=== PATIENT | female | born 1945 | race Hispanic/Latino ===

== ENCOUNTER 2017-02-23 17:37 | Inpatient (IN) | payer MEDICARE ==
[2017-02-23] MEDS ORDERED: Azithromycin 500 MG VIAL ONE (18:22)
[2017-02-23 18:28] LABS: #Eosinphils 0.5 thou/uL (0.0-0.7); #Lymphocytes 1.6 thou/uL (1.20-3.40); #Monocytes 0.6 thou/uL (0.11-0.59); %Basophils 0.3 % (0.0-1.0); %Lymphocytes 12.8 % (21.0-51.0); %Monocytes 4.4 % (0.0-10.0); Hematocrit 44.7 % (36.0-47.0); Mean Platelet Volume 6.4 fL (7.4-10.4); Red Blood Cell (RBC) Count 4.66 mill/uL (4.20-5.40); White Blood Cell (WBC) Count 12.7 thou/uL (4.8-10.8)
[2017-02-23] MEDS ORDERED: cefTRIAXone\\ROCEPHIN 2 GM in Sodium Chloride 0.9% 100 ML IVPB SCH (18:30)
[2017-02-23 18:46] LABS: Lactic Acid - Sepsis 2.9 mmol/L (0.5-2.2)
[2017-02-23 18:50] LABS: ALT (SGPT) 15 U/L (8-55); AST (SGOT) 39 U/L (5-34); Alkaline Phosphatase 79 U/L (40-150); Anion Gap 17 mmol/L (10-20); BUN (Urea Nitrogen) 33 mg/dL (9.8-20.1); Calc. Creatinine Clearance 0 mL/min (70-130); Calcium 9.8 mg/dL (7.8-10.44); Carbon Dioxide 23 mmol/L (23-31); Chloride 95 mmol/L (98-107); Estimated GFR-MDRD 44; Globulin 6.9 g/dL (2.4-3.5)
[2017-02-23 19:03] LABS: Troponin I 0.028 ng/mL (< 0.028)
[2017-02-23 20:26] LABS: Bilirubin Negative (Negative); Blood, Urine Trace (Negative); Glucose, Urine (Dipstick) Negative (Negative); Ketone, Urine 15 mg/dL (Negative); Nitrite Negative (Negative); Protein, Urine (Dipstick) 30 mg/dL (Neg-Trace)
[2017-02-23 20:35] LABS: Bacteria/HPF None Seen HPF (None Seen); Hyaline Casts/LPF 0-3 HYALINE CAST LPF (0-3 Hyaline); RBC/HPF 0-3 HPF (0-3); Squamous Epithelial 0-3 HPF (0-3); WBC/HPF 0-3 HPF (0-3)
--- NOTE | 2017-02-23 21:05 | RAD ---
CHEST ONE VIEW 02/23/17 HISTORY: Sepsis. COMPARISON: CT from 2009. FINDINGS: There are extensive interstitial opacities throughout the lungs with the basilar predominance. There is also left lower lobe air space consolidation. No pneumothorax. The cardiac silhouette is obscured. IMPRESSION: 1. Diffuse abnormal interstitial opacities throughout the lungs can be seen with pulmonary fibro sis, atypical infection or edema. Followup recommended. 2. Cardiomegaly. 3. Left lower lobe air space consolidation. POS: [facility]
[2017-02-23] MEDS ORDERED: Sodium Chloride 0.9% 1,000 ML IV SCH (21:21)
[2017-02-23] MEDS ORDERED: Acetaminophen 325 MG TAB PO PRN (21:21)
--- NOTE | 2017-02-23 21:39 | PDOC.EVN ---
Event Note - Event Note Event Note: [id number] 1. Pneumonia 2. HTN 3. IDDM type 2 plan: see orders
[2017-02-23] MEDS ORDERED: Dextrose 5% in Water 1,000 ML IV PRN (21:57)
[2017-02-23] MEDS ORDERED: Dextrose 50% Abboject 50 ML SYRINGE SLOW IVP PRN (21:57)
[2017-02-23] MEDS ORDERED: cefTRIAXone\\ROCEPHIN 1 GM in Sodium Chloride 0.9% 100 ML IVPB SCH (22:00)
[2017-02-23] MEDS: Azithromycin 500 MG in Sodium Chloride 0.9% 250 ML 250 ML IVPB SCH (22:25)
[2017-02-23] MEDS: Ondansetron HCl/PF 4 MG/2 ML Vial IVP PRN (22:59)
[2017-02-23] MEDS: traMADol HCl 50 MG TAB PO PRN (23:00)
[2017-02-23] MEDS: Sodium Chloride 0.9% 1,000 ML IV SCH (23:01)
--- NOTE | 2017-02-23 23:35 | CT ---
CT CHEST WITHOUT CONTRAST 02/23/17 HISTORY: Pneumonia. COMPARISON: Chest radiograph same day. CT chest 2009. FINDINGS: There is abnormal opacification of both lower lobes. This is superimposed upon interstitial fibrosis. There is some nodularity in the right middle lobe peripherally as well as in the left upper lobe. Li cayla reactive pretracheal and AP window lymph nodes. No pericardial effusion. There are extensive merlin cifications of the superior mesenteric artery. Hyperdensity is present at the posterior cortex left k idney measuring fluid attenuation. There is a calculus in the left renal pelvis. No displaced rib fracture. Moderate to severe degenerative changes of the right shoulder. IMPRESSION: 1. Multifocal bibasilar pneumonia superimposed on fibrotic changes. Followup recommended. 2. Nodularity of the right lower lobe peripherally, series 9, image 34 measuring up to 9 mm and within the left upper lobe series 9, image 16 measuring also 9 mm. Close attention on followup imagin g is recommended. It is unsure if this is a pulmonary nodule or other confluence of infection. POS: SOHAN
[2017-02-24] MEDS ORDERED: Metoprolol Tartrate 25 MG TAB PO SCH (03:00)
[2017-02-24] MEDS: Acetaminophen 325 MG TAB PO PRN ×3 (03:43→22:07)
[2017-02-24] MEDS: Benzonatate 100 MG CAP PO PRN ×2 (03:43→12:17)
[2017-02-24 05:24] LABS: #Basophils 0.1 thou/uL (0.0-0.2); #Eosinphils 0.4 thou/uL (0.0-0.7); #Lymphocytes 1.2 thou/uL (1.20-3.40); #Monocytes 0.5 thou/uL (0.11-0.59); #Neutrophils 7.3 thou/uL (1.40-6.50); %Basophils 0.6 % (0.0-1.0); %Eosinophils 4.5 % (0.0-10.0); %Lymphocytes 12.3 % (21.0-51.0); %Monocytes 4.9 % (0.0-10.0); Hematocrit 34.3 % (36.0-47.0); Mean Platelet Volume 6.3 fL (7.4-10.4); Red Blood Cell (RBC) Count 3.62 mill/uL (4.20-5.40); White Blood Cell (WBC) Count 9.4 thou/uL (4.8-10.8)
[2017-02-24 05:30] LABS: Anion Gap 10 mmol/L (10-20); BUN (Urea Nitrogen) 20 mg/dL (9.8-20.1); Calc. Creatinine Clearance 2 mL/min (70-130); Calcium 8.2 mg/dL (7.8-10.44); Carbon Dioxide 24 mmol/L (23-31); Chloride 102 mmol/L (98-107); Estimated GFR-MDRD 72
--- NOTE | 2017-02-24 06:20 | HP ---
DATE OF ADMISSION: 02/23/2017 CHIEF COMPLAINT: Cough and sputum production. HISTORY OF PRESENT ILLNESS: The patient is 71 years old female with past medical history of hypertension, insulin-dependent diabetes type 2, rheumatoid arthritis, now came to the ER complaining of cough and sputum production and chest congestion. The patient's symptoms started approximately 1 week back, cough with sputum production, sputum was green in color, complaints of some chills, complaints of low grade fever also. The patient's dyspnea persisted, so she came to the ER. The patient was started on Z-CHAYO as an outpatient, but did not take it until yesterday, but symptoms got worse today. Denies any chest pain. Denies any palpations. Denies any nausea and vomiting. Three episodes of coughing. Denies any other complaints at this time. Denies sick contacts. PAST MEDICAL HISTORY: Hypertension, insulin dependent diabetes mellitus type, rheumatoid arthritis. PAST SURGICAL HISTORY: Cholecystectomy, partial hysterectomy, tubal ligation. SOCIAL HISTORY: Denies smoking, denies alcohol, and denies any drugs. FAMILY HISTORY: Mother has colon cancer. ALLERGIES: No known drug allergies. REVIEW OF SYSTEMS: Constitutional: Positive for fever and chills. Eyes: Denies any vision problems. Ears: Denies any hearing loss. Neck: Denies any neck pain. Cardiovascular System: Denies any chest pain. Denies any palpitations. Respiratory system: Denies dyspnea, positive cough, positive sputum production. GI: Denies nausea or vomiting, denies abdominal pain. 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 Psych: Denies depression, denies anxiety. All other review of systems are reviewed and are negative. Physical examination: VS: Reviewed and stable General: Awake, alert and oriented Heent: Anterior nares patent, nose normal Oral cavity: Teeth intact CVS: S1 s2 present, rrr, no murmur, no rubs, no gallop RS: No accessory muscle usage seen, Positive for crackles. Diminished at the bases, no rhonchi, breath sounds present bilaterally. Gastrointestinal: Abdomen is soft, nontender, no guarding, no organomegaly, no masses felt. Musculoskeletal: No edema. Moves all joints Cranial nervous system: Awake, follows commands. Strength intact, sensory intact. Psychiatric: Mood is appropriate at this time. Integumentary: No rashes seen. : No suprapubic or inguinal tenderness LABORATORY DATA: At the time of H and P performed, white count 12.7, hemoglobin 15.1, platelet count is 283. BMP showed sodium 130, potassium 4.2, chloride 95, CO2 of 23, BUN of 33, creatinine 1.19, glucose 222. Lactic acid 2.9, troponin 0.028. Serum total protein 10, albumin 3.1. Urinalysis specific gravity 1.017, protein 30, ketones 15. ASSESSMENT AND PLAN: The patient is 71 years old female. 1. Pneumonia. Plan to start the patient on broad spectrum antibiotics. Plan to monitor the patient closely. Plan to consult Pulmonary and ID to evaluate the patient. We will follow the patient. 2. History of hypertension. Monitor blood pressure. Continue home blood pressure medications. 3. History of insulin independent diabetes mellitus type 2. Monitor blood sugars. We will do insulin sliding scale. 4. Hyponatremia. Mild. Plant to start IV fluids, repeat BMP in a.m. The case was discussed in detail with the patient. The patient is FULL CODE. MTDD
[2017-02-24] MEDS ORDERED: Aspirin 81 mg Enteric Coated Tablet PO SCH ×2 (09:20→10:15)
[2017-02-24] MEDS ORDERED: guaiFENesin/Dextromethorphan 10 ML UDCUP PO PRN (10:32)
[2017-02-24] MEDS ORDERED: guaiFENesin ER 600 MG TAB PO SCH ×2 (10:34→11:00)
[2017-02-24] MEDS: Enoxaparin Sodium 40 MG/0.4 ML SYRINGE SC SCH (10:50)
[2017-02-24] MEDS: Metoprolol Tartrate 25 MG TAB PO SCH ×2 (10:50→22:09)
--- NOTE | 2017-02-24 10:50 | CON ---
DATE OF CONSULTATION: 02/24/2017 CONSULTING PHYSICIAN: Dr. Mcelroy. REASON FOR CONSULTATION: Pneumonia. HISTORY OF PRESENT ILLNESS: Ms. Lopez is a 71-year-old female, who was hospitalized last night with a 3-week history of cough and sputum production. She has bilateral basilar pneumonia. Peter martínez says she has no history of lung conditions in the past. She has had some subjective fever and chil ls. She has not coughed up any blood. PAST MEDICAL HISTORY: 1. Hypertension. 2. Diabetes mellitus, type 2. PAST SURGICAL HISTORY: 1. Cholecystectomy. 2. Hysterectomy. 3. Tubal ligation. SOCIAL HISTORY: Lifetime nonsmoker, does not consume alcohol, does not use illicit drugs. FAMILY MEDICAL HISTORY: Remarkable for colon cancer. ALLERGIES: None. MEDICATIONS: Prior to admission, omeprazole 10 mg daily, Zithromax 250 mg daily, aspirin 81 mg daily , tramadol 50 mg every 6 hours as needed, NPH insulin 20 units in the morning and 15 units in the carmina janie, Mobic 15 mg daily, hydrochlorothiazide 25 mg daily. REVIEW OF SYSTEMS: Constitutional: She has had some subjective fever. Gastrointestinal: No nausea or vomiting. No hematemesis, melena, hematochezia. Genitourinary: No hematuria or dysuria. PHYSICAL EXAMINATION: VITAL SIGNS: Temperature 98.4, pulse 107, respirations 20, O2 sat 96% on 2 liters, blood pressure 14 3/64. GENERAL: Most notable physical finding is persistent coughing. HEENT EXAM: Unremarkable. NECK: No JVD. CHEST: Inspiratory crackles at both bases. CARDIOVASCULAR: S1, S2, slightly tachycardic. No murmur. ABDOMEN: Soft and nontender. EXTREMITIES: Without clubbing, cyanosis, or edema. NEUROLOGIC EXAM: Nonfocal. SKIN: Demonstrates no lesions. LABORATORY DATA: White blood cell count 9.4, hematocrit 34.3, platelet count 220, sodium 132, potass ium 3.7, chloride 102, CO2 of 24, BUN 20, creatinine 0.7, glucose 216. ASSESSMENT: 1. Community-acquired pneumonia. Chest x-ray shows bilateral basilar infiltrates. 2. Underlying diabetes mellitus. 3. Underlying hypertension. PLAN: 1. Agree with current antibiotics including the ceftriaxone and Zithromax. 2. IV fluids. 3. Antitussive medication as needed. Thank you for the referral. I will be happy to follow with you.
[2017-02-24] MEDS: cloNIDine 0.1 MG TAB PO PRN (12:17)
[2017-02-24] MEDS: traMADol HCl 50 MG TAB PO PRN ×2 (12:18→22:07)
[2017-02-24] MEDS: HumaLOG 300 UNITS/3 ML VIAL SC PRN ×2 (12:47→18:08)
--- NOTE | 2017-02-24 15:04 | PDOC.PN ---
- Subjective Encounter Start Date: 02/24/17 Encounter Start Time: 15:03 Subjective: feels bad.cough,malaise.no chest pain/sob - Objective MAR Reviewed: Yes Vital Signs & Weight: Vital Signs (12 hours) Temp Pulse Resp BP BP BP Pulse Ox 02/24/17 14:35 82 16 92 L 02/24/17 13:44 105 H 112/55 L 02/24/17 12:17 203/84 H 02/24/17 11:52 101.5 F H 115 H 20 203/82 H 91 L 02/24/17 10:38 83 16 94 L 02/24/17 08:00 98.4 F 107 H 20 143/64 H 92 L 02/24/17 07:03 94 L 02/24/17 07:01 88 16 94 L 02/24/17 06:14 79 20 157/70 H Weight Admit Weight 142 lb 8 oz Weight 142 lb 8 oz I&O: 02/23/17 02/24/17 02/25/17 06:59 06:59 06:59 Intake Total 732 Output Total 750 Balance -18 Result Diagrams: 02/24/17 04:50 02/24/17 04:50 Additional Labs: Accuchecks 02/24/17 02/24/17 11:29 06:18 POC Glucose 231 H 190 H Microbiology 02/23/17 19:50 Nasopharyngeal swab Influenza Types A,B Direct EIA - Final 02/23/17 19:48 Urine voided Urine Culture - Preliminary NO GROWTH AT 24 HOURS 02/23/17 18:05 Venous blood - Right Arm Blood Culture - Preliminary Specimen has been received and culture in progress. No Growth to date. 02/23/17 18:05 Venous blood - Left Arm Blood Culture - Preliminary Specimen has been received and culture in progress. No Growth to date. Laboratory Tests 02/23/17 02/23/17 02/23/17 18:05 18:05 18:05 WBC 12.7 H Creatinine 1.19 H Lactic Acid 2.9 H Troponin I B-Natriuretic Peptide 02/23/17 02/23/17 02/23/17 18:05 18:05 21:53 WBC Creatinine Lactic Acid 1.3 Troponin I 0.028 B-Natriuretic Peptide 42.3 02/24/17 02/24/17 04:50 04:50 WBC 9.4 Creatinine 0.78 Lactic Acid Troponin I B-Natriuretic Peptide Phys Exam - Physical Examination Constitutional: NAD ill looking HEENT: PERRLA, moist MMs, sclera anicteric, oral pharynx no lesions Neck: no nodes, no JVD, supple, full ROM Respiratory: no wheezing, no rhonchi, clear to auscultation bilateral decreased at bases Cardiovascular: RRR, no significant murmur, no rub, gallop Gastrointestinal: soft, non-tender, no distention, positive bowel sounds Musculoskeletal: no edema, pulses present Neurological: non-focal, normal sensation, moves all 4 limbs Psychiatric: normal affect, A&O x 3 Skin: no rash Dx/Plan (1) PNA (pneumonia) Code(s): J18.9 - PNEUMONIA, UNSPECIFIED ORGANISM Status: Acute (2) Sepsis Code(s): A41.9 - SEPSIS, UNSPECIFIED ORGANISM Status: Acute (3) HTN (hypertension) Code(s): I10 - ESSENTIAL (PRIMARY) HYPERTENSION Status: Acute (4) DM2 (diabetes mellitus, type 2) Status: Acute (5) Non compliance w medication regimen Code(s): Z91.14 - PATIENT'S OTHER NONCOMPLIANCE WITH MEDICATION REGIMEN Status : Acute (6) Rheumatoid arthritis Code(s): M06.9 - RHEUMATOID ARTHRITIS, UNSPECIFIED Status: Acute - Plan DVT proph w/SCDs cont supportive care. IV ABx,IVF.follow Cx results. -: appreciate PCCM input. -: cont demetrice emeds. -: BP uncontrolled w tachycardia.started on BB.continue. -: counselled about compliance w meds. * .am labs. Review of Systems - Review of Systems Constitutional: Weakness, Malaise. negative: Fever, Chills, Sweats, Other Respiratory: Cough, SOB with Excertion. negative: Dry, Shortness of Breath, Hemoptysis, Pleuritic Pain, Sputum, Wheezing Cardiovascular: negative: Chest Pain, Palpitations, Orthopnea, Paroxysmal Noc. Dyspnea, Edema, Light Headedness, Other Gastrointestinal: negative: Nausea, Vomiting, Abdominal Pain, Diarrhea, Constipation, Melena, Hematochezia, Other Genitourinary: negative: Dysuria, Frequency, Incontinence, Hematuria, Retention , Other Musculoskeletal: negative: Neck Pain, Shoulder Pain, Arm Pain, Back Pain, Hand Pain, Leg Pain, Foot Pain, Other Neurological: negative: Weakness, Numbness, Incoordination, Change in Speech, Confusion, Seizures, Other - Medications/Allergies Allergies/Adverse Reactions: Allergies Allergy/AdvReac Type Severity Reaction Status Date / Time No Known Drug Allergies Allergy Verified 02/23/17 21:57 Medications: Current Medications Acetaminophen (Tylenol) 650 mg PO Q4H PRN PRN Reason: Headache/Fever or Pain Last Admin: 02/24/17 12:21 Dose: 650 mg Albuterol/Ipratropium (Duoneb) 3 ml IPPB [id number] [facility] Last Admin: 02/24/17 14:35 Dose: 3 ml Aspirin (Ecotrin) 81 mg PO DAILY [facility] Benzonatate (Tessalon) 100 mg PO Q8H PRN PRN Reason: Cough Last Admin: 02/24/17 12:17 Dose: 100 mg Clonidine (Catapres) 0.1 mg PO Q6H PRN PRN Reason: SBP GREATER THAN 160 Last Admin: 02/24/17 12:17 Dose: 0.1 mg Dextrose/Water (Dextrose 50%) 25 gm SLOW IVP PRN PRN PRN Reason: Hypoglycemia Enoxaparin Sodium (Lovenox) 40 mg SC 0900 [facility] Last Admin: 02/24/17 10:50 Dose: 40 mg Glucagon (Glucagon) 1 mg IM PRN PRN PRN Reason: Hypoglycemia Guaifenesin (Mucinex) 1,200 mg PO Q12HR [facility] Guaifenesin/Codeine Phosphate (Robitussin Ac) 10 ml PO Q6H PRN PRN Reason: Cough Guaifenesin/Dextromethorphan (Robitussin Dm) 10 ml PO Q6H PRN PRN Reason: Cough Hydralazine HCl (Apresoline) 10 mg SLOW IVP Q4H PRN PRN Reason: FOR SBP>180 Azithromycin 500 mg/ Sodium (Chloride) 250 mls @ 250 mls/hr IVPB Q24HR [facility] Last Admin: 02/23/17 22:25 Dose: Not Given Dextrose/Water (D5w) 1,000 mls @ 0 mls/hr IV .Q0M PRN; As Directed PRN Reason: Hypoglycemia Ceftriaxone Sodium 1 gm/ (Syringe 0.4 ml/ Sterile Water) 10 mls @ 120 mls/hr SLOW IVP 1830 CORRY Sodium Chloride (Normal Saline 0.9%) 1,000 mls @ 0 mls/hr IV .Q0M CORRY PRN Reason: KVO Last Admin: 02/23/17 23:01 Dose: 1,000 mls Insulin Human Lispro (Humalog) 0 units SC .MODERATE SLIDING SC PRN PRN Reason: Moderate Correctional Scale Last Admin: 02/24/17 12:47 Dose: 4 unit Insulin Human Lispro (Humalog) 0 units SC .BEDTIME SLIDING SC PRN PRN Reason: Bedtime Correctional Scale Metoprolol Tartrate (Lopressor) 25 mg PO BID [facility] Last Admin: 02/24/17 10:50 Dose: 25 mg Ondansetron HCl (Zofran) 4 mg IVP Q6H PRN PRN Reason: Nausea/Vomiting Last Admin: 02/23/17 22:59 Dose: 4 mg Pantoprazole Sodium (Protonix) 40 mg PO DAILY [facility] Tramadol HCl (Ultram) 50 mg PO Q6H PRN PRN Reason: Pain 4-6 Last Admin: 02/24/17 12:18 Dose: 50 mg
[2017-02-24] MEDS: Ondansetron HCl/PF 4 MG/2 ML Vial IVP PRN (18:23)
[2017-02-24] MEDS ORDERED: CEFAZOLIN 1 GM, Syringe 2.5 ML in Sterile Water 7.5 ML SLOW IVP SCH (18:30)
[2017-02-24] MEDS ORDERED: cefTRIAXone\\ROCEPHIN 1 GM, Syringe 0.4 ML in Sterile Water 9.6 ML SLOW IVP SCH (18:30)
[2017-02-24] MEDS: Azithromycin 500 MG in Sodium Chloride 0.9% 250 ML 250 ML IVPB SCH (22:05)
[2017-02-24] MEDS: guaiFENesin ER 600 MG TAB PO SCH (22:06)
[2017-02-24] MEDS: guaiFENesin/Codeine Phosphate 200 mg/20 mg 10 ml UD Cup PO PRN (22:11)
[2017-02-24] MEDS: Sodium Chloride 0.9% 1,000 ML IV SCH (22:14)
[2017-02-25 04:47] LABS: #Eosinphils 0.1 thou/uL (0.0-0.7); #Lymphocytes 1.4 thou/uL (1.20-3.40); #Monocytes 0.3 thou/uL (0.11-0.59); #Neutrophils 9.7 thou/uL (1.40-6.50); %Basophils 0.3 % (0.0-1.0); %Eosinophils 0.9 % (0.0-10.0); %Lymphocytes 12.5 % (21.0-51.0); %Monocytes 2.5 % (0.0-10.0); Hematocrit 34.9 % (36.0-47.0); Mean Platelet Volume 6.5 fL (7.4-10.4); Red Blood Cell (RBC) Count 3.59 mill/uL (4.20-5.40); White Blood Cell (WBC) Count 11.5 thou/uL (4.8-10.8)
[2017-02-25 05:06] LABS: Anion Gap 10 mmol/L (10-20); BUN (Urea Nitrogen) 18 mg/dL (9.8-20.1); Calc. Creatinine Clearance 65 mL/min (70-130); Calcium 8.4 mg/dL (7.8-10.44); Carbon Dioxide 25 mmol/L (23-31); Chloride 103 mmol/L (98-107); Estimated GFR-MDRD 71
[2017-02-25] MEDS ORDERED: traMADol HCl 50 MG TAB PO PRN (07:07)
[2017-02-25] MEDS: guaiFENesin/Codeine Phosphate 200 mg/20 mg 10 ml UD Cup PO PRN (07:08)
--- NOTE | 2017-02-25 07:53 | PQF ---
CLINICAL DOCUMENTATION IMPROVEMENT CLARIFICATION FORM: ICD-10 Updated PLEASE DO AN ADDENDUM TO THE PROGRESS NOTE WITH ANY DOCUMENTATION UPDATES OR ADDITIONS AND CARRY THROUGH TO DC SUMMARY. THANK YOU. DATE: 02/25 ATTN: DR. ROBERT SKY Please exercise your independent, professional judgment in responding to the clarification form. Clinical indicators are provided on the bottom of this form for your review Please check appropriate box(s): [ x ] Acute Renal Failure (ARF) / Acute Kidney Injury (REINALDO) (Please specify associated condition, if applicable) [ ] Other Etiology or underlying conditions related to the diagnosis of ARF/ REINALDO: [ ] Acute on Chronic Renal Failure please specify Stage of CKD [ ] CKD without ARF/REINALDO please specify Stage of CKD [ ] Other diagnosis [ ] Unable to determine For continuity of documentation, please document condition throughout progress notes and discharge summary. Thank You. CLINICAL INDICATORS - SIGNS / SYMPTOMS / LABS BUN: 33 CR: 1.19 GFR: 44 (ON ADMIT, 02/23) 20 0.78 72 (02/24) 18 0.79 71 (02/25) RISK FACTORS: SEPSIS PNEUMONIA HTN DM II TREATMENTS: IVF (NS 02/23 - PRESENT) IV ANTIBIOTICS (ROCEPHIN & AZITHROMYCIN 02/23 - PRESENT) THANK YOU! Adrianne (This form is maintained as a part of the permanent medical record) 2014 [employer]. All Rights Reserved Adrianne Fischer RN, BSN [email or web address] Office: [phone] [facility]
[2017-02-25 07:55] LABS: Oxyhemoglobin 89.1 % (94.0-97.0); Sodium 137 mmol/L (135-148)
[2017-02-25 08:00] LABS: Modified Allen's Test POSITIVE; Vent NO
--- NOTE | 2017-02-25 08:48 | RAD ---
CHEST 1 VIEW: Date: 02/25/17 HISTORY: Sepsis. Respiratory distress. COMPARISON: 02/23/17. FINDINGS: Essentially stable interstitial and alveolar opacities. Stable configuration of the cardiac silhouett e. No pneumothorax or pleural effusion. IMPRESSION: No significant change. POS: [facility]
[2017-02-25] MEDS ORDERED: Non-Formulary Item 1 EACH (Omeprazole Magnesium [Prilosec] 10 MG) PO SCH (09:00)
[2017-02-25] MEDS ORDERED: Metoprolol Tartrate 25 MG TAB PO SCH (09:00)
[2017-02-25] MEDS ORDERED: Insulin NPH/Reg Insulin Hm 300 UNITS/3 ML VIAL SC SCH ×2 (09:00→21:00)
[2017-02-25] MEDS ORDERED: Acetaminophen 650 MG in Premix Bag 1 BAG IVPB PRN (09:08)
[2017-02-25] MEDS: Enoxaparin Sodium 40 MG/0.4 ML SYRINGE SC SCH (09:36)
[2017-02-25] MEDS: Aspirin 81 mg Enteric Coated Tablet PO SCH (09:38)
[2017-02-25] MEDS: cloNIDine 0.1 MG TAB PO PRN (09:38)
[2017-02-25] MEDS: guaiFENesin ER 600 MG TAB PO SCH ×2 (09:38→20:30)
[2017-02-25] MEDS: Metoprolol Tartrate 25 MG TAB PO SCH ×2 (09:39→20:30)
[2017-02-25] MEDS: Sodium Chloride 0.9% 1,000 ML IV SCH (09:40)
--- NOTE | 2017-02-25 09:53 | PDOC.PN ---
- Subjective Encounter Start Date: 02/25/17 Encounter Start Time: 08:45 -: old records requested/rev this morning pt is hypoxic, she is in respiratory distress, last night had SVT, family present bedside - Objective Resuscitation Status: Resuscitation Status FULL:Full Resuscitation MAR Reviewed: Yes Vital Signs & Weight: Vital Signs (12 hours) Temp Pulse Resp BP BP Pulse Ox 02/25/17 09:38 203/84 H 02/25/17 07:35 99.4 F 115 H 30 H 171/74 H 98 02/25/17 07:07 76 L 02/25/17 06:59 82 36 H 02/25/17 04:00 98.0 F 79 20 131/62 97 02/25/17 01:06 96 02/24/17 23:08 88 18 90 L Weight Admit Weight 142 lb 8 oz Weight 142 lb 8 oz I&O: 02/24/17 02/25/17 02/26/17 06:59 06:59 06:59 Intake Total 732 742 Output Total 750 1000 Balance -18 -258 Result Diagrams: 02/25/17 04:17 02/25/17 04:17 Additional Labs: Accuchecks 02/25/17 02/24/17 02/24/17 06:33 20:28 17:02 POC Glucose 171 H 159 H 173 H 02/24/17 11:29 POC Glucose 231 H Radiology Reviewed by me: Yes (chest xray) EKG Reviewed by me: Yes (SVT) Phys Exam - Physical Examination respi distress HEENT: PERRLA, moist MMs, sclera anicteric Neck: no JVD, supple Respiratory: wheezing present basilar rales Cardiovascular: RRR, no significant murmur, no rub tachycardia Gastrointestinal: soft, non-tender, no distention, positive bowel sounds Musculoskeletal: no edema, pulses present Neurological: non-focal, normal sensation Psychiatric: normal affect Skin: no rash, normal turgor Dx/Plan (1) Acute respiratory failure with hypoxia Code(s): J96.01 - ACUTE RESPIRATORY FAILURE WITH HYPOXIA Status: Acute (2) Community acquired bacterial pneumonia Code(s): J15.9 - UNSPECIFIED BACTERIAL PNEUMONIA Status: Acute (3) SVT (supraventricular tachycardia) Code(s): I47.1 - SUPRAVENTRICULAR TACHYCARDIA Status: Acute (4) Sepsis with acute organ dysfunction Code(s): A41.9 - SEPSIS, UNSPECIFIED ORGANISM; R65.20 - SEVERE SEPSIS WITHOUT SEPTIC SHOCK Status: Acute (5) DM2 (diabetes mellitus, type 2) Status: Chronic (6) HTN (hypertension) Code(s): I10 - ESSENTIAL (PRIMARY) HYPERTENSION Status: Chronic (7) Non compliance w medication regimen Code(s): Z91.14 - PATIENT'S OTHER NONCOMPLIANCE WITH MEDICATION REGIMEN Status : Chronic (8) Rheumatoid arthritis Code(s): M06.9 - RHEUMATOID ARTHRITIS, UNSPECIFIED Status: Chronic (9) Acute kidney injury Code(s): N17.9 - ACUTE KIDNEY FAILURE, UNSPECIFIED Status: Resolved (10) Hyponatremia Code(s): E87.1 - HYPO-OSMOLALITY AND HYPONATREMIA Status: Resolved (11) Lactic acidosis Code(s): E87.2 - ACIDOSIS Status: Resolved - Plan cont current plan of care, plan discussed w/ family, continue antibiotics, respiratory therapy * transfer to CCU * ABG and chest xray reviewed * will need bipap * change IV antibiotics to levaquin and Zosyn * add solumderol * continue selected home medication. * medication reviewed as below * symptomatic treatment * discussed with family bedside * will closely monitor in CCU. * get echo and consult cardiology for SVT * continue meroprolol * add florastor Review of Systems - Review of Systems Constitutional: Weakness. negative: Fever, Chills, Sweats, Malaise, Other ENT: negative: Ear Pain, Ear Discharge, Nose Pain, Nose Discharge, Nose Congestion, Mouth Pain, Mouth Swelling, Throat Pain, Throat Swelling, Other Respiratory: Cough, Shortness of Breath, SOB with Excertion. negative: Dry, Hemoptysis, Pleuritic Pain, Sputum, Wheezing Cardiovascular: Palpitations. negative: Chest Pain, Orthopnea, Paroxysmal Noc. Dyspnea, Edema, Light Headedness, Other Gastrointestinal: negative: Nausea, Vomiting, Abdominal Pain, Diarrhea, Constipation, Melena, Hematochezia, Other Genitourinary: negative: Dysuria, Frequency, Incontinence, Hematuria, Retention , Other Musculoskeletal: negative: Neck Pain, Shoulder Pain, Arm Pain, Back Pain, Hand Pain, Leg Pain, Foot Pain, Other - Medications/Allergies Allergies/Adverse Reactions: Allergies Allergy/AdvReac Type Severity Reaction Status Date / Time No Known Drug Allergies Allergy Verified 02/23/17 21:57 Medications: Current Medications Acetaminophen (Tylenol) 650 mg PO Q4H PRN PRN Reason: Headache/Fever or Pain Albuterol/Ipratropium (Duoneb) 3 ml IPPB [id number] [facility] Last Admin: 02/25/17 06:59 Dose: 3 ml Aspirin (Ecotrin) 81 mg PO DAILY [facility] Last Admin: 02/25/17 09:38 Dose: 81 mg Benzonatate (Tessalon) 100 mg PO Q8H PRN PRN Reason: Cough Last Admin: 02/24/17 12:17 Dose: 100 mg Clonidine (Catapres) 0.1 mg PO Q6H PRN PRN Reason: SBP GREATER THAN 160 Last Admin: 02/25/17 09:38 Dose: 0.1 mg Dextrose/Water (Dextrose 50%) 25 gm SLOW IVP PRN PRN PRN Reason: Hypoglycemia Enoxaparin Sodium (Lovenox) 40 mg SC 0900 [facility] Last Admin: 02/25/17 09:36 Dose: 40 mg Glucagon (Glucagon) 1 mg IM PRN PRN PRN Reason: Hypoglycemia Guaifenesin (Mucinex) 1,200 mg PO Q12HR [facility] Last Admin: 02/25/17 09:38 Dose: 1,200 mg Guaifenesin/Codeine Phosphate (Robitussin Ac) 10 ml PO Q6H PRN PRN Reason: Cough Last Admin: 02/25/17 07:08 Dose: 10 ml Guaifenesin/Dextromethorphan (Robitussin Dm) 10 ml PO Q6H PRN PRN Reason: Cough Hydralazine HCl (Apresoline) 10 mg SLOW IVP Q4H PRN PRN Reason: FOR SBP>180 Dextrose/Water (D5w) 1,000 mls @ 0 mls/hr IV .Q0M PRN; As Directed PRN Reason: Hypoglycemia Sodium Chloride (Normal Saline 0.9%) 1,000 mls @ 0 mls/hr IV .Q0M CORRY PRN Reason: KVO Last Admin: 02/25/17 09:40 Dose: 1,000 mls Levofloxacin 750 mg/ Device 150 mls @ 100 mls/hr IVPB 1000 CORRY Last Admin: 02/25/17 09:37 Dose: 150 mls Piperacillin Sod/Tazobactam (Sod 3.375 gm/ Sodium Chloride) 100 mls @ 200 mls/ hr IVPB Q6HR [facility] Acetaminophen 650 mg/ Device 65 mls @ 400 mls/hr IVPB Q6H PRN PRN Reason: Fever > 101 Stop: 02/26/17 09:09 Last Admin: 02/25/17 09:35 Dose: 65 mls Insulin Human Isoph/Insulin Regular (Humulin 70/30) 15 units SC HS CORRY Insulin Human Isoph/Insulin Regular (Humulin 70/30) 20 units SC QAM CORRY Insulin Human Lispro (Humalog) 0 units SC .MODERATE SLIDING SC PRN PRN Reason: Moderate Correctional Scale Last Admin: 02/24/17 18:08 Dose: 2 unit Insulin Human Lispro (Humalog) 0 units SC .BEDTIME SLIDING SC PRN PRN Reason: Bedtime Correctional Scale Methylprednisolone Sodium Succinate (Solu-Medrol) 40 mg IVP Q6HR [facility] Metoprolol Tartrate (Lopressor) 25 mg PO BID [facility] Last Admin: 02/25/17 09:39 Dose: 25 mg Ondansetron HCl (Zofran) 4 mg IVP Q6H PRN PRN Reason: Nausea/Vomiting Last Admin: 02/24/17 18:23 Dose: 4 mg Pantoprazole Sodium (Protonix) 40 mg PO DAILY [facility] Last Admin: 02/25/17 09:38 Dose: 40 mg Sodium Chloride (Flush - Normal Saline) 10 ml IVF Q12HR [facility] Sodium Chloride (Flush - Normal Saline) 10 ml IVF PRN PRN PRN Reason: Saline Flush Tramadol HCl (Ultram) 50 mg PO Q6H PRN PRN Reason: Pain 4-6 Last Admin: 02/24/17 22:07 Dose: 50 mg Tramadol HCl (Ultram) 50 mg PO Q6H PRN PRN Reason: Pain
[2017-02-25] MEDS: Ondansetron HCl/PF 4 MG/2 ML Vial IVP PRN (09:55)
[2017-02-25] MEDS: Insulin NPH/Reg Insulin Hm 300 UNITS/3 ML VIAL SC SCH ×2 (10:52→20:31)
[2017-02-25] MEDS: HumaLOG 300 UNITS/3 ML VIAL SC PRN ×3 (11:06→21:46)
[2017-02-25] MEDS: Piperacillin/Tazobactam 3.375 GM in Sodium Chloride 0.9% 100 ML IVPB SCH ×2 (11:07→17:29)
--- NOTE | 2017-02-25 11:16 | PRG ---
DATE OF SERVICE: 02/25/2017 Thirty-five minutes critical care time. SUBJECTIVE: The patient was transferred to the CCU, because of progressive hypoxemia. She has been placed on BiPAP. PHYSICAL EXAMINATION: VITAL SIGNS: On exam, her temperature is 99.4, pulse 115, respirations 30, O2 sat 98% on 10 liters w ith 76% on 4 liters, blood pressure currently 204/72. HEENT: Unremarkable. NECK: No JVD. LUNGS: Inspiratory crackles bilaterally. CARDIOVASCULAR: S1 and S2, tachycardic. ABDOMEN: Soft. EXTREMITIES: No edema. LABORATORY DATA: White blood cell count 11.5, hematocrit 34.9, platelet count 217. PH 7.42, pCO2 of 37, pO2 of 57 on 50% Ventimask. Sodium 134, potassium 3.9, chloride 103, CO2 of 25, BUN 18, creatin ine 0.7, glucose 182. ASSESSMENT: 1. Community-acquired pneumonia, bilateral. It has become apparent that the patient did not take an tibiotics that were prescribed last week for this condition. 2. Acute hypoxic respiratory failure. PLAN: 1. BiPAP therapy. 2. Extend antibiotic coverage. 3. Add IV steroids. 4. Her antihypertensives for blood pressure. 5. Insulin for diabetes control. 6. Enoxaparin for DVT prophylaxis. 7. Protonix for GI prophylaxis.
[2017-02-25] MEDS ORDERED: Saccharomyces boulardii 250 MG CAP PO SCH (11:30)
[2017-02-25] MEDS: Nystatin 500,000 UNITS/5 ML UDCUP SSW SCH (20:30)
--- NOTE | 2017-02-25 21:40 | CON ---
DATE OF CONSULTATION: 02/25/2017 REASON FOR CONSULTATION: Supraventricular tachycardia in the setting of respiratory failure. HISTORY OF PRESENT ILLNESS: Ms. Lopez is a pleasant 71-year-old woman. She was admitted to the [facility] on 02/23/2017 with cough, sputum production, and low grade fever. She had worsening of her br eathing trouble last night and was brought to the intensive care unit. She was briefly on CPAP. She also had some supraventricular tachycardia, which was successfully treated. She is feeling better n ow. No previous cardiac history per the patient. PAST MEDICAL HISTORY: Hypertension, apparently not taking any medications and diabetes. PAST SURGICAL HISTORY: Cholecystectomy, hysterectomy and tubal ligation. SOCIAL HISTORY: Lifetime nonsmoker. FAMILY HISTORY: Colon cancer. ALLERGIES: None known. MEDICATIONS: Listed prior to admission, azithromycin, aspirin, tramadol, insulin, Mobic and hydrochl orothiazide. REVIEW OF SYSTEMS: Per the chart the following positive for subjective fever. Gastrointestinal: No nausea, vomiting. Cardiac: No chest pain or pressure now. Pulmonary: Positive for cough. Genito urinary: No hematuria, dysuria. Skin: No rashes. Neurologic: No unilateral weakness or numbness. Psychiatric: No unusual depression or anxiety. PHYSICAL EXAMINATION: GENERAL: This is a pleasant elderly woman, in no distress. VITAL SIGNS: Blood pressure now is 110/47, pulse 90, but earlier her blood pressure was 200 systolic . HEENT: Eyes: Sclerae nonicteric. Mouth mucous membranes are moist. NECK: Supple, no lymphadenopathy. LUNGS: Clear. No wheezing, rales or rhonchi. CARDIOVASCULAR: Normal S1, normal S2. There is no murmur, rub or gallop. ABDOMEN: Soft, nontender, no hepatosplenomegaly. EXTREMITIES: Warm and dry. No clubbing, no cyanosis. There is no edema. LABORATORY AND X-RAY FINDINGS: EKG during the tachycardia, she had a narrow complex tachycardia, rat e of 170, looks like AV kelley reentry SVT, now she is sinus rhythm. EKG on 02/23/2017 showed left ve ntricular hypertrophy and sinus tachycardia. ASSESSMENT: 1. Supraventricular tachycardia. 2. Respiratory failure, currently improved. 3. Hypertension. 4. Acidosis. PLAN: 1. Echocardiogram. 2. Beta blockers. 3. P.r.n. Cardizem. I will be glad to follow with you. Ultimately, if she has recurrent SVT, ablation could be considere d, but for now would treat medically.
[2017-02-26] MEDS: Piperacillin/Tazobactam 3.375 GM in Sodium Chloride 0.9% 100 ML IVPB SCH ×5 (00:24→23:23)
[2017-02-26 04:51] LABS: #Lymphocytes 0.8 thou/uL (1.20-3.40); #Monocytes 0.2 thou/uL (0.11-0.59); %Eosinophils 0.1 % (0.0-10.0); %Lymphocytes 6.1 % (21.0-51.0); %Monocytes 1.1 % (0.0-10.0); Mean Platelet Volume 6.6 fL (7.4-10.4); Red Blood Cell (RBC) Count 3.53 mill/uL (4.20-5.40); White Blood Cell (WBC) Count 12.9 thou/uL (4.8-10.8)
[2017-02-26 05:02] LABS: Anion Gap 8 mmol/L (10-20); BUN (Urea Nitrogen) 23 mg/dL (9.8-20.1); Calc. Creatinine Clearance 64 mL/min (70-130); Calcium 8.7 mg/dL (7.8-10.44); Carbon Dioxide 29 mmol/L (23-31); Chloride 101 mmol/L (98-107); Estimated GFR-MDRD 70
[2017-02-26 05:09] LABS: Troponin I 0.021 ng/mL (< 0.028)
[2017-02-26] MEDS: HumaLOG 300 UNITS/3 ML VIAL SC PRN ×4 (05:25→20:31)
[2017-02-26] MEDS: guaiFENesin/Codeine Phosphate 200 mg/20 mg 10 ml UD Cup PO PRN (06:49)
--- NOTE | 2017-02-26 08:24 | PRG ---
DATE OF SERVICE: 02/26/2017 Thirty-five minutes critical care time. The patient remains on BiPAP. She was able to come off intermittently yesterday, but had to sleep wi th it all night last night. She is complaining of some mild lower abdominal pain. She is coughing i ntermittently. PHYSICAL EXAMINATION: VITAL SIGNS: On exam her temperature is 98.2 with a T-max of 101.0, pulse 96, blood pressure 129/62, 24-hour intake 1732, output 1230. HEENT: Unremarkable. NECK: Without adenopathy or JVD. LUNGS: She has a few scattered crackles bilaterally. CARDIOVASCULAR: S1, S2, regular. ABDOMEN: Soft. Very mild tenderness to palpation in the left lower quadrant, but no rebound. EXTREMITIES: No clubbing, cyanosis, or edema. LABORATORY DATA: White blood cell count 12.9, hematocrit 34.0, platelet count 249. Sodium 134, pota ssium 3.6, chloride 101, CO2 29, BUN 23, creatinine 0.8, glucose 226. Chest x-ray continues to show bilateral infiltrates. ASSESSMENT: 1. Community-acquired pneumonia with outpatient treatment failure. 2. Acute hypoxic respiratory failure requiring mechanical ventilation. 3. Supraventricular tachycardia. 4. Hyperglycemia, likely secondary to the steroids. PLAN: 1. Continue BiPAP intermittently. 2. Add insulin for glucose coverage. 3. Continue the IV antibiotics. 4. Leave in ICU.
--- NOTE | 2017-02-26 08:41 | RAD ---
SEMIUPRIGHT FRONTAL CHEST RADIOGRAPH: Date: 02/26/17 COMPARISON: 02/25/17. HISTORY: Respiratory distress. FINDINGS: There is extensive interstitial opacity throughout both lungs with a perihilar and bibasilar predomin ance. There is perihilar and bibasilar alveolar opacity as well, left greater than right. Interstitia l and alveolar opacities are nonspecific and unchanged when compared to the prior exam. IMPRESSION: Stable appearance of the chest as detailed above. POS: OFF
[2017-02-26] MEDS: Enoxaparin Sodium 40 MG/0.4 ML SYRINGE SC SCH (08:50)
[2017-02-26] MEDS: guaiFENesin ER 600 MG TAB PO SCH ×2 (08:51→20:29)
[2017-02-26] MEDS: Metoprolol Tartrate 25 MG TAB PO SCH ×2 (08:51→20:29)
[2017-02-26] MEDS: Aspirin 81 mg Enteric Coated Tablet PO SCH (08:51)
[2017-02-26] MEDS: Saccharomyces boulardii 250 MG CAP PO SCH (08:51)
[2017-02-26] MEDS: Nystatin 500,000 UNITS/5 ML UDCUP SSW SCH ×4 (08:52→20:30)
[2017-02-26] MEDS: Insulin NPH/Reg Insulin Hm 300 UNITS/3 ML VIAL SC SCH ×2 (08:52→20:29)
--- NOTE | 2017-02-26 09:31 | PDOC.PN ---
- Subjective Encounter Start Date: 02/26/17 Encounter Start Time: 08:30 -: old records requested/rev pt is still requiring bipap, last night she was desaturating, has cough, she is weak, no fever - Objective Resuscitation Status: Resuscitation Status FULL:Full Resuscitation MAR Reviewed: Yes Vital Signs & Weight: Vital Signs (12 hours) Temp Pulse Resp Pulse Ox 02/26/17 07:37 98.7 F 103 H 34 H 100 02/26/17 06:49 103 H 34 H 94 L 02/26/17 06:47 103 H 34 H 94 L 02/26/17 04:00 98.2 F 02/26/17 02:29 93 20 98 02/26/17 02:28 92 19 98 02/25/17 23:00 98.0 F 02/25/17 22:19 90 24 H 92 L 02/25/17 22:18 93 24 H 92 L Weight Admit Weight 142 lb 8 oz Weight 142 lb 8 oz Most Recent Monitor Data Heart Rate from ECG 96 NIBP 129/62 NIBP BP-Mean 83 Respiration from ECG 22 SpO2 99 I&O: 02/25/17 02/26/17 02/27/17 06:59 06:59 06:59 Intake Total 742 1732 Output Total 1000 1230 Balance -258 502 Result Diagrams: 02/26/17 03:52 02/26/17 03:52 Additional Labs: Accuchecks 02/25/17 02/25/17 02/25/17 21:43 16:00 11:02 POC Glucose 337 H 236 H 247 H Radiology Reviewed by me: Yes (chest xray) EKG Reviewed by me: Yes (nsr) Phys Exam - Physical Examination Constitutional: NAD HEENT: PERRLA, moist MMs, sclera anicteric Neck: no JVD, supple Respiratory: no wheezing, no rales, no rhonchi reduced air entry at base Cardiovascular: RRR, no significant murmur, no rub Gastrointestinal: soft, non-tender, no distention, positive bowel sounds Musculoskeletal: no edema, pulses present Neurological: non-focal, normal sensation Lymphatic: no nodes Psychiatric: normal affect, A&O x 3 Skin: no rash, normal turgor Dx/Plan (1) Acute respiratory failure with hypoxia Code(s): J96.01 - ACUTE RESPIRATORY FAILURE WITH HYPOXIA Status: Acute (2) Community acquired bacterial pneumonia Code(s): J15.9 - UNSPECIFIED BACTERIAL PNEUMONIA Status: Acute (3) SVT (supraventricular tachycardia) Code(s): I47.1 - SUPRAVENTRICULAR TACHYCARDIA Status: Acute (4) Sepsis with acute organ dysfunction Code(s): A41.9 - SEPSIS, UNSPECIFIED ORGANISM; R65.20 - SEVERE SEPSIS WITHOUT SEPTIC SHOCK Status: Acute (5) DM2 (diabetes mellitus, type 2) Status: Chronic (6) HTN (hypertension) Code(s): I10 - ESSENTIAL (PRIMARY) HYPERTENSION Status: Chronic (7) Non compliance w medication regimen Code(s): Z91.14 - PATIENT'S OTHER NONCOMPLIANCE WITH MEDICATION REGIMEN Status : Chronic (8) Rheumatoid arthritis Code(s): M06.9 - RHEUMATOID ARTHRITIS, UNSPECIFIED Status: Chronic (9) Acute kidney injury Code(s): N17.9 - ACUTE KIDNEY FAILURE, UNSPECIFIED Status: Resolved (10) Hyponatremia Code(s): E87.1 - HYPO-OSMOLALITY AND HYPONATREMIA Status: Resolved (11) Lactic acidosis Code(s): E87.2 - ACIDOSIS Status: Resolved - Plan cont current plan of care, continue antibiotics, respiratory therapy * continue bipap and wean off as tolerated * continue IV antibiotics * medication reviewed as below * symptomatic treatment * will monitor * no more SVT * cardiology and pulmonary following * echo pending. Review of Systems - Review of Systems Constitutional: Weakness. negative: Fever, Chills, Sweats, Malaise, Other Respiratory: Cough, Shortness of Breath, SOB with Excertion. negative: Dry, Hemoptysis, Pleuritic Pain, Sputum, Wheezing Cardiovascular: negative: Chest Pain, Palpitations, Orthopnea, Paroxysmal Noc. Dyspnea, Edema, Light Headedness, Other Gastrointestinal: negative: Nausea, Vomiting, Abdominal Pain, Diarrhea, Constipation, Melena, Hematochezia, Other Genitourinary: negative: Dysuria, Frequency, Incontinence, Hematuria, Retention , Other Musculoskeletal: negative: Neck Pain, Shoulder Pain, Arm Pain, Back Pain, Hand Pain, Leg Pain, Foot Pain, Other Skin: negative: Rash, Lesions, Jose, Bruising, Other - Medications/Allergies Allergies/Adverse Reactions: Allergies Allergy/AdvReac Type Severity Reaction Status Date / Time No Known Drug Allergies Allergy Verified 02/23/17 21:57 Medications: Current Medications Acetaminophen (Tylenol) 650 mg PO Q4H PRN PRN Reason: Headache/Fever or Pain Albuterol/Ipratropium (Duoneb) 3 ml IPPB [id number] [facility] Last Admin: 02/26/17 06:47 Dose: 3 ml Aspirin (Ecotrin) 81 mg PO DAILY [facility] Last Admin: 02/26/17 08:51 Dose: 81 mg Benzonatate (Tessalon) 100 mg PO Q8H PRN PRN Reason: Cough Last Admin: 02/24/17 12:17 Dose: 100 mg Clonidine (Catapres) 0.1 mg PO Q6H PRN PRN Reason: SBP GREATER THAN 160 Last Admin: 02/25/17 09:38 Dose: 0.1 mg Dextrose/Water (Dextrose 50%) 25 gm SLOW IVP PRN PRN PRN Reason: Hypoglycemia Enoxaparin Sodium (Lovenox) 40 mg SC 0900 [facility] Last Admin: 02/26/17 08:50 Dose: 40 mg Glucagon (Glucagon) 1 mg IM PRN PRN PRN Reason: Hypoglycemia Guaifenesin (Mucinex) 1,200 mg PO Q12HR [facility] Last Admin: 02/26/17 08:51 Dose: 1,200 mg Guaifenesin/Codeine Phosphate (Robitussin Ac) 10 ml PO Q6H PRN PRN Reason: Cough Last Admin: 02/26/17 06:49 Dose: 10 ml Guaifenesin/Dextromethorphan (Robitussin Dm) 10 ml PO Q6H PRN PRN Reason: Cough Hydralazine HCl (Apresoline) 10 mg SLOW IVP Q4H PRN PRN Reason: FOR SBP>180 Dextrose/Water (D5w) 1,000 mls @ 0 mls/hr IV .Q0M PRN; As Directed PRN Reason: Hypoglycemia Sodium Chloride (Normal Saline 0.9%) 1,000 mls @ 0 mls/hr IV .Q0M [facility] PRN Reason: KVO Last Admin: 02/25/17 09:40 Dose: 1,000 mls Levofloxacin 750 mg/ Device 150 mls @ 100 mls/hr IVPB 1000 CORRY Last Admin: 02/25/17 09:37 Dose: 150 mls Piperacillin Sod/Tazobactam (Sod 3.375 gm/ Sodium Chloride) 100 mls @ 200 mls/ hr IVPB Q6HR [facility] Last Admin: 02/26/17 05:12 Dose: 100 mls Diltiazem HCl 125 mg/Miscellaneous Medication 1 each/ Sodium Chloride 125 mls @ 10 mls/hr IVPB INF PRN; Protocol PRN Reason: HR >150 X 3 MINUTES Insulin Human Isoph/Insulin Regular (Humulin 70/30) 15 units SC HS [facility] Last Admin: 02/25/17 20:31 Dose: 15 unit Insulin Human Isoph/Insulin Regular (Humulin 70/30) 20 units SC QAM [facility] Last Admin: 02/26/17 08:52 Dose: 20 unit Insulin Human Lispro (Humalog) 0 units SC .MODERATE SLIDING SC PRN PRN Reason: Moderate Correctional Scale Last Admin: 02/26/17 05:25 Dose: 4 unit Insulin Human Lispro (Humalog) 0 units SC .BEDTIME SLIDING SC PRN PRN Reason: Bedtime Correctional Scale Last Admin: 02/25/17 21:46 Dose: 4 unit Methylprednisolone Sodium Succinate (Solu-Medrol) 40 mg IVP Q6HR [facility] Last Admin: 02/26/17 05:12 Dose: 40 mg Metoprolol Tartrate (Lopressor) 25 mg PO BID [facility] Last Admin: 02/26/17 08:51 Dose: 25 mg Nystatin (Mycostatin) 500,000 units SSW QID [facility] Last Admin: 02/26/17 08:52 Dose: 500,000 units Ondansetron HCl (Zofran) 4 mg IVP Q6H PRN PRN Reason: Nausea/Vomiting Last Admin: 02/25/17 09:55 Dose: 4 mg Pantoprazole Sodium (Protonix) 40 mg PO DAILY [facility] Last Admin: 02/26/17 08:51 Dose: 40 mg Saccharomyces Boulardii (Florastor) 250 mg PO DAILY [facility] Last Admin: 02/26/17 08:51 Dose: 250 mg Sodium Chloride (Flush - Normal Saline) 10 ml IVF Q12HR [facility] Last Admin: 02/26/17 08:53 Dose: 10 ml Sodium Chloride (Flush - Normal Saline) 10 ml IVF PRN PRN PRN Reason: Saline Flush Tramadol HCl (Ultram) 50 mg PO Q6H PRN PRN Reason: Pain 4-6 Last Admin: 02/24/17 22:07 Dose: 50 mg Tramadol HCl (Ultram) 50 mg PO Q6H PRN PRN Reason: Pain
[2017-02-26] MEDS: cloNIDine 0.1 MG TAB PO PRN (17:08)
[2017-02-27] MEDS: cloNIDine 0.1 MG TAB PO PRN (01:54)
[2017-02-27] MEDS: Benzonatate 100 MG CAP PO PRN (01:58)
[2017-02-27] MEDS: hydrALAZINE 20 MG/ML VIAL SLOW IVP PRN (04:04)
[2017-02-27 05:32] LABS: #Monocytes 0.3 thou/uL (0.11-0.59); #Neutrophils 12.2 thou/uL (1.40-6.50); %Eosinophils 0.2 % (0.0-10.0); %Lymphocytes 7.5 % (21.0-51.0); %Monocytes 2.1 % (0.0-10.0); Hematocrit 35.5 % (36.0-47.0); Mean Platelet Volume 6.5 fL (7.4-10.4); White Blood Cell (WBC) Count 13.5 thou/uL (4.8-10.8)
[2017-02-27 05:39] LABS: Anion Gap 11 mmol/L (10-20); BUN (Urea Nitrogen) 22 mg/dL (9.8-20.1); Calc. Creatinine Clearance 62 mL/min (70-130); Calcium 8.9 mg/dL (7.8-10.44); Carbon Dioxide 26 mmol/L (23-31); Chloride 102 mmol/L (98-107); Estimated GFR-MDRD 68
[2017-02-27] MEDS: Piperacillin/Tazobactam 3.375 GM in Sodium Chloride 0.9% 100 ML IVPB SCH ×3 (05:56→18:08)
[2017-02-27] MEDS: HumaLOG 300 UNITS/3 ML VIAL SC PRN ×4 (05:56→20:29)
[2017-02-27] MEDS: Enoxaparin Sodium 40 MG/0.4 ML SYRINGE SC SCH (08:23)
[2017-02-27] MEDS: Metoprolol Tartrate 25 MG TAB PO SCH ×2 (08:24→20:28)
[2017-02-27] MEDS: Aspirin 81 mg Enteric Coated Tablet PO SCH (08:24)
[2017-02-27] MEDS: Saccharomyces boulardii 250 MG CAP PO SCH (08:24)
[2017-02-27] MEDS: guaiFENesin ER 600 MG TAB PO SCH ×2 (08:24→20:28)
[2017-02-27] MEDS: Nystatin 500,000 UNITS/5 ML UDCUP SSW SCH ×4 (08:26→20:28)
[2017-02-27] MEDS: Insulin NPH/Reg Insulin Hm 300 UNITS/3 ML VIAL SC SCH ×2 (08:30→20:28)
--- NOTE | 2017-02-27 09:00 | RAD ---
PORTABLE CHEST: COMPARISON: Prior day's study. HISTORY: Respiratory distress. FINDINGS: Heart size is enlarged. The interstitial alveolar lung changes are stable. There is no new process. IMPRESSION: Stable exam. POS: SOHAN
--- NOTE | 2017-02-27 10:11 | PDOC.PN ---
- Subjective Encounter Start Date: 02/27/17 Encounter Start Time: 09:30 pt is doing well, off bipap, has weakness, no fever, has cough, no chest pain Patient seen and examined. No new complaints. No overnight events - Objective Resuscitation Status: Resuscitation Status FULL:Full Resuscitation MAR Reviewed: Yes Vital Signs & Weight: Vital Signs (12 hours) Temp Pulse Resp BP Pulse Ox 02/27/17 08:00 98.9 F 102 H 22 H 88 L 02/27/17 07:27 100 02/27/17 07:25 102 H 22 H 100 02/27/17 04:04 103 H 02/27/17 04:00 98.4 F 02/27/17 02:14 103 H 23 H 95 02/27/17 01:54 176/78 H 02/27/17 00:00 98.0 F 02/26/17 22:21 101 H 26 H 100 Weight Admit Weight 142 lb 8 oz Weight 142 lb 8 oz Most Recent Monitor Data Heart Rate from ECG 100 NIBP 156/60 NIBP BP-Mean 83 Respiration from ECG 32 SpO2 99 I&O: 02/26/17 02/27/17 02/28/17 06:59 06:59 06:59 Intake Total 1732 2118 Output Total 1230 1690 Balance 502 428 Result Diagrams: 02/27/17 04:48 02/27/17 04:48 Additional Labs: Accuchecks 02/26/17 02/26/17 02/26/17 17:06 11:47 05:24 POC Glucose 331 H 201 H 242 H Radiology Reviewed by me: Yes (chest xray) EKG Reviewed by me: Yes (nsr) Phys Exam - Physical Examination Constitutional: NAD HEENT: PERRLA, moist MMs, sclera anicteric Neck: no JVD, supple Respiratory: no wheezing, no rhonchi few basilar rales, redcued air entry Cardiovascular: RRR, no significant murmur, no rub Gastrointestinal: soft, non-tender, no distention, positive bowel sounds Musculoskeletal: no edema, pulses present Neurological: non-focal, normal sensation Lymphatic: no nodes Psychiatric: normal affect, A&O x 3 Skin: no rash, normal turgor Dx/Plan (1) Acute respiratory failure with hypoxia Code(s): J96.01 - ACUTE RESPIRATORY FAILURE WITH HYPOXIA Status: Acute (2) Community acquired bacterial pneumonia Code(s): J15.9 - UNSPECIFIED BACTERIAL PNEUMONIA Status: Acute (3) SVT (supraventricular tachycardia) Code(s): I47.1 - SUPRAVENTRICULAR TACHYCARDIA Status: Acute (4) Sepsis with acute organ dysfunction Code(s): A41.9 - SEPSIS, UNSPECIFIED ORGANISM; R65.20 - SEVERE SEPSIS WITHOUT SEPTIC SHOCK Status: Acute (5) DM2 (diabetes mellitus, type 2) Status: Chronic (6) HTN (hypertension) Code(s): I10 - ESSENTIAL (PRIMARY) HYPERTENSION Status: Chronic (7) Non compliance w medication regimen Code(s): Z91.14 - PATIENT'S OTHER NONCOMPLIANCE WITH MEDICATION REGIMEN Status : Chronic (8) Rheumatoid arthritis Code(s): M06.9 - RHEUMATOID ARTHRITIS, UNSPECIFIED Status: Chronic (9) Acute kidney injury Code(s): N17.9 - ACUTE KIDNEY FAILURE, UNSPECIFIED Status: Resolved (10) Hyponatremia Code(s): E87.1 - HYPO-OSMOLALITY AND HYPONATREMIA Status: Resolved (11) Lactic acidosis Code(s): E87.2 - ACIDOSIS Status: Resolved - Plan cont current plan of care, plan discussed w/ family, continue antibiotics, PT/OT , respiratory therapy * now off bipap. * overall doing well * ok to transfer to [facility] if pulmonary ok * will increase insulin for blood sugar control, currently high due to steroid * continue zosyn and levaquin * medication reviewed as below * symptomatic treatment * updated plan with daughter on phone * will start PT Review of Systems - Review of Systems Constitutional: Weakness. negative: Fever, Chills, Sweats, Malaise, Other Respiratory: Cough. negative: Dry, Shortness of Breath, Hemoptysis, SOB with Excertion, Pleuritic Pain, Sputum, Wheezing Cardiovascular: negative: Chest Pain, Palpitations, Orthopnea, Paroxysmal Noc. Dyspnea, Edema, Light Headedness, Other Gastrointestinal: negative: Nausea, Vomiting, Abdominal Pain, Diarrhea, Constipation, Melena, Hematochezia, Other Genitourinary: negative: Dysuria, Frequency, Incontinence, Hematuria, Retention , Other Musculoskeletal: negative: Neck Pain, Shoulder Pain, Arm Pain, Back Pain, Hand Pain, Leg Pain, Foot Pain, Other Skin: negative: Rash, Lesions, Jose, Bruising, Other - Medications/Allergies Allergies/Adverse Reactions: Allergies Allergy/AdvReac Type Severity Reaction Status Date / Time No Known Drug Allergies Allergy Verified 02/23/17 21:57 Medications: Current Medications Acetaminophen (Tylenol) 650 mg PO Q4H PRN PRN Reason: Headache/Fever or Pain Albuterol/Ipratropium (Duoneb) 3 ml IPPB [id number] Last Admin: 02/27/17 07:25 Dose: 3 ml Aspirin (Ecotrin) 81 mg PO DAILY [facility] Last Admin: 02/27/17 08:24 Dose: 81 mg Benzonatate (Tessalon) 100 mg PO Q8H PRN PRN Reason: Cough Last Admin: 02/27/17 01:58 Dose: 100 mg Clonidine (Catapres) 0.1 mg PO Q6H PRN PRN Reason: SBP GREATER THAN 160 Last Admin: 02/27/17 01:54 Dose: 0.1 mg Dextrose/Water (Dextrose 50%) 25 gm SLOW IVP PRN PRN PRN Reason: Hypoglycemia Enoxaparin Sodium (Lovenox) 40 mg SC 0900 [facility] Last Admin: 02/27/17 08:23 Dose: 40 mg Glucagon (Glucagon) 1 mg IM PRN PRN PRN Reason: Hypoglycemia Guaifenesin (Mucinex) 1,200 mg PO Q12HR [facility] Last Admin: 02/27/17 08:24 Dose: 1,200 mg Guaifenesin/Codeine Phosphate (Robitussin Ac) 10 ml PO Q6H PRN PRN Reason: Cough Last Admin: 02/26/17 06:49 Dose: 10 ml Guaifenesin/Dextromethorphan (Robitussin Dm) 10 ml PO Q6H PRN PRN Reason: Cough Hydralazine HCl (Apresoline) 10 mg SLOW IVP Q4H PRN PRN Reason: FOR SBP>180 Last Admin: 02/27/17 04:04 Dose: 10 mg Dextrose/Water (D5w) 1,000 mls @ 0 mls/hr IV .Q0M PRN; As Directed PRN Reason: Hypoglycemia Sodium Chloride (Normal Saline 0.9%) 1,000 mls @ 0 mls/hr IV .Q0M CORRY PRN Reason: KVO Last Admin: 02/25/17 09:40 Dose: 1,000 mls Levofloxacin 750 mg/ Device 150 mls @ 100 mls/hr IVPB 1000 [facility] Last Admin: 02/27/17 09:54 Dose: 150 mls Piperacillin Sod/Tazobactam (Sod 3.375 gm/ Sodium Chloride) 100 mls @ 200 mls/ hr IVPB Q6HR [facility] Last Admin: 02/27/17 05:56 Dose: 100 mls Diltiazem HCl 125 mg/Miscellaneous Medication 1 each/ Sodium Chloride 125 mls @ 10 mls/hr IVPB INF PRN; Protocol PRN Reason: HR >150 X 3 MINUTES Insulin Human Isoph/Insulin Regular (Humulin 70/30) 25 units SC QAM [facility] Last Admin: 02/27/17 08:30 Dose: 25 unit Insulin Human Isoph/Insulin Regular (Humulin 70/30) 20 units SC HS [facility] Insulin Human Lispro (Humalog) 0 units SC .MODERATE SLIDING SC PRN PRN Reason: Moderate Correctional Scale Last Admin: 02/27/17 05:56 Dose: 6 unit Insulin Human Lispro (Humalog) 0 units SC .BEDTIME SLIDING SC PRN PRN Reason: Bedtime Correctional Scale Last Admin: 02/26/17 20:31 Dose: 3 unit Methylprednisolone Sodium Succinate (Solu-Medrol) 40 mg IVP Q6HR [facility] Last Admin: 02/27/17 05:56 Dose: 40 mg Metoprolol Tartrate (Lopressor) 25 mg PO BID [facility] Last Admin: 02/27/17 08:24 Dose: 25 mg Nystatin (Mycostatin) 500,000 units SSW QID [facility] Last Admin: 02/27/17 08:26 Dose: 500,000 units Ondansetron HCl (Zofran) 4 mg IVP Q6H PRN PRN Reason: Nausea/Vomiting Last Admin: 02/25/17 09:55 Dose: 4 mg Pantoprazole Sodium (Protonix) 40 mg PO DAILY [facility] Last Admin: 02/27/17 08:24 Dose: 40 mg Saccharomyces Boulardii (Florastor) 250 mg PO DAILY [facility] Last Admin: 02/27/17 08:24 Dose: 250 mg Sodium Chloride (Flush - Normal Saline) 10 ml IVF Q12HR [facility] Last Admin: 02/27/17 08:27 Dose: 10 ml Sodium Chloride (Flush - Normal Saline) 10 ml IVF PRN PRN PRN Reason: Saline Flush Tramadol HCl (Ultram) 50 mg PO Q6H PRN PRN Reason: Pain 4-6 Last Admin: 02/24/17 22:07 Dose: 50 mg Tramadol HCl (Ultram) 50 mg PO Q6H PRN PRN Reason: Pain
--- NOTE | 2017-02-27 11:56 | PRG ---
DATE OF SERVICE: 02/27/2017 SUBJECTIVE: Ms. Lopez says she is feeling better than she felt yesterday. She still desaturates w ith minimal activity. PHYSICAL EXAMINATION: VITAL SIGNS: She is afebrile, heart rate 102, respiratory rate 22, oximetry is currently 96% on her nasal cannula at 3 liters. LUNGS: Remarkable for diffuse crackles posteriorly. HEART: Regular rhythm. S1 and S2 are normal. ABDOMEN: Soft. EXTREMITIES: Without asymmetry. LABORATORY DATA: White count is 13.5, hemoglobin 11.5, and platelets 282,000. Sodium 136, potassium 3.4, chloride 102, bicarbonate 26, BUN 22, creatinine 0.8, glucose 285. Blood cultures are negative at 48 hours. IMPRESSION AND PLAN: Pneumonia, bilateral perhaps a component of noncardiogenic edema. She is clini radha stable at this point in time, I do not feel comfortable moving her out to the critical care uni t yet. She will continue with broad antimicrobial coverage as well as steroids.
[2017-02-28] MEDS: cloNIDine 0.1 MG TAB PO PRN ×2 (00:59→06:25)
[2017-02-28] MEDS: Piperacillin/Tazobactam 3.375 GM in Sodium Chloride 0.9% 100 ML IVPB SCH ×5 (01:00→23:36)
[2017-02-28] MEDS: hydrALAZINE 20 MG/ML VIAL SLOW IVP PRN (03:33)
[2017-02-28] MEDS: HumaLOG 300 UNITS/3 ML VIAL SC PRN ×2 (05:11→12:12)
[2017-02-28 05:31] LABS: Oxyhemoglobin 95.3 % (94.0-97.0); Sodium 139 mmol/L (135-148)
[2017-02-28 05:35] LABS: Mode NIV; Pressure Support 12 cmH2O; Vent NO
[2017-02-28 05:37] LABS: #Lymphocytes 0.9 thou/uL (1.20-3.40); #Monocytes 0.5 thou/uL (0.11-0.59); #Neutrophils 11.3 thou/uL (1.40-6.50); %Basophils 0.1 % (0.0-1.0); %Eosinophils 0.3 % (0.0-10.0); %Lymphocytes 7.2 % (21.0-51.0); %Monocytes 3.7 % (0.0-10.0); Hematocrit 34.9 % (36.0-47.0); Mean Platelet Volume 6.3 fL (7.4-10.4); Red Blood Cell (RBC) Count 3.65 mill/uL (4.20-5.40); White Blood Cell (WBC) Count 12.7 thou/uL (4.8-10.8)
[2017-02-28 05:45] LABS: Anion Gap 8 mmol/L (10-20); BUN (Urea Nitrogen) 19 mg/dL (9.8-20.1); Calc. Creatinine Clearance 66 mL/min (70-130); Calcium 8.6 mg/dL (7.8-10.44); Carbon Dioxide 28 mmol/L (23-31); Chloride 102 mmol/L (98-107); Estimated GFR-MDRD 73
[2017-02-28] MEDS: Benzonatate 100 MG CAP PO PRN (06:25)
[2017-02-28] MEDS: Aspirin 81 mg Enteric Coated Tablet PO SCH (09:27)
[2017-02-28] MEDS: guaiFENesin ER 600 MG TAB PO SCH ×2 (09:27→20:18)
[2017-02-28] MEDS: Saccharomyces boulardii 250 MG CAP PO SCH (09:27)
[2017-02-28] MEDS: Enoxaparin Sodium 40 MG/0.4 ML SYRINGE SC SCH (09:27)
[2017-02-28] MEDS: Insulin NPH/Reg Insulin Hm 300 UNITS/3 ML VIAL SC SCH ×2 (09:28→20:21)
[2017-02-28] MEDS: Metoprolol Tartrate 25 MG TAB PO SCH ×2 (09:28→20:18)
--- NOTE | 2017-02-28 09:40 | PDOC.PN ---
- Subjective Encounter Start Date: 02/28/17 Encounter Start Time: 09:00 Subjective: slight improvement since yesterday - Objective Resuscitation Status: Resuscitation Status FULL:Full Resuscitation MAR Reviewed: Yes Vital Signs & Weight: Vital Signs (12 hours) Temp Pulse Resp BP Pulse Ox 02/28/17 06:44 106 H 39 H 96 02/28/17 06:42 105 H 33 H 97 02/28/17 06:25 175/73 H 02/28/17 05:36 108 H 45 H 99 02/28/17 04:30 90 L 02/28/17 04:00 98.5 F 02/28/17 03:33 97 189/88 H 02/28/17 02:52 97 30 H 100 02/28/17 00:59 186/82 H 02/27/17 22:40 98 23 H 98 Weight Admit Weight 142 lb 8 oz Weight 142 lb 8 oz Most Recent Monitor Data Heart Rate from ECG 108 NIBP 163/60 NIBP BP-Mean 89 Respiration from ECG 24 SpO2 98 I&O: 02/27/17 02/28/17 03/01/17 06:59 06:59 06:59 Intake Total 2118 2433 Output Total 1690 2035 Balance 428 398 Result Diagrams: 02/28/17 05:10 02/28/17 05:10 Additional Labs: Accuchecks 02/28/17 02/27/17 02/27/17 05:11 20:27 16:05 POC Glucose 256 H 341 H 233 H 02/27/17 02/27/17 02/26/17 10:09 05:55 20:29 POC Glucose 283 H 282 H 300 H Radiology Reviewed by me: Yes Phys Exam - Physical Examination Constitutional: NAD HEENT: PERRLA, moist MMs, sclera anicteric nasal canula in place Neck: supple, full ROM Respiratory: no wheezing sinus tachy Gastrointestinal: soft, non-tender, positive bowel sounds Musculoskeletal: no edema, pulses present Neurological: non-focal, moves all 4 limbs Psychiatric: normal affect, A&O x 3 Skin: no rash Dx/Plan (1) Acute respiratory failure with hypoxia Code(s): J96.01 - ACUTE RESPIRATORY FAILURE WITH HYPOXIA Status: Acute (2) Community acquired bacterial pneumonia Code(s): J15.9 - UNSPECIFIED BACTERIAL PNEUMONIA Status: Acute (3) SVT (supraventricular tachycardia) Code(s): I47.1 - SUPRAVENTRICULAR TACHYCARDIA Status: Acute (4) Sepsis with acute organ dysfunction Code(s): A41.9 - SEPSIS, UNSPECIFIED ORGANISM; R65.20 - SEVERE SEPSIS WITHOUT SEPTIC SHOCK Status: Acute (5) HTN (hypertension) Code(s): I10 - ESSENTIAL (PRIMARY) HYPERTENSION Status: Chronic (6) Acute kidney injury Code(s): N17.9 - ACUTE KIDNEY FAILURE, UNSPECIFIED Status: Resolved (7) Hyponatremia Code(s): E87.1 - HYPO-OSMOLALITY AND HYPONATREMIA Status: Resolved (8) Lactic acidosis Code(s): E87.2 - ACIDOSIS Status: Resolved - Plan cont current plan of care, continue antibiotics, respiratory therapy * .
[2017-02-28] MEDS: Nystatin 500,000 UNITS/5 ML UDCUP SSW SCH ×4 (09:57→20:18)
--- NOTE | 2017-02-28 10:28 | RAD ---
PORTABLE CHEST: History Respiratory distress. COMPARISON: Prior day's exam. FINDINGS: Heart size is borderline. Parenchymal lung changes are stable as compared to the prior exam. No new process. IMPRESSION: Stable exam. POS: SOHAN
--- NOTE | 2017-02-28 20:00 | PRG ---
DATE OF SERVICE: 02/28/2017 SUBJECTIVE: Ms. Lopez has no new complaints. Chest radiograph still shows diffuse infiltrates. 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 VITAL SIGNS: Heart rate is 93, respiratory rate is 27, oximetry is 95% on 3 liters, blood pressure 1 74/76. LUNGS: Clear anteriorly. HEART: Regular rhythm. ABDOMEN: Soft and nontender. EXTREMITIES: Without asymmetry. LABORATORY DATA: White count is 12.7, hemoglobin 11.7, platelets 254. Sodium 135, potassium 3.3, chloride 102, bicarbonate 28, BUN 19, creatinine 0.7. IMPRESSION: 1. Pneumonia, bilateral. 2. Coexisting noncardiogenic pulmonary edema. 3. Obesity with weakness and deconditioning, requiring noninvasive ventilatory support with her decr eased lung compliance. PLAN: Continue support in the ICU with p.r.n. BiPAP.
[2017-03-01] MEDS: hydrALAZINE 20 MG/ML VIAL SLOW IVP PRN (00:52)
[2017-03-01] MEDS: cloNIDine 0.1 MG TAB PO PRN (03:23)
[2017-03-01] MEDS: Piperacillin/Tazobactam 3.375 GM in Sodium Chloride 0.9% 100 ML IVPB SCH ×4 (04:59→23:33)
[2017-03-01 05:29] LABS: #Eosinphils 0.1 thou/uL (0.0-0.7); #Lymphocytes 1.1 thou/uL (1.20-3.40); #Monocytes 0.5 thou/uL (0.11-0.59); #Neutrophils 11.2 thou/uL (1.40-6.50); %Basophils 0.1 % (0.0-1.0); %Eosinophils 0.4 % (0.0-10.0); %Lymphocytes 8.7 % (21.0-51.0); %Monocytes 3.6 % (0.0-10.0); Hematocrit 38.5 % (36.0-47.0); Mean Platelet Volume 6.4 fL (7.4-10.4); Red Blood Cell (RBC) Count 4.05 mill/uL (4.20-5.40); White Blood Cell (WBC) Count 12.8 thou/uL (4.8-10.8)
[2017-03-01 05:46] LABS: Anion Gap 11 mmol/L (10-20); BUN (Urea Nitrogen) 17 mg/dL (9.8-20.1); Calc. Creatinine Clearance 68 mL/min (70-130); Calcium 8.6 mg/dL (7.8-10.44); Carbon Dioxide 25 mmol/L (23-31); Chloride 104 mmol/L (98-107); Estimated GFR-MDRD 76
[2017-03-01] MEDS: HumaLOG 300 UNITS/3 ML VIAL SC PRN ×2 (05:55→11:23)
--- NOTE | 2017-03-01 08:04 | PRG ---
DATE OF SERVICE: 03/01/2017 SUBJECTIVE: She feels somewhat better. Did find out she used BiPAP last night. PHYSICAL EXAMINATION: VITAL SIGNS: On exam, temperature 97.6, pulse 107, blood pressure 123/72. A 24-hour intake 1601, ou tput 1875, weight 142 pounds. HEENT: Unremarkable. NECK: No JVD. LUNGS: She has scattered inspiratory crackles bilaterally. CARDIOVASCULAR: S1, S2 regular. ABDOMEN: Soft. EXTREMITIES: No edema. LABORATORY DATA: Sodium 136, potassium 3.5, BUN 17, creatinine 0.7, glucose 196. White blood cell c ount 12.8, hematocrit 38.5, platelet count 229. ASSESSMENT: 1. Bilateral pneumonia. 2. Acute respiratory failure requiring mechanical ventilation. PLAN: The patient will continue BiPAP as needed. I think she can be transferred to the Intermediate Care Unit for this.
--- NOTE | 2017-03-01 08:48 | RAD ---
PORTABLE CHEST: COMPARISON: 02/28/17 exam. HISTORY: Respiratory distress. FINDINGS: Heart size is borderline. Parenchymal lung changes are stable. No new process. IMPRESSION: Stable chest. POS: [facility]
[2017-03-01] MEDS: Insulin NPH/Reg Insulin Hm 300 UNITS/3 ML VIAL SC SCH ×2 (09:16→20:59)
[2017-03-01] MEDS: guaiFENesin ER 600 MG TAB PO SCH ×2 (09:17→20:55)
[2017-03-01] MEDS: Aspirin 81 mg Enteric Coated Tablet PO SCH (09:17)
[2017-03-01] MEDS: Saccharomyces boulardii 250 MG CAP PO SCH (09:17)
[2017-03-01] MEDS: Nystatin 500,000 UNITS/5 ML UDCUP SSW SCH ×4 (09:18→21:07)
[2017-03-01] MEDS: Metoprolol Tartrate 25 MG TAB PO SCH ×2 (09:18→20:55)
[2017-03-01] MEDS: Enoxaparin Sodium 40 MG/0.4 ML SYRINGE SC SCH (09:18)
--- NOTE | 2017-03-01 10:24 | PDOC.PN ---
- Subjective Encounter Start Date: 03/01/17 Encounter Start Time: 09:30 -: old records requested/rev pt is still has dyspnea, no fever, she gets hypoxic during night and requires bipap during night - Objective Resuscitation Status: Resuscitation Status FULL:Full Resuscitation MAR Reviewed: Yes Vital Signs & Weight: Vital Signs (12 hours) Temp Pulse Resp BP Pulse Ox 03/01/17 08:19 99 03/01/17 08:17 109 H 34 H 97 03/01/17 08:00 97.8 F 03/01/17 07:45 97.8 F 108 H 26 H 94 L 03/01/17 04:00 97.6 F 03/01/17 03:30 112 H 32 H 96 03/01/17 03:23 168/59 H 03/01/17 00:52 96 177/79 H 03/01/17 00:00 98.1 F 02/28/17 23:16 87 23 H 98 Weight Admit Weight 142 lb 8 oz Weight 142 lb 8 oz Most Recent Monitor Data Heart Rate from ECG 108 NIBP 134/55 NIBP BP-Mean 73 Respiration from ECG 26 SpO2 95 I&O: 02/28/17 03/01/17 03/02/17 06:59 06:59 06:59 Intake Total 2433 1601 200 Output Total 2035 1875 257 Balance 398 -274 -57 Result Diagrams: 03/01/17 05:04 03/01/17 05:04 Additional Labs: Accuchecks 02/28/17 02/28/17 02/28/17 20:20 17:58 11:59 POC Glucose 127 H 121 H 276 H 02/28/17 09:46 POC Glucose 314 H Radiology Reviewed by me: Yes (chest xray) EKG Reviewed by me: Yes (tachycardia) Phys Exam - Physical Examination Constitutional: NAD HEENT: moist MMs, sclera anicteric Neck: no JVD, supple Respiratory: no wheezing, no rhonchi reduced air entry at base Cardiovascular: RRR, no significant murmur, no rub Gastrointestinal: soft, non-tender, no distention, positive bowel sounds Musculoskeletal: no edema, pulses present Neurological: non-focal, normal sensation Lymphatic: no nodes Psychiatric: normal affect, A&O x 3 Skin: no rash, normal turgor Dx/Plan (1) Acute respiratory failure with hypoxia Code(s): J96.01 - ACUTE RESPIRATORY FAILURE WITH HYPOXIA Status: Acute (2) Community acquired bacterial pneumonia Code(s): J15.9 - UNSPECIFIED BACTERIAL PNEUMONIA Status: Acute (3) SVT (supraventricular tachycardia) Code(s): I47.1 - SUPRAVENTRICULAR TACHYCARDIA Status: Acute (4) Sepsis with acute organ dysfunction Code(s): A41.9 - SEPSIS, UNSPECIFIED ORGANISM; R65.20 - SEVERE SEPSIS WITHOUT SEPTIC SHOCK Status: Acute (5) DM2 (diabetes mellitus, type 2) Status: Chronic (6) HTN (hypertension) Code(s): I10 - ESSENTIAL (PRIMARY) HYPERTENSION Status: Chronic (7) Non compliance w medication regimen Code(s): Z91.14 - PATIENT'S OTHER NONCOMPLIANCE WITH MEDICATION REGIMEN Status : Chronic (8) Rheumatoid arthritis Code(s): M06.9 - RHEUMATOID ARTHRITIS, UNSPECIFIED Status: Chronic (9) Acute kidney injury Code(s): N17.9 - ACUTE KIDNEY FAILURE, UNSPECIFIED Status: Resolved (10) Hyponatremia Code(s): E87.1 - HYPO-OSMOLALITY AND HYPONATREMIA Status: Resolved (11) Lactic acidosis Code(s): E87.2 - ACIDOSIS Status: Resolved - Plan cont current plan of care, mccarthy catheter, continue antibiotics, PT/OT * medication reviewed as below * symptomatic treatment * today will transfer to IMCU * will monitor overnight today * if stable and does not need bipap, then will transfer to medical * continue empiric antibiotics * continue zosyn and levaquin * blood sugar now well controlled * reduce iv solumedrol Review of Systems - Review of Systems Constitutional: negative: Fever, Chills, Sweats, Weakness, Malaise, Other ENT: negative: Ear Pain, Ear Discharge, Nose Pain, Nose Discharge, Nose Congestion, Mouth Pain, Mouth Swelling, Throat Pain, Throat Swelling, Other Respiratory: Cough, Shortness of Breath, SOB with Excertion. negative: Dry, Hemoptysis, Pleuritic Pain, Sputum, Wheezing Cardiovascular: negative: Chest Pain, Palpitations, Orthopnea, Paroxysmal Noc. Dyspnea, Edema, Light Headedness, Other Gastrointestinal: negative: Nausea, Vomiting, Abdominal Pain, Diarrhea, Constipation, Melena, Hematochezia, Other Genitourinary: negative: Dysuria, Frequency, Incontinence, Hematuria, Retention , Other Musculoskeletal: negative: Neck Pain, Shoulder Pain, Arm Pain, Back Pain, Hand Pain, Leg Pain, Foot Pain, Other Skin: negative: Rash, Lesions, Jose, Bruising, Other - Medications/Allergies Allergies/Adverse Reactions: Allergies Allergy/AdvReac Type Severity Reaction Status Date / Time No Known Drug Allergies Allergy Verified 02/23/17 21:57 Medications: Current Medications Acetaminophen (Tylenol) 650 mg PO Q4H PRN PRN Reason: Headache/Fever or Pain Albuterol/Ipratropium (Duoneb) 3 ml IPPB [id number] [facility] Last Admin: 03/01/17 08:17 Dose: 3 ml Aspirin (Ecotrin) 81 mg PO DAILY [facility] Last Admin: 03/01/17 09:17 Dose: 81 mg Benzonatate (Tessalon) 100 mg PO Q8H PRN PRN Reason: Cough Last Admin: 02/28/17 06:25 Dose: 100 mg Clonidine (Catapres) 0.1 mg PO Q6H PRN PRN Reason: SBP GREATER THAN 160 Last Admin: 03/01/17 03:23 Dose: 0.1 mg Dextrose/Water (Dextrose 50%) 25 gm SLOW IVP PRN PRN PRN Reason: Hypoglycemia Enoxaparin Sodium (Lovenox) 40 mg SC 0900 [facility] Last Admin: 03/01/17 09:18 Dose: 40 mg Glucagon (Glucagon) 1 mg IM PRN PRN PRN Reason: Hypoglycemia Guaifenesin (Mucinex) 1,200 mg PO Q12HR [facility] Last Admin: 03/01/17 09:17 Dose: 1,200 mg Guaifenesin/Codeine Phosphate (Robitussin Ac) 10 ml PO Q6H PRN PRN Reason: Cough Last Admin: 02/26/17 06:49 Dose: 10 ml Guaifenesin/Dextromethorphan (Robitussin Dm) 10 ml PO Q6H PRN PRN Reason: Cough Hydralazine HCl (Apresoline) 10 mg SLOW IVP Q4H PRN PRN Reason: FOR SBP>180 Last Admin: 03/01/17 00:52 Dose: 10 mg Dextrose/Water (D5w) 1,000 mls @ 0 mls/hr IV .Q0M PRN; As Directed PRN Reason: Hypoglycemia Sodium Chloride (Normal Saline 0.9%) 1,000 mls @ 0 mls/hr IV .Q0M [facility] PRN Reason: KVO Last Admin: 02/25/17 09:40 Dose: 1,000 mls Levofloxacin 750 mg/ Device 150 mls @ 100 mls/hr IVPB 1000 [facility] Last Admin: 03/01/17 09:17 Dose: 150 mls Piperacillin Sod/Tazobactam (Sod 3.375 gm/ Sodium Chloride) 100 mls @ 200 mls/ hr IVPB Q6HR [facility] Last Admin: 03/01/17 04:59 Dose: 100 mls Diltiazem HCl 125 mg/Miscellaneous Medication 1 each/ Sodium Chloride 125 mls @ 10 mls/hr IVPB INF PRN; Protocol PRN Reason: HR >150 X 3 MINUTES Insulin Human Isoph/Insulin Regular (Humulin 70/30) 25 units SC QAM [facility] Last Admin: 03/01/17 09:16 Dose: 25 unit Insulin Human Isoph/Insulin Regular (Humulin 70/30) 20 units SC HS [facility] Last Admin: 02/28/17 20:21 Dose: 20 unit Insulin Human Lispro (Humalog) 0 units SC .MODERATE SLIDING SC PRN PRN Reason: Moderate Correctional Scale Last Admin: 03/01/17 05:55 Dose: 2 unit Insulin Human Lispro (Humalog) 0 units SC .BEDTIME SLIDING SC PRN PRN Reason: Bedtime Correctional Scale Last Admin: 02/27/17 20:29 Dose: 4 unit Methylprednisolone Sodium Succinate (Solu-Medrol) 20 mg IVP Q6HR [facility] Metoprolol Tartrate (Lopressor) 25 mg PO BID [facility] Last Admin: 03/01/17 09:18 Dose: 25 mg Nystatin (Mycostatin) 500,000 units SSW QID [facility] Last Admin: 03/01/17 09:18 Dose: 500,000 units Ondansetron HCl (Zofran) 4 mg IVP Q6H PRN PRN Reason: Nausea/Vomiting Last Admin: 02/25/17 09:55 Dose: 4 mg Pantoprazole Sodium (Protonix) 40 mg PO DAILY [facility] Last Admin: 03/01/17 09:17 Dose: 40 mg Saccharomyces Boulardii (Florastor) 250 mg PO DAILY [facility] Last Admin: 03/01/17 09:17 Dose: 250 mg Sodium Chloride (Flush - Normal Saline) 10 ml IVF Q12HR [facility] Last Admin: 03/01/17 09:18 Dose: 10 ml Sodium Chloride (Flush - Normal Saline) 10 ml IVF PRN PRN PRN Reason: Saline Flush Tramadol HCl (Ultram) 50 mg PO Q6H PRN PRN Reason: Pain 4-6 Last Admin: 02/24/17 22:07 Dose: 50 mg Tramadol HCl (Ultram) 50 mg PO Q6H PRN PRN Reason: Pain
[2017-03-02] MEDS: traMADol HCl 50 MG TAB PO PRN (03:36)
[2017-03-02] MEDS: cloNIDine 0.1 MG TAB PO PRN (04:30)
[2017-03-02] MEDS: guaiFENesin/Codeine Phosphate 200 mg/20 mg 10 ml UD Cup PO PRN (04:31)
[2017-03-02 05:28] LABS: #Lymphocytes 1.5 thou/uL (1.20-3.40); #Monocytes 0.4 thou/uL (0.11-0.59); %Basophils 0.1 % (0.0-1.0); %Eosinophils 0.3 % (0.0-10.0); %Lymphocytes 11.2 % (21.0-51.0); %Monocytes 2.9 % (0.0-10.0); Hematocrit 38.9 % (36.0-47.0); Mean Platelet Volume 6.4 fL (7.4-10.4); Red Blood Cell (RBC) Count 4.08 mill/uL (4.20-5.40); White Blood Cell (WBC) Count 12.9 thou/uL (4.8-10.8)
[2017-03-02] MEDS: Piperacillin/Tazobactam 3.375 GM in Sodium Chloride 0.9% 100 ML IVPB SCH ×3 (05:46→17:59)
[2017-03-02 05:51] LABS: Anion Gap 11 mmol/L (10-20); BUN (Urea Nitrogen) 18 mg/dL (9.8-20.1); Calc. Creatinine Clearance 73 mL/min (70-130); Calcium 8.7 mg/dL (7.8-10.44); Carbon Dioxide 25 mmol/L (23-31); Chloride 103 mmol/L (98-107); Estimated GFR-MDRD 82
--- NOTE | 2017-03-02 08:24 | PRG ---
DATE OF SERVICE: 03/02/2017 SUBJECTIVE: The patient is off the BiPAP, she is supported in the [facility]. PHYSICAL EXAMINATION: VITAL SIGNS: Temperature 97.9, pulse 99, respirations 24, O2 sat 94% on 40% oxygen, blood pressure 1 00/85. HEENT: Unremarkable. NECK: No JVD. LUNGS: She has inspiratory crackles bilaterally. CARDIAC: S1 and S2 regular. ABDOMEN: Soft. EXTREMITIES: No edema. LABORATORY DATA: White blood cell count 12.9, hematocrit 38.9, platelet count 241. Sodium 135, pota ssium 3.6, BUN 18, creatinine 0.7, glucose 126. ASSESSMENT: 1. Bilateral pneumonia, which appears to be slowly improving. 2. Significant hypoxemia, which is not corrected yet. PLAN: 1. Keep in intermediate care until her oxygen needs decrease. She is having some difficulty keeping her oxygen on. 2. Continue the current IV antibiotics.
[2017-03-02] MEDS: Metoprolol Tartrate 25 MG TAB PO SCH ×2 (08:59→21:42)
[2017-03-02] MEDS: Aspirin 81 mg Enteric Coated Tablet PO SCH ×2 (08:59→09:26)
[2017-03-02] MEDS: Nystatin 500,000 UNITS/5 ML UDCUP SSW SCH ×5 (08:59→21:42)
[2017-03-02] MEDS: Saccharomyces boulardii 250 MG CAP PO SCH ×2 (08:59→09:26)
[2017-03-02] MEDS: guaiFENesin ER 600 MG TAB PO SCH ×2 (08:59→21:42)
[2017-03-02] MEDS: Enoxaparin Sodium 40 MG/0.4 ML SYRINGE SC SCH (09:00)
[2017-03-02] MEDS: Ondansetron HCl/PF 4 MG/2 ML Vial IVP PRN ×2 (09:09→15:30)
[2017-03-02] MEDS: Insulin NPH/Reg Insulin Hm 300 UNITS/3 ML VIAL SC SCH ×2 (09:28→21:43)
[2017-03-02] MEDS: HumaLOG 300 UNITS/3 ML VIAL SC PRN (12:15)
--- NOTE | 2017-03-02 12:46 | PDOC.PN ---
- Subjective Encounter Start Date: 03/02/17 Encounter Start Time: 09:45 pt still hypoxic, today after little exertion she became tacardic and tachypneic , and hypoxic, required bipap - Objective Resuscitation Status: Resuscitation Status FULL:Full Resuscitation MAR Reviewed: Yes Vital Signs & Weight: Vital Signs (12 hours) Temp Pulse Resp BP BP BP Pulse Ox 03/02/17 11:27 114 H 03/02/17 11:22 114 H 35 H 99 03/02/17 11:00 98.0 F 110 H 24 H 100/85 100 03/02/17 09:35 120 H 03/02/17 08:49 97 03/02/17 08:46 102 H 26 H 97 03/02/17 08:00 97.9 F 99 24 H 94 L 03/02/17 07:30 97.9 F 99 24 H 100/85 94 L 03/02/17 05:00 98.3 F 101 H 22 H 100/85 96 03/02/17 04:30 179/83 H 03/02/17 04:00 98.3 F 109 H 24 H 179/83 H 98 03/02/17 03:04 104 H 03/02/17 03:00 92 L Weight Admit Weight 142 lb 8 oz Weight 143 lb 8 oz Most Recent Monitor Data Heart Rate from ECG 122 NIBP 168/64 NIBP BP-Mean 135 Respiration from ECG 34 SpO2 98 I&O: 03/01/17 03/02/17 03/03/17 06:59 06:59 06:59 Intake Total 1601 1586 Output Total 1879 7643 Balance -274 -177 Result Diagrams: 03/02/17 05:01 03/02/17 05:01 Additional Labs: Accuchecks 03/02/17 03/02/17 03/01/17 11:39 06:08 20:49 POC Glucose 309 H 127 H 173 H 03/01/17 17:28 POC Glucose 87 Phys Exam - Physical Examination Constitutional: NAD HEENT: PERRLA, moist MMs, sclera anicteric Neck: no JVD, supple Respiratory: no wheezing, no rhonchi basal rales Cardiovascular: RRR, no significant murmur, no rub Gastrointestinal: soft, non-tender, no distention, positive bowel sounds Musculoskeletal: no edema, pulses present Neurological: non-focal, normal sensation Lymphatic: no nodes Psychiatric: normal affect, A&O x 3 Skin: no rash, normal turgor Dx/Plan (1) Acute respiratory failure with hypoxia Code(s): J96.01 - ACUTE RESPIRATORY FAILURE WITH HYPOXIA Status: Acute (2) Community acquired bacterial pneumonia Code(s): J15.9 - UNSPECIFIED BACTERIAL PNEUMONIA Status: Acute (3) SVT (supraventricular tachycardia) Code(s): I47.1 - SUPRAVENTRICULAR TACHYCARDIA Status: Acute (4) Sepsis with acute organ dysfunction Code(s): A41.9 - SEPSIS, UNSPECIFIED ORGANISM; R65.20 - SEVERE SEPSIS WITHOUT SEPTIC SHOCK Status: Acute (5) DM2 (diabetes mellitus, type 2) Status: Chronic (6) HTN (hypertension) Code(s): I10 - ESSENTIAL (PRIMARY) HYPERTENSION Status: Chronic (7) Non compliance w medication regimen Code(s): Z91.14 - PATIENT'S OTHER NONCOMPLIANCE WITH MEDICATION REGIMEN Status : Chronic (8) Rheumatoid arthritis Code(s): M06.9 - RHEUMATOID ARTHRITIS, UNSPECIFIED Status: Chronic (9) Acute kidney injury Code(s): N17.9 - ACUTE KIDNEY FAILURE, UNSPECIFIED Status: Resolved (10) Hyponatremia Code(s): E87.1 - HYPO-OSMOLALITY AND HYPONATREMIA Status: Resolved (11) Lactic acidosis Code(s): E87.2 - ACIDOSIS Status: Resolved - Plan cont current plan of care, continue antibiotics, respiratory therapy * continue bipap for now * still not ready to move out of [facility] * medication reviewed as below * symptomatic treatment * continue IV steroid and IV antibiotics as ordered. Review of Systems - Review of Systems Eyes: negative: Pain, Vision Change, Conjunctivae Inflammation, Eyelid Inflammation, Redness, Other ENT: negative: Ear Pain, Ear Discharge, Nose Pain, Nose Discharge, Nose Congestion, Mouth Pain, Mouth Swelling, Throat Pain, Throat Swelling, Other Respiratory: Cough, Shortness of Breath, SOB with Excertion. negative: Dry, Hemoptysis, Pleuritic Pain, Sputum, Wheezing Cardiovascular: negative: Chest Pain, Palpitations, Orthopnea, Paroxysmal Noc. Dyspnea, Edema, Light Headedness, Other Gastrointestinal: negative: Nausea, Vomiting, Abdominal Pain, Diarrhea, Constipation, Melena, Hematochezia, Other Genitourinary: negative: Dysuria, Frequency, Incontinence, Hematuria, Retention , Other Musculoskeletal: negative: Neck Pain, Shoulder Pain, Arm Pain, Back Pain, Hand Pain, Leg Pain, Foot Pain, Other Skin: negative: Rash, Lesions, Jose, Bruising, Other - Medications/Allergies Allergies/Adverse Reactions: Allergies Allergy/AdvReac Type Severity Reaction Status Date / Time No Known Drug Allergies Allergy Verified 02/23/17 21:57 Medications: Current Medications Acetaminophen (Tylenol) 650 mg PO Q4H PRN PRN Reason: Headache/Fever or Pain Albuterol/Ipratropium (Duoneb) 3 ml IPPB [id number] REPLACED BY [facility] Last Admin: 03/02/17 11:22 Dose: 3 ml Aspirin (Ecotrin) 81 mg PO DAILY [facility] Last Admin: 03/02/17 09:26 Dose: Not Given Benzonatate (Tessalon) 100 mg PO Q8H PRN PRN Reason: Cough Last Admin: 02/28/17 06:25 Dose: 100 mg Clonidine (Catapres) 0.1 mg PO Q6H PRN PRN Reason: SBP GREATER THAN 160 Last Admin: 03/02/17 04:30 Dose: 0.1 mg Dextrose/Water (Dextrose 50%) 25 gm SLOW IVP PRN PRN PRN Reason: Hypoglycemia Enoxaparin Sodium (Lovenox) 40 mg SC 0900 [facility]PL[facility] Last Admin: 03/02/17 09:00 Dose: 40 mg Glucagon (Glucagon) 1 mg IM PRN PRN PRN Reason: Hypoglycemia Guaifenesin (Mucinex) 1,200 mg PO Q12HR REPLACED BY [facility] Last Admin: 03/02/17 08:59 Dose: 1,200 mg Guaifenesin/Codeine Phosphate (Robitussin Ac) 10 ml PO Q6H PRN PRN Reason: Cough Last Admin: 03/02/17 04:31 Dose: 10 ml Guaifenesin/Dextromethorphan (Robitussin Dm) 10 ml PO Q6H PRN PRN Reason: Cough Hydralazine HCl (Apresoline) 10 mg SLOW IVP Q4H PRN PRN Reason: FOR SBP>180 Last Admin: 03/01/17 00:52 Dose: 10 mg Dextrose/Water (D5w) 1,000 mls @ 0 mls/hr IV .Q0M PRN; As Directed PRN Reason: Hypoglycemia Sodium Chloride (Normal Saline 0.9%) 1,000 mls @ 0 mls/hr IV .Q0M [facility]PLACED BY [facility] PRN Reason: KVO Last Admin: 02/25/17 09:40 Dose: 1,000 mls Levofloxacin 750 mg/ Device 150 mls @ 100 mls/hr IVPB 1000 [facility] Last Admin: 03/02/17 09:09 Dose: 150 mls Piperacillin Sod/Tazobactam (Sod 3.375 gm/ Sodium Chloride) 100 mls @ 200 mls/ hr IVPB Q6HR REPLACED BY [facility] Last Admin: 03/02/17 12:18 Dose: 100 mls Diltiazem HCl 125 mg/Miscellaneous Medication 1 each/ Sodium Chloride 125 mls @ 10 mls/hr IVPB INF PRN; Protocol PRN Reason: HR >150 X 3 MINUTES Insulin Human Isoph/Insulin Regular (Humulin 70/30) 20 units SC HS [facility]PL[facility] Last Admin: 03/01/17 20:59 Dose: 20 unit Insulin Human Isoph/Insulin Regular (Humulin 70/30) 30 units SC QAM REPLACED BY [facility] Last Admin: 03/02/17 09:28 Dose: Not Given Insulin Human Lispro (Humalog) 0 units SC .MODERATE SLIDING SC PRN PRN Reason: Moderate Correctional Scale Last Admin: 03/02/17 12:15 Dose: 8 unit Insulin Human Lispro (Humalog) 0 units SC .BEDTIME SLIDING SC PRN PRN Reason: Bedtime Correctional Scale Last Admin: 02/27/17 20:29 Dose: 4 unit Methylprednisolone Sodium Succinate (Solu-Medrol) 20 mg IVP Q8HR REPLACED BY [facility] Last Admin: 03/02/17 12:15 Dose: 20 mg Metoprolol Tartrate (Lopressor) 25 mg PO BID [facility]PL[facility] BY [facility] Last Admin: 03/02/17 08:59 Dose: 25 mg Nystatin (Mycostatin) 500,000 units SSW QID REPLACED BY [facility] Last Admin: 03/02/17 12:23 Dose: Not Given Ondansetron HCl (Zofran) 4 mg IVP Q6H PRN PRN Reason: Nausea/Vomiting Last Admin: 03/02/17 09:09 Dose: 4 mg Pantoprazole Sodium (Protonix) 40 mg PO DAILY [facility]PL[facility] BY [facility] Last Admin: 03/02/17 09:26 Dose: Not Given Saccharomyces Boulardii (Florastor) 250 mg PO DAILY [facility]PL[facility]ED BY [facility] Last Admin: 03/02/17 09:26 Dose: Not Given Sodium Chloride (Flush - Normal Saline) 10 ml IVF Q12HR REPLACED BY [facility] Last Admin: 03/02/17 08:59 Dose: 10 ml Sodium Chloride (Flush - Normal Saline) 10 ml IVF PRN PRN PRN Reason: Saline Flush Last Admin: 03/02/17 05:46 Dose: 10 ml Tramadol HCl (Ultram) 50 mg PO Q6H PRN PRN Reason: Pain 4-6 Last Admin: 03/02/17 03:36 Dose: 50 mg Tramadol HCl (Ultram) 50 mg PO Q6H PRN PRN Reason: Pain
[2017-03-03] MEDS: Piperacillin/Tazobactam 3.375 GM in Sodium Chloride 0.9% 100 ML IVPB SCH ×5 (00:25→23:13)
[2017-03-03] MEDS: cloNIDine 0.1 MG TAB PO PRN (00:56)
[2017-03-03 07:25] LABS: #Eosinphils 0.3 thou/uL (0.0-0.7); #Lymphocytes 1.7 thou/uL (1.20-3.40); #Monocytes 0.5 thou/uL (0.11-0.59); #Neutrophils 12.7 thou/uL (1.40-6.50); %Basophils 0.1 % (0.0-1.0); %Monocytes 3.3 % (0.0-10.0); Hematocrit 36.9 % (36.0-47.0); Mean Platelet Volume 6.6 fL (7.4-10.4); Red Blood Cell (RBC) Count 3.82 mill/uL (4.20-5.40); White Blood Cell (WBC) Count 15.2 thou/uL (4.8-10.8)
[2017-03-03 07:45] LABS: Anion Gap 10 mmol/L (10-20); BUN (Urea Nitrogen) 22 mg/dL (9.8-20.1); Calc. Creatinine Clearance 62 mL/min (70-130); Calcium 8.2 mg/dL (7.8-10.44); Carbon Dioxide 23 mmol/L (23-31); Chloride 106 mmol/L (98-107); Estimated GFR-MDRD 85
[2017-03-03] MEDS: Aspirin 81 mg Enteric Coated Tablet PO SCH (08:30)
[2017-03-03] MEDS: Saccharomyces boulardii 250 MG CAP PO SCH (08:30)
[2017-03-03] MEDS: Nystatin 500,000 UNITS/5 ML UDCUP SSW SCH ×4 (08:30→21:01)
[2017-03-03] MEDS: Metoprolol Tartrate 25 MG TAB PO SCH ×2 (08:30→21:01)
[2017-03-03] MEDS: guaiFENesin ER 600 MG TAB PO SCH ×2 (08:30→21:00)
[2017-03-03] MEDS: Insulin NPH/Reg Insulin Hm 300 UNITS/3 ML VIAL SC SCH ×2 (08:32→21:01)
[2017-03-03] MEDS: Enoxaparin Sodium 40 MG/0.4 ML SYRINGE SC SCH (08:32)
--- NOTE | 2017-03-03 08:35 | PRG ---
DATE OF SERVICE: 03/03/2017 SUBJECTIVE: The patient is on BiPAP this morning, she wore it part of the day yesterday. OBJECTIVE: VITAL SIGNS: Temperature 98.4, pulse 77, respirations 19, O2 saturation 98%, blood pressure 131/48. HEENT: Unremarkable. NECK: No JVD. CHEST: Clear anteriorly. CARDIOVASCULAR: S1 and S2 regular. ABDOMEN: Soft. EXTREMITIES: No edema. LABORATORY DATA: White blood cell count 15.2, hematocrit 36.9, platelet count 196. Sodium 135, pota ssium 3.8, chloride 106, CO2 23, BUN 22, creatinine 0.6, glucose 86. ASSESSMENT: 1. Community-acquired pneumonia with outpatient treatment failure. 2. Acute respiratory failure requiring mechanical ventilation. PLAN: Check a chest x-ray today to see where she stands. Continue IV antibiotics. Continue physica l therapy.
--- NOTE | 2017-03-03 10:17 | RAD ---
UPRIGHT PORTABLE CHEST ONE VIEW: History: 71-year-old female follow up pneumonia. FINDINGS: Again noted are extensive bilateral interstitial and reticular nodular parenchymal changes throughout both lungs. These appear to be somewhat more marked than on the prior study of 03-01-17. Heart size i s within normal limits. IMPRESSION: Extensive bilateral interstitial and reticular nodular parenchymal changes throughout both lungs show ing some worsening from 03-01-17. Continued short term follow up. POS: [facility]
--- NOTE | 2017-03-03 11:25 | PDOC.PN ---
- Subjective Encounter Start Date: 03/03/17 Encounter Start Time: 09:30 pt is still hypoxic, requiring bipap, no fever - Objective Resuscitation Status: Resuscitation Status FULL:Full Resuscitation MAR Reviewed: Yes Vital Signs & Weight: Vital Signs (12 hours) Temp Pulse Resp BP BP Pulse Ox 03/03/17 11:10 92 20 92 L 03/03/17 11:00 96.8 F L 92 18 140/62 96 03/03/17 08:44 95 03/03/17 08:42 89 24 H 95 03/03/17 08:00 98.4 F 77 19 98 03/03/17 07:07 98.4 F 77 19 131/48 L 98 03/03/17 05:03 100 03/03/17 04:00 97.1 F L 88 16 120/44 L 100 03/03/17 03:34 89 03/03/17 02:09 87 22 H 150/68 H 98 03/03/17 01:13 74 26 H 99 03/03/17 00:56 174/77 H 03/03/17 00:00 99.0 F 76 26 H 174/77 H 100 Weight Admit Weight 142 lb 8 oz Weight 117 lb 8 oz Most Recent Monitor Data Heart Rate from ECG 122 NIBP 168/64 NIBP BP-Mean 135 Respiration from ECG 34 SpO2 98 I&O: 03/02/17 03/03/17 03/04/17 06:59 06:59 06:59 Intake Total 1586 800 Output Total 2073 975 Balance -487 -175 Result Diagrams: 03/03/17 07:18 03/03/17 07:18 Additional Labs: Accuchecks 03/03/17 03/03/17 03/02/17 10:46 06:13 20:45 POC Glucose 211 H 89 198 H 03/02/17 03/02/17 16:59 11:39 POC Glucose 150 H 309 H EKG Reviewed by me: Yes (nsr) Phys Exam - Physical Examination Constitutional: NAD HEENT: moist MMs, sclera anicteric Neck: no JVD, supple Respiratory: no wheezing, no rales, no rhonchi basal rales Cardiovascular: RRR, no significant murmur, no rub Gastrointestinal: soft, non-tender, no distention, positive bowel sounds Musculoskeletal: no edema, pulses present Neurological: non-focal, normal sensation Lymphatic: no nodes Psychiatric: normal affect Skin: no rash, normal turgor Dx/Plan (1) Acute respiratory failure with hypoxia Code(s): J96.01 - ACUTE RESPIRATORY FAILURE WITH HYPOXIA Status: Acute (2) Community acquired bacterial pneumonia Code(s): J15.9 - UNSPECIFIED BACTERIAL PNEUMONIA Status: Acute (3) SVT (supraventricular tachycardia) Code(s): I47.1 - SUPRAVENTRICULAR TACHYCARDIA Status: Acute (4) Sepsis with acute organ dysfunction Code(s): A41.9 - SEPSIS, UNSPECIFIED ORGANISM; R65.20 - SEVERE SEPSIS WITHOUT SEPTIC SHOCK Status: Acute (5) DM2 (diabetes mellitus, type 2) Status: Chronic (6) HTN (hypertension) Code(s): I10 - ESSENTIAL (PRIMARY) HYPERTENSION Status: Chronic (7) Non compliance w medication regimen Code(s): Z91.14 - PATIENT'S OTHER NONCOMPLIANCE WITH MEDICATION REGIMEN Status : Chronic (8) Rheumatoid arthritis Code(s): M06.9 - RHEUMATOID ARTHRITIS, UNSPECIFIED Status: Chronic (9) Acute kidney injury Code(s): N17.9 - ACUTE KIDNEY FAILURE, UNSPECIFIED Status: Resolved (10) Hyponatremia Code(s): E87.1 - HYPO-OSMOLALITY AND HYPONATREMIA Status: Resolved (11) Lactic acidosis Code(s): E87.2 - ACIDOSIS Status: Resolved (12) ILD (interstitial lung disease) Code(s): J84.9 - INTERSTITIAL PULMONARY DISEASE, UNSPECIFIED Status: Acute - Plan cont current plan of care, continue antibiotics, respiratory therapy * pulmonary following * continue bipap as needed * underlying ILD may be culprit for ongoing hypoxia * medication reviewed as below * symptomatic treatment * continue IV steroid and antibiotics * condition is not stable yet. Review of Systems - Review of Systems ENT: negative: Ear Pain, Ear Discharge, Nose Pain, Nose Discharge, Nose Congestion, Mouth Pain, Mouth Swelling, Throat Pain, Throat Swelling, Other Respiratory: Cough, Shortness of Breath, SOB with Excertion. negative: Dry, Hemoptysis, Pleuritic Pain, Sputum, Wheezing Cardiovascular: negative: Chest Pain, Palpitations, Orthopnea, Paroxysmal Noc. Dyspnea, Edema, Light Headedness, Other Gastrointestinal: negative: Nausea, Vomiting, Abdominal Pain, Diarrhea, Constipation, Melena, Hematochezia, Other Genitourinary: negative: Dysuria, Frequency, Incontinence, Hematuria, Retention , Other Musculoskeletal: negative: Neck Pain, Shoulder Pain, Arm Pain, Back Pain, Hand Pain, Leg Pain, Foot Pain, Other Skin: negative: Rash, Lesions, Jose, Bruising, Other - Medications/Allergies Allergies/Adverse Reactions: Allergies Allergy/AdvReac Type Severity Reaction Status Date / Time No Known Drug Allergies Allergy Verified 02/23/17 21:57 Medications: Current Medications Acetaminophen (Tylenol) 650 mg PO Q4H PRN PRN Reason: Headache/Fever or Pain Albuterol/Ipratropium (Duoneb) 3 ml IPPB [id number] [facility] Last Admin: 03/03/17 11:10 Dose: 3 ml Aspirin (Ecotrin) 81 mg PO DAILY [facility] Last Admin: 03/03/17 08:30 Dose: 81 mg Benzonatate (Tessalon) 100 mg PO Q8H PRN PRN Reason: Cough Last Admin: 02/28/17 06:25 Dose: 100 mg Clonidine (Catapres) 0.1 mg PO Q6H PRN PRN Reason: SBP GREATER THAN 160 Last Admin: 03/03/17 00:56 Dose: 0.1 mg Dextrose/Water (Dextrose 50%) 25 gm SLOW IVP PRN PRN PRN Reason: Hypoglycemia Enoxaparin Sodium (Lovenox) 40 mg SC 0900 [facility] Last Admin: 03/03/17 08:32 Dose: 40 mg Glucagon (Glucagon) 1 mg IM PRN PRN PRN Reason: Hypoglycemia Guaifenesin (Mucinex) 1,200 mg PO Q12HR [facility] Last Admin: 03/03/17 08:30 Dose: 1,200 mg Guaifenesin/Codeine Phosphate (Robitussin Ac) 10 ml PO Q6H PRN PRN Reason: Cough Last Admin: 03/02/17 04:31 Dose: 10 ml Guaifenesin/Dextromethorphan (Robitussin Dm) 10 ml PO Q6H PRN PRN Reason: Cough Hydralazine HCl (Apresoline) 10 mg SLOW IVP Q4H PRN PRN Reason: FOR SBP>180 Last Admin: 03/01/17 00:52 Dose: 10 mg Dextrose/Water (D5w) 1,000 mls @ 0 mls/hr IV .Q0M PRN; As Directed PRN Reason: Hypoglycemia Sodium Chloride (Normal Saline 0.9%) 1,000 mls @ 0 mls/hr IV .Q0M CORRY PRN Reason: KVO Last Admin: 02/25/17 09:40 Dose: 1,000 mls Levofloxacin 750 mg/ Device 150 mls @ 100 mls/hr IVPB 1000 [facility] Last Admin: 03/03/17 08:29 Dose: 150 mls Piperacillin Sod/Tazobactam (Sod 3.375 gm/ Sodium Chloride) 100 mls @ 200 mls/ hr IVPB Q6HR [facility] Last Admin: 03/03/17 06:18 Dose: 100 mls Diltiazem HCl 125 mg/Miscellaneous Medication 1 each/ Sodium Chloride 125 mls @ 10 mls/hr IVPB INF PRN; Protocol PRN Reason: HR >150 X 3 MINUTES Insulin Human Isoph/Insulin Regular (Humulin 70/30) 20 units SC [facility] Last Admin: 03/02/17 21:43 Dose: 20 unit Insulin Human Isoph/Insulin Regular (Humulin 70/30) 30 units SC QAM [facility] Last Admin: 03/03/17 08:32 Dose: Not Given Insulin Human Lispro (Humalog) 0 units SC .MODERATE SLIDING SC PRN PRN Reason: Moderate Correctional Scale Last Admin: 03/02/17 12:15 Dose: 8 unit Insulin Human Lispro (Humalog) 0 units SC .BEDTIME SLIDING SC PRN PRN Reason: Bedtime Correctional Scale Last Admin: 02/27/17 20:29 Dose: 4 unit Methylprednisolone Sodium Succinate (Solu-Medrol) 20 mg IVP Q8HR [facility] Last Admin: 03/03/17 06:16 Dose: 20 mg Metoprolol Tartrate (Lopressor) 25 mg PO BID [facility] Last Admin: 03/03/17 08:30 Dose: 25 mg Nystatin (Mycostatin) 500,000 units SSW QID [facility] Last Admin: 03/03/17 08:30 Dose: 500,000 units Ondansetron HCl (Zofran) 4 mg IVP Q6H PRN PRN Reason: Nausea/Vomiting Last Admin: 03/02/17 15:30 Dose: 4 mg Pantoprazole Sodium (Protonix) 40 mg PO DAILY [facility] Last Admin: 03/03/17 08:30 Dose: 40 mg Saccharomyces Boulardii (Florastor) 250 mg PO DAILY [facility] Last Admin: 03/03/17 08:30 Dose: 250 mg Sodium Chloride (Flush - Normal Saline) 10 ml IVF Q12HR [facility] Last Admin: 03/03/17 08:34 Dose: Not Given Sodium Chloride (Flush - Normal Saline) 10 ml IVF PRN PRN PRN Reason: Saline Flush Last Admin: 03/02/17 05:46 Dose: 10 ml Tramadol HCl (Ultram) 50 mg PO Q6H PRN PRN Reason: Pain 4-6 Last Admin: 03/02/17 03:36 Dose: 50 mg Tramadol HCl (Ultram) 50 mg PO Q6H PRN PRN Reason: Pain
[2017-03-03] MEDS: HumaLOG 300 UNITS/3 ML VIAL SC PRN ×2 (18:09→21:04)
[2017-03-03] MEDS: traMADol HCl 50 MG TAB PO PRN (21:00)
[2017-03-03] MEDS: Sodium Chloride 0.9% 1,000 ML IV SCH (23:14)
[2017-03-04 05:14] LABS: #Eosinphils 0.1 thou/uL (0.0-0.7); #Lymphocytes 0.9 thou/uL (1.20-3.40); #Monocytes 0.3 thou/uL (0.11-0.59); #Neutrophils 12.2 thou/uL (1.40-6.50); %Basophils 0.2 % (0.0-1.0); %Eosinophils 0.5 % (0.0-10.0); %Lymphocytes 6.3 % (21.0-51.0); %Monocytes 2.2 % (0.0-10.0); Hematocrit 39.7 % (36.0-47.0); Mean Platelet Volume 6.6 fL (7.4-10.4); White Blood Cell (WBC) Count 13.4 thou/uL (4.8-10.8)
[2017-03-04 05:34] LABS: Anion Gap 10 mmol/L (10-20); BUN (Urea Nitrogen) 20 mg/dL (9.8-20.1); Calc. Creatinine Clearance 61 mL/min (70-130); Calcium 8.5 mg/dL (7.8-10.44); Carbon Dioxide 26 mmol/L (23-31); Chloride 104 mmol/L (98-107); Estimated GFR-MDRD 83
[2017-03-04] MEDS: Piperacillin/Tazobactam 3.375 GM in Sodium Chloride 0.9% 100 ML IVPB SCH ×4 (05:43→23:35)
[2017-03-04] MEDS: cloNIDine 0.1 MG TAB PO PRN (06:24)
[2017-03-04] MEDS: Aspirin 81 mg Enteric Coated Tablet PO SCH (09:04)
[2017-03-04] MEDS: Enoxaparin Sodium 40 MG/0.4 ML SYRINGE SC SCH (09:05)
[2017-03-04] MEDS: guaiFENesin ER 600 MG TAB PO SCH ×2 (09:05→21:21)
[2017-03-04] MEDS: Nystatin 500,000 UNITS/5 ML UDCUP SSW SCH ×4 (09:06→21:20)
[2017-03-04] MEDS: Saccharomyces boulardii 250 MG CAP PO SCH (09:06)
[2017-03-04] MEDS: Metoprolol Tartrate 25 MG TAB PO SCH ×2 (09:06→21:20)
[2017-03-04] MEDS: Insulin NPH/Reg Insulin Hm 300 UNITS/3 ML VIAL SC SCH ×2 (09:08→21:30)
[2017-03-04] MEDS ORDERED: Furosemide 20 MG/2 ML VIAL IVP SCH (10:15)
--- NOTE | 2017-03-04 10:30 | PRG ---
DATE OF SERVICE: 03/04/2017 SUBJECTIVE: The patient remains hypoxic and in need of a Ventimask. She desaturates when placed on nasal cannula. Fortunately, she did not require a BiPAP yesterday. OBJECTIVE: VITAL SIGNS: Her temperature is 98, pulse 98, respirations 20, O2 sat is 98% on the Ventimask and bl ood pressure 149/71. HEENT: Unremarkable. NECK: No JVD. LUNGS: Clear anteriorly. CARDIOVASCULAR: S1 and S2 regular. ABDOMEN: Soft. EXTREMITIES: No edema. LABORATORY DATA: Sodium 136, potassium 3.9, chloride 104, CO2 of 26, BUN 20, creatinine 0.6 and gluc ose 135. White blood cell count 13.4, hemoglobin 13, hematocrit 39 and platelet count 221. ASSESSMENT: 1. Bilateral atypical pneumonia. 2. Hypoxic respiratory failure. PLAN: 1. One dose of diuretics. 2. Continue the antibiotics and steroids. 3. Try to wean down nasal cannula as tolerated.
--- NOTE | 2017-03-04 11:27 | PDOC.PN ---
- Subjective Encounter Start Date: 03/04/17 Encounter Start Time: 09:15 pt still needs high flow oxygen, she gets very quickly tachypneic, tachycardic with little exertion, she is very weak - Objective Resuscitation Status: Resuscitation Status FULL:Full Resuscitation MAR Reviewed: Yes Vital Signs & Weight: Vital Signs (12 hours) Temp Pulse Resp BP BP Pulse Ox 03/04/17 10:06 98 20 98 03/04/17 07:25 97 03/04/17 07:24 98 22 H 95 03/04/17 07:08 97.8 F 84 18 149/71 H 95 03/04/17 06:24 195/79 H 03/04/17 04:17 94 L 03/04/17 04:00 97.5 F L 102 H 20 179/74 H 95 03/04/17 03:53 99 18 98 03/04/17 02:00 79 22 H 159/68 H 95 03/04/17 00:00 97.6 F 77 18 165/72 H 99 Weight Admit Weight 142 lb 8 oz Weight 138 lb 2 oz Most Recent Monitor Data Heart Rate from ECG 122 NIBP 168/64 NIBP BP-Mean 135 Respiration from ECG 34 SpO2 98 I&O: 03/03/17 03/04/17 03/05/17 06:59 06:59 06:59 Intake Total 800 1635 Output Total 975 1275 Balance -175 360 Result Diagrams: 03/04/17 04:40 03/04/17 04:40 Additional Labs: Accuchecks 03/04/17 03/04/17 03/03/17 11:06 05:43 20:56 POC Glucose 269 H 128 H 289 H 03/03/17 16:25 POC Glucose 251 H Radiology Reviewed by me: Yes (chest xray) EKG Reviewed by me: Yes (tachycardia) Phys Exam - Physical Examination Constitutional: NAD HEENT: PERRLA, moist MMs, sclera anicteric Neck: no JVD, supple Respiratory: no wheezing, no rhonchi basilar rales Cardiovascular: RRR, no significant murmur, no rub tachycardia Gastrointestinal: soft, non-tender, no distention, positive bowel sounds Musculoskeletal: no edema, pulses present Neurological: non-focal, normal sensation Lymphatic: no nodes Psychiatric: normal affect Skin: no rash, normal turgor Dx/Plan (1) Acute respiratory failure with hypoxia Code(s): J96.01 - ACUTE RESPIRATORY FAILURE WITH HYPOXIA Status: Acute (2) Community acquired bacterial pneumonia Code(s): J15.9 - UNSPECIFIED BACTERIAL PNEUMONIA Status: Acute (3) SVT (supraventricular tachycardia) Code(s): I47.1 - SUPRAVENTRICULAR TACHYCARDIA Status: Acute (4) Sepsis with acute organ dysfunction Code(s): A41.9 - SEPSIS, UNSPECIFIED ORGANISM; R65.20 - SEVERE SEPSIS WITHOUT SEPTIC SHOCK Status: Acute (5) DM2 (diabetes mellitus, type 2) Status: Chronic (6) HTN (hypertension) Code(s): I10 - ESSENTIAL (PRIMARY) HYPERTENSION Status: Chronic (7) Non compliance w medication regimen Code(s): Z91.14 - PATIENT'S OTHER NONCOMPLIANCE WITH MEDICATION REGIMEN Status : Chronic (8) Rheumatoid arthritis Code(s): M06.9 - RHEUMATOID ARTHRITIS, UNSPECIFIED Status: Chronic (9) Acute kidney injury Code(s): N17.9 - ACUTE KIDNEY FAILURE, UNSPECIFIED Status: Resolved (10) Hyponatremia Code(s): E87.1 - HYPO-OSMOLALITY AND HYPONATREMIA Status: Resolved (11) Lactic acidosis Code(s): E87.2 - ACIDOSIS Status: Resolved (12) ILD (interstitial lung disease) Code(s): J84.9 - INTERSTITIAL PULMONARY DISEASE, UNSPECIFIED Status: Acute - Plan cont current plan of care, mccarthy catheter, continue antibiotics, PT/OT, respiratory therapy, DVT proph w/lovenox * continue zosyn and levaquin * give dose of lasix * contineu IV solumedrol * will titrate need for oxygen requirement * she may need rehab placement on discharge * medication reviewed as below * symptomatic treatment Review of Systems - Review of Systems Constitutional: Weakness. negative: Fever, Chills, Sweats, Malaise, Other Respiratory: Cough, Shortness of Breath, SOB with Excertion. negative: Dry, Hemoptysis, Pleuritic Pain, Sputum, Wheezing Cardiovascular: negative: Chest Pain, Palpitations, Orthopnea, Paroxysmal Noc. Dyspnea, Edema, Light Headedness, Other Gastrointestinal: negative: Nausea, Vomiting, Abdominal Pain, Diarrhea, Constipation, Melena, Hematochezia, Other Genitourinary: negative: Dysuria, Frequency, Incontinence, Hematuria, Retention , Other Musculoskeletal: negative: Neck Pain, Shoulder Pain, Arm Pain, Back Pain, Hand Pain, Leg Pain, Foot Pain, Other Skin: negative: Rash, Lesions, Jose, Bruising, Other - Medications/Allergies Allergies/Adverse Reactions: Allergies Allergy/AdvReac Type Severity Reaction Status Date / Time No Known Drug Allergies Allergy Verified 02/23/17 21:57 Medications: Current Medications Acetaminophen (Tylenol) 650 mg PO Q4H PRN PRN Reason: Headache/Fever or Pain Albuterol/Ipratropium (Duoneb) 3 ml IPPB [id number] [facility] Last Admin: 03/04/17 10:06 Dose: 3 ml Aspirin (Ecotrin) 81 mg PO DAILY [facility] Last Admin: 03/04/17 09:04 Dose: 81 mg Benzonatate (Tessalon) 100 mg PO Q8H PRN PRN Reason: Cough Last Admin: 02/28/17 06:25 Dose: 100 mg Clonidine (Catapres) 0.1 mg PO Q6H PRN PRN Reason: SBP GREATER THAN 160 Last Admin: 03/04/17 06:24 Dose: 0.1 mg Dextrose/Water (Dextrose 50%) 25 gm SLOW IVP PRN PRN PRN Reason: Hypoglycemia Enoxaparin Sodium (Lovenox) 40 mg SC 0900 [facility] Last Admin: 03/04/17 09:05 Dose: 40 mg Furosemide (Lasix) 20 mg IVP ONE [facility] Stop: 03/04/17 12:00 Glucagon (Glucagon) 1 mg IM PRN PRN PRN Reason: Hypoglycemia Guaifenesin (Mucinex) 1,200 mg PO Q12HR [facility] Last Admin: 03/04/17 09:05 Dose: 1,200 mg Guaifenesin/Codeine Phosphate (Robitussin Ac) 10 ml PO Q6H PRN PRN Reason: Cough Last Admin: 03/02/17 04:31 Dose: 10 ml Guaifenesin/Dextromethorphan (Robitussin Dm) 10 ml PO Q6H PRN PRN Reason: Cough Hydralazine HCl (Apresoline) 10 mg SLOW IVP Q4H PRN PRN Reason: FOR SBP>180 Last Admin: 03/01/17 00:52 Dose: 10 mg Dextrose/Water (D5w) 1,000 mls @ 0 mls/hr IV .Q0M PRN; As Directed PRN Reason: Hypoglycemia Sodium Chloride (Normal Saline 0.9%) 1,000 mls @ 0 mls/hr IV .Q0M [facility] PRN Reason: KVO Last Admin: 03/03/17 23:14 Dose: 1,000 mls Levofloxacin 750 mg/ Device 150 mls @ 100 mls/hr IVPB 1000 [facility] Last Admin: 03/04/17 09:07 Dose: 150 mls Piperacillin Sod/Tazobactam (Sod 3.375 gm/ Sodium Chloride) 100 mls @ 200 mls/ hr IVPB Q6HR [facility] Last Admin: 03/04/17 05:43 Dose: 100 mls Diltiazem HCl 125 mg/Miscellaneous Medication 1 each/ Sodium Chloride 125 mls @ 10 mls/hr IVPB INF PRN; Protocol PRN Reason: HR >150 X 3 MINUTES Insulin Human Isoph/Insulin Regular (Humulin 70/30) 20 units SC [facility] Last Admin: 03/03/17 21:01 Dose: 20 unit Insulin Human Isoph/Insulin Regular (Humulin 70/30) 30 units SC QAM [facility] Last Admin: 03/04/17 09:08 Dose: 15 units Insulin Human Lispro (Humalog) 0 units SC .MODERATE SLIDING SC PRN PRN Reason: Moderate Correctional Scale Last Admin: 03/03/17 18:09 Dose: 6 unit Insulin Human Lispro (Humalog) 0 units SC .BEDTIME SLIDING SC PRN PRN Reason: Bedtime Correctional Scale Last Admin: 03/03/17 21:04 Dose: 3 unit Methylprednisolone Sodium Succinate (Solu-Medrol) 20 mg IVP Q8HR [facility] Last Admin: 03/04/17 05:43 Dose: 20 mg Metoprolol Tartrate (Lopressor) 25 mg PO BID [facility] Last Admin: 03/04/17 09:06 Dose: 25 mg Nystatin (Mycostatin) 500,000 units SSW QID [facility] Last Admin: 03/04/17 09:06 Dose: 500,000 units Ondansetron HCl (Zofran) 4 mg IVP Q6H PRN PRN Reason: Nausea/Vomiting Last Admin: 03/02/17 15:30 Dose: 4 mg Oxymetazoline HCl (Oxymetazoline Hcl) 2 sprays NASAL BID PRN PRN Reason: Nasal Congestion Stop: 03/07/17 10:03 Pantoprazole Sodium (Protonix) 40 mg PO DAILY [facility] Last Admin: 03/04/17 09:06 Dose: 40 mg Saccharomyces Boulardii (Florastor) 250 mg PO DAILY [facility] Last Admin: 03/04/17 09:06 Dose: 250 mg Sodium Chloride (Flush - Normal Saline) 10 ml IVF Q12HR [facility] Last Admin: 03/04/17 09:07 Dose: 10 ml Sodium Chloride (Flush - Normal Saline) 10 ml IVF PRN PRN PRN Reason: Saline Flush Last Admin: 03/04/17 05:44 Dose: 10 ml Tramadol HCl (Ultram) 50 mg PO Q6H PRN PRN Reason: Pain 4-6 Last Admin: 03/03/17 21:00 Dose: 50 mg Tramadol HCl (Ultram) 50 mg PO Q6H PRN PRN Reason: Pain
[2017-03-04] MEDS: HumaLOG 300 UNITS/3 ML VIAL SC PRN ×2 (11:38→17:51)
[2017-03-04] MEDS: Oxymetazoline HCl 0.05% ( 15 ML ) NASAL PRN (14:38)
[2017-03-04] MEDS ORDERED: Nitroglycerin 0.4 MG TAB (25 Tab Bottle) PO PRN (20:15)
[2017-03-04] MEDS ORDERED: Nitroglycerin 2% Ointment 1 INCH/1 GM Packet TOP SCH (20:30)
[2017-03-04 21:02] LABS: Troponin I 0.027 ng/mL (< 0.028)
[2017-03-04] MEDS: traMADol HCl 50 MG TAB PO PRN (21:20)
[2017-03-05 00:06] LABS: Troponin I 0.034 ng/mL (< 0.028)
[2017-03-05] MEDS: Bisacodyl 10 MG SUPP PR PRN (03:49)
[2017-03-05 05:13] LABS: #Lymphocytes 0.9 thou/uL (1.20-3.40); #Monocytes 0.6 thou/uL (0.11-0.59); #Neutrophils 12.4 thou/uL (1.40-6.50); %Basophils 0.1 % (0.0-1.0); %Eosinophils 0.3 % (0.0-10.0); %Lymphocytes 6.3 % (21.0-51.0); Hematocrit 39.7 % (36.0-47.0); Mean Platelet Volume 6.5 fL (7.4-10.4); Red Blood Cell (RBC) Count 4.11 mill/uL (4.20-5.40); White Blood Cell (WBC) Count 13.9 thou/uL (4.8-10.8)
[2017-03-05] MEDS: Piperacillin/Tazobactam 3.375 GM in Sodium Chloride 0.9% 100 ML IVPB SCH (05:28)
[2017-03-05 05:37] LABS: Anion Gap 10 mmol/L (10-20); BUN (Urea Nitrogen) 20 mg/dL (9.8-20.1); Calc. Creatinine Clearance 67 mL/min (70-130); Calcium 8.7 mg/dL (7.8-10.44); Carbon Dioxide 25 mmol/L (23-31); Chloride 102 mmol/L (98-107); Estimated GFR-MDRD 75; Magnesium 1.8 mg/dL (1.6-2.6); Phosphorus 2.8 mg/dL (2.3-4.7)
[2017-03-05] MEDS: Aspirin 81 mg Enteric Coated Tablet PO SCH (08:41)
[2017-03-05] MEDS: guaiFENesin ER 600 MG TAB PO SCH ×2 (08:42→20:01)
[2017-03-05] MEDS: Enoxaparin Sodium 40 MG/0.4 ML SYRINGE SC SCH (08:42)
[2017-03-05] MEDS: Saccharomyces boulardii 250 MG CAP PO SCH (08:43)
[2017-03-05] MEDS: Polyethylene Glycol 3350 17 GM Packet PO SCH (08:43)
[2017-03-05] MEDS: Nystatin 500,000 UNITS/5 ML UDCUP SSW SCH ×4 (08:43→20:01)
[2017-03-05] MEDS: Insulin NPH/Reg Insulin Hm 300 UNITS/3 ML VIAL SC SCH ×2 (08:44→20:03)
[2017-03-05] MEDS: Metoprolol Tartrate 25 MG TAB PO SCH ×2 (08:46→20:01)
[2017-03-05] MEDS: Oxymetazoline HCl 0.05% ( 15 ML ) NASAL PRN (08:50)
[2017-03-05] MEDS ORDERED: Doxycycline 100 MG in Syringe 0 ML IVPB SCH (09:00)
--- NOTE | 2017-03-05 09:05 | PRG ---
DATE OF SERVICE: 03/05/2017 PULMONARY AND CRITICAL CARE PROGRESS NOTE SUBJECTIVE: She is still requiring intermittent BiPAP at night. She is being tried on Ventimask and sometimes nasal cannula during the day. Her O2 sats are fluctuating between the mid 80s when she is on nasal cannula and the high 90s when she is on the BiPAP. She says she feels a bit better. PHYSICAL EXAMINATION: VITAL SIGNS: Temperature is 97.0, pulse 90, respirations 18, O2 sat 94%, blood pressure 152/69, 24-h our intake is 2865 and output 1755. Weight is currently at 141 pounds which is not far off her admis hai weight of 142. HEENT: Unremarkable. NECK: No JVD. LUNGS: She has a few inspiratory crackles bilaterally, particularly at the bases. CARDIAC: S1 and S2 regular. ABDOMEN: Soft and nontender. EXTREMITIES: No edema. LABORATORY DATA AND IMAGING: Sodium 133, potassium 4.1, chloride 102, CO2 25, BUN 20, creatinine 0.7 , glucose 135, white blood cell count 13.9, hematocrit 39.7, and platelet count 245. Chest x-ray fro m yesterday showed diffuse infiltrates, which is not much better than the time of admission. ASSESSMENT: 1. Bilateral pneumonia - atypical suggestive of probably a viral process given lack of improvement w ith broad spectrum IV antibiotics. 2. Acute hypoxic respiratory failure requiring mechanical ventilation. 3. Mild hyponatremia. RECOMMENDATIONS: 1. Continue BiPAP as needed. 2. Stop IV Zosyn, IV Levaquin and perhaps try IV doxycycline to see if there is any difference, alth ough I am not holding much hope for that. 3. Continue generalized supportive care. 4. Continue low dose steroids.
--- NOTE | 2017-03-05 09:12 | PDOC.PN ---
- Subjective Encounter Start Date: 03/05/17 Encounter Start Time: 07:30 pt still needs high flow oxygen, pt is very weak, Patient seen and examined. Had good BM. No overnight events - Objective Resuscitation Status: Resuscitation Status FULL:Full Resuscitation MAR Reviewed: Yes Vital Signs & Weight: Vital Signs (12 hours) Temp Pulse Resp BP Pulse Ox 03/05/17 09:01 105 H 24 H 90 L 03/05/17 07:00 97.0 F L 90 18 152/69 H 94 L 03/05/17 04:00 98.2 F 99 24 H 177/90 H 91 L 03/05/17 02:20 78 22 H 96 03/05/17 01:19 100 03/05/17 00:00 98.1 F 89 26 H 162/70 H 93 L 03/04/17 23:37 96 03/04/17 22:45 80 24 H 92 L Weight Admit Weight 142 lb 8 oz Weight 141 lb 12.8 oz Most Recent Monitor Data Heart Rate from ECG 122 NIBP 168/64 NIBP BP-Mean 135 Respiration from ECG 34 SpO2 98 I&O: 03/04/17 03/05/17 03/06/17 06:59 06:59 06:59 Intake Total 1635 2865 Output Total 1275 1755 Balance 360 1110 Result Diagrams: 03/05/17 04:41 03/05/17 04:41 Additional Labs: Accuchecks 03/05/17 03/04/17 03/04/17 05:28 20:51 17:18 POC Glucose 115 H 260 H 250 H 03/04/17 11:06 POC Glucose 269 H EKG Reviewed by me: Yes (NSR) Phys Exam - Physical Examination Constitutional: NAD HEENT: PERRLA, moist MMs, sclera anicteric Neck: no JVD, supple Respiratory: no wheezing, no rhonchi reduced air entry at base and basal rales Cardiovascular: RRR, no significant murmur, no rub Gastrointestinal: soft, non-tender, no distention, positive bowel sounds Musculoskeletal: no edema, pulses present Neurological: non-focal, normal sensation Lymphatic: no nodes Psychiatric: normal affect, A&O x 3 Skin: no rash, normal turgor Dx/Plan (1) Acute respiratory failure with hypoxia Code(s): J96.01 - ACUTE RESPIRATORY FAILURE WITH HYPOXIA Status: Acute (2) Community acquired bacterial pneumonia Code(s): J15.9 - UNSPECIFIED BACTERIAL PNEUMONIA Status: Acute (3) SVT (supraventricular tachycardia) Code(s): I47.1 - SUPRAVENTRICULAR TACHYCARDIA Status: Acute (4) Sepsis with acute organ dysfunction Code(s): A41.9 - SEPSIS, UNSPECIFIED ORGANISM; R65.20 - SEVERE SEPSIS WITHOUT SEPTIC SHOCK Status: Acute (5) DM2 (diabetes mellitus, type 2) Status: Chronic (6) HTN (hypertension) Code(s): I10 - ESSENTIAL (PRIMARY) HYPERTENSION Status: Chronic (7) Non compliance w medication regimen Code(s): Z91.14 - PATIENT'S OTHER NONCOMPLIANCE WITH MEDICATION REGIMEN Status : Chronic (8) Rheumatoid arthritis Code(s): M06.9 - RHEUMATOID ARTHRITIS, UNSPECIFIED Status: Chronic (9) Acute kidney injury Code(s): N17.9 - ACUTE KIDNEY FAILURE, UNSPECIFIED Status: Resolved (10) Hyponatremia Code(s): E87.1 - HYPO-OSMOLALITY AND HYPONATREMIA Status: Resolved (11) Lactic acidosis Code(s): E87.2 - ACIDOSIS Status: Resolved (12) ILD (interstitial lung disease) Code(s): J84.9 - INTERSTITIAL PULMONARY DISEASE, UNSPECIFIED Status: Acute - Plan cont current plan of care, continue antibiotics, respiratory therapy * Change zosyn and levaquin to doxycycline * continue IV solumderol low dose * will use bipap as needed * still requires high flow oxygen * I am not sure if bronchoscopy is option for her not. * medication reviewed as below * symptomatic treatment Review of Systems - Review of Systems Constitutional: Weakness. negative: Fever, Chills, Sweats, Malaise, Other ENT: negative: Ear Pain, Ear Discharge, Nose Pain, Nose Discharge, Nose Congestion, Mouth Pain, Mouth Swelling, Throat Pain, Throat Swelling, Other Respiratory: Shortness of Breath, SOB with Excertion. negative: Cough, Dry, Hemoptysis, Pleuritic Pain, Sputum, Wheezing Cardiovascular: negative: Chest Pain, Palpitations, Orthopnea, Paroxysmal Noc. Dyspnea, Edema, Light Headedness, Other Gastrointestinal: negative: Nausea, Vomiting, Abdominal Pain, Diarrhea, Constipation, Melena, Hematochezia, Other Genitourinary: negative: Dysuria, Frequency, Incontinence, Hematuria, Retention , Other Musculoskeletal: negative: Neck Pain, Shoulder Pain, Arm Pain, Back Pain, Hand Pain, Leg Pain, Foot Pain, Other Skin: negative: Rash, Lesions, Jose, Bruising, Other - Medications/Allergies Allergies/Adverse Reactions: Allergies Allergy/AdvReac Type Severity Reaction Status Date / Time No Known Drug Allergies Allergy Verified 02/23/17 21:57 Medications: Current Medications Acetaminophen (Tylenol) 650 mg PO Q4H PRN PRN Reason: Headache/Fever or Pain Albuterol/Ipratropium (Duoneb) 3 ml IPPB [id number] [facility] Last Admin: 03/05/17 09:01 Dose: 3 ml Aspirin (Ecotrin) 81 mg PO DAILY [facility] Last Admin: 03/05/17 08:41 Dose: 81 mg Benzonatate (Tessalon) 100 mg PO Q8H PRN PRN Reason: Cough Last Admin: 02/28/17 06:25 Dose: 100 mg Bisacodyl (Dulcolax) 10 mg [place] Q8H PRN PRN Reason: Constipation Last Admin: 03/05/17 03:49 Dose: 10 mg Clonidine (Catapres) 0.1 mg PO Q6H PRN PRN Reason: SBP GREATER THAN 160 Last Admin: 03/04/17 06:24 Dose: 0.1 mg Dextrose/Water (Dextrose 50%) 25 gm SLOW IVP PRN PRN PRN Reason: Hypoglycemia Enoxaparin Sodium (Lovenox) 40 mg SC 0900 [facility] Last Admin: 03/05/17 08:42 Dose: 40 mg Glucagon (Glucagon) 1 mg IM PRN PRN PRN Reason: Hypoglycemia Guaifenesin (Mucinex) 1,200 mg PO Q12HR [facility] Last Admin: 03/05/17 08:42 Dose: 1,200 mg Guaifenesin/Codeine Phosphate (Robitussin Ac) 10 ml PO Q6H PRN PRN Reason: Cough Last Admin: 03/02/17 04:31 Dose: 10 ml Guaifenesin/Dextromethorphan (Robitussin Dm) 10 ml PO Q6H PRN PRN Reason: Cough Hydralazine HCl (Apresoline) 10 mg SLOW IVP Q4H PRN PRN Reason: FOR SBP>180 Last Admin: 03/01/17 00:52 Dose: 10 mg Dextrose/Water (D5w) 1,000 mls @ 0 mls/hr IV .Q0M PRN; As Directed PRN Reason: Hypoglycemia Sodium Chloride (Normal Saline 0.9%) 1,000 mls @ 0 mls/hr IV .Q0M CORRY PRN Reason: KVO Last Admin: 03/03/17 23:14 Dose: 1,000 mls Diltiazem HCl 125 mg/Miscellaneous Medication 1 each/ Sodium Chloride 125 mls @ 10 mls/hr IVPB INF PRN; Protocol PRN Reason: HR >150 X 3 MINUTES Doxycycline Hyclate 100 mg/ (Syringe) 10 mls @ 0 mls/hr IVPB Q12HR [facility] Insulin Human Isoph/Insulin Regular (Humulin 70/30) 20 units SC HS [facility] Last Admin: 03/04/17 21:30 Dose: 20 unit Insulin Human Isoph/Insulin Regular (Humulin 70/30) 30 units SC QAM [facility] Last Admin: 03/05/17 08:44 Dose: 15 units Insulin Human Lispro (Humalog) 0 units SC .MODERATE SLIDING SC PRN PRN Reason: Moderate Correctional Scale Last Admin: 03/04/17 17:51 Dose: 4 unit Insulin Human Lispro (Humalog) 0 units SC .BEDTIME SLIDING SC PRN PRN Reason: Bedtime Correctional Scale Last Admin: 03/03/17 21:04 Dose: 3 unit Methylprednisolone Sodium Succinate (Solu-Medrol) 20 mg IVP Q8HR [facility] Last Admin: 03/05/17 05:32 Dose: 20 mg Metoprolol Tartrate (Lopressor) 25 mg PO BID [facility] Last Admin: 03/05/17 08:46 Dose: 25 mg Nitroglycerin (Nitrostat) 0.4 mg PO Q5MIN PRN PRN Reason: Chest Pain Nystatin (Mycostatin) 500,000 units SSW QID [facility] Last Admin: 03/05/17 08:43 Dose: 500,000 units Ondansetron HCl (Zofran) 4 mg IVP Q6H PRN PRN Reason: Nausea/Vomiting Last Admin: 03/02/17 15:30 Dose: 4 mg Oxymetazoline HCl (Oxymetazoline Hcl) 2 sprays NASAL BID PRN PRN Reason: Nasal Congestion Stop: 03/07/17 10:03 Last Admin: 03/05/17 08:50 Dose: 2 sprays Pantoprazole Sodium (Protonix) 40 mg PO DAILY [facility] Last Admin: 03/05/17 08:42 Dose: 40 mg Polyethylene Glycol (Miralax) 17 gm PO DAILY [facility] Last Admin: 03/05/17 08:43 Dose: 17 gm Saccharomyces Boulardii (Florastor) 250 mg PO DAILY [facility] Last Admin: 03/05/17 08:43 Dose: 250 mg Sodium Chloride (Flush - Normal Saline) 10 ml IVF Q12HR [facility] Last Admin: 03/05/17 08:47 Dose: 10 ml Sodium Chloride (Flush - Normal Saline) 10 ml IVF PRN PRN PRN Reason: Saline Flush Last Admin: 03/04/17 05:44 Dose: 10 ml Tramadol HCl (Ultram) 50 mg PO Q6H PRN PRN Reason: Pain 4-6 Last Admin: 03/04/17 21:20 Dose: 50 mg
--- NOTE | 2017-03-05 12:21 | EKG ---
Test Reason : STAT Blood Pressure : / mmHG Vent. Rate : 104 BPM Atrial Rate : 104 BPM P-R Int : 122 ms QRS Dur : 080 ms QT Int : 340 ms P-R-T Axes : 051 003 024 degrees QTc Int : 447 ms Sinus tachycardia with Premature atrial complexes Moderate voltage criteria for LVH, may be normal variant Borderline ECG When compared with ECG of 23-FEB-2017 18:11, (Unconfirmed) Fusion complexes are no longer Present Premature atrial complexes are now Present Confirmed by AGUEDA THOMAS ([id number]) on 03/05/2017 12:21:07 PM Referred By: RONALDO Confirmed By:AGUEDA THOMAS
[2017-03-05] MEDS: Sodium Chloride 0.9% 1,000 ML IV SCH (17:36)
[2017-03-05] MEDS: traMADol HCl 50 MG TAB PO PRN (19:57)
[2017-03-06] MEDS: hydrALAZINE 20 MG/ML VIAL SLOW IVP PRN (00:07)
[2017-03-06] MEDS: Acetaminophen 325 MG TAB PO PRN (00:50)
[2017-03-06 06:04] LABS: #Eosinphils 0.1 thou/uL (0.0-0.7); #Lymphocytes 1.2 thou/uL (1.20-3.40); #Monocytes 0.4 thou/uL (0.11-0.59); #Neutrophils 12.7 thou/uL (1.40-6.50); %Eosinophils 0.5 % (0.0-10.0); %Monocytes 3.1 % (0.0-10.0); Mean Platelet Volume 6.7 fL (7.4-10.4); Red Blood Cell (RBC) Count 4.01 mill/uL (4.20-5.40); White Blood Cell (WBC) Count 14.4 thou/uL (4.8-10.8)
[2017-03-06 06:50] LABS: Anion Gap 9 mmol/L (10-20); BUN (Urea Nitrogen) 20 mg/dL (9.8-20.1); Calc. Creatinine Clearance 79 mL/min (70-130); Calcium 8.6 mg/dL (7.8-10.44); Carbon Dioxide 24 mmol/L (23-31); Chloride 104 mmol/L (98-107); Estimated GFR-MDRD Greater than 90
[2017-03-06 06:52] LABS: Troponin I 0.031 ng/mL (< 0.028)
--- NOTE | 2017-03-06 09:38 | RAD ---
CHEST 1 VIEW: Date: 03/06/17 COMPARISON: 03/03/17. HISTORY: Pneumonia. FINDINGS: Stable cardiac silhouette. Persistent interstitial and alveolar opacities throughout the lung parench yma. No change. IMPRESSION: No change. POS: SOHAN
[2017-03-06] MEDS: Insulin NPH/Reg Insulin Hm 300 UNITS/3 ML VIAL SC SCH ×3 (09:39→22:10)
--- NOTE | 2017-03-06 09:40 | PDOC.PN ---
- Subjective Encounter Start Date: 03/06/17 Encounter Start Time: 09:10 pt is hypoxic with nasal canulla, still has dyspnea - Objective Resuscitation Status: Resuscitation Status FULL:Full Resuscitation MAR Reviewed: Yes Vital Signs & Weight: Vital Signs (12 hours) Temp Pulse Resp BP BP Pulse Ox 03/06/17 07:16 98.6 F 104 H 20 162/56 H 95 03/06/17 06:41 75 20 99 03/06/17 04:00 97.7 F 87 28 H 131/54 L 94 L 03/06/17 03:24 73 18 98 03/06/17 00:56 136/55 L 03/06/17 00:07 97.9 F 98 28 H 206/93 H 206/93 H 100 03/05/17 22:23 97 20 97 Weight Admit Weight 142 lb 8 oz Weight 140 lb 11.2 oz Most Recent Monitor Data Heart Rate from ECG 122 NIBP 168/64 NIBP BP-Mean 135 Respiration from ECG 34 SpO2 98 I&O: 03/05/17 03/06/17 03/07/17 06:59 06:59 06:59 Intake Total 2865 1450 800 Output Total 1755 1000 575 Balance 1110 450 225 Result Diagrams: 03/06/17 05:33 03/06/17 05:33 Additional Labs: Accuchecks 03/06/17 03/05/17 03/05/17 05:41 20:44 16:19 POC Glucose 109 278 H 111 H 03/05/17 10:35 POC Glucose 152 H Radiology Reviewed by me: Yes (chest xray) EKG Reviewed by me: Yes (sinus tachycardia) Phys Exam - Physical Examination Constitutional: NAD HEENT: PERRLA, moist MMs, sclera anicteric Neck: no JVD, supple Respiratory: no wheezing, no rhonchi scattered rales Cardiovascular: RRR, no significant murmur, no rub Gastrointestinal: soft, non-tender, no distention, positive bowel sounds Musculoskeletal: no edema, pulses present Neurological: non-focal, normal sensation Lymphatic: no nodes Psychiatric: normal affect Skin: no rash, normal turgor Dx/Plan (1) Acute respiratory failure with hypoxia Code(s): J96.01 - ACUTE RESPIRATORY FAILURE WITH HYPOXIA Status: Acute (2) Community acquired bacterial pneumonia Code(s): J15.9 - UNSPECIFIED BACTERIAL PNEUMONIA Status: Acute (3) SVT (supraventricular tachycardia) Code(s): I47.1 - SUPRAVENTRICULAR TACHYCARDIA Status: Acute (4) Sepsis with acute organ dysfunction Code(s): A41.9 - SEPSIS, UNSPECIFIED ORGANISM; R65.20 - SEVERE SEPSIS WITHOUT SEPTIC SHOCK Status: Acute (5) DM2 (diabetes mellitus, type 2) Status: Chronic (6) HTN (hypertension) Code(s): I10 - ESSENTIAL (PRIMARY) HYPERTENSION Status: Chronic (7) Non compliance w medication regimen Code(s): Z91.14 - PATIENT'S OTHER NONCOMPLIANCE WITH MEDICATION REGIMEN Status : Chronic (8) Rheumatoid arthritis Code(s): M06.9 - RHEUMATOID ARTHRITIS, UNSPECIFIED Status: Chronic (9) Acute kidney injury Code(s): N17.9 - ACUTE KIDNEY FAILURE, UNSPECIFIED Status: Resolved (10) Hyponatremia Code(s): E87.1 - HYPO-OSMOLALITY AND HYPONATREMIA Status: Resolved (11) Lactic acidosis Code(s): E87.2 - ACIDOSIS Status: Resolved (12) ILD (interstitial lung disease) Code(s): J84.9 - INTERSTITIAL PULMONARY DISEASE, UNSPECIFIED Status: Acute - Plan cont current plan of care, continue antibiotics, respiratory therapy * continue doxycycline * ? needs bronchoscopy * medication reviewed as below * symptomatic treatment * continue IV steroid. * most likely she will need placement and oxygen on discharge Review of Systems - Review of Systems Constitutional: Weakness. negative: Fever, Chills, Sweats, Malaise, Other Eyes: negative: Pain, Vision Change, Conjunctivae Inflammation, Eyelid Inflammation, Redness, Other ENT: negative: Ear Pain, Ear Discharge, Nose Pain, Nose Discharge, Nose Congestion, Mouth Pain, Mouth Swelling, Throat Pain, Throat Swelling, Other Respiratory: Cough, Shortness of Breath, SOB with Excertion. negative: Dry, Hemoptysis, Pleuritic Pain, Sputum, Wheezing Cardiovascular: negative: Chest Pain, Palpitations, Orthopnea, Paroxysmal Noc. Dyspnea, Edema, Light Headedness, Other Gastrointestinal: negative: Nausea, Vomiting, Abdominal Pain, Diarrhea, Constipation, Melena, Hematochezia, Other Genitourinary: negative: Dysuria, Frequency, Incontinence, Hematuria, Retention , Other Musculoskeletal: negative: Neck Pain, Shoulder Pain, Arm Pain, Back Pain, Hand Pain, Leg Pain, Foot Pain, Other Skin: negative: Rash, Lesions, Jose, Bruising, Other - Medications/Allergies Allergies/Adverse Reactions: Allergies Allergy/AdvReac Type Severity Reaction Status Date / Time No Known Drug Allergies Allergy Verified 02/23/17 21:57 Medications: Current Medications Acetaminophen (Tylenol) 650 mg PO Q4H PRN PRN Reason: Headache/Fever or Pain Last Admin: 03/06/17 00:50 Dose: 650 mg Albuterol/Ipratropium (Duoneb) 3 ml NEB [id number] [facility] Last Admin: 03/06/17 06:41 Dose: 3 ml Aspirin (Ecotrin) 81 mg PO DAILY [facility] Last Admin: 03/05/17 08:41 Dose: 81 mg Benzonatate (Tessalon) 100 mg PO Q8H PRN PRN Reason: Cough Last Admin: 02/28/17 06:25 Dose: 100 mg Bisacodyl (Dulcolax) [address] Q8H PRN PRN Reason: Constipation Last Admin: 03/05/17 03:49 Dose: 10 mg Clonidine (Catapres) 0.1 mg PO Q6H PRN PRN Reason: SBP GREATER THAN 160 Last Admin: 03/04/17 06:24 Dose: 0.1 mg Dextrose/Water (Dextrose 50%) 25 gm SLOW IVP PRN PRN PRN Reason: Hypoglycemia Enoxaparin Sodium (Lovenox) 40 mg SC 0900 [facility] Last Admin: 03/05/17 08:42 Dose: 40 mg Glucagon (Glucagon) 1 mg IM PRN PRN PRN Reason: Hypoglycemia Guaifenesin (Mucinex) 1,200 mg PO Q12HR [facility] Last Admin: 03/05/17 20:01 Dose: 1,200 mg Guaifenesin/Codeine Phosphate (Robitussin Ac) 10 ml PO Q6H PRN PRN Reason: Cough Last Admin: 03/02/17 04:31 Dose: 10 ml Guaifenesin/Dextromethorphan (Robitussin Dm) 10 ml PO Q6H PRN PRN Reason: Cough Hydralazine HCl (Apresoline) 10 mg SLOW IVP Q4H PRN PRN Reason: FOR SBP>180 Last Admin: 03/06/17 00:07 Dose: 10 mg Dextrose/Water (D5w) 1,000 mls @ 0 mls/hr IV .Q0M PRN; As Directed PRN Reason: Hypoglycemia Sodium Chloride (Normal Saline 0.9%) 1,000 mls @ 0 mls/hr IV .Q0M CORRY PRN Reason: KVO Last Admin: 03/05/17 17:36 Dose: 1,000 mls Diltiazem HCl 125 mg/Miscellaneous Medication 1 each/ Sodium Chloride 125 mls @ 10 mls/hr IVPB INF PRN; Protocol PRN Reason: HR >150 X 3 MINUTES Doxycycline Hyclate 100 mg/ (Sodium Chloride) 100 mls @ 100 mls/hr IVPB Q12HR [facility] Last Admin: 03/05/17 20:07 Dose: 100 mls Insulin Human Isoph/Insulin Regular (Humulin 70/30) 20 units SC HS [facility] Last Admin: 03/05/17 20:03 Dose: 20 unit Insulin Human Isoph/Insulin Regular (Humulin 70/30) [facility] Insulin Human Lispro (Humalog) 0 units SC .MODERATE SLIDING SC PRN PRN Reason: Moderate Correctional Scale Last Admin: 03/04/17 17:51 Dose: 4 unit Insulin Human Lispro (Humalog) 0 units SC .BEDTIME SLIDING SC PRN PRN Reason: Bedtime Correctional Scale Last Admin: 03/03/17 21:04 Dose: 3 unit Methylprednisolone Sodium Succinate (Solu-Medrol) 20 mg IVP Q8HR [facility] Last Admin: 03/06/17 06:30 Dose: 20 mg Metoprolol Tartrate (Lopressor) 25 mg PO BID [facility] Last Admin: 03/05/17 20:01 Dose: 25 mg Nitroglycerin (Nitrostat) 0.4 mg PO Q5MIN PRN PRN Reason: Chest Pain Nystatin (Mycostatin) 500,000 units SSW QID [facility] Last Admin: 03/05/17 20:01 Dose: 500,000 units Ondansetron HCl (Zofran) 4 mg IVP Q6H PRN PRN Reason: Nausea/Vomiting Last Admin: 03/02/17 15:30 Dose: 4 mg Oxymetazoline HCl (Oxymetazoline Hcl) 2 sprays NASAL BID PRN PRN Reason: Nasal Congestion Stop: 03/07/17 10:03 Last Admin: 03/05/17 08:50 Dose: 2 sprays Pantoprazole Sodium (Protonix) 40 mg PO DAILY [facility] Last Admin: 03/05/17 08:42 Dose: 40 mg Polyethylene Glycol (Miralax) 17 gm PO DAILY [facility] Last Admin: 03/05/17 08:43 Dose: 17 gm Saccharomyces Boulardii (Florastor) 250 mg PO DAILY [facility] Last Admin: 03/05/17 08:43 Dose: 250 mg Sodium Chloride (Flush - Normal Saline) 10 ml IVF Q12HR [facility] Last Admin: 03/05/17 22:17 Dose: 10 ml Sodium Chloride (Flush - Normal Saline) 10 ml IVF PRN PRN PRN Reason: Saline Flush Last Admin: 03/04/17 05:44 Dose: 10 ml
[2017-03-06] MEDS: Metoprolol Tartrate 25 MG TAB PO SCH ×2 (09:42→21:52)
[2017-03-06] MEDS: Aspirin 81 mg Enteric Coated Tablet PO SCH (09:42)
[2017-03-06] MEDS: Saccharomyces boulardii 250 MG CAP PO SCH (09:42)
[2017-03-06] MEDS: Nystatin 500,000 UNITS/5 ML UDCUP SSW SCH ×4 (09:42→21:53)
[2017-03-06] MEDS: Enoxaparin Sodium 40 MG/0.4 ML SYRINGE SC SCH (09:43)
[2017-03-06] MEDS: Polyethylene Glycol 3350 17 GM Packet PO SCH (09:43)
[2017-03-06] MEDS: guaiFENesin ER 600 MG TAB PO SCH ×2 (09:46→21:53)
[2017-03-06] MEDS: traMADol HCl 50 MG TAB PO PRN ×2 (11:03→21:51)
[2017-03-06] MEDS: HumaLOG 300 UNITS/3 ML VIAL SC PRN (11:05)
--- NOTE | 2017-03-06 14:12 | PRG ---
DATE OF SERVICE: 03/06/2017 SERVICE: Pulmonary Medicine. INTERVAL HISTORY: The patient is doing okay from a cardiovascular and respiratory standpoint. She s till has high oxygen requirements. That being said, she is breathing fairly comfortably. She denies any current fevers, chills, nausea, vomiting, or diarrhea. Her white blood cell count remains eleva abena and it really will not drop any. PHYSICAL EXAMINATION: VITAL SIGNS: Afebrile. Pulse 105, blood pressure 161/72, respirations 20, and saturation 97% on 2.5 liters nasal cannula. GENERAL: Patient is awake and alert, in no apparent distress. LUNGS: Decent air entry. Interestingly, there are no crackles. HEART: Normal rate, regular. ABDOMEN: Soft, nontender, nondistended. Bowel sounds positive. MUSCULOSKELETAL: No cyanosis or clubbing. No pitting in the bilateral lower extremities. NEUROLOGIC: Grossly nonfocal. LABORATORY DATA: WBC 14.4, hemoglobin 13.0, platelets 235,000. PH 7.48, pCO2 of 37, pO2 of 77 on 45 % FiO2 at that time. Basic metabolic profile is unremarkable. Troponin is trending downward to 0.03 1. Blood sugars remain stable. Urinalysis is unremarkable. Blood cultures and urine culture and in fluenza is negative. IMAGIN. Chest x-ray demonstrates stable interstitial lung changes in alveolar opacifications throughout t he bilateral lung horton. There has been no interval change. 2. CT chest was reviewed. She has got ground glass opacification superimposed on interstitial lung disease. At least part of this is likely chronic. ASSESSMENT: 1. Acute hypoxic respiratory failure. 2. Community-acquired pneumonia. 3. Interstitial lung disease, possible. PLAN: We will continue antibiotics and steroids, nebulized medications. She has completed a full co urse of Zosyn and Levaquin. There may be a chronic component to her lung disease with acute exacerba tion. As such, I will send her all studies looking for interstitial related lung diseases. Clinical ly, she is volume down. She has got all of these changes on her chest x-ray and CT scan though I do not hear anything except for clear lung sounds. Pulmonary Critical Care will continue to follow. Peter martínez will remain in the IMCU as she is requiring intermittent BiPAP.
[2017-03-06] MEDS: cloNIDine 0.1 MG TAB PO PRN ×2 (16:35→22:13)
[2017-03-07] MEDS: traMADol HCl 50 MG TAB PO PRN ×2 (04:22→21:14)
[2017-03-07] MEDS: cloNIDine 0.1 MG TAB PO PRN (04:23)
[2017-03-07] MEDS: Sodium Chloride 0.9% 1,000 ML IV SCH (05:13)
[2017-03-07 05:36] LABS: #Lymphocytes 0.8 thou/uL (1.20-3.40); #Monocytes 0.5 thou/uL (0.11-0.59); #Neutrophils 12.8 thou/uL (1.40-6.50); %Eosinophils 0.3 % (0.0-10.0); %Lymphocytes 5.5 % (21.0-51.0); %Monocytes 3.4 % (0.0-10.0); Hematocrit 40.5 % (36.0-47.0); Mean Platelet Volume 6.6 fL (7.4-10.4); White Blood Cell (WBC) Count 14.1 thou/uL (4.8-10.8)
[2017-03-07 05:52] LABS: Anion Gap 8 mmol/L (10-20); BUN (Urea Nitrogen) 21 mg/dL (9.8-20.1); Calc. Creatinine Clearance 81 mL/min (70-130); Calcium 8.7 mg/dL (7.8-10.44); Carbon Dioxide 26 mmol/L (23-31); Chloride 104 mmol/L (98-107); Estimated GFR-MDRD Greater than 90
--- NOTE | 2017-03-07 07:29 | PDOC.PN ---
- Subjective Encounter Start Date: 03/07/17 Encounter Start Time: 06:40 pt is on bipap, no fever, still short of breath, feels weak - Objective Resuscitation Status: Resuscitation Status FULL:Full Resuscitation MAR Reviewed: Yes Vital Signs & Weight: Vital Signs (12 hours) Temp Pulse Resp BP BP Pulse Ox 03/07/17 07:00 98.0 F 110 H 26 H 151/61 H 03/07/17 04:23 174/79 H 03/07/17 04:00 97.9 F 82 20 174/79 H 91 L 03/07/17 02:33 78 16 100 03/07/17 00:00 98.5 F 83 24 H 153/60 H 99 03/06/17 22:36 93 20 96 03/06/17 22:13 197/88 H Weight Admit Weight 142 lb 8 oz Weight 140 lb Most Recent Monitor Data Heart Rate from ECG 122 NIBP 168/64 NIBP BP-Mean 135 Respiration from ECG 34 SpO2 98 I&O: 03/06/17 03/07/17 03/08/17 06:59 06:59 06:59 Intake Total 1450 2778.5 Output Total 1000 1950 Balance 450 828.5 Result Diagrams: 03/07/17 05:03 03/07/17 05:03 Additional Labs: Accuchecks 03/07/17 03/06/17 03/06/17 05:53 20:55 16:43 POC Glucose 75 190 H 121 H 03/06/17 10:41 POC Glucose 215 H EKG Reviewed by me: Yes (nsr) Phys Exam - Physical Examination Constitutional: NAD HEENT: PERRLA, moist MMs, sclera anicteric Neck: no JVD, supple Respiratory: no wheezing, no rhonchi few basal rales Cardiovascular: RRR, no significant murmur, no rub Gastrointestinal: soft, non-tender, no distention, positive bowel sounds Musculoskeletal: no edema, pulses present Neurological: non-focal, normal sensation, moves all 4 limbs Psychiatric: normal affect, A&O x 3 Skin: no rash, normal turgor Dx/Plan (1) Acute respiratory failure with hypoxia Code(s): J96.01 - ACUTE RESPIRATORY FAILURE WITH HYPOXIA Status: Acute (2) Community acquired bacterial pneumonia Code(s): J15.9 - UNSPECIFIED BACTERIAL PNEUMONIA Status: Acute (3) SVT (supraventricular tachycardia) Code(s): I47.1 - SUPRAVENTRICULAR TACHYCARDIA Status: Acute (4) Sepsis with acute organ dysfunction Code(s): A41.9 - SEPSIS, UNSPECIFIED ORGANISM; R65.20 - SEVERE SEPSIS WITHOUT SEPTIC SHOCK Status: Acute (5) DM2 (diabetes mellitus, type 2) Status: Chronic (6) HTN (hypertension) Code(s): I10 - ESSENTIAL (PRIMARY) HYPERTENSION Status: Chronic (7) Non compliance w medication regimen Code(s): Z91.14 - PATIENT'S OTHER NONCOMPLIANCE WITH MEDICATION REGIMEN Status : Chronic (8) Rheumatoid arthritis Code(s): M06.9 - RHEUMATOID ARTHRITIS, UNSPECIFIED Status: Chronic (9) Acute kidney injury Code(s): N17.9 - ACUTE KIDNEY FAILURE, UNSPECIFIED Status: Resolved (10) Hyponatremia Code(s): E87.1 - HYPO-OSMOLALITY AND HYPONATREMIA Status: Resolved (11) Lactic acidosis Code(s): E87.2 - ACIDOSIS Status: Resolved (12) ILD (interstitial lung disease) Code(s): J84.9 - INTERSTITIAL PULMONARY DISEASE, UNSPECIFIED Status: Acute - Plan cont current plan of care, mccarthy catheter, continue antibiotics, respiratory therapy * still needs bipap * medication reviewed as below * symptomatic treatment. * continue doxycycline * will need home oxygen * continue solumedrol * pulmonary following Review of Systems - Review of Systems Constitutional: Weakness. negative: Fever, Chills, Sweats, Malaise, Other ENT: negative: Ear Pain, Ear Discharge, Nose Pain, Nose Discharge, Nose Congestion, Mouth Pain, Mouth Swelling, Throat Pain, Throat Swelling, Other Respiratory: Shortness of Breath. negative: Cough, Dry, Hemoptysis, SOB with Excertion, Pleuritic Pain, Sputum, Wheezing Cardiovascular: negative: Chest Pain, Palpitations, Orthopnea, Paroxysmal Noc. Dyspnea, Edema, Light Headedness, Other Gastrointestinal: negative: Nausea, Vomiting, Abdominal Pain, Diarrhea, Constipation, Melena, Hematochezia, Other Genitourinary: negative: Dysuria, Frequency, Incontinence, Hematuria, Retention , Other Musculoskeletal: negative: Neck Pain, Shoulder Pain, Arm Pain, Back Pain, Hand Pain, Leg Pain, Foot Pain, Other Skin: negative: Rash, Lesions, Jose, Bruising, Other - Medications/Allergies Allergies/Adverse Reactions: Allergies Allergy/AdvReac Type Severity Reaction Status Date / Time No Known Drug Allergies Allergy Verified 02/23/17 21:57 Medications: Current Medications Acetaminophen (Tylenol) 650 mg PO Q4H PRN PRN Reason: Headache/Fever or Pain Last Admin: 03/06/17 00:50 Dose: 650 mg Albuterol/Ipratropium (Duoneb) 3 ml NEB Q2VC-XX [facility] Last Admin: 03/07/17 02:33 Dose: 3 ml Aspirin (Ecotrin) 81 mg PO DAILY [facility] Last Admin: 03/06/17 09:42 Dose: 81 mg Benzonatate (Tessalon) 100 mg PO Q8H PRN PRN Reason: Cough Last Admin: 02/28/17 06:25 Dose: 100 mg Bisacodyl (Dulcolax) 10 mg RI Q8H PRN PRN Reason: Constipation Last Admin: 03/05/17 03:49 Dose: 10 mg Clonidine (Catapres) 0.1 mg PO Q6H PRN PRN Reason: SBP GREATER THAN 160 Last Admin: 03/07/17 04:23 Dose: 0.1 mg Dextrose/Water (Dextrose 50%) 25 gm SLOW IVP PRN PRN PRN Reason: Hypoglycemia Enoxaparin Sodium (Lovenox) 40 mg SC 0900 [facility] Last Admin: 03/06/17 09:43 Dose: 40 mg Glucagon (Glucagon) 1 mg IM PRN PRN PRN Reason: Hypoglycemia Guaifenesin (Mucinex) 1,200 mg PO Q12HR [facility] Last Admin: 03/06/17 21:53 Dose: 1,200 mg Guaifenesin/Codeine Phosphate (Robitussin Ac) 10 ml PO Q6H PRN PRN Reason: Cough Last Admin: 03/02/17 04:31 Dose: 10 ml Guaifenesin/Dextromethorphan (Robitussin Dm) 10 ml PO Q6H PRN PRN Reason: Cough Hydralazine HCl (Apresoline) 10 mg SLOW IVP Q4H PRN PRN Reason: FOR SBP>180 Last Admin: 03/06/17 00:07 Dose: 10 mg Dextrose/Water (D5w) 1,000 mls @ 0 mls/hr IV .Q0M PRN; As Directed PRN Reason: Hypoglycemia Sodium Chloride (Normal Saline 0.9%) 1,000 mls @ 0 mls/hr IV .Q0M [facility] PRN Reason: KVO Last Admin: 03/07/17 05:13 Dose: 1,000 mls Diltiazem HCl 125 mg/Miscellaneous Medication 1 each/ Sodium Chloride 125 mls @ 10 mls/hr IVPB INF PRN; Protocol PRN Reason: HR >150 X 3 MINUTES Doxycycline Hyclate 100 mg/ (Sodium Chloride) 100 mls @ 100 mls/hr IVPB Q12HR [facility] Last Admin: 03/06/17 21:55 Dose: 100 mls Insulin Human Isoph/Insulin Regular (Humulin 70/30) 20 units SC HS [facility] Last Admin: 03/06/17 22:10 Dose: 20 unit Insulin Human Isoph/Insulin Regular (Humulin 70/30) 15 units SC QAM [facility] Last Admin: 03/06/17 09:40 Dose: 15 unit Insulin Human Lispro (Humalog) 0 units SC .MODERATE SLIDING SC PRN PRN Reason: Moderate Correctional Scale Last Admin: 03/06/17 11:05 Dose: 4 unit Insulin Human Lispro (Humalog) 0 units SC .BEDTIME SLIDING SC PRN PRN Reason: Bedtime Correctional Scale Last Admin: 03/03/17 21:04 Dose: 3 unit Methylprednisolone Sodium Succinate (Solu-Medrol) 20 mg IVP Q8HR [facility] Last Admin: 03/07/17 05:18 Dose: 20 mg Metoprolol Tartrate (Lopressor) 25 mg PO BID [facility] Last Admin: 03/06/17 21:52 Dose: 25 mg Nitroglycerin (Nitrostat) 0.4 mg PO Q5MIN PRN PRN Reason: Chest Pain Nystatin (Mycostatin) 500,000 units SSW QID [facility] Last Admin: 03/06/17 21:53 Dose: 500,000 units Ondansetron HCl (Zofran) 4 mg IVP Q6H PRN PRN Reason: Nausea/Vomiting Last Admin: 03/02/17 15:30 Dose: 4 mg Oxymetazoline HCl (Oxymetazoline Hcl) 2 sprays NASAL BID PRN PRN Reason: Nasal Congestion Stop: 03/07/17 10:03 Last Admin: 03/05/17 08:50 Dose: 2 sprays Pantoprazole Sodium (Protonix) 40 mg PO DAILY [facility] Last Admin: 03/06/17 09:42 Dose: 40 mg Polyethylene Glycol (Miralax) 17 gm PO DAILY [facility] Last Admin: 03/06/17 09:43 Dose: 17 gm Saccharomyces Boulardii (Florastor) 250 mg PO DAILY [facility] Last Admin: 03/06/17 09:42 Dose: 250 mg Sodium Chloride (Flush - Normal Saline) 10 ml IVF Q12HR [facility] Last Admin: 03/06/17 21:54 Dose: 10 ml Sodium Chloride (Flush - Normal Saline) 10 ml IVF PRN PRN PRN Reason: Saline Flush Last Admin: 03/04/17 05:44 Dose: 10 ml Tramadol HCl (Ultram) 50 mg PO Q6H PRN PRN Reason: Pain Last Admin: 03/07/17 04:22 Dose: 50 mg
[2017-03-07] MEDS: Polyethylene Glycol 3350 17 GM Packet PO SCH (08:28)
[2017-03-07] MEDS: Saccharomyces boulardii 250 MG CAP PO SCH (08:28)
[2017-03-07] MEDS: Enoxaparin Sodium 40 MG/0.4 ML SYRINGE SC SCH (08:28)
[2017-03-07] MEDS: guaiFENesin ER 600 MG TAB PO SCH ×2 (08:29→21:14)
[2017-03-07] MEDS: Nystatin 500,000 UNITS/5 ML UDCUP SSW SCH ×4 (08:29→21:15)
[2017-03-07] MEDS: Aspirin 81 mg Enteric Coated Tablet PO SCH (08:29)
[2017-03-07] MEDS: Metoprolol Tartrate 25 MG TAB PO SCH ×2 (08:29→21:14)
[2017-03-07] MEDS: Insulin NPH/Reg Insulin Hm 300 UNITS/3 ML VIAL SC SCH ×2 (08:32→21:16)
[2017-03-07] MEDS: Bisacodyl 10 MG SUPP PR PRN (09:30)
--- NOTE | 2017-03-07 17:24 | PRG ---
DATE OF SERVICE: 03/07/2017 SERVICE: Pulmonary Medicine. INTERVAL HISTORY: The patient is doing fine from a respiratory standpoint. She is breathing very co mfortably. She denies any current fevers, chills, nausea or vomiting. Her only complaint is some co nstipation. PHYSICAL EXAMINATION: VITAL SIGNS: Afebrile, pulse 89, blood pressure 143/62, respirations 22, and saturation 93% on 4 lit ers nasal cannula. GENERAL: The patient is awake, alert, in no apparent distress. LUNGS: Excellent air entry. No prolonged expiratory phase or wheezing is present. She has got crac kles throughout. HEART: Normal rate, regular. ABDOMEN: Soft, nontender, nondistended, bowel sounds positive. MUSCULOSKELETAL: No cyanosis or clubbing. There is no pitting in the bilateral lower extremities. NEUROLOGIC: Grossly nonfocal. LABORATORY DATA: WBC 14.1, hemoglobin 13.4, and platelets 249,000. BUN 21 and creatinine 0.62. Bas ic metabolic profile is otherwise unremarkable. Sodium is 134 and roughly stable. Urinalysis is unr emarkable. Miscellaneous test is pending. Influenza A and B is unremarkable. Urine culture is nega tive. Blood cultures x2 are also unremarkable. ASSESSMENT: 1. Acute hypoxic respiratory failure. 2. Community-acquired pneumonia. 3. Interstitial lung disease, possible. PLAN: We will continue nebulized medications, steroids, and antibiotics. She has completed a full d ose of Zosyn and Levaquin. She is currently on doxycycline. Multiple serologies looking into inters titial lung disease are currently pending including GODWIN, rheumatoid factor, ANCA, antigen and antibod ies as well as an IgG4 level. These are likely to be all unremarkable. Pulmonary will continue to f ollow while she remains inhouse. We will promote a bowel movement. Dr. Sanders will resume care in the morning.
[2017-03-07] MEDS ORDERED: Milk Of Magnesia 30 ML UDCUP PO SCH (17:30)
[2017-03-07] MEDS ORDERED: Mineral Oil PER 1 ML PO SCH (18:00)
[2017-03-07] MEDS: Ondansetron HCl/PF 4 MG/2 ML Vial IVP PRN (18:12)
[2017-03-07] MEDS: Senokot S 8.6-50 MG TAB PO SCH (21:14)
[2017-03-07] MEDS: HumaLOG 300 UNITS/3 ML VIAL SC PRN (21:16)
[2017-03-08 05:16] LABS: #Eosinphils 0.1 thou/uL (0.0-0.7); #Lymphocytes 0.9 thou/uL (1.20-3.40); #Monocytes 0.5 thou/uL (0.11-0.59); #Neutrophils 13.6 thou/uL (1.40-6.50); %Basophils 0.1 % (0.0-1.0); %Eosinophils 0.4 % (0.0-10.0); %Lymphocytes 6.2 % (21.0-51.0); %Monocytes 3.3 % (0.0-10.0); Hematocrit 42.1 % (36.0-47.0); Mean Platelet Volume 6.7 fL (7.4-10.4); Red Blood Cell (RBC) Count 4.35 mill/uL (4.20-5.40); White Blood Cell (WBC) Count 15.1 thou/uL (4.8-10.8)
[2017-03-08 05:40] LABS: Anion Gap 10 mmol/L (10-20); BUN (Urea Nitrogen) 20 mg/dL (9.8-20.1); Calc. Creatinine Clearance 80 mL/min (70-130); Carbon Dioxide 27 mmol/L (23-31); Chloride 102 mmol/L (98-107); Estimated GFR-MDRD Greater than 90
[2017-03-08] MEDS: cloNIDine 0.1 MG TAB PO PRN (05:47)
--- NOTE | 2017-03-08 08:05 | PRG ---
DATE OF SERVICE: 03/08/2017 The patient did not wear BiPAP last night, but according to the nurse had a difficult day yesterday. PHYSICAL EXAMINATION: VITAL SIGNS: Temperature is 96.5, pulse 77, respirations 19, O2 sat 97% on 4 liters, blood pressure 158/64. HEENT: Unremarkable. NECK: No JVD. CHEST: Coarse rhonchi bilaterally. CARDIOVASCULAR: S1 and S2 regular. ABDOMEN: Soft. EXTREMITIES: No edema. LABORATORY DATA: White blood cell count 15, hematocrit 42, platelet count 257. Sodium 135, potassiu m 4.4, chloride 102, CO2 27, BUN 20, creatinine 0.6, glucose 58. Immunology is positive for rheumato id factor 164. ASSESSMENT: 1. Bilateral pneumonia with very slowly improving respiratory status. 2. Acute respiratory failure requiring intermittent mechanical ventilation. 3. Positive rheumatoid factor. PLAN: 1. I would continue in IMCU for at least 1 more day. 2. Continue doxycycline and IV steroids. 3. Continue to monitor labs.
[2017-03-08] MEDS: guaiFENesin ER 600 MG TAB PO SCH ×2 (09:23→21:30)
[2017-03-08] MEDS: Aspirin 81 mg Enteric Coated Tablet PO SCH (09:23)
[2017-03-08] MEDS: Metoprolol Tartrate 50 MG TAB PO SCH ×2 (09:23→21:30)
[2017-03-08] MEDS: Nystatin 500,000 UNITS/5 ML UDCUP SSW SCH ×4 (09:23→21:31)
[2017-03-08] MEDS: Polyethylene Glycol 3350 17 GM Packet PO SCH (09:23)
[2017-03-08] MEDS: Saccharomyces boulardii 250 MG CAP PO SCH (09:23)
[2017-03-08] MEDS: Enoxaparin Sodium 40 MG/0.4 ML SYRINGE SC SCH (09:23)
[2017-03-08] MEDS: Senokot S 8.6-50 MG TAB PO SCH ×2 (09:24→21:31)
[2017-03-08] MEDS: Insulin NPH/Reg Insulin Hm 300 UNITS/3 ML VIAL SC SCH ×2 (09:24→21:43)
[2017-03-08] MEDS: Nystatin Powder 15 GM BOT TOP SCH ×2 (09:38→21:31)
[2017-03-08] MEDS: HumaLOG 300 UNITS/3 ML VIAL SC PRN ×2 (11:00→17:23)
--- NOTE | 2017-03-08 13:06 | PDOC.PN ---
- Subjective Encounter Start Date: 03/08/17 Encounter Start Time: 09:15 Patient seen and examined. No new complaints. No overnight events - Objective Resuscitation Status: Resuscitation Status FULL:Full Resuscitation MAR Reviewed: Yes Vital Signs & Weight: Vital Signs (12 hours) Temp Pulse Resp BP BP Pulse Ox 03/08/17 12:24 69 35 H 97 03/08/17 11:00 96.7 F L 80 18 157/71 H 98 03/08/17 09:15 97 03/08/17 09:13 97 36 H 99 03/08/17 07:35 96.5 F L 77 19 97 03/08/17 07:00 96.5 F L 77 19 158/64 H 97 03/08/17 06:40 78 176/78 H 03/08/17 05:47 190/81 H 03/08/17 04:35 75 180/68 H 03/08/17 04:00 97.8 F 88 20 189/89 H 98 03/08/17 02:37 72 16 100 Weight Admit Weight 142 lb 8 oz Weight 142 lb 4 oz Most Recent Monitor Data Heart Rate from ECG 122 NIBP 168/64 NIBP BP-Mean 135 Respiration from ECG 34 SpO2 98 I&O: 03/07/17 03/08/17 03/09/17 06:59 06:59 06:59 Intake Total 2778.5 1155.5 240 Output Total 1950 650 Balance 828.5 505.5 240 Result Diagrams: 03/08/17 04:38 03/08/17 04:38 Additional Labs: Accuchecks 03/08/17 03/08/17 03/07/17 10:42 06:38 20:35 POC Glucose 200 H 71 218 H 03/07/17 16:36 POC Glucose 152 H EKG Reviewed by me: Yes (nsr) Phys Exam - Physical Examination Constitutional: NAD HEENT: PERRLA, moist MMs, sclera anicteric Neck: no JVD, supple Respiratory: no wheezing, no rales, no rhonchi Cardiovascular: RRR, no significant murmur, no rub Gastrointestinal: soft, non-tender, no distention, positive bowel sounds Musculoskeletal: no edema, pulses present Neurological: non-focal, normal sensation Lymphatic: no nodes Psychiatric: normal affect, A&O x 3 Skin: no rash, normal turgor Dx/Plan (1) Acute respiratory failure with hypoxia Code(s): J96.01 - ACUTE RESPIRATORY FAILURE WITH HYPOXIA Status: Acute (2) Community acquired bacterial pneumonia Code(s): J15.9 - UNSPECIFIED BACTERIAL PNEUMONIA Status: Acute (3) SVT (supraventricular tachycardia) Code(s): I47.1 - SUPRAVENTRICULAR TACHYCARDIA Status: Acute (4) Sepsis with acute organ dysfunction Code(s): A41.9 - SEPSIS, UNSPECIFIED ORGANISM; R65.20 - SEVERE SEPSIS WITHOUT SEPTIC SHOCK Status: Acute (5) DM2 (diabetes mellitus, type 2) Status: Chronic (6) HTN (hypertension) Code(s): I10 - ESSENTIAL (PRIMARY) HYPERTENSION Status: Chronic (7) Non compliance w medication regimen Code(s): Z91.14 - PATIENT'S OTHER NONCOMPLIANCE WITH MEDICATION REGIMEN Status : Chronic (8) Rheumatoid arthritis Code(s): M06.9 - RHEUMATOID ARTHRITIS, UNSPECIFIED Status: Chronic (9) Acute kidney injury Code(s): N17.9 - ACUTE KIDNEY FAILURE, UNSPECIFIED Status: Resolved (10) Hyponatremia Code(s): E87.1 - HYPO-OSMOLALITY AND HYPONATREMIA Status: Resolved (11) Lactic acidosis Code(s): E87.2 - ACIDOSIS Status: Resolved (12) ILD (interstitial lung disease) Code(s): J84.9 - INTERSTITIAL PULMONARY DISEASE, UNSPECIFIED Status: Acute - Plan cont current plan of care, continue antibiotics, respiratory therapy * continue iv solumderol and doxycycline * BIPAP as needed * will monitor * will need home oxygen and placement on discharge * medication reviewed as below * symptomatic treatment. Review of Systems - Review of Systems Constitutional: negative: Fever, Chills, Sweats, Weakness, Malaise, Other Eyes: negative: Pain, Vision Change, Conjunctivae Inflammation, Eyelid Inflammation, Redness, Other ENT: negative: Ear Pain, Ear Discharge, Nose Pain, Nose Discharge, Nose Congestion, Mouth Pain, Mouth Swelling, Throat Pain, Throat Swelling, Other Respiratory: Cough, SOB with Excertion. negative: Dry, Shortness of Breath, Hemoptysis, Pleuritic Pain, Sputum, Wheezing Cardiovascular: negative: Chest Pain, Palpitations, Orthopnea, Paroxysmal Noc. Dyspnea, Edema, Light Headedness, Other Gastrointestinal: negative: Nausea, Vomiting, Abdominal Pain, Diarrhea, Constipation, Melena, Hematochezia, Other Genitourinary: negative: Dysuria, Frequency, Incontinence, Hematuria, Retention , Other Musculoskeletal: negative: Neck Pain, Shoulder Pain, Arm Pain, Back Pain, Hand Pain, Leg Pain, Foot Pain, Other Skin: negative: Rash, Lesions, Jose, Bruising, Other - Medications/Allergies Allergies/Adverse Reactions: Allergies Allergy/AdvReac Type Severity Reaction Status Date / Time No Known Drug Allergies Allergy Verified 02/23/17 21:57 Medications: Current Medications Acetaminophen (Tylenol) 650 mg PO Q4H PRN PRN Reason: Headache/Fever or Pain Last Admin: 03/06/17 00:50 Dose: 650 mg Albuterol/Ipratropium (Duoneb) 3 ml NEB [id number] [facility] Last Admin: 03/08/17 12:24 Dose: 3 ml Aspirin (Ecotrin) 81 mg PO DAILY [facility] Last Admin: 03/08/17 09:23 Dose: 81 mg Benzonatate (Tessalon) 100 mg PO Q8H PRN PRN Reason: Cough Last Admin: 02/28/17 06:25 Dose: 100 mg Bisacodyl (Dulcolax) 10 mg [place] Q8H PRN PRN Reason: Constipation Last Admin: 03/07/17 09:30 Dose: 10 mg Clonidine (Catapres) 0.1 mg PO Q6H PRN PRN Reason: SBP GREATER THAN 160 Last Admin: 03/08/17 05:47 Dose: 0.1 mg Dextrose/Water (Dextrose 50%) 25 gm SLOW IVP PRN PRN PRN Reason: Hypoglycemia Enoxaparin Sodium (Lovenox) 40 mg SC 0900 [facility] Last Admin: 03/08/17 09:23 Dose: 40 mg Glucagon (Glucagon) 1 mg IM PRN PRN PRN Reason: Hypoglycemia Guaifenesin (Mucinex) 1,200 mg PO Q12HR [facility] Last Admin: 03/08/17 09:23 Dose: 1,200 mg Guaifenesin/Codeine Phosphate (Robitussin Ac) 10 ml PO Q6H PRN PRN Reason: Cough Last Admin: 03/02/17 04:31 Dose: 10 ml Guaifenesin/Dextromethorphan (Robitussin Dm) 10 ml PO Q6H PRN PRN Reason: Cough Hydralazine HCl (Apresoline) 10 mg SLOW IVP Q4H PRN PRN Reason: FOR SBP>180 Last Admin: 03/06/17 00:07 Dose: 10 mg Dextrose/Water (D5w) 1,000 mls @ 0 mls/hr IV .Q0M PRN; As Directed PRN Reason: Hypoglycemia Sodium Chloride (Normal Saline 0.9%) 1,000 mls @ 0 mls/hr IV .Q0M [facility] PRN Reason: KVO Last Admin: 03/07/17 05:13 Dose: 1,000 mls Diltiazem HCl 125 mg/Miscellaneous Medication 1 each/ Sodium Chloride 125 mls @ 10 mls/hr IVPB INF PRN; Protocol PRN Reason: HR >150 X 3 MINUTES Doxycycline Hyclate 100 mg/ (Sodium Chloride) 100 mls @ 100 mls/hr IVPB Q12HR [facility] Last Admin: 03/08/17 09:21 Dose: 100 mls Insulin Human Isoph/Insulin Regular (Humulin 70/30) 20 units SC [facility] Last Admin: 03/07/17 21:16 Dose: 20 unit Insulin Human Isoph/Insulin Regular (Humulin 70/30) 15 units SC QAM [facility] Last Admin: 03/08/17 09:24 Dose: Not Given Insulin Human Lispro (Humalog) 0 units SC .MODERATE SLIDING SC PRN PRN Reason: Moderate Correctional Scale Last Admin: 03/08/17 11:00 Dose: 2 unit Insulin Human Lispro (Humalog) 0 units SC .BEDTIME SLIDING SC PRN PRN Reason: Bedtime Correctional Scale Last Admin: 03/07/17 21:16 Dose: 2 unit Methylprednisolone Sodium Succinate (Solu-Medrol) 20 mg IVP Q8HR [facility] Last Admin: 03/08/17 05:47 Dose: 20 mg Metoprolol Tartrate (Lopressor) 50 mg PO BID [facility] Last Admin: 03/08/17 09:23 Dose: 50 mg Nitroglycerin (Nitrostat) 0.4 mg PO Q5MIN PRN PRN Reason: Chest Pain Nystatin (Mycostatin) 500,000 units SSW QID [facility] Last Admin: 03/08/17 09:23 Dose: 500,000 units Nystatin (Mycostatin Powder) 0 gm TOP BID [facility] Last Admin: 03/08/17 09:38 Dose: 1 applic Ondansetron HCl (Zofran) 4 mg IVP Q6H PRN PRN Reason: Nausea/Vomiting Last Admin: 03/07/17 18:12 Dose: 4 mg Pantoprazole Sodium (Protonix) 40 mg PO DAILY [facility] Last Admin: 03/08/17 09:24 Dose: 40 mg Polyethylene Glycol (Miralax) 17 gm PO DAILY [facility] Last Admin: 03/08/17 09:23 Dose: 17 gm Saccharomyces Boulardii (Florastor) 250 mg PO DAILY [facility] Last Admin: 03/08/17 09:23 Dose: 250 mg Senna/Docusate Sodium (Senokot S) 1 tab PO BID [facility] Last Admin: 03/08/17 09:24 Dose: 1 tab Sodium Chloride (Flush - Normal Saline) 10 ml IVF Q12HR [facility] Last Admin: 03/08/17 09:24 Dose: Not Given Sodium Chloride (Flush - Normal Saline) 10 ml IVF PRN PRN PRN Reason: Saline Flush Last Admin: 03/08/17 05:47 Dose: 10 ml Tramadol HCl (Ultram) 50 mg PO Q6H PRN PRN Reason: Pain Last Admin: 03/07/17 21:14 Dose: 50 mg
[2017-03-08] MEDS: Sodium Chloride 0.9% 1,000 ML IV SCH (18:00)
[2017-03-08] MEDS: traMADol HCl 50 MG TAB PO PRN (21:31)
[2017-03-09] MEDS: hydrALAZINE 20 MG/ML VIAL SLOW IVP PRN (02:21)
[2017-03-09 03:13] LABS: IgG Subclass 4 122 mg/dL (2-96)
[2017-03-09 05:56] LABS: #Lymphocytes 0.8 thou/uL (1.20-3.40); #Monocytes 0.6 thou/uL (0.11-0.59); #Neutrophils 14.1 thou/uL (1.40-6.50); %Basophils 0.1 % (0.0-1.0); %Eosinophils 0.2 % (0.0-10.0); %Lymphocytes 5.4 % (21.0-51.0); %Monocytes 3.6 % (0.0-10.0); Hematocrit 43.1 % (36.0-47.0); Mean Platelet Volume 6.9 fL (7.4-10.4); Red Blood Cell (RBC) Count 4.44 mill/uL (4.20-5.40); White Blood Cell (WBC) Count 15.6 thou/uL (4.8-10.8)
[2017-03-09 06:20] LABS: Anion Gap 9 mmol/L (10-20); BUN (Urea Nitrogen) 20 mg/dL (9.8-20.1); Calc. Creatinine Clearance 80 mL/min (70-130); Calcium 8.9 mg/dL (7.8-10.44); Carbon Dioxide 26 mmol/L (23-31); Chloride 101 mmol/L (98-107); Estimated GFR-MDRD 89
--- NOTE | 2017-03-09 08:34 | PRG ---
DATE OF SERVICE: 03/09/2017 She did not require to use the BiPAP last night. PHYSICAL EXAMINATION: VITAL SIGNS: Temperature is 97.5, pulse 91, respiration 24, O2 sat 97% on 4 liters, blood pressure 1 10/42. HEENT: Unremarkable. NECK: No JVD. CHEST: Clear. CARDIAC: S1 and S2 regular. ABDOMEN: Soft. EXTREMITIES: No edema. LABORATORY DATA: White blood cell count 15.6, hematocrit 43.1, platelet count 251. Sodium 132, pota ssium 4.4, chloride 101, CO2 26, BUN 20, creatinine 0.6, glucose 181. ASSESSMENT: Bilateral pneumonia which is slowly improving. PLAN: Can transfer to the medical floor, continue to wean oxygen as tolerated. Increase activity as tolerated.
[2017-03-09] MEDS: guaiFENesin ER 600 MG TAB PO SCH ×3 (09:33→20:57)
[2017-03-09] MEDS: Metoprolol Tartrate 50 MG TAB PO SCH ×3 (09:33→20:57)
[2017-03-09] MEDS: Saccharomyces boulardii 250 MG CAP PO SCH (09:33)
[2017-03-09] MEDS: Senokot S 8.6-50 MG TAB PO SCH ×3 (09:35→20:58)
[2017-03-09] MEDS: Aspirin 81 mg Enteric Coated Tablet PO SCH ×2 (09:35→10:16)
[2017-03-09] MEDS: Nystatin 500,000 UNITS/5 ML UDCUP SSW SCH ×5 (09:35→20:58)
[2017-03-09] MEDS: Polyethylene Glycol 3350 17 GM Packet PO SCH ×2 (09:36→10:17)
[2017-03-09] MEDS: Enoxaparin Sodium 40 MG/0.4 ML SYRINGE SC SCH (09:36)
[2017-03-09] MEDS: Nystatin Powder 15 GM BOT TOP SCH ×2 (09:37→20:59)
[2017-03-09] MEDS: Insulin NPH/Reg Insulin Hm 300 UNITS/3 ML VIAL SC SCH ×2 (09:41→21:08)
--- NOTE | 2017-03-09 11:11 | PDOC.PN ---
- Subjective Encounter Start Date: 03/09/17 Encounter Start Time: 09:40 Patient seen and examined. No new complaints. No overnight events, pt is very weak, with exertion she still drops saturation and gets tachycardia and tachypnea - Objective Resuscitation Status: Resuscitation Status FULL:Full Resuscitation MAR Reviewed: Yes Vital Signs & Weight: Vital Signs (12 hours) Temp Pulse Resp BP BP BP Pulse Ox 03/09/17 08:13 93 L 03/09/17 08:11 101 H 27 H 93 L 03/09/17 08:00 97.9 F 106 H 19 132/75 86 L 03/09/17 03:21 97.5 F L 91 24 H 110/42 L 97 03/09/17 02:29 73 16 97 03/09/17 02:21 80 189/77 H 03/08/17 23:26 97.8 F 69 20 135/84 100 Weight Admit Weight 142 lb 8 oz Weight 144 lb 14.4 oz Most Recent Monitor Data Heart Rate from ECG 122 NIBP 168/64 NIBP BP-Mean 135 Respiration from ECG 34 SpO2 98 I&O: 03/08/17 03/09/17 03/10/17 06:59 06:59 06:59 Intake Total 1155.5 1930.5 Output Total 650 1575 Balance 505.5 355.5 Result Diagrams: 03/09/17 05:27 03/09/17 05:27 Additional Labs: Accuchecks 03/09/17 03/09/17 03/08/17 10:11 05:59 19:43 POC Glucose 212 H 149 H 293 H 03/08/17 03/08/17 16:47 10:42 POC Glucose 200 H 200 H EKG Reviewed by me: Yes (nsr) Phys Exam - Physical Examination Constitutional: NAD HEENT: PERRLA, moist MMs, sclera anicteric Neck: no JVD, supple Respiratory: no wheezing, no rhonchi basal coarse rales Cardiovascular: RRR, no significant murmur, no rub Gastrointestinal: soft, non-tender, no distention, positive bowel sounds Musculoskeletal: no edema, pulses present Neurological: non-focal, normal sensation, moves all 4 limbs Psychiatric: normal affect, A&O x 3 Skin: no rash, normal turgor Dx/Plan (1) Acute respiratory failure with hypoxia Code(s): J96.01 - ACUTE RESPIRATORY FAILURE WITH HYPOXIA Status: Acute (2) Community acquired bacterial pneumonia Code(s): J15.9 - UNSPECIFIED BACTERIAL PNEUMONIA Status: Acute (3) SVT (supraventricular tachycardia) Code(s): I47.1 - SUPRAVENTRICULAR TACHYCARDIA Status: Acute (4) Sepsis with acute organ dysfunction Code(s): A41.9 - SEPSIS, UNSPECIFIED ORGANISM; R65.20 - SEVERE SEPSIS WITHOUT SEPTIC SHOCK Status: Acute (5) DM2 (diabetes mellitus, type 2) Status: Chronic (6) HTN (hypertension) Code(s): I10 - ESSENTIAL (PRIMARY) HYPERTENSION Status: Chronic (7) Non compliance w medication regimen Code(s): Z91.14 - PATIENT'S OTHER NONCOMPLIANCE WITH MEDICATION REGIMEN Status : Chronic (8) Rheumatoid arthritis Code(s): M06.9 - RHEUMATOID ARTHRITIS, UNSPECIFIED Status: Chronic (9) Acute kidney injury Code(s): N17.9 - ACUTE KIDNEY FAILURE, UNSPECIFIED Status: Resolved (10) Hyponatremia Code(s): E87.1 - HYPO-OSMOLALITY AND HYPONATREMIA Status: Resolved (11) Lactic acidosis Code(s): E87.2 - ACIDOSIS Status: Resolved (12) ILD (interstitial lung disease) Code(s): J84.9 - INTERSTITIAL PULMONARY DISEASE, UNSPECIFIED Status: Acute - Plan cont current plan of care, continue antibiotics, PT/OT, 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 Review of Systems - Review of Systems Constitutional: Weakness. negative: Fever, Chills, Sweats, Malaise, Other Eyes: negative: Pain, Vision Change, Conjunctivae Inflammation, Eyelid Inflammation, Redness, Other ENT: negative: Ear Pain, Ear Discharge, Nose Pain, Nose Discharge, Nose Congestion, Mouth Pain, Mouth Swelling, Throat Pain, Throat Swelling, Other Respiratory: SOB with Excertion. negative: Cough, Dry, Shortness of Breath, Hemoptysis, Pleuritic Pain, Sputum, Wheezing Cardiovascular: negative: Chest Pain, Palpitations, Orthopnea, Paroxysmal Noc. Dyspnea, Edema, Light Headedness, Other Gastrointestinal: negative: Nausea, Vomiting, Abdominal Pain, Diarrhea, Constipation, Melena, Hematochezia, Other Genitourinary: negative: Dysuria, Frequency, Incontinence, Hematuria, Retention , Other Musculoskeletal: negative: Neck Pain, Shoulder Pain, Arm Pain, Back Pain, Hand Pain, Leg Pain, Foot Pain, Other - Medications/Allergies Allergies/Adverse Reactions: Allergies Allergy/AdvReac Type Severity Reaction Status Date / Time No Known Drug Allergies Allergy Verified 02/23/17 21:57 Medications: Current Medications Acetaminophen (Tylenol) 650 mg PO Q4H PRN PRN Reason: Headache/Fever or Pain Last Admin: 03/06/17 00:50 Dose: 650 mg Albuterol/Ipratropium (Duoneb) 3 ml NEB [id number] [facility] Last Admin: 03/09/17 08:11 Dose: 3 ml Aspirin (Ecotrin) 81 mg PO DAILY [facility] Last Admin: 03/09/17 10:16 Dose: Not Given Benzonatate (Tessalon) 100 mg PO Q8H PRN PRN Reason: Cough Last Admin: 02/28/17 06:25 Dose: 100 mg Bisacodyl (Dulcolax) 10 mg NM Q8H PRN PRN Reason: Constipation Last Admin: 03/07/17 09:30 Dose: 10 mg Clonidine (Catapres) 0.1 mg PO Q6H PRN PRN Reason: SBP GREATER THAN 160 Last Admin: 03/08/17 05:47 Dose: 0.1 mg Dextrose/Water (Dextrose 50%) 25 gm SLOW IVP PRN PRN PRN Reason: Hypoglycemia Enoxaparin Sodium (Lovenox) 40 mg SC 0900 [facility] Last Admin: 03/09/17 09:36 Dose: 40 mg Glucagon (Glucagon) 1 mg IM PRN PRN PRN Reason: Hypoglycemia Guaifenesin (Mucinex) 1,200 mg PO Q12HR [facility] Last Admin: 03/09/17 10:03 Dose: Not Given Guaifenesin/Codeine Phosphate (Robitussin Ac) 10 ml PO Q6H PRN PRN Reason: Cough Last Admin: 03/02/17 04:31 Dose: 10 ml Guaifenesin/Dextromethorphan (Robitussin Dm) 10 ml PO Q6H PRN PRN Reason: Cough Hydralazine HCl (Apresoline) 10 mg SLOW IVP Q4H PRN PRN Reason: FOR SBP>180 Last Admin: 03/09/17 02:21 Dose: 10 mg Dextrose/Water (D5w) 1,000 mls @ 0 mls/hr IV .Q0M PRN; As Directed PRN Reason: Hypoglycemia Sodium Chloride (Normal Saline 0.9%) 1,000 mls @ 0 mls/hr IV .Q0M CORRY PRN Reason: KVO Last Admin: 03/08/17 18:00 Dose: 1,000 mls Diltiazem HCl 125 mg/Miscellaneous Medication 1 each/ Sodium Chloride 125 mls @ 10 mls/hr IVPB INF PRN; Protocol PRN Reason: HR >150 X 3 MINUTES Doxycycline Hyclate 100 mg/ (Sodium Chloride) 100 mls @ 100 mls/hr IVPB Q12HR [facility] Last Admin: 03/09/17 09:36 Dose: 100 mls Insulin Human Isoph/Insulin Regular (Humulin 70/30) 20 units SC HS [facility] Last Admin: 03/08/17 21:43 Dose: 20 unit Insulin Human Isoph/Insulin Regular (Humulin 70/30) 15 units SC QAM [facility] Last Admin: 03/09/17 09:41 Dose: 15 unit Insulin Human Lispro (Humalog) 0 units SC .MODERATE SLIDING SC PRN PRN Reason: Moderate Correctional Scale Last Admin: 03/08/17 17:23 Dose: 2 unit Insulin Human Lispro (Humalog) 0 units SC .BEDTIME SLIDING SC PRN PRN Reason: Bedtime Correctional Scale Last Admin: 03/07/17 21:16 Dose: 2 unit Methylprednisolone Sodium Succinate (Solu-Medrol) 20 mg IVP Q8HR [facility] Last Admin: 03/09/17 05:56 Dose: 20 mg Metoprolol Tartrate (Lopressor) 50 mg PO BID [facility] Last Admin: 03/09/17 10:16 Dose: Not Given Nitroglycerin (Nitrostat) 0.4 mg PO Q5MIN PRN PRN Reason: Chest Pain Nystatin (Mycostatin) 500,000 units SSW QID [facility] Last Admin: 03/09/17 10:14 Dose: Not Given Nystatin (Mycostatin Powder) 0 gm TOP BID [facility] Last Admin: 03/09/17 09:37 Dose: 1 applic Ondansetron HCl (Zofran) 4 mg IVP Q6H PRN PRN Reason: Nausea/Vomiting Last Admin: 03/07/17 18:12 Dose: 4 mg Pantoprazole Sodium (Protonix) 40 mg PO DAILY [facility] Last Admin: 03/09/17 10:17 Dose: Not Given Polyethylene Glycol (Miralax) 17 gm PO DAILY [facility] Last Admin: 03/09/17 10:17 Dose: Not Given Saccharomyces Boulardii (Florastor) 250 mg PO DAILY [facility] Last Admin: 03/09/17 09:33 Dose: 250 mg Senna/Docusate Sodium (Senokot S) 1 tab PO BID [facility] Last Admin: 03/09/17 10:17 Dose: Not Given Sodium Chloride (Flush - Normal Saline) 10 ml IVF Q12HR [facility] Last Admin: 03/09/17 09:38 Dose: Not Given Sodium Chloride (Flush - Normal Saline) 10 ml IVF PRN PRN PRN Reason: Saline Flush Last Admin: 03/08/17 05:47 Dose: 10 ml Tramadol HCl (Ultram) 50 mg PO Q6H PRN PRN Reason: Pain Last Admin: 03/08/17 21:31 Dose: 50 mg
[2017-03-09] MEDS: Lorazepam 2 MG/ML VIAL SLOW IVP PRN (12:02)
[2017-03-09] MEDS ORDERED: Morphine 4 MG/ML VIAL IV PRN (12:22)
[2017-03-09 15:22] LABS: Anti-Striation AB Negative (Neg:<1:40); Antiparietal Cell Ab 8.6 Units (0.0-20.0); Complement C4 15 mg/dL (14-44); Mitochondrial (M2) ABS 5.7 Units (0.0-20.0); SCL-70 IgG AutoAb <0.2 AI (0.0-0.9); Smith IgG AutoAb <0.2 AI (0.0-0.9); Smooth Muscle AB 22 Units (0-19); Thyroid Peroxidase Abs 15 IU/mL (0-34); U1 RNP/SNRNP IgG AutoAb <0.2 AI (0.0-0.9)
[2017-03-09 19:11] LABS: ANCA Pattern <1:20 titer (Neg:<1:20); ANCA Total <1:20 titer (Neg:<1:20); Myeloperoxidase AutoAbs <9.0 U/mL (0.0-9.0); Proteinase-3 AutoAbs Less than 3.5 U/mL (0.0-3.5)
[2017-03-09] MEDS: Diltiazem HCl 125 MG, Admixture Fee 1 EACH in Sodium Chloride 0.9% 100 ML IVPB PRN (20:56)
[2017-03-10 05:05] LABS: #Lymphocytes 0.6 thou/uL (1.20-3.40); #Monocytes 0.2 thou/uL (0.11-0.59); #Neutrophils 17.5 thou/uL (1.40-6.50); %Eosinophils 0.1 % (0.0-10.0); %Lymphocytes 3.1 % (21.0-51.0); %Monocytes 1.3 % (0.0-10.0); Hematocrit 44.4 % (36.0-47.0); Mean Platelet Volume 7.6 fL (7.4-10.4); Red Blood Cell (RBC) Count 4.53 mill/uL (4.20-5.40); White Blood Cell (WBC) Count 18.4 thou/uL (4.8-10.8)
[2017-03-10] MEDS: Sodium Chloride 0.9% 1,000 ML IV SCH (05:58)
[2017-03-10 06:00] LABS: Anion Gap 15 mmol/L (10-20); BUN (Urea Nitrogen) 31 mg/dL (9.8-20.1); Calc. Creatinine Clearance 72 mL/min (70-130); Carbon Dioxide 21 mmol/L (23-31); Chloride 101 mmol/L (98-107); Estimated GFR-MDRD 79
[2017-03-10] MEDS: HumaLOG 300 UNITS/3 ML VIAL SC PRN ×2 (06:04→18:24)
--- NOTE | 2017-03-10 08:53 | PRG ---
DATE OF SERVICE: 03/10/2017 SUBJECTIVE: The patient is better than yesterday in terms of oxygenation. PHYSICAL EXAMINATION: VITAL SIGNS: Temperature is 98.4, pulse 94, O2 saturation was 100% on Ventimask, blood pressure 158/ 64. HEENT: Unremarkable. NECK: No JVD. LUNGS: She has inspiratory crackles in both bases. CARDIAC: S1, S2, slightly tachycardic, currently on a Cardizem drip. ABDOMEN: Soft, nontender. EXTREMITIES: No edema. LABORATORY DATA: Her barman titers are only significant for rheumatoid factor 1:64 and antismo oth muscle antibody, which is slightly elevated at 22. White blood count is 18.4, hematocrit 44.4, p latelet count 234. Sodium 132, potassium 4.6, chloride 102, CO2 21, BUN 31, creatinine 0.7, glucose 254. ASSESSMENT: 1. Bilateral pneumonia. 2. Acute hypoxic respiratory failure. PLAN: 1. Continue antibiotics, steroids and nebulization treatments. 2. Increase activity as tolerated. 3. Given the events of yesterday, I would leave her in [facility] for now.
[2017-03-10] MEDS: Saccharomyces boulardii 250 MG CAP PO SCH (09:58)
[2017-03-10] MEDS: Metoprolol Tartrate 50 MG TAB PO SCH ×2 (09:59→21:49)
[2017-03-10] MEDS: Senokot S 8.6-50 MG TAB PO SCH ×2 (09:59→21:49)
[2017-03-10] MEDS: Nystatin Powder 15 GM BOT TOP SCH ×2 (10:10→21:48)
[2017-03-10] MEDS: Enoxaparin Sodium 40 MG/0.4 ML SYRINGE SC SCH (10:11)
[2017-03-10] MEDS: Polyethylene Glycol 3350 17 GM Packet PO SCH (10:16)
[2017-03-10] MEDS: Nystatin 500,000 UNITS/5 ML UDCUP SSW SCH ×4 (10:18→21:50)
[2017-03-10] MEDS: guaiFENesin ER 600 MG TAB PO SCH ×2 (10:18→21:48)
[2017-03-10] MEDS: Aspirin 81 mg Enteric Coated Tablet PO SCH (10:19)
[2017-03-10] MEDS: Insulin NPH/Reg Insulin Hm 300 UNITS/3 ML VIAL SC SCH ×2 (10:52→21:53)
--- NOTE | 2017-03-10 13:00 | PDOC.PN ---
- Subjective Encounter Start Date: 03/10/17 Encounter Start Time: 09:15 pt again required bipap yesterday, she was in respi distress, this morning she is on non rebreather but very weak she was tachycadic, so cardizem drip was started, not given oral meds as suspected for aspiration - Objective Resuscitation Status: Resuscitation Status FULL:Full Resuscitation MAR Reviewed: Yes Vital Signs & Weight: Vital Signs (12 hours) Temp Pulse Resp BP BP BP Pulse Ox 03/10/17 11:23 98.6 F 87 21 H 161/73 H 93 L 03/10/17 10:22 119 H 30 H 88 L 03/10/17 09:59 112 H 160/58 H 03/10/17 08:58 96 03/10/17 08:54 112 H 24 H 96 03/10/17 08:00 98.6 F 87 24 H 96 03/10/17 07:20 98.4 F 94 20 158/64 H 115 H 03/10/17 05:12 118 H 03/10/17 04:39 97 03/10/17 03:54 98.1 F 112 H 24 H 153/67 H 96 03/10/17 02:09 110 H 28 H 96 Weight Admit Weight 142 lb 8 oz Weight 141 lb 3.2 oz Most Recent Monitor Data Heart Rate from ECG 122 NIBP 168/64 NIBP BP-Mean 135 Respiration from ECG 34 SpO2 98 I&O: 03/09/17 03/10/17 03/11/17 06:59 06:59 06:59 Intake Total 1930.5 956 Output Total 1575 875 Balance 355.5 81 Result Diagrams: 03/10/17 03:53 03/10/17 03:53 Additional Labs: Accuchecks 03/10/17 03/10/17 03/09/17 11:09 05:54 21:06 POC Glucose 196 H 243 H 175 H 03/09/17 16:43 POC Glucose 118 H EKG Reviewed by me: Yes (sinus tachycardia) Phys Exam - Physical Examination Constitutional: NAD HEENT: PERRLA, moist MMs, sclera anicteric Neck: no JVD, supple Respiratory: no wheezing, no rhonchi reduced air entry at base Cardiovascular: RRR, no significant murmur tachycardia Gastrointestinal: soft, non-tender, no distention, positive bowel sounds Musculoskeletal: no edema, pulses present Neurological: non-focal, normal sensation Lymphatic: no nodes Psychiatric: normal affect, A&O x 3 Skin: no rash, normal turgor Dx/Plan (1) Acute respiratory failure with hypoxia Code(s): J96.01 - ACUTE RESPIRATORY FAILURE WITH HYPOXIA Status: Acute (2) Community acquired bacterial pneumonia Code(s): J15.9 - UNSPECIFIED BACTERIAL PNEUMONIA Status: Acute (3) SVT (supraventricular tachycardia) Code(s): I47.1 - SUPRAVENTRICULAR TACHYCARDIA Status: Acute (4) Sepsis with acute organ dysfunction Code(s): A41.9 - SEPSIS, UNSPECIFIED ORGANISM; R65.20 - SEVERE SEPSIS WITHOUT SEPTIC SHOCK Status: Acute (5) DM2 (diabetes mellitus, type 2) Status: Chronic (6) HTN (hypertension) Code(s): I10 - ESSENTIAL (PRIMARY) HYPERTENSION Status: Chronic (7) Non compliance w medication regimen Code(s): Z91.14 - PATIENT'S OTHER NONCOMPLIANCE WITH MEDICATION REGIMEN Status : Chronic (8) Rheumatoid arthritis Code(s): M06.9 - RHEUMATOID ARTHRITIS, UNSPECIFIED Status: Chronic (9) Acute kidney injury Code(s): N17.9 - ACUTE KIDNEY FAILURE, UNSPECIFIED Status: Resolved (10) Hyponatremia Code(s): E87.1 - HYPO-OSMOLALITY AND HYPONATREMIA Status: Resolved (11) Lactic acidosis Code(s): E87.2 - ACIDOSIS Status: Resolved (12) ILD (interstitial lung disease) Code(s): J84.9 - INTERSTITIAL PULMONARY DISEASE, UNSPECIFIED Status: Acute - Plan cont current plan of care, mccarthy catheter, continue antibiotics, respiratory therapy * today speech evaluation * continue cardizem drip for rate control * if able to take oral meds after speech, then will add cardizem CD with metoprolol for rate control and wean off drip * continue to monitor in imcu * she still needs high flow oxygen and not stable * continue solumedrol and doxycycline * medication reviewed as below * symptomatic treatment * suspecting more ILD due to autoimmune process rather than infection. Review of Systems - Review of Systems Constitutional: Weakness. negative: Fever, Chills, Sweats, Malaise, Other Respiratory: Shortness of Breath, SOB with Excertion. negative: Cough, Dry, Hemoptysis, Pleuritic Pain, Sputum, Wheezing Cardiovascular: negative: Chest Pain, Palpitations, Orthopnea, Paroxysmal Noc. Dyspnea, Edema, Light Headedness, Other Gastrointestinal: negative: Nausea, Vomiting, Abdominal Pain, Diarrhea, Constipation, Melena, Hematochezia, Other Genitourinary: negative: Dysuria, Frequency, Incontinence, Hematuria, Retention , Other Musculoskeletal: negative: Neck Pain, Shoulder Pain, Arm Pain, Back Pain, Hand Pain, Leg Pain, Foot Pain, Other Skin: negative: Rash, Lesions, Jose, Bruising, Other - Medications/Allergies Allergies/Adverse Reactions: Allergies Allergy/AdvReac Type Severity Reaction Status Date / Time No Known Drug Allergies Allergy Verified 02/23/17 21:57 Medications: Current Medications Acetaminophen (Tylenol) 650 mg PO Q4H PRN PRN Reason: Headache/Fever or Pain Last Admin: 03/06/17 00:50 Dose: 650 mg Albuterol/Ipratropium (Duoneb) 3 ml NEB [id number] [facility] Last Admin: 03/10/17 10:22 Dose: 3 ml Aspirin (Ecotrin) 81 mg PO DAILY [facility] Last Admin: 03/10/17 10:19 Dose: Not Given Benzonatate (Tessalon) 100 mg PO Q8H PRN PRN Reason: Cough Last Admin: 02/28/17 06:25 Dose: 100 mg Bisacodyl (Dulcolax) 10 mg GA Q8H PRN PRN Reason: Constipation Last Admin: 03/07/17 09:30 Dose: 10 mg Clonidine (Catapres) 0.1 mg PO Q6H PRN PRN Reason: SBP GREATER THAN 160 Last Admin: 03/08/17 05:47 Dose: 0.1 mg Dextrose/Water (Dextrose 50%) 25 gm SLOW IVP PRN PRN PRN Reason: Hypoglycemia Diltiazem HCl (Cardizem Cd) 120 mg PO DAILY [facility] Last Admin: 03/10/17 09:59 Dose: 120 mg Enoxaparin Sodium (Lovenox) 40 mg SC 0900 [facility] Last Admin: 03/10/17 10:11 Dose: 40 mg Glucagon (Glucagon) 1 mg IM PRN PRN PRN Reason: Hypoglycemia Guaifenesin (Mucinex) 1,200 mg PO Q12HR [facility] Last Admin: 03/10/17 10:18 Dose: Not Given Guaifenesin/Codeine Phosphate (Robitussin Ac) 10 ml PO Q6H PRN PRN Reason: Cough Last Admin: 03/02/17 04:31 Dose: 10 ml Guaifenesin/Dextromethorphan (Robitussin Dm) 10 ml PO Q6H PRN PRN Reason: Cough Hydralazine HCl (Apresoline) 10 mg SLOW IVP Q4H PRN PRN Reason: FOR SBP>180 Last Admin: 03/09/17 02:21 Dose: 10 mg Dextrose/Water (D5w) 1,000 mls @ 0 mls/hr IV .Q0M PRN; As Directed PRN Reason: Hypoglycemia Sodium Chloride (Normal Saline 0.9%) 1,000 mls @ 0 mls/hr IV .Q0M CORRY PRN Reason: KVO Last Admin: 03/10/17 05:58 Dose: 1,000 mls Diltiazem HCl 125 mg/Miscellaneous Medication 1 each/ Sodium Chloride 125 mls @ 10 mls/hr IVPB INF PRN; Protocol PRN Reason: HR >150 X 3 MINUTES Last Admin: 03/09/17 20:56 Dose: 125 mls Doxycycline Hyclate 100 mg/ (Sodium Chloride) 100 mls @ 100 mls/hr IVPB Q12HR [facility] Last Admin: 03/10/17 10:10 Dose: 100 mls Insulin Human Isoph/Insulin Regular (Humulin 70/30) 20 units SC [facility] Last Admin: 03/09/17 21:08 Dose: Not Given Insulin Human Isoph/Insulin Regular (Humulin 70/30) 15 units SC [facility] Last Admin: 03/10/17 10:52 Dose: Not Given Insulin Human Lispro (Humalog) 0 units SC .MODERATE SLIDING SC PRN PRN Reason: Moderate Correctional Scale Last Admin: 03/10/17 06:04 Dose: 4 unit Insulin Human Lispro (Humalog) 0 units SC .BEDTIME SLIDING SC PRN PRN Reason: Bedtime Correctional Scale Last Admin: 03/07/17 21:16 Dose: 2 unit Lorazepam (Ativan) 2 mg SLOW IVP Q6H PRN PRN Reason: Anxiety/Agitation Last Admin: 03/09/17 12:02 Dose: 2 mg Methylprednisolone Sodium Succinate (Solu-Medrol) 20 mg IVP Q12HR [facility] Last Admin: 03/10/17 09:58 Dose: 20 mg Metoprolol Tartrate (Lopressor) 50 mg PO BID [facility] Last Admin: 03/10/17 09:59 Dose: 50 mg Morphine Sulfate (Morphine) 2 mg IV Q1H PRN PRN Reason: BREAKTHROUGH PAIN Last Admin: 03/09/17 14:41 Dose: 2 mg Nitroglycerin (Nitrostat) 0.4 mg PO Q5MIN PRN PRN Reason: Chest Pain Nystatin (Mycostatin) 500,000 units SSW QID [facility] Last Admin: 03/10/17 10:18 Dose: Not Given Nystatin (Mycostatin Powder) 0 gm TOP BID [facility] Last Admin: 03/10/17 10:10 Dose: 1 applic Ondansetron HCl (Zofran) 4 mg IVP Q6H PRN PRN Reason: Nausea/Vomiting Last Admin: 03/07/17 18:12 Dose: 4 mg Pantoprazole Sodium (Protonix) 40 mg PO DAILY [facility] Last Admin: 03/10/17 10:17 Dose: Not Given Polyethylene Glycol (Miralax) 17 gm PO DAILY [facility] Last Admin: 03/10/17 10:16 Dose: Not Given Saccharomyces Boulardii (Florastor) 250 mg PO DAILY [facility] Last Admin: 03/10/17 09:58 Dose: 250 mg Senna/Docusate Sodium (Senokot S) 1 tab PO BID [facility] Last Admin: 03/10/17 09:59 Dose: 1 tab Sodium Chloride (Flush - Normal Saline) 10 ml IVF Q12HR [facility] Last Admin: 03/10/17 10:16 Dose: Not Given Sodium Chloride (Flush - Normal Saline) 10 ml IVF PRN PRN PRN Reason: Saline Flush Last Admin: 03/08/17 05:47 Dose: 10 ml Tramadol HCl (Ultram) 50 mg PO Q6H PRN PRN Reason: Pain Last Admin: 03/08/17 21:31 Dose: 50 mg
[2017-03-10] MEDS: Diltiazem HCl 125 MG, Admixture Fee 1 EACH in Sodium Chloride 0.9% 100 ML IVPB PRN (18:25)
[2017-03-11 05:10] LABS: #Lymphocytes 0.6 thou/uL (1.20-3.40); #Monocytes 0.2 thou/uL (0.11-0.59); #Neutrophils 13.2 thou/uL (1.40-6.50); %Eosinophils 0.1 % (0.0-10.0); %Lymphocytes 4.3 % (21.0-51.0); %Monocytes 1.7 % (0.0-10.0); Hematocrit 42.3 % (36.0-47.0); Mean Platelet Volume 7.3 fL (7.4-10.4); Red Blood Cell (RBC) Count 4.33 mill/uL (4.20-5.40); White Blood Cell (WBC) Count 14.1 thou/uL (4.8-10.8)
[2017-03-11 05:19] LABS: Anion Gap 9 mmol/L (10-20); BUN (Urea Nitrogen) 35 mg/dL (9.8-20.1); Calc. Creatinine Clearance 76 mL/min (70-130); Calcium 9.3 mg/dL (7.8-10.44); Carbon Dioxide 26 mmol/L (23-31); Chloride 106 mmol/L (98-107); Estimated GFR-MDRD 86
[2017-03-11] MEDS: cloNIDine 0.1 MG TAB PO PRN (06:24)
[2017-03-11] MEDS: Acetaminophen 325 MG TAB PO PRN (06:24)
[2017-03-11] MEDS: Bisacodyl 10 MG SUPP PR PRN (06:28)
[2017-03-11] MEDS: HumaLOG 300 UNITS/3 ML VIAL SC PRN ×3 (06:40→21:01)
[2017-03-11] MEDS ORDERED: NACL ISO OSM IVPB SCH ×2 (08:00)
[2017-03-11] MEDS ORDERED: FLUCONAZOLE IVPB SCH ×2 (08:00)
--- NOTE | 2017-03-11 08:02 | RAD ---
PORTABLE AP CHEST: Date: 03-11-17 History: Pneumonia. Comparison: 03-06-17 FINDINGS: Again noted are increased interstitial opacities seen throughout the lungs bilaterally, again greater at the lung bases and left midlung zone. A few minimal patchy densities are also scattered with the lungs bilaterally. Findings have not significantly changed when compared to the prior exam. There is a linear lucency overlying the right perimediastinal location. However, this does not appear to cours e along the expected lateral margin to suggest pneumomediastinum. There is no subcutaneous emphysema present. This is probably artifactual, but follow up is recommended. No other interval change. IMPRESSION: 1. Linear lucency medial right chest which is most likely artifactual and related to interstitial mariana nges with superimposition of structures, but this was not present on the prior study. However, this i s not thought to represent pneumomediastinum but nevertheless, short interval follow up is suggested. 2. Stable interstitial opacities bilaterally, greater on the left. POS: [facility]
--- NOTE | 2017-03-11 08:24 | PRG ---
DATE OF SERVICE: 03/11/2017 Ms. Lopez did wear her BiPAP for about 4 hours last night. She is back on the Ventimask this [facility]. PHYSICAL EXAMINATION: VITAL SIGNS: Temperature 97.4, pulse 86, respirations 25-30, O2 sat 93%, blood pressure 157/75. 24 hour intake 1135, output 1250. HEENT: Unremarkable. NECK: No JVD. LUNGS: Inspiratory crackles bilaterally. CARDIOVASCULAR: S1, S2 regular, without murmur. Currently on Cardizem drip. ABDOMEN: Soft, nontender. EXTREMITIES: No edema. LABORATORY DATA: Sodium 137, potassium 4.3, chloride 106, CO2 26, BUN 35, creatinine 0.6, glucose 25 2. White blood cell count 14.1, hematocrit 42.3, platelet count 222. ASSESSMENT: 1. Acute respiratory failure requiring mechanical ventilation. 2. Pneumonia. 3. Very slow to improve despite multiple antibiotics, steroids and noninvasive ventilation. PLAN: 1. She has had trouble swallowing and is nutritionally deprived, therefore, I think she needs a Dobb durga tube and enteral tube feeding. 2. Add Diflucan and stop Nystatin swish and swallow. 3. Continue doxycycline. 4. Continue IMCU care.
[2017-03-11] MEDS: Fluconazole In NaCl,Iso-Osm 200 MG in Premix Bag 1 BAG IVPB SCH ×2 (08:50)
[2017-03-11] MEDS: Saccharomyces boulardii 250 MG CAP PO SCH (08:58)
[2017-03-11] MEDS: Aspirin 81 mg Enteric Coated Tablet PO SCH (08:59)
[2017-03-11] MEDS: Metoprolol Tartrate 50 MG TAB PO SCH ×2 (08:59→20:42)
[2017-03-11] MEDS: guaiFENesin ER 600 MG TAB PO SCH ×2 (08:59→20:42)
[2017-03-11] MEDS: Senokot S 8.6-50 MG TAB PO SCH ×2 (09:00→20:42)
[2017-03-11] MEDS: Polyethylene Glycol 3350 17 GM Packet PO SCH (09:01)
[2017-03-11] MEDS: Enoxaparin Sodium 40 MG/0.4 ML SYRINGE SC SCH (09:42)
[2017-03-11] MEDS: Insulin NPH/Reg Insulin Hm 300 UNITS/3 ML VIAL SC SCH ×2 (09:59→21:00)
--- NOTE | 2017-03-11 11:06 | PDOC.PN ---
- Subjective Encounter Start Date: 03/11/17 Encounter Start Time: 09:50 Patient seen and examined. No new complaints. No overnight events, still very weak, has dyspnea - Objective Resuscitation Status: Resuscitation Status FULL:Full Resuscitation MAR Reviewed: Yes Vital Signs & Weight: Vital Signs (12 hours) Temp Pulse Resp BP BP Pulse Ox 03/11/17 08:59 96 145/63 H 03/11/17 07:36 93 L 03/11/17 07:34 86 30 H 93 L 03/11/17 07:12 97.4 F L 85 20 157/75 H 95 03/11/17 06:24 191/87 H 03/11/17 04:00 98.0 F 82 32 H 157/86 H 92 L 03/11/17 03:19 93 L 03/11/17 02:05 85 03/11/17 02:03 85 25 H 91 L 03/11/17 00:00 97.8 F 82 28 H 153/53 H 92 L Weight Admit Weight 142 lb 8 oz Weight 143 lb 8 oz Most Recent Monitor Data Heart Rate from ECG 122 NIBP 168/64 NIBP BP-Mean 135 Respiration from ECG 34 SpO2 98 I&O: 03/10/17 03/11/17 03/12/17 06:59 06:59 06:59 Intake Total 956 1135 Output Total 875 1250 Balance 81 -115 Result Diagrams: 03/11/17 04:31 03/11/17 04:31 Additional Labs: Accuchecks 03/11/17 03/10/17 03/10/17 05:31 20:20 15:59 POC Glucose 233 H 290 H 278 H 03/10/17 11:09 POC Glucose 196 H Radiology Reviewed by me: Yes (chest xray) EKG Reviewed by me: Yes (nsr) Phys Exam - Physical Examination Constitutional: NAD HEENT: PERRLA, moist MMs, sclera anicteric Neck: no JVD, supple Respiratory: no wheezing, no rhonchi reduced air entry, fine rales at base Cardiovascular: RRR, no significant murmur, no rub Gastrointestinal: soft, non-tender, no distention, positive bowel sounds Musculoskeletal: no edema, pulses present Neurological: non-focal, normal sensation Lymphatic: no nodes Psychiatric: normal affect, A&O x 3 Skin: no rash, normal turgor Dx/Plan (1) Acute respiratory failure with hypoxia Code(s): J96.01 - ACUTE RESPIRATORY FAILURE WITH HYPOXIA Status: Acute (2) Community acquired bacterial pneumonia Code(s): J15.9 - UNSPECIFIED BACTERIAL PNEUMONIA Status: Acute (3) SVT (supraventricular tachycardia) Code(s): I47.1 - SUPRAVENTRICULAR TACHYCARDIA Status: Acute (4) Sepsis with acute organ dysfunction Code(s): A41.9 - SEPSIS, UNSPECIFIED ORGANISM; R65.20 - SEVERE SEPSIS WITHOUT SEPTIC SHOCK Status: Acute (5) DM2 (diabetes mellitus, type 2) Status: Chronic (6) HTN (hypertension) Code(s): I10 - ESSENTIAL (PRIMARY) HYPERTENSION Status: Chronic (7) Non compliance w medication regimen Code(s): Z91.14 - PATIENT'S OTHER NONCOMPLIANCE WITH MEDICATION REGIMEN Status : Chronic (8) Rheumatoid arthritis Code(s): M06.9 - RHEUMATOID ARTHRITIS, UNSPECIFIED Status: Chronic (9) Acute kidney injury Code(s): N17.9 - ACUTE KIDNEY FAILURE, UNSPECIFIED Status: Resolved (10) Hyponatremia Code(s): E87.1 - HYPO-OSMOLALITY AND HYPONATREMIA Status: Resolved (11) Lactic acidosis Code(s): E87.2 - ACIDOSIS Status: Resolved (12) ILD (interstitial lung disease) Code(s): J84.9 - INTERSTITIAL PULMONARY DISEASE, UNSPECIFIED Status: Acute - Plan cont current plan of care, plan discussed w/ family, continue antibiotics, respiratory therapy * continue doxycyline, solumedrol * titrate oxygen requirement * medication reviewed as below * symptomatic treatment * still not ready to move out of [facility] * pulmonary following. Review of Systems - Review of Systems Constitutional: Weakness, Malaise. negative: Fever, Chills, Sweats, Other Respiratory: Cough, Shortness of Breath, SOB with Excertion. negative: Dry, Hemoptysis, Pleuritic Pain, Sputum, Wheezing Cardiovascular: negative: Chest Pain, Palpitations, Orthopnea, Paroxysmal Noc. Dyspnea, Edema, Light Headedness, Other Gastrointestinal: negative: Nausea, Vomiting, Abdominal Pain, Diarrhea, Constipation, Melena, Hematochezia, Other Genitourinary: negative: Dysuria, Frequency, Incontinence, Hematuria, Retention , Other Musculoskeletal: negative: Neck Pain, Shoulder Pain, Arm Pain, Back Pain, Hand Pain, Leg Pain, Foot Pain, Other Skin: negative: Rash, Lesions, Jose, Bruising, Other - Medications/Allergies Allergies/Adverse Reactions: Allergies Allergy/AdvReac Type Severity Reaction Status Date / Time No Known Drug Allergies Allergy Verified 02/23/17 21:57 Medications: Current Medications Acetaminophen (Tylenol) 650 mg PO Q4H PRN PRN Reason: Headache/Fever or Pain Last Admin: 03/11/17 06:24 Dose: 650 mg Albuterol/Ipratropium (Duoneb) 3 ml NEB [id number] [facility] Last Admin: 03/11/17 07:34 Dose: 3 ml Aspirin (Ecotrin) 81 mg PO DAILY [facility] Last Admin: 03/11/17 08:59 Dose: 81 mg Benzonatate (Tessalon) 100 mg PO Q8H PRN PRN Reason: Cough Last Admin: 02/28/17 06:25 Dose: 100 mg Bisacodyl (Dulcolax) 10 mg GA Q8H PRN PRN Reason: Constipation Last Admin: 03/11/17 06:28 Dose: 10 mg Clonidine (Catapres) 0.1 mg PO Q6H PRN PRN Reason: SBP GREATER THAN 160 Last Admin: 03/11/17 06:24 Dose: 0.1 mg Dextrose/Water (Dextrose 50%) 25 gm SLOW IVP PRN PRN PRN Reason: Hypoglycemia Diltiazem HCl (Cardizem Cd) 120 mg PO DAILY [facility] Last Admin: 03/11/17 08:59 Dose: 120 mg Enoxaparin Sodium (Lovenox) 40 mg SC 0900 [facility] Last Admin: 03/11/17 09:42 Dose: 40 mg Glucagon (Glucagon) 1 mg IM PRN PRN PRN Reason: Hypoglycemia Guaifenesin (Mucinex) 1,200 mg PO Q12HR [facility] Last Admin: 03/11/17 08:59 Dose: 1,200 mg Guaifenesin/Codeine Phosphate (Robitussin Ac) 10 ml PO Q6H PRN PRN Reason: Cough Last Admin: 03/02/17 04:31 Dose: 10 ml Guaifenesin/Dextromethorphan (Robitussin Dm) 10 ml PO Q6H PRN PRN Reason: Cough Hydralazine HCl (Apresoline) 10 mg SLOW IVP Q4H PRN PRN Reason: FOR SBP>180 Last Admin: 03/09/17 02:21 Dose: 10 mg Dextrose/Water (D5w) 1,000 mls @ 0 mls/hr IV .Q0M PRN; As Directed PRN Reason: Hypoglycemia Sodium Chloride (Normal Saline 0.9%) 1,000 mls @ 0 mls/hr IV .Q0M CORRY PRN Reason: KVO Last Admin: 03/10/17 05:58 Dose: 1,000 mls Diltiazem HCl 125 mg/Miscellaneous Medication 1 each/ Sodium Chloride 125 mls @ 10 mls/hr IVPB INF PRN; Protocol PRN Reason: HR >150 X 3 MINUTES Last Admin: 03/10/17 18:25 Dose: 125 mls Doxycycline Hyclate 100 mg/ (Sodium Chloride) 100 mls @ 100 mls/hr IVPB Q12HR [facility] Last Admin: 03/11/17 08:57 Dose: 100 mls Fluconazole/Sodium Chloride (200 mg/ Device) 100 mls @ 100 mls/hr IVPB 0900 [facility] Last Admin: 03/11/17 08:50 Dose: 100 mls Insulin Human Isoph/Insulin Regular (Humulin 70/30) 20 units SC HS [facility] Last Admin: 03/10/17 21:53 Dose: 20 unit Insulin Human Isoph/Insulin Regular (Humulin 70/30) 15 units SC QAM [facility] Last Admin: 03/11/17 09:59 Dose: 15 unit Insulin Human Lispro (Humalog) 0 units SC .MODERATE SLIDING SC PRN PRN Reason: Moderate Correctional Scale Last Admin: 03/11/17 06:40 Dose: 4 unit Insulin Human Lispro (Humalog) 0 units SC .BEDTIME SLIDING SC PRN PRN Reason: Bedtime Correctional Scale Last Admin: 03/07/17 21:16 Dose: 2 unit Lorazepam (Ativan) 2 mg SLOW IVP Q6H PRN PRN Reason: Anxiety/Agitation Last Admin: 03/09/17 12:02 Dose: 2 mg Methylprednisolone Sodium Succinate (Solu-Medrol) 20 mg IVP Q12HR [facility] Last Admin: 03/11/17 08:58 Dose: 20 mg Metoprolol Tartrate (Lopressor) 50 mg PO BID [facility] Last Admin: 03/11/17 08:59 Dose: 50 mg Morphine Sulfate (Morphine) 2 mg IV Q1H PRN PRN Reason: BREAKTHROUGH PAIN Last Admin: 03/09/17 14:41 Dose: 2 mg Nitroglycerin (Nitrostat) 0.4 mg PO Q5MIN PRN PRN Reason: Chest Pain Ondansetron HCl (Zofran) 4 mg IVP Q6H PRN PRN Reason: Nausea/Vomiting Last Admin: 03/07/17 18:12 Dose: 4 mg Pantoprazole Sodium (Protonix) 40 mg PO DAILY [facility] Last Admin: 03/11/17 08:59 Dose: 40 mg Polyethylene Glycol (Miralax) 17 gm PO DAILY [facility] Last Admin: 03/11/17 09:01 Dose: 17 gm Saccharomyces Boulardii (Florastor) 250 mg PO DAILY [facility] Last Admin: 03/11/17 08:58 Dose: 250 mg Senna/Docusate Sodium (Senokot S) 1 tab PO BID [facility] Last Admin: 03/11/17 09:00 Dose: 1 tab Sodium Chloride (Flush - Normal Saline) 10 ml IVF Q12HR [facility] Last Admin: 03/11/17 09:02 Dose: 10 ml Sodium Chloride (Flush - Normal Saline) 10 ml IVF PRN PRN PRN Reason: Saline Flush Last Admin: 03/10/17 21:56 Dose: 10 ml Tramadol HCl (Ultram) 50 mg PO Q6H PRN PRN Reason: Pain Last Admin: 03/08/17 21:31 Dose: 50 mg
[2017-03-11] MEDS: Sodium Chloride 0.9% 1,000 ML IV SCH (14:33)
--- NOTE | 2017-03-11 14:54 | RAD ---
KUB: COMPARISON: None. HISTORY: Dobbhoff placement. FINDINGS: A single view of the abdomen shows an NG tube in the stomach. No Dobbhoff tube is visualized. Yuly cystectomy clips are seen. There is a nonobstructed bowel gas pattern. IMPRESSION: Nasogastric tube located in the stomach. POS: [facility]
[2017-03-11] MEDS: Diltiazem HCl 125 MG, Admixture Fee 1 EACH in Sodium Chloride 0.9% 100 ML IVPB PRN (17:57)
[2017-03-12 05:05] LABS: #Lymphocytes 0.4 thou/uL (1.20-3.40); #Monocytes 0.3 thou/uL (0.11-0.59); #Neutrophils 12.4 thou/uL (1.40-6.50); %Basophils 0.2 % (0.0-1.0); %Eosinophils 0.1 % (0.0-10.0); %Lymphocytes 2.6 % (21.0-51.0); %Monocytes 2.5 % (0.0-10.0); Hematocrit 41.3 % (36.0-47.0); Mean Platelet Volume 7.6 fL (7.4-10.4); Red Blood Cell (RBC) Count 4.23 mill/uL (4.20-5.40); White Blood Cell (WBC) Count 13.1 thou/uL (4.8-10.8)
[2017-03-12 05:11] LABS: Anion Gap 9 mmol/L (10-20); BUN (Urea Nitrogen) 36 mg/dL (9.8-20.1); Calc. Creatinine Clearance 80 mL/min (70-130); Calcium 9.4 mg/dL (7.8-10.44); Carbon Dioxide 29 mmol/L (23-31); Chloride 105 mmol/L (98-107); Estimated GFR-MDRD Greater than 90
[2017-03-12] MEDS: cloNIDine 0.1 MG TAB PO PRN (05:27)
[2017-03-12] MEDS: HumaLOG 300 UNITS/3 ML VIAL SC PRN ×4 (05:36→21:32)
[2017-03-12] MEDS: Fluconazole In NaCl,Iso-Osm 200 MG in Premix Bag 1 BAG IVPB SCH ×2 (08:47)
[2017-03-12] MEDS: Enoxaparin Sodium 40 MG/0.4 ML SYRINGE SC SCH (08:49)
[2017-03-12] MEDS: Senokot S 8.6-50 MG TAB PO SCH ×2 (08:52→21:31)
[2017-03-12] MEDS: Aspirin 81 mg Enteric Coated Tablet PO SCH (08:52)
[2017-03-12] MEDS: Metoprolol Tartrate 50 MG TAB PO SCH ×2 (08:52→21:31)
[2017-03-12] MEDS: Saccharomyces boulardii 250 MG CAP PO SCH (08:52)
[2017-03-12] MEDS: guaiFENesin ER 600 MG TAB PO SCH ×2 (08:52→21:31)
[2017-03-12] MEDS: Polyethylene Glycol 3350 17 GM Packet PO SCH (08:53)
[2017-03-12] MEDS: Insulin NPH/Reg Insulin Hm 300 UNITS/3 ML VIAL SC SCH ×2 (09:00→21:32)
--- NOTE | 2017-03-12 10:38 | PDOC.PN ---
- Subjective Encounter Start Date: 03/12/17 Encounter Start Time: 09:40 pt is still hypoxic, still respi distress, no improvement seen - Objective Resuscitation Status: Resuscitation Status FULL:Full Resuscitation MAR Reviewed: Yes Vital Signs & Weight: Vital Signs (12 hours) Temp Pulse Resp BP BP BP Pulse Ox 03/12/17 08:52 96 03/12/17 07:30 97.5 F L 96 18 163/62 H 93 L 03/12/17 07:28 93 L 03/12/17 07:24 98 20 93 L 03/12/17 06:00 92 20 164/64 H 93 L 03/12/17 05:27 173/64 H 03/12/17 04:00 98.0 F 87 20 164/69 H 95 03/12/17 02:14 84 14 95 03/12/17 00:00 98.2 F 82 22 H 147/59 H 95 Weight Admit Weight 142 lb 8 oz Weight 145 lb 14.4 oz Most Recent Monitor Data Heart Rate from ECG 122 NIBP 168/64 NIBP BP-Mean 135 Respiration from ECG 34 SpO2 98 I&O: 03/11/17 03/12/17 03/13/17 06:59 06:59 06:59 Intake Total 1135 180 Output Total 1250 450 Balance -115 -270 Result Diagrams: 03/12/17 03:53 03/12/17 03:53 Additional Labs: Accuchecks 03/12/17 03/11/17 03/11/17 05:36 20:28 16:52 POC Glucose 312 H 260 H 164 H 03/11/17 11:23 POC Glucose 257 H EKG Reviewed by me: Yes (tachycardia) Phys Exam - Physical Examination Constitutional: NAD HEENT: PERRLA, moist MMs, sclera anicteric Neck: no JVD, supple Respiratory: wheezing present rales and reduced air entry Cardiovascular: RRR, no significant murmur, no rub Gastrointestinal: soft, non-tender, no distention, positive bowel sounds Musculoskeletal: no edema, pulses present Neurological: non-focal Lymphatic: no nodes Psychiatric: normal affect Skin: no rash, normal turgor Dx/Plan (1) Acute respiratory failure with hypoxia Code(s): J96.01 - ACUTE RESPIRATORY FAILURE WITH HYPOXIA Status: Acute (2) Community acquired bacterial pneumonia Code(s): J15.9 - UNSPECIFIED BACTERIAL PNEUMONIA Status: Acute (3) SVT (supraventricular tachycardia) Code(s): I47.1 - SUPRAVENTRICULAR TACHYCARDIA Status: Acute (4) Sepsis with acute organ dysfunction Code(s): A41.9 - SEPSIS, UNSPECIFIED ORGANISM; R65.20 - SEVERE SEPSIS WITHOUT SEPTIC SHOCK Status: Acute (5) DM2 (diabetes mellitus, type 2) Status: Chronic (6) HTN (hypertension) Code(s): I10 - ESSENTIAL (PRIMARY) HYPERTENSION Status: Chronic (7) Non compliance w medication regimen Code(s): Z91.14 - PATIENT'S OTHER NONCOMPLIANCE WITH MEDICATION REGIMEN Status : Chronic (8) Rheumatoid arthritis Code(s): M06.9 - RHEUMATOID ARTHRITIS, UNSPECIFIED Status: Chronic (9) Acute kidney injury Code(s): N17.9 - ACUTE KIDNEY FAILURE, UNSPECIFIED Status: Resolved (10) Hyponatremia Code(s): E87.1 - HYPO-OSMOLALITY AND HYPONATREMIA Status: Resolved (11) Lactic acidosis Code(s): E87.2 - ACIDOSIS Status: Resolved (12) ILD (interstitial lung disease) Code(s): J84.9 - INTERSTITIAL PULMONARY DISEASE, UNSPECIFIED Status: Acute - Plan cont current plan of care, continue antibiotics, respiratory therapy * continue cardizem drip for rate control * continue steroid * continue doxycycline * ? role of any bronchoscopy * medication reviewed as below * symptomatic treatment * will monitor in CCU * pulmonary following. Review of Systems - Review of Systems Constitutional: Weakness, Malaise. negative: Fever, Chills, Sweats, Other Respiratory: Cough, Shortness of Breath, SOB with Excertion. negative: Dry, Hemoptysis, Pleuritic Pain, Sputum, Wheezing Cardiovascular: negative: Chest Pain, Palpitations, Orthopnea, Paroxysmal Noc. Dyspnea, Edema, Light Headedness, Other Gastrointestinal: negative: Nausea, Vomiting, Abdominal Pain, Diarrhea, Constipation, Melena, Hematochezia, Other Genitourinary: negative: Dysuria, Frequency, Incontinence, Hematuria, Retention , Other Musculoskeletal: negative: Neck Pain, Shoulder Pain, Arm Pain, Back Pain, Hand Pain, Leg Pain, Foot Pain, Other Skin: negative: Rash, Lesions, Jose, Bruising, Other - Medications/Allergies Allergies/Adverse Reactions: Allergies Allergy/AdvReac Type Severity Reaction Status Date / Time No Known Drug Allergies Allergy Verified 02/23/17 21:57 Medications: Current Medications Acetaminophen (Tylenol) 650 mg PO Q4H PRN PRN Reason: Headache/Fever or Pain Last Admin: 03/11/17 06:24 Dose: 650 mg Albuterol/Ipratropium (Duoneb) 3 ml NEB [id number] Last Admin: 03/12/17 07:24 Dose: 3 ml Aspirin (Ecotrin) 81 mg PO DAILY [facility] Last Admin: 03/12/17 08:52 Dose: 81 mg Benzonatate (Tessalon) 100 mg PO Q8H PRN PRN Reason: Cough Last Admin: 02/28/17 06:25 Dose: 100 mg Bisacodyl (Dulcolax) 10 mg ID Q8H PRN PRN Reason: Constipation Last Admin: 03/11/17 06:28 Dose: 10 mg Clonidine (Catapres) 0.1 mg PO Q6H PRN PRN Reason: SBP GREATER THAN 160 Last Admin: 03/12/17 05:27 Dose: 0.1 mg Dextrose/Water (Dextrose 50%) 25 gm SLOW IVP PRN PRN PRN Reason: Hypoglycemia Diltiazem HCl (Cardizem Cd) 120 mg PO DAILY [facility] Last Admin: 03/12/17 08:52 Dose: 120 mg Enoxaparin Sodium (Lovenox) 40 mg SC 0900 [facility] Last Admin: 03/12/17 08:49 Dose: 40 mg Glucagon (Glucagon) 1 mg IM PRN PRN PRN Reason: Hypoglycemia Guaifenesin (Mucinex) 1,200 mg PO Q12HR [facility] Last Admin: 03/12/17 08:52 Dose: 1,200 mg Guaifenesin/Codeine Phosphate (Robitussin Ac) 10 ml PO Q6H PRN PRN Reason: Cough Last Admin: 03/02/17 04:31 Dose: 10 ml Guaifenesin/Dextromethorphan (Robitussin Dm) 10 ml PO Q6H PRN PRN Reason: Cough Hydralazine HCl (Apresoline) 10 mg SLOW IVP Q4H PRN PRN Reason: FOR SBP>180 Last Admin: 03/09/17 02:21 Dose: 10 mg Dextrose/Water (D5w) 1,000 mls @ 0 mls/hr IV .Q0M PRN; As Directed PRN Reason: Hypoglycemia Sodium Chloride (Normal Saline 0.9%) 1,000 mls @ 0 mls/hr IV .Q0M CORRY PRN Reason: KVO Last Admin: 03/11/17 14:33 Dose: 1,000 mls Diltiazem HCl 125 mg/Miscellaneous Medication 1 each/ Sodium Chloride 125 mls @ 10 mls/hr IVPB INF PRN; Protocol PRN Reason: HR >150 X 3 MINUTES Last Admin: 03/11/17 17:57 Dose: 125 mls Doxycycline Hyclate 100 mg/ (Sodium Chloride) 100 mls @ 100 mls/hr IVPB Q12HR [facility] Last Admin: 03/12/17 08:45 Dose: 100 mls Fluconazole/Sodium Chloride (200 mg/ Device) 100 mls @ 100 mls/hr IVPB 0900 [facility] Last Admin: 03/12/17 08:47 Dose: 100 mls Insulin Human Isoph/Insulin Regular (Humulin 70/30) 20 units SC [facility] Last Admin: 03/11/17 21:00 Dose: 20 unit Insulin Human Isoph/Insulin Regular (Humulin 70/30) 15 units SC QAM [facility] Last Admin: 03/12/17 09:00 Dose: 15 unit Insulin Human Lispro (Humalog) 0 units SC .MODERATE SLIDING SC PRN PRN Reason: Moderate Correctional Scale Last Admin: 03/12/17 05:36 Dose: 8 unit Insulin Human Lispro (Humalog) 0 units SC .BEDTIME SLIDING SC PRN PRN Reason: Bedtime Correctional Scale Last Admin: 03/11/17 21:01 Dose: 3 unit Lorazepam (Ativan) 2 mg SLOW IVP Q6H PRN PRN Reason: Anxiety/Agitation Last Admin: 03/09/17 12:02 Dose: 2 mg Methylprednisolone Sodium Succinate (Solu-Medrol) 40 mg IVP Q6HR [facility] Metoprolol Tartrate (Lopressor) 50 mg PO BID [facility] Last Admin: 03/12/17 08:52 Dose: 50 mg Morphine Sulfate (Morphine) 2 mg IV Q1H PRN PRN Reason: BREAKTHROUGH PAIN Last Admin: 03/09/17 14:41 Dose: 2 mg Nitroglycerin (Nitrostat) 0.4 mg PO Q5MIN PRN PRN Reason: Chest Pain Ondansetron HCl (Zofran) 4 mg IVP Q6H PRN PRN Reason: Nausea/Vomiting Last Admin: 03/07/17 18:12 Dose: 4 mg Pantoprazole Sodium (Protonix) 40 mg PO DAILY [facility] Last Admin: 03/12/17 08:52 Dose: 40 mg Polyethylene Glycol (Miralax) 17 gm PO DAILY [facility] Last Admin: 03/12/17 08:53 Dose: Not Given Saccharomyces Boulardii (Florastor) 250 mg PO DAILY [facility] Last Admin: 03/12/17 08:52 Dose: 250 mg Senna/Docusate Sodium (Senokot S) 1 tab PO BID [facility] Last Admin: 03/12/17 08:52 Dose: 1 tab Sodium Chloride (Flush - Normal Saline) 10 ml IVF Q12HR [facility] Last Admin: 03/12/17 08:53 Dose: 10 ml Sodium Chloride (Flush - Normal Saline) 10 ml IVF PRN PRN PRN Reason: Saline Flush Last Admin: 03/11/17 20:42 Dose: 10 ml Tramadol HCl (Ultram) 50 mg PO Q6H PRN PRN Reason: Pain Last Admin: 03/08/17 21:31 Dose: 50 mg
--- NOTE | 2017-03-12 11:50 | PRG ---
DATE OF SERVICE: 03/12/2017 SUBJECTIVE: The patient remains in the intermediate care unit. She is intermittently requiring BiPA P. She says she feels a little better today. PHYSICAL EXAMINATION: VITAL SIGNS: Temperature is 97.5 with no fever overnight, pulse 96, respirations 18, O2 sat 93% on 4 0% VentiMask, blood pressure 163/62. 24 hour intake 1135, output 1250. Weight 145 pounds. HEENT: Unremarkable. NECK: No JVD. LUNGS: Poor crackles at both bases. CARDIOVASCULAR: S1 and S2, regular. ABDOMEN: Soft. EXTREMITIES: No edema. LABORATORY DATA: White blood cell count 13, hematocrit 41, platelet count 185. Sodium 138, potassiu m 4.5, chloride 105, CO2 of 29, BUN 36, creatinine 0.6, and glucose 271. ASSESSMENT: 1. Bilateral atypical pneumonia, which has been extremely slow to resolve. This suggests that we ma y be dealing with a viral process. 2. Acute respiratory failure, requiring mechanical ventilation. 3. Severe deconditioning. 4. Elevated rheumatoid factor value. RECOMMENDATIONS: 1. Continue doxycycline. 2. Continue Diflucan for the thrush. 3. Continue enteral tube feeds. 4. Up in a chair as tolerated with assistance. 5. Leave in IMCU until oxygen needs decrease.
[2017-03-12] MEDS: Lorazepam 2 MG/ML VIAL SLOW IVP PRN (17:06)
[2017-03-12] MEDS: Diltiazem HCl 125 MG, Admixture Fee 1 EACH in Sodium Chloride 0.9% 100 ML IVPB PRN (22:30)
[2017-03-12] MEDS: Sodium Chloride 0.9% 1,000 ML IV SCH (22:34)
[2017-03-13 05:03] LABS: #Lymphocytes 0.3 thou/uL (1.20-3.40); #Monocytes 0.1 thou/uL (0.11-0.59); #Neutrophils 12.8 thou/uL (1.40-6.50); %Eosinophils 0.1 % (0.0-10.0); %Lymphocytes 2.1 % (21.0-51.0); Mean Platelet Volume 7.7 fL (7.4-10.4); Red Blood Cell (RBC) Count 4.34 mill/uL (4.20-5.40); White Blood Cell (WBC) Count 13.2 thou/uL (4.8-10.8)
[2017-03-13] MEDS: cloNIDine 0.1 MG TAB PO PRN (05:05)
[2017-03-13 05:13] LABS: Anion Gap 10 mmol/L (10-20); BUN (Urea Nitrogen) 39 mg/dL (9.8-20.1); Calc. Creatinine Clearance 76 mL/min (70-130); Calcium 9.1 mg/dL (7.8-10.44); Carbon Dioxide 29 mmol/L (23-31); Chloride 105 mmol/L (98-107); Estimated GFR-MDRD 83
[2017-03-13] MEDS: HumaLOG 300 UNITS/3 ML VIAL SC PRN ×3 (06:29→16:49)
--- NOTE | 2017-03-13 08:34 | RAD ---
PORTABLE CHEST: HISTORY: Shortness of breath. ICU followup. COMPARISON: 03/11/17. FINDINGS: Bilateral lung infiltrates. Mild cardiomegaly. NG tube has been placed with the tip not visualized on this study. IMPRESSION: The bilateral lung horton do not appear significant changes. POS: [facility]
[2017-03-13] MEDS: Insulin NPH/Reg Insulin Hm 300 UNITS/3 ML VIAL SC SCH ×2 (09:31→20:37)
[2017-03-13] MEDS: Enoxaparin Sodium 40 MG/0.4 ML SYRINGE SC SCH (09:31)
[2017-03-13] MEDS: Senokot S 8.6-50 MG TAB PO SCH ×2 (09:35→20:36)
[2017-03-13] MEDS: Saccharomyces boulardii 250 MG CAP PO SCH (09:35)
[2017-03-13] MEDS: Metoprolol Tartrate 50 MG TAB PO SCH ×2 (09:35→20:36)
[2017-03-13] MEDS: Aspirin 81 mg Enteric Coated Tablet PO SCH (09:35)
[2017-03-13] MEDS: guaiFENesin ER 600 MG TAB PO SCH ×2 (09:35→20:36)
[2017-03-13] MEDS: Polyethylene Glycol 3350 17 GM Packet PO SCH (09:36)
[2017-03-13] MEDS: Fluconazole In NaCl,Iso-Osm 200 MG in Premix Bag 1 BAG IVPB SCH ×2 (09:56)
[2017-03-13] MEDS: Cefepime 2 GM, Syringe 2.5 ML in Sterile Water 10 ML SLOW IVP SCH ×2 (11:13→23:58)
--- NOTE | 2017-03-13 11:32 | PDOC.PN ---
- Subjective Encounter Start Date: 03/13/17 Encounter Start Time: 09:30 pt is still dyspneic, this morning required bipap, no fever - Objective Resuscitation Status: Resuscitation Status FULL:Full Resuscitation MAR Reviewed: Yes Vital Signs & Weight: Vital Signs (12 hours) Temp Pulse Resp BP BP BP Pulse Ox 03/13/17 11:11 92 16 03/13/17 09:35 104 H 03/13/17 08:04 97.8 F 110 H 32 H 174/73 H 95 03/13/17 08:00 97.8 F 110 H 32 H 95 03/13/17 06:25 107 H 03/13/17 06:00 100 26 H 169/65 H 90 L 03/13/17 05:05 185/65 H 03/13/17 04:00 97.8 F 94 32 H 167/84 H 90 L 03/13/17 02:15 85 22 H 94 L 03/13/17 00:00 97.9 F 86 30 H 156/61 H 88 L Weight Admit Weight 142 lb 8 oz Weight 143 lb 12.8 oz Most Recent Monitor Data Heart Rate from ECG 122 NIBP 168/64 NIBP BP-Mean 135 Respiration from ECG 34 SpO2 98 I&O: 03/12/17 03/13/17 03/14/17 06:59 06:59 06:59 Intake Total 1400 1500 Output Total 1100 825 Balance 300 675 Result Diagrams: 03/13/17 04:18 03/13/17 04:18 Additional Labs: Accuchecks 03/13/17 03/12/17 03/12/17 05:42 20:47 17:08 POC Glucose 343 H 309 H 279 H 03/12/17 10:55 POC Glucose 296 H Radiology Reviewed by me: Yes (chest xray) EKG Reviewed by me: Yes (nsr) Phys Exam - Physical Examination Constitutional: NAD HEENT: PERRLA, moist MMs, sclera anicteric Neck: no JVD, supple Respiratory: wheezing present basal rales Cardiovascular: RRR, no significant murmur, no rub Gastrointestinal: soft, non-tender, no distention Musculoskeletal: no edema, pulses present Neurological: non-focal, normal sensation, moves all 4 limbs Psychiatric: normal affect, A&O x 3 Skin: no rash, normal turgor Dx/Plan (1) Acute respiratory failure with hypoxia Code(s): J96.01 - ACUTE RESPIRATORY FAILURE WITH HYPOXIA Status: Acute (2) Community acquired bacterial pneumonia Code(s): J15.9 - UNSPECIFIED BACTERIAL PNEUMONIA Status: Acute (3) SVT (supraventricular tachycardia) Code(s): I47.1 - SUPRAVENTRICULAR TACHYCARDIA Status: Acute (4) Sepsis with acute organ dysfunction Code(s): A41.9 - SEPSIS, UNSPECIFIED ORGANISM; R65.20 - SEVERE SEPSIS WITHOUT SEPTIC SHOCK Status: Acute (5) DM2 (diabetes mellitus, type 2) Status: Chronic (6) HTN (hypertension) Code(s): I10 - ESSENTIAL (PRIMARY) HYPERTENSION Status: Chronic (7) Non compliance w medication regimen Code(s): Z91.14 - PATIENT'S OTHER NONCOMPLIANCE WITH MEDICATION REGIMEN Status : Chronic (8) Rheumatoid arthritis Code(s): M06.9 - RHEUMATOID ARTHRITIS, UNSPECIFIED Status: Chronic (9) Acute kidney injury Code(s): N17.9 - ACUTE KIDNEY FAILURE, UNSPECIFIED Status: Resolved (10) Hyponatremia Code(s): E87.1 - HYPO-OSMOLALITY AND HYPONATREMIA Status: Resolved (11) Lactic acidosis Code(s): E87.2 - ACIDOSIS Status: Resolved (12) ILD (interstitial lung disease) Code(s): J84.9 - INTERSTITIAL PULMONARY DISEASE, UNSPECIFIED Status: Acute - Plan cont current plan of care, continue antibiotics, respiratory therapy * continue IV solumedrol * continue IV doxycycline * ? role of bronchoscopy * medication reviewed as below * symptomatic treatment * discussed with family bedside * do not see any improvement * bipap as needed. Review of Systems - Review of Systems Constitutional: Weakness. negative: Fever, Chills, Sweats, Malaise, Other Respiratory: Cough, Shortness of Breath, SOB with Excertion. negative: Dry, Hemoptysis, Pleuritic Pain, Sputum, Wheezing Cardiovascular: negative: Chest Pain, Palpitations, Orthopnea, Paroxysmal Noc. Dyspnea, Edema, Light Headedness, Other Gastrointestinal: negative: Nausea, Vomiting, Abdominal Pain, Diarrhea, Constipation, Melena, Hematochezia, Other Genitourinary: negative: Dysuria, Frequency, Incontinence, Hematuria, Retention , Other Musculoskeletal: negative: Neck Pain, Shoulder Pain, Arm Pain, Back Pain, Hand Pain, Leg Pain, Foot Pain, Other Skin: negative: Rash, Lesions, Jose, Bruising, Other - Medications/Allergies Allergies/Adverse Reactions: Allergies Allergy/AdvReac Type Severity Reaction Status Date / Time No Known Drug Allergies Allergy Verified 02/23/17 21:57 Medications: Current Medications Acetaminophen (Tylenol) 650 mg PO Q4H PRN PRN Reason: Headache/Fever or Pain Last Admin: 03/11/17 06:24 Dose: 650 mg Albuterol/Ipratropium (Duoneb) 3 ml NEB [id number] [facility] Last Admin: 03/13/17 11:11 Dose: 3 ml Aspirin (Ecotrin) 81 mg PO DAILY [facility] Last Admin: 03/13/17 09:35 Dose: 81 mg Benzonatate (Tessalon) 100 mg PO Q8H PRN PRN Reason: Cough Last Admin: 02/28/17 06:25 Dose: 100 mg Bisacodyl (Dulcolax) 10 mg [place] Q8H PRN PRN Reason: Constipation Last Admin: 03/11/17 06:28 Dose: 10 mg Clonidine (Catapres) 0.1 mg PO Q6H PRN PRN Reason: SBP GREATER THAN 160 Last Admin: 03/13/17 05:05 Dose: 0.1 mg Dextrose/Water (Dextrose 50%) 25 gm SLOW IVP PRN PRN PRN Reason: Hypoglycemia Diltiazem HCl (Cardizem Cd) 120 mg PO DAILY [facility] Last Admin: 03/13/17 09:35 Dose: 120 mg Enoxaparin Sodium (Lovenox) 40 mg SC 0900 [facility] Last Admin: 03/13/17 09:31 Dose: 40 mg Glucagon (Glucagon) 1 mg IM PRN PRN PRN Reason: Hypoglycemia Guaifenesin (Mucinex) 1,200 mg PO Q12HR [facility] Last Admin: 03/13/17 09:35 Dose: 1,200 mg Guaifenesin/Codeine Phosphate (Robitussin Ac) 10 ml PO Q6H PRN PRN Reason: Cough Last Admin: 03/02/17 04:31 Dose: 10 ml Guaifenesin/Dextromethorphan (Robitussin Dm) 10 ml PO Q6H PRN PRN Reason: Cough Hydralazine HCl (Apresoline) 10 mg SLOW IVP Q4H PRN PRN Reason: FOR SBP>180 Last Admin: 03/09/17 02:21 Dose: 10 mg Dextrose/Water (D5w) 1,000 mls @ 0 mls/hr IV .Q0M PRN; As Directed PRN Reason: Hypoglycemia Sodium Chloride (Normal Saline 0.9%) 1,000 mls @ 0 mls/hr IV .Q0M CORRY PRN Reason: KVO Last Admin: 03/12/17 22:34 Dose: 1,000 mls Diltiazem HCl 125 mg/Miscellaneous Medication 1 each/ Sodium Chloride 125 mls @ 10 mls/hr IVPB INF PRN; Protocol PRN Reason: HR >150 X 3 MINUTES Last Admin: 03/12/17 22:30 Dose: 125 mls Doxycycline Hyclate 100 mg/ (Sodium Chloride) 100 mls @ 100 mls/hr IVPB Q12HR [facility] Last Admin: 03/13/17 09:28 Dose: 100 mls Fluconazole/Sodium Chloride (200 mg/ Device) 100 mls @ 100 mls/hr IVPB 0900 [facility] Last Admin: 03/13/17 09:56 Dose: 100 mls Cefepime HCl 2 gm/ Syringe 2.5 (ml/ Sterile Water) 12.5 mls @ 150 mls/hr SLOW IVP 1100,2300 [facility] Last Admin: 03/13/17 11:13 Dose: 12.5 mls Insulin Human Isoph/Insulin Regular (Humulin 70/30) 20 units SC HS [facility] Last Admin: 03/12/17 21:32 Dose: 20 unit Insulin Human Isoph/Insulin Regular (Humulin 70/30) [facility] [place] [facility] [place] Last Admin: 03/13/17 09:31 Dose: 15 unit Insulin Human Lispro (Humalog) 0 units SC .MODERATE SLIDING SC PRN PRN Reason: Moderate Correctional Scale Last Admin: 03/13/17 06:29 Dose: 8 unit Insulin Human Lispro (Humalog) 0 units SC .BEDTIME SLIDING SC PRN PRN Reason: Bedtime Correctional Scale Last Admin: 03/12/17 21:32 Dose: 4 unit Lorazepam (Ativan) 2 mg SLOW IVP Q6H PRN PRN Reason: Anxiety/Agitation Last Admin: 03/12/17 17:06 Dose: 2 mg Methylprednisolone Sodium Succinate (Solu-Medrol) 40 mg IVP Q6HR [facility] Last Admin: 03/13/17 11:13 Dose: 40 mg Metoprolol Tartrate (Lopressor) 50 mg PO BID [facility] Last Admin: 03/13/17 09:35 Dose: 50 mg Morphine Sulfate (Morphine) 2 mg IV Q1H PRN PRN Reason: BREAKTHROUGH PAIN Last Admin: 03/09/17 14:41 Dose: 2 mg Nitroglycerin (Nitrostat) 0.4 mg PO Q5MIN PRN PRN Reason: Chest Pain Ondansetron HCl (Zofran) 4 mg IVP Q6H PRN PRN Reason: Nausea/Vomiting Last Admin: 03/07/17 18:12 Dose: 4 mg Pantoprazole Sodium (Protonix) 40 mg PO DAILY [facility] Last Admin: 03/13/17 09:35 Dose: 40 mg Polyethylene Glycol (Miralax) 17 gm PO DAILY [facility] Last Admin: 03/13/17 09:36 Dose: Not Given Saccharomyces Boulardii (Florastor) 250 mg PO DAILY [facility] Last Admin: 03/13/17 09:35 Dose: 250 mg Senna/Docusate Sodium (Senokot S) 1 tab PO BID [facility] Last Admin: 03/13/17 09:35 Dose: 1 tab Sodium Chloride (Flush - Normal Saline) 10 ml IVF Q12HR [facility] Last Admin: 03/13/17 09:29 Dose: 10 ml Sodium Chloride (Flush - Normal Saline) 10 ml IVF PRN PRN PRN Reason: Saline Flush Last Admin: 03/13/17 06:26 Dose: 10 ml Tramadol HCl (Ultram) 50 mg PO Q6H PRN PRN Reason: Pain Last Admin: 03/08/17 21:31 Dose: 50 mg
--- NOTE | 2017-03-13 15:09 | PRG ---
DATE OF SERVICE: 03/13/2017 SUBJECTIVE: She is awake, alert, responsive on a 50% Ventimask. OBJECTIVE: VITAL SIGNS: Sats are 95%, pulse 110, blood pressure 174/73. CHEST: Reveals extensive rhonchi and crackles. CARDIAC: Sinus tachycardia. ABDOMEN: Soft. No masses. LABORATORY DATA: X-ray shows extensive bilateral infiltrates. Glucose 343. White count 13,000, H and H 14 and 43, platelet count 163. IMPRESSION: 1. Bilateral bronchopneumonia and respiratory failure. 2. Apparent dysphagia. PLAN: I have added Maxipime to her antibiotic coverage. Continue neb treatment. Continue steroids. Hopefully, she will stabilize; if not, she may require re-intubation. We will follow. MELY
[2017-03-13] MEDS ORDERED: Cefepime 2 GM in Sodium Chloride 0.9% 100 ML IVPB SCH (21:00)
[2017-03-13] MEDS: Diltiazem HCl 125 MG, Admixture Fee 1 EACH in Sodium Chloride 0.9% 100 ML IVPB PRN (21:36)
[2017-03-14] MEDS: hydrALAZINE 20 MG/ML VIAL SLOW IVP PRN (01:06)
[2017-03-14 04:44] LABS: Anion Gap 11 mmol/L (10-20); BUN (Urea Nitrogen) 46 mg/dL (9.8-20.1); Calc. Creatinine Clearance 70 mL/min (70-130); Calcium 8.4 mg/dL (7.8-10.44); Carbon Dioxide 25 mmol/L (23-31); Chloride 110 mmol/L (98-107); Estimated GFR-MDRD 77
[2017-03-14] MEDS: Sodium Chloride 0.9% 1,000 ML IV SCH (05:38)
[2017-03-14 05:46] LABS: Band 5 % (5-11); Mean Platelet Volume 8.3 fL (7.4-10.4); Metamyelocyte 1 % (0-0); Neutrophil 93 % (42-75); Red Blood Cell (RBC) Count 4.66 mill/uL (4.20-5.40); White Blood Cell (WBC) Count 16.8 thou/uL (4.8-10.8)
[2017-03-14] MEDS: HumaLOG 300 UNITS/3 ML VIAL SC PRN ×3 (06:21→16:18)
[2017-03-14] MEDS: Insulin NPH/Reg Insulin Hm 300 UNITS/3 ML VIAL SC SCH ×2 (08:08→21:35)
[2017-03-14] MEDS: Enoxaparin Sodium 40 MG/0.4 ML SYRINGE SC SCH (08:13)
[2017-03-14] MEDS: Senokot S 8.6-50 MG TAB PO SCH ×2 (08:13→21:31)
[2017-03-14] MEDS: Metoprolol Tartrate 50 MG TAB PO SCH ×2 (08:14→21:31)
[2017-03-14] MEDS: guaiFENesin ER 600 MG TAB PO SCH ×2 (08:14→21:31)
[2017-03-14] MEDS: Saccharomyces boulardii 250 MG CAP PO SCH (08:14)
[2017-03-14] MEDS: Aspirin 81 mg Enteric Coated Tablet PO SCH (08:14)
[2017-03-14] MEDS: Polyethylene Glycol 3350 17 GM Packet PO SCH (08:14)
[2017-03-14] MEDS: Pantoprazole 40 MG GRANULES PACKET PO SCH (08:41)
[2017-03-14] MEDS: Fluconazole In NaCl,Iso-Osm 200 MG in Premix Bag 1 BAG IVPB SCH ×2 (09:21)
[2017-03-14 10:23] LABS: Sodium 144 mmol/L (135-148)
[2017-03-14 10:24] LABS: Modified Allen's Test NOT DONE; Vent NO
[2017-03-14 10:25] LABS: Mode VENTI-MASK
[2017-03-14] MEDS: Cefepime 2 GM, Syringe 2.5 ML in Sterile Water 10 ML SLOW IVP SCH ×2 (10:48→23:25)
--- NOTE | 2017-03-14 10:53 | PDOC.PN ---
- Subjective Encounter Start Date: 03/14/17 Encounter Start Time: 09:30 pt still in respiratory distress, very weak, required bipap - Objective Resuscitation Status: Resuscitation Status FULL:Full Resuscitation MAR Reviewed: Yes Vital Signs & Weight: Vital Signs (12 hours) Temp Pulse Resp BP BP Pulse Ox 03/14/17 08:37 98 03/14/17 08:35 115 H 24 H 98 03/14/17 08:13 123 H 192/73 H 03/14/17 07:47 98.8 F 123 H 24 H 176/75 H 92 L 03/14/17 07:27 97.4 F L 118 H 20 95 03/14/17 03:53 97.4 F L 118 H 20 179/74 H 97 03/14/17 02:38 111 H 20 92 L 03/14/17 01:06 93 205/78 H 03/13/17 23:54 97.4 F L 90 54 H 171/77 H 99 03/13/17 23:53 97.4 F L 90 24 H 171/77 H 99 Weight Admit Weight 142 lb 8 oz Weight 144 lb 8 oz Most Recent Monitor Data Heart Rate from ECG 122 NIBP 168/64 NIBP BP-Mean 135 Respiration from ECG 34 SpO2 98 I&O: 03/13/17 03/14/17 03/15/17 06:59 06:59 06:59 Intake Total 1500 2225 180 Output Total 825 1525 Balance 675 700 180 Result Diagrams: 03/14/17 04:14 03/14/17 04:14 Additional Labs: Accuchecks 03/14/17 03/14/17 03/13/17 10:37 06:02 19:56 POC Glucose 233 H 302 H 240 H 03/13/17 03/13/17 16:21 11:58 POC Glucose 251 H 293 H EKG Reviewed by me: Yes (sinus tachycardia) Phys Exam - Physical Examination respi distress HEENT: PERRLA, moist MMs, sclera anicteric Neck: no JVD, supple bilateral scattered coarse rales Cardiovascular: RRR, no significant murmur, no rub tachycardia Gastrointestinal: soft, non-tender, no distention, positive bowel sounds Musculoskeletal: no edema, pulses present Neurological: non-focal, normal sensation Lymphatic: no nodes Psychiatric: normal affect Skin: no rash, normal turgor Dx/Plan (1) Acute respiratory failure with hypoxia Code(s): J96.01 - ACUTE RESPIRATORY FAILURE WITH HYPOXIA Status: Acute (2) Community acquired bacterial pneumonia Code(s): J15.9 - UNSPECIFIED BACTERIAL PNEUMONIA Status: Acute (3) SVT (supraventricular tachycardia) Code(s): I47.1 - SUPRAVENTRICULAR TACHYCARDIA Status: Acute (4) Sepsis with acute organ dysfunction Code(s): A41.9 - SEPSIS, UNSPECIFIED ORGANISM; R65.20 - SEVERE SEPSIS WITHOUT SEPTIC SHOCK Status: Acute (5) DM2 (diabetes mellitus, type 2) Status: Chronic (6) HTN (hypertension) Code(s): I10 - ESSENTIAL (PRIMARY) HYPERTENSION Status: Chronic (7) Non compliance w medication regimen Code(s): Z91.14 - PATIENT'S OTHER NONCOMPLIANCE WITH MEDICATION REGIMEN Status : Chronic (8) Rheumatoid arthritis Code(s): M06.9 - RHEUMATOID ARTHRITIS, UNSPECIFIED Status: Chronic (9) Acute kidney injury Code(s): N17.9 - ACUTE KIDNEY FAILURE, UNSPECIFIED Status: Resolved (10) Hyponatremia Code(s): E87.1 - HYPO-OSMOLALITY AND HYPONATREMIA Status: Resolved (11) Lactic acidosis Code(s): E87.2 - ACIDOSIS Status: Resolved (12) ILD (interstitial lung disease) Code(s): J84.9 - INTERSTITIAL PULMONARY DISEASE, UNSPECIFIED Status: Acute - Plan cont current plan of care, continue antibiotics, respiratory therapy * continue cefepime and doxycycline * continue IV steroid * has low threshold for re intubation * continue bipap * pulmonary following * supportive care * medication reviewed as below * symptomatic treatment. Review of Systems - Review of Systems Constitutional: Weakness. negative: Fever, Chills, Sweats, Malaise, Other Respiratory: Cough, Shortness of Breath, SOB with Excertion. negative: Dry, Hemoptysis, Pleuritic Pain, Sputum, Wheezing Cardiovascular: negative: Chest Pain, Palpitations, Orthopnea, Paroxysmal Noc. Dyspnea, Edema, Light Headedness, Other Gastrointestinal: negative: Nausea, Vomiting, Abdominal Pain, Diarrhea, Constipation, Melena, Hematochezia, Other Genitourinary: negative: Dysuria, Frequency, Incontinence, Hematuria, Retention , Other Musculoskeletal: negative: Neck Pain, Shoulder Pain, Arm Pain, Back Pain, Hand Pain, Leg Pain, Foot Pain, Other Skin: negative: Rash, Lesions, Jose, Bruising, Other - Medications/Allergies Allergies/Adverse Reactions: Allergies Allergy/AdvReac Type Severity Reaction Status Date / Time No Known Drug Allergies Allergy Verified 02/23/17 21:57 Medications: Current Medications Acetaminophen (Tylenol) 650 mg PO Q4H PRN PRN Reason: Headache/Fever or Pain Last Admin: 03/11/17 06:24 Dose: 650 mg Albuterol/Ipratropium (Duoneb) 3 ml NEB [id number] [facility] Last Admin: 03/14/17 08:35 Dose: 3 ml Aspirin (Ecotrin) 81 mg PO DAILY [facility] Last Admin: 03/14/17 08:14 Dose: 81 mg Benzonatate (Tessalon) 100 mg PO Q8H PRN PRN Reason: Cough Last Admin: 02/28/17 06:25 Dose: 100 mg Bisacodyl (Dulcolax) 10 mg [place] Q8H PRN PRN Reason: Constipation Last Admin: 03/11/17 06:28 Dose: 10 mg Clonidine (Catapres) 0.1 mg PO Q6H PRN PRN Reason: SBP GREATER THAN 160 Last Admin: 03/13/17 05:05 Dose: 0.1 mg Dextrose/Water (Dextrose 50%) 25 gm SLOW IVP PRN PRN PRN Reason: Hypoglycemia Diltiazem HCl (Cardizem Cd) 120 mg PO DAILY [facility] Last Admin: 03/14/17 08:13 Dose: 120 mg Enoxaparin Sodium (Lovenox) 40 mg SC 0900 [facility] Last Admin: 03/14/17 08:13 Dose: 40 mg Glucagon (Glucagon) 1 mg IM PRN PRN PRN Reason: Hypoglycemia Guaifenesin (Mucinex) 1,200 mg PO Q12HR [facility] Last Admin: 03/14/17 08:14 Dose: 1,200 mg Guaifenesin/Codeine Phosphate (Robitussin Ac) 10 ml PO Q6H PRN PRN Reason: Cough Last Admin: 03/02/17 04:31 Dose: 10 ml Guaifenesin/Dextromethorphan (Robitussin Dm) 10 ml PO Q6H PRN PRN Reason: Cough Hydralazine HCl (Apresoline) 10 mg SLOW IVP Q4H PRN PRN Reason: FOR SBP>180 Last Admin: 03/14/17 01:06 Dose: 10 mg Dextrose/Water (D5w) 1,000 mls @ 0 mls/hr IV .Q0M PRN; As Directed PRN Reason: Hypoglycemia Sodium Chloride (Normal Saline 0.9%) 1,000 mls @ 0 mls/hr IV .Q0M CORRY PRN Reason: KVO Last Admin: 03/14/17 05:38 Dose: 1,000 mls Diltiazem HCl 125 mg/Miscellaneous Medication 1 each/ Sodium Chloride 125 mls @ 10 mls/hr IVPB INF PRN; Protocol PRN Reason: HR >150 X 3 MINUTES Last Admin: 03/13/17 21:36 Dose: 125 mls Doxycycline Hyclate 100 mg/ (Sodium Chloride) 100 mls @ 100 mls/hr IVPB Q12HR [facility] Last Admin: 03/14/17 08:30 Dose: 100 mls Fluconazole/Sodium Chloride (200 mg/ Device) 100 mls @ 100 mls/hr IVPB 0900 [facility] Last Admin: 03/14/17 09:21 Dose: 100 mls Cefepime HCl 2 gm/ Syringe 2.5 (ml/ Sterile Water) 12.5 mls @ 150 mls/hr SLOW IVP 1100,2300 [facility] Last Admin: 03/14/17 10:48 Dose: 12.5 mls Insulin Human Isoph/Insulin Regular (Humulin 70/30) 20 units SC HS [facility] Last Admin: 03/13/17 20:37 Dose: 20 unit Insulin Human Isoph/Insulin Regular (Humulin 70/30) [facility] [place] [facility] [place] Last Admin: 03/14/17 08:08 Dose: 15 unit Insulin Human Lispro (Humalog) 0 units SC .MODERATE SLIDING SC PRN PRN Reason: Moderate Correctional Scale Last Admin: 03/14/17 10:48 Dose: 4 unit Insulin Human Lispro (Humalog) 0 units SC .BEDTIME SLIDING SC PRN PRN Reason: Bedtime Correctional Scale Last Admin: 03/12/17 21:32 Dose: 4 unit Lorazepam (Ativan) 2 mg SLOW IVP Q6H PRN PRN Reason: Anxiety/Agitation Last Admin: 03/12/17 17:06 Dose: 2 mg Methylprednisolone Sodium Succinate (Solu-Medrol) 40 mg IVP Q6HR [facility] Last Admin: 03/14/17 05:34 Dose: 40 mg Metoprolol Tartrate (Lopressor) 50 mg PO BID [facility] Last Admin: 03/14/17 08:14 Dose: 50 mg Morphine Sulfate (Morphine) 2 mg IV Q1H PRN PRN Reason: BREAKTHROUGH PAIN Last Admin: 03/09/17 14:41 Dose: 2 mg Nitroglycerin (Nitrostat) 0.4 mg PO Q5MIN PRN PRN Reason: Chest Pain Ondansetron HCl (Zofran) 4 mg IVP Q6H PRN PRN Reason: Nausea/Vomiting Last Admin: 03/07/17 18:12 Dose: 4 mg Pantoprazole Sodium (Protonix) 40 mg PO DAILY [facility] Last Admin: 03/14/17 08:41 Dose: 40 mg Polyethylene Glycol (Miralax) 17 gm PO DAILY [facility] Last Admin: 03/14/17 08:14 Dose: 17 gm Saccharomyces Boulardii (Florastor) 250 mg PO DAILY [facility] Last Admin: 03/14/17 08:14 Dose: 250 mg Senna/Docusate Sodium (Senokot S) 1 tab PO BID [facility] Last Admin: 03/14/17 08:13 Dose: 1 tab Sodium Chloride (Flush - Normal Saline) 10 ml IVF Q12HR [facility] Last Admin: 03/14/17 08:30 Dose: 10 ml Sodium Chloride (Flush - Normal Saline) 10 ml IVF PRN PRN PRN Reason: Saline Flush Last Admin: 03/13/17 06:26 Dose: 10 ml Tramadol HCl (Ultram) 50 mg PO Q6H PRN PRN Reason: Pain Last Admin: 03/08/17 21:31 Dose: 50 mg
[2017-03-14] MEDS ORDERED: Furosemide 20 MG/2 ML VIAL SLOW IVP SCH (11:45)
--- NOTE | 2017-03-14 12:18 | RAD ---
PORTABLE CHEST: HISTORY: Respiratory failure. COMPARISON: 03/13/17. FINDINGS: Diffuse bilateral infiltrates again noted. N tube remains in place. IMPRESSION: Diffuse infiltrates bilaterally. POS: [facility]
[2017-03-14] MEDS: Lorazepam 2 MG/ML VIAL SLOW IVP PRN (16:24)
--- NOTE | 2017-03-14 16:36 | PRG ---
DATE OF SERVICE: 03/14/2017 SUBJECTIVE: The patient this morning has significant respiratory distress. She is not wearing the B iPAP. PHYSICAL EXAMINATION: VITAL SIGNS: Sats were high flow O2 99%, respiratory rate 30, pulse 75, blood pressure 176/77. CHEST: Significant rhonchi or crackles. CARDIAC: Normal S1 and S2. No gallops. LABORATORY DATA: White count 16,000, hemoglobin and hematocrit 13 and 46 and platelet count 37, 90 s egs, 5 bands. BUN and creatinine are normal. IMPRESSION: 1. Respiratory failure, bilateral pneumonia, diabetes. 2. If her blood gas and a chest x-ray in the morning looks worse, she may be intubated. 3. Broad spectrum antibiotics, steroids, nebulizer treatments. Prognosis is guarded.
[2017-03-14] MEDS: Acetaminophen 325 MG TAB PO PRN (21:31)
[2017-03-15] MEDS: Lorazepam 2 MG/ML VIAL SLOW IVP PRN ×5 (00:02→21:30)
[2017-03-15] MEDS: Diltiazem HCl 125 MG, Admixture Fee 1 EACH in Sodium Chloride 0.9% 100 ML IVPB PRN (02:38)
[2017-03-15 04:46] LABS: Anion Gap 10 mmol/L (10-20); BUN (Urea Nitrogen) 60 mg/dL (9.8-20.1); Calc. Creatinine Clearance 66 mL/min (70-130); Calcium 8.3 mg/dL (7.8-10.44); Carbon Dioxide 25 mmol/L (23-31); Chloride 111 mmol/L (98-107); Estimated GFR-MDRD 72
[2017-03-15 05:00] LABS: Band 13 % (5-11); Hematocrit 47.5 % (36.0-47.0); Mean Platelet Volume 8.9 fL (7.4-10.4); Neutrophil 85 % (42-75); Red Blood Cell (RBC) Count 4.77 mill/uL (4.20-5.40); White Blood Cell (WBC) Count 18.1 thou/uL (4.8-10.8)
[2017-03-15] MEDS: HumaLOG 300 UNITS/3 ML VIAL SC PRN ×4 (06:22→21:38)
[2017-03-15] MEDS: Senokot S 8.6-50 MG TAB PO SCH (08:07)
[2017-03-15] MEDS: Polyethylene Glycol 3350 17 GM Packet PO SCH (08:07)
[2017-03-15] MEDS: Insulin NPH/Reg Insulin Hm 300 UNITS/3 ML VIAL SC SCH ×2 (08:09→21:37)
[2017-03-15] MEDS: Metoprolol Tartrate 50 MG TAB PO SCH (08:11)
[2017-03-15] MEDS: Saccharomyces boulardii 250 MG CAP PO SCH (08:11)
[2017-03-15] MEDS: Enoxaparin Sodium 40 MG/0.4 ML SYRINGE SC SCH (08:12)
[2017-03-15] MEDS: guaiFENesin ER 600 MG TAB PO SCH (08:12)
[2017-03-15] MEDS: Pantoprazole 40 MG GRANULES PACKET PO SCH (08:12)
[2017-03-15] MEDS: Aspirin 81 mg Enteric Coated Tablet PO SCH (08:12)
[2017-03-15] MEDS: Fluconazole In NaCl,Iso-Osm 200 MG in Premix Bag 1 BAG IVPB SCH ×2 (08:13)
[2017-03-15] MEDS ORDERED: Diltiazem HCl 125 MG, Admixture Fee 1 EACH in Sodium Chloride 0.9% 100 ML IVPB PRN (08:57)
--- NOTE | 2017-03-15 09:04 | PRG ---
DATE OF SERVICE: 03/15/2017 She is continuing to struggle to breathe despite aggressive treatment. PHYSICAL EXAMINATION: VITAL SIGNS: Temperature is 97.2, pulse 123, blood pressure 177/66, O2 sat 92 to 96% on BiPAP total of 5 with FiO2 50%. HEENT: Unremarkable. NECK: No JVD. LUNGS: Inspiratory crackles bilaterally. CARDIAC: S1 and S2 regular. ABDOMEN: Soft. EXTREMITIES: No edema. LABORATORY DATA: White blood cell count 18.1, hematocrit 47.5, platelet count 109. Sodium 142, pota ssium 4.3, chloride 111, CO2 25, BUN 60, creatinine 0.7, glucose 425. ASSESSMENT: Diffuse bilateral pneumonia with lack of improvement at about the 2-1/2 week point. PLAN: Continue antibiotics, steroids and BiPAP. I will speak with family. Prognosis seems quite po or.
--- NOTE | 2017-03-15 09:15 | PRG ---
DATE OF SERVICE: 03/15/2017 I was asked to see Ms. Lopez again for some recurrent 7 beat run of supraventricular tachycardia. Ms. Lopez as is outlined in the chart continues to have severe respiratory difficulty. She is on C PAP and has diffuse infiltrates on her chest x-ray. The patient currently is on the CPAP, resting. REVIEW OF SYSTEMS: Not obtainable. PHYSICAL EXAMINATION: VITAL SIGNS: Blood pressure 177/66, pulse 120, it is sinus tachycardia, that was earlier, now the ra te is 94. LUNGS: Diffuse rales. CARDIAC: Normal S1, normal S2. ABDOMEN: Soft, nontender. EXTREMITIES: No edema. ASSESSMENT: 1. Tachycardia, mostly sinus tachycardia. 2. One episode of supraventricular tachycardia 7 beats. PLAN: 1. Check BNP in the morning. 2. Reduce intravenous diltiazem. 3. Continue to treat pulmonary status.
--- NOTE | 2017-03-15 10:06 | PDOC.PN ---
- Subjective Encounter Start Date: 03/15/17 Encounter Start Time: 09:40 pt was on bipap, she was in respi distress, she was not able to talk, - Objective Resuscitation Status: Resuscitation Status FULL:Full Resuscitation MAR Reviewed: Yes Vital Signs & Weight: Vital Signs (12 hours) Temp Pulse Resp BP BP Pulse Ox 03/15/17 08:11 123 H 177/66 H 03/15/17 07:47 97.2 F L 121 H 27 H 159/78 H 92 L 03/15/17 07:45 97.2 F L 125 H 25 H 91 L 03/15/17 07:42 121 H 03/15/17 07:41 125 H 25 H 91 L 03/15/17 03:42 97.5 F L 109 H 23 H 146/64 H 92 L 03/15/17 02:26 104 H 23 H 94 L 03/14/17 23:36 98.8 F 96 24 H 166/66 H 91 L 03/14/17 22:12 98 25 H 94 L Weight Admit Weight 142 lb 8 oz Weight 139 lb 9.6 oz Most Recent Monitor Data Heart Rate from ECG 122 NIBP 168/64 NIBP BP-Mean 135 Respiration from ECG 34 SpO2 98 I&O: 03/14/17 03/15/17 03/16/17 06:59 06:59 06:59 Intake Total 2225 2037.9 281 Output Total 1525 1775 Balance 700 262.9 281 Result Diagrams: 03/15/17 04:12 03/15/17 04:12 Additional Labs: Accuchecks 03/15/17 03/14/17 03/14/17 06:13 21:34 16:08 POC Glucose 344 H 274 H 320 H 03/14/17 10:37 POC Glucose 233 H Radiology Reviewed by me: Yes EKG Reviewed by me: Yes (tachy) Phys Exam - Physical Examination respi distress HEENT: PERRLA, moist MMs, sclera anicteric Neck: no JVD, supple bilateral coarse rales and rhonchi Cardiovascular: RRR, no significant murmur, no rub tachy Gastrointestinal: soft, non-tender, no distention, positive bowel sounds Musculoskeletal: no edema, pulses present mccarthy+ Neurological: moves all 4 limbs Lymphatic: no nodes Psychiatric: normal affect Skin: no rash, normal turgor Dx/Plan (1) Acute respiratory failure with hypoxia Code(s): J96.01 - ACUTE RESPIRATORY FAILURE WITH HYPOXIA Status: Acute (2) Community acquired bacterial pneumonia Code(s): J15.9 - UNSPECIFIED BACTERIAL PNEUMONIA Status: Acute (3) SVT (supraventricular tachycardia) Code(s): I47.1 - SUPRAVENTRICULAR TACHYCARDIA Status: Acute (4) Sepsis with acute organ dysfunction Code(s): A41.9 - SEPSIS, UNSPECIFIED ORGANISM; R65.20 - SEVERE SEPSIS WITHOUT SEPTIC SHOCK Status: Acute (5) DM2 (diabetes mellitus, type 2) Status: Chronic (6) HTN (hypertension) Code(s): I10 - ESSENTIAL (PRIMARY) HYPERTENSION Status: Chronic (7) Non compliance w medication regimen Code(s): Z91.14 - PATIENT'S OTHER NONCOMPLIANCE WITH MEDICATION REGIMEN Status : Chronic (8) Rheumatoid arthritis Code(s): M06.9 - RHEUMATOID ARTHRITIS, UNSPECIFIED Status: Chronic (9) Acute kidney injury Code(s): N17.9 - ACUTE KIDNEY FAILURE, UNSPECIFIED Status: Resolved (10) Hyponatremia Code(s): E87.1 - HYPO-OSMOLALITY AND HYPONATREMIA Status: Resolved (11) Lactic acidosis Code(s): E87.2 - ACIDOSIS Status: Resolved (12) ILD (interstitial lung disease) Code(s): J84.9 - INTERSTITIAL PULMONARY DISEASE, UNSPECIFIED Status: Acute - Plan cont current plan of care, continue antibiotics, respiratory therapy * continue cefepime * DC doxycycline * start Bactrim IV * continue diflucan * continue IV solumedrol * continue Bipap * prognosis is very poor * she may need intubation if condition gets worse * despite this much treatment, pt has not shown any improvement * medication reviewed as below * symptomatic treatment. Review of Systems - Review of Systems Other: unable to review today as pt is in respi distress, on bipap and unable to participate - Medications/Allergies Allergies/Adverse Reactions: Allergies Allergy/AdvReac Type Severity Reaction Status Date / Time No Known Drug Allergies Allergy Verified 02/23/17 21:57 Medications: Current Medications Acetaminophen (Tylenol) 650 mg PO Q4H PRN PRN Reason: Headache/Fever or Pain Last Admin: 03/14/17 21:31 Dose: 650 mg Albuterol/Ipratropium (Duoneb) 3 ml NEB [id number] CORRY Last Admin: 03/15/17 07:41 Dose: 3 ml Aspirin (Ecotrin) 81 mg PO DAILY [facility] Last Admin: 03/15/17 08:12 Dose: 81 mg Benzonatate (Tessalon) 100 mg PO Q8H PRN PRN Reason: Cough Last Admin: 02/28/17 06:25 Dose: 100 mg Bisacodyl (Dulcolax) 10 mg AL Q8H PRN PRN Reason: Constipation Last Admin: 03/11/17 06:28 Dose: 10 mg Clonidine (Catapres) 0.1 mg PO Q6H PRN PRN Reason: SBP GREATER THAN 160 Last Admin: 03/13/17 05:05 Dose: 0.1 mg Dextrose/Water (Dextrose 50%) 25 gm SLOW IVP PRN PRN PRN Reason: Hypoglycemia Diltiazem HCl (Cardizem) 30 mg PO ACHS [facility] Enoxaparin Sodium (Lovenox) 40 mg SC 0900 [facility] Last Admin: 03/15/17 08:12 Dose: 40 mg Glucagon (Glucagon) 1 mg IM PRN PRN PRN Reason: Hypoglycemia Guaifenesin (Mucinex) 1,200 mg PO Q12HR [facility] Last Admin: 03/15/17 08:12 Dose: 1,200 mg Guaifenesin/Codeine Phosphate (Robitussin Ac) 10 ml PO Q6H PRN PRN Reason: Cough Last Admin: 03/02/17 04:31 Dose: 10 ml Guaifenesin/Dextromethorphan (Robitussin Dm) 10 ml PO Q6H PRN PRN Reason: Cough Hydralazine HCl (Apresoline) 10 mg SLOW IVP Q4H PRN PRN Reason: FOR SBP>180 Last Admin: 03/14/17 01:06 Dose: 10 mg Dextrose/Water (D5w) 1,000 mls @ 0 mls/hr IV .Q0M PRN; As Directed PRN Reason: Hypoglycemia Sodium Chloride (Normal Saline 0.9%) 1,000 mls @ 0 mls/hr IV .Q0M CORRY PRN Reason: KVO Last Admin: 03/14/17 05:38 Dose: 1,000 mls Fluconazole/Sodium Chloride (200 mg/ Device) 100 mls @ 100 mls/hr IVPB 0900 [facility] Last Admin: 03/15/17 08:13 Dose: 100 mls Cefepime HCl 2 gm/ Syringe 2.5 (ml/ Sterile Water) 12.5 mls @ 150 mls/hr SLOW IVP 1100,2300 [facility] Last Admin: 03/14/17 23:25 Dose: 12.5 mls Trimethoprim/Sulfamethoxazole (300 mg/ Dextrose/Water) 500 mls @ 500 mls/hr IVPB Q6HR [facility] Diltiazem HCl 125 mg/Miscellaneous Medication 1 each/ Sodium Chloride 125 mls @ 4 mls/hr IVPB INF PRN; Protocol PRN Reason: HR >150 X 3 MINUTES Insulin Human Isoph/Insulin Regular (Humulin 70/30) 20 units SC HS [facility] Last Admin: 03/14/17 21:35 Dose: 20 unit Insulin Human Isoph/Insulin Regular (Humulin 70/30) 15 units SC QAM [facility] Last Admin: 03/15/17 08:09 Dose: 15 unit Insulin Human Lispro (Humalog) 0 units SC .MODERATE SLIDING SC PRN PRN Reason: Moderate Correctional Scale Last Admin: 03/15/17 06:22 Dose: 8 unit Insulin Human Lispro (Humalog) 0 units SC .BEDTIME SLIDING SC PRN PRN Reason: Bedtime Correctional Scale Last Admin: 03/12/17 21:32 Dose: 4 unit Lorazepam (Ativan) 2 mg SLOW IVP Q6H PRN PRN Reason: Anxiety/Agitation Last Admin: 03/15/17 08:15 Dose: 2 mg Methylprednisolone Sodium Succinate (Solu-Medrol) 40 mg IVP Q6HR [facility] Last Admin: 03/15/17 06:10 Dose: 40 mg Metoprolol Tartrate (Lopressor) 50 mg PO BID [facility] Last Admin: 03/15/17 08:11 Dose: 50 mg Morphine Sulfate (Morphine) 2 mg IV Q1H PRN PRN Reason: BREAKTHROUGH PAIN Last Admin: 03/09/17 14:41 Dose: 2 mg Nitroglycerin (Nitrostat) 0.4 mg PO Q5MIN PRN PRN Reason: Chest Pain Ondansetron HCl (Zofran) 4 mg IVP Q6H PRN PRN Reason: Nausea/Vomiting Last Admin: 03/07/17 18:12 Dose: 4 mg Pantoprazole Sodium (Protonix) 40 mg PO DAILY [facility] Last Admin: 03/15/17 08:12 Dose: 40 mg Polyethylene Glycol (Miralax) 17 gm PO DAILY [facility] Last Admin: 03/15/17 08:07 Dose: Not Given Saccharomyces Boulardii (Florastor) 250 mg PO DAILY [facility] Last Admin: 03/15/17 08:11 Dose: 250 mg Senna/Docusate Sodium (Senokot S) 1 tab PO BID [facility] Last Admin: 03/15/17 08:07 Dose: Not Given Sodium Chloride (Flush - Normal Saline) 10 ml IVF Q12HR [facility] Last Admin: 03/15/17 08:11 Dose: 10 ml Sodium Chloride (Flush - Normal Saline) 10 ml IVF PRN PRN PRN Reason: Saline Flush Last Admin: 03/13/17 06:26 Dose: 10 ml Tramadol HCl (Ultram) 50 mg PO Q6H PRN PRN Reason: Pain Last Admin: 03/08/17 21:31 Dose: 50 mg
[2017-03-15] MEDS: Cefepime 2 GM, Syringe 2.5 ML in Sterile Water 10 ML SLOW IVP SCH ×2 (11:00→23:00)
[2017-03-15] MEDS ORDERED: Propofol 1,000 MG/100 ML VIAL IV ONE (12:09)
[2017-03-15] MEDS ORDERED: Sedation Protocol FS ONE (12:47)
[2017-03-15] MEDS ORDERED: CCU Electrolyte Replacement 1 EACH FS ONE (12:47)
[2017-03-15] MEDS ORDERED: Fentanyl 20 MCG/ML 250 ML IVPB SCH (12:58)
[2017-03-15] MEDS ORDERED: Magnesium 2 GM/NS 0.9% 100 ML 2 GM in Premix Bag 1 BAG IVPB PRN (13:00)
[2017-03-15] MEDS ORDERED: Potassium Phosphate 12 MMOL in Sodium Chloride 0.9% 250 ML 250 ML IV PRN (13:00)
[2017-03-15] MEDS ORDERED: Potassium Phosphate 15 MMOL in Sodium Chloride 0.9% 250 ML 250 ML IV PRN (13:00)
[2017-03-15] MEDS ORDERED: Potassium Chloride 40 MEQ in Sodium Chloride 0.9% 250 ML 250 ML IVPB PRN (13:00)
[2017-03-15] MEDS ORDERED: Magnesium Oxide 400 MG TAB PO PRN ×2 (13:00)
[2017-03-15] MEDS ORDERED: Potassium Chloride 20 MEQ TAB PO PRN (13:00)
[2017-03-15] MEDS ORDERED: Potassium Chloride 40 MEQ in Premix Bag 1 BAG IVPB PRN (13:00)
[2017-03-15] MEDS ORDERED: Potassium Phosphate 9 MMOL in Sodium Chloride 0.9% 100 ML IVPB PRN (13:00)
[2017-03-15] MEDS ORDERED: Morphine 4 MG/ML VIAL SLOW IVP PRN (13:00)
[2017-03-15] MEDS: Sodium Chloride 0.9% 1,000 ML IV SCH (13:02)
[2017-03-15] MEDS ORDERED: Sodium Chloride 0.9% 1,000 ML IV SCH (13:15)
[2017-03-15 13:29] LABS: BF Reference Range Comment Note:
[2017-03-15 14:07] LABS: Oxyhemoglobin 89.2 % (94.0-97.0); Sodium 143 mmol/L (135-148)
[2017-03-15 14:08] LABS: Mechanical Tidal Volume 385 ml; Mode SIMV/PSV; Modified Allen's Test POSITIVE; Pressure Support 10 cmH2O; Vent YES
[2017-03-15 14:19] LABS: BF Color Colorless; BF WBC/Nonhematics Ct. - Manua 43 /cumm
[2017-03-15 14:35] LABS: Number Cells Counted-Fluids 100
--- NOTE | 2017-03-15 14:59 | RAD ---
RADIOGRAPH CHEST 1 VIEW: Date: 03/15/17. Time: 10:19 a.m. HISTORY: A 71-year-old female followup subcutaneous emphysema. Respiratory distress. COMPARISON: 03/14/17, 10:49 a.m. FINDINGS: There has been interval worsening of extensive subcutaneous emphysema bilaterally involving the chest winters, pectoralis muscles, and extending to the supraclavicular neck bilaterally. NG tube has been retracted, such that distal tip is now in the proximal stomach, with sideport slightly superior to th e level of the mid diaphragm. Again noted are the extensive mixed interstitial and alveolar infiltra cynthia, more confluent and more alveolar in the bilateral lower lung zones, and left mid lung zone, with relative sparing of the right upper lung zone. No cardiomegaly. It is difficult to evaluate for pn eumothorax because of the overlap of the diffuse infiltrates and the severe subcutaneous emphysema. There is probably a small, approximately 20% right pneumothorax extending from the apex to the base, unchanged since the previous study. There is another vertical linear border in the contralateral lef t chest that has the appearance of a larger pneumothorax occupying approximately 30% volume of left h emithorax. Alternatively, these could represent skin folds, but they are favored to represent pneumo thoraces. The one on the left appears to be new or larger since yesterday. IMPRESSION: 1. Interval worsening of extensive bilateral subcutaneous emphysema. 2. No major interval change in the diffuse bilateral severe pulmonary infiltrates. 3. Possible bilateral pneumothoraces, left larger than right. 4. Nasogastric tube has been retracted into the proximal stomach. 5. Pneumomediastinum. YANCI [] POS: SOHAN
--- NOTE | 2017-03-15 15:14 | PRG ---
DATE OF SERVICE: 03/15/2017 PULMONARY AND CRITICAL CARE PROGRESS NOTE One hour critical care time between 11:45 and 12:45 p.m. today nonocclusive of 3 procedures that are outlined below. I was called by the respiratory therapist around 11:15 stating that the patient developed subcutaneou s emphysema. Chest x-ray obtained at that time showed bilateral pneumothoraces. I called the patien laurent's daughter - Chelsea and described to her the events and it was family's consensus that we needed to be aggressive. I subsequently had the patient transferred to the CCU. I electively intubated her on the first attem pt with a 7.5 endotracheal tube using a GlideScope. Etomidate 40 mg was given IV for induction. Tub e was placed at 22 cm at the lip. I then placed bilateral anterior pneumothoraces catheters in the second and third interspace via the modified Seldinger technique without difficulty. Both pleural spaces had air present. This was hook ed to suction. I have consulted Cardiothoracic Surgery to come and put in a larger chest tubes later when they are available. I then used the bronchoscope and placed it through the endotracheal tube u sing an adapter into the trachea and lavage was performed in the left upper lobe and specimen was sen t for bacteriologic studies and pneumocystis. That procedure was tolerated well. Postoperative x-ra ys pending.
--- NOTE | 2017-03-15 16:13 | RAD ---
RADIOGRAPH CHEST 1 VIEW: Date: 03-15-17 Time: 12:14 p.m. HISTORY: 71-year-old female with subcutaneous emphysema, status post chest tube insertion for pneumothorax. COMPARISON: 03-15-17 at 10:19 a.m. FINDINGS: An endotracheal tube has now been placed, with distal tip at the mid thoracic trachea. NG tube remain s, with distal tip in the proximal stomach. There are new bilateral small bore pleural catheters, ove rlying the mid- lung zones, one on each side. The previously demonstrated small right pneumothorax ap pears slightly smaller now, and is visualized predominately laterally. The somewhat larger left pneum othorax has also decreased in size, and a tiny apical component is questionably present on the left. Diffuse bilateral infiltrates appear somewhat worse now than before. Extensive bilateral subcutaneous emphysema is again noted. IMPRESSION: 1. Interval decreasing sizes of the bilateral pneumothoraces upon placement of bilateral small calibe r pleural catheters. 2. Interval worsening of extensive airspace densities throughout most of the left lung and at right l ower lung zone. 3. No interval change in the severe subcutaneous emphysema. 4. Pneumomediastinum. YANCI POS: SOHAN
[2017-03-15] MEDS ORDERED: Lidocaine 1% (PF) 30 ML VIAL ONE (17:02)
--- NOTE | 2017-03-15 19:23 | OP ---
PREOPERATIVE DIAGNOSIS: Bilateral pneumothoraces from pneumonia. POSTOPERATIVE DIAGNOSIS: Bilateral pneumothoraces from pneumonia. PROCEDURE: Bilateral #28 tube thoracostomies. PROCEDURE IN DETAIL: After prepping and draping the chest anterolaterally, the area was infiltrated with 1% lidocaine. First on the right, a tunnel created, and chest was entered with a clamp and a fi nger, and the 28 tube placed and secured to the skin. Similar procedure was done on the left anterio r lateral chest. Following securing these tubes, they were connected to Pleur-evacs, and the patient tolerated the procedure well.
[2017-03-15] MEDS: Propofol 1,000 MG/100 ML VIAL IV PRN (20:02)
[2017-03-16] MEDS: Sodium Chloride 0.9% 1,000 ML IV SCH ×3 (00:50→21:03)
[2017-03-16] MEDS: Propofol 1,000 MG/100 ML VIAL IV PRN ×4 (02:20→23:50)
[2017-03-16 06:39] LABS: Anion Gap 10 mmol/L (10-20); BUN (Urea Nitrogen) 56 mg/dL (9.8-20.1); Calc. Creatinine Clearance 70 mL/min (70-130); Calcium 7.7 mg/dL (7.8-10.44); Carbon Dioxide 21 mmol/L (23-31); Estimated GFR-MDRD 63
[2017-03-16 06:40] LABS: Chloride 110 mmol/L (98-107)
[2017-03-16 06:42] LABS: #Lymphocytes 0.3 thou/uL (1.20-3.40); #Monocytes 0.2 thou/uL (0.11-0.59); #Neutrophils 11.7 thou/uL (1.40-6.50); %Eosinophils 0.1 % (0.0-10.0); %Lymphocytes 2.5 % (21.0-51.0); %Monocytes 1.6 % (0.0-10.0); Mean Platelet Volume 9.6 fL (7.4-10.4); Red Blood Cell (RBC) Count 4.15 mill/uL (4.20-5.40); White Blood Cell (WBC) Count 12.2 thou/uL (4.8-10.8)
[2017-03-16] MEDS: HumaLOG 300 UNITS/3 ML VIAL SC PRN (06:51)
[2017-03-16 07:32] LABS: Mechanical Tidal Volume 385 ml; Mode SIMV.PSV; Modified Allen's Test POSITIVE; Pressure Support 10 cmH2O; Sodium 138 mmol/L (135-148); Vent YES
[2017-03-16] MEDS ORDERED: Dextrose 50% Abboject 50 ML SYRINGE SLOW IVP PRN (07:38)
[2017-03-16] MEDS ORDERED: Dextrose 5% in Water 1,000 ML IV PRN (07:38)
--- NOTE | 2017-03-16 07:55 | PRG ---
DATE OF SERVICE: 03/16/2017 This is 35 minutes critical care time. Ms. Lopez remains intubated on mechanical ventilation. She is somewhat dyssynchronous with the nichelle tilator. PHYSICAL EXAMINATION: VITAL SIGNS: Temperature is 97.5 with a T-max of 98.4, pulse is 88, blood pressure 128/54. She is c urrently on no vasopressor therapy. Total intake for 24 hours was 4674, output 1440. HEENT: Unremarkable. NECK: She has subcutaneous air present. LUNGS: Diminished breath sounds bilaterally. A subcutaneous air palpated on the chest. She has nathen ateral chest tubes. CARDIAC: S1 and S2 regular, without murmur. ABDOMEN: Soft, nontender, nondistended. EXTREMITIES: No clubbing, cyanosis. She has trace edema throughout. LABORATORY DATA: White blood cell count 12.2, hemoglobin 13.3, hematocrit 42.0, platelet count 82, p H 7.33, pCO2 of 42, pO2 of 64 yesterday. ABG from today is pending. Sodium 136, potassium 4.6, chlo ride 110, CO2 21, BUN 56, creatinine 0.8, glucose 455, the BAL fluid demonstrated a predominance of n eutrophils. The GMS stain is pending. ASSESSMENT: 1. Acute respiratory failure requiring mechanical ventilation. 2. Bilateral pneumonia. 3. Bilateral pneumothoraces. 4. Mild azotemia. PLAN: 1. Awaiting GMS stain. Continue cefepime, fluconazole, Bactrim. 2. Intermittent paralysis as needed to facilitate patient compliance. 3. I updated the family yesterday. I think the patient's prognosis is quite poor.
[2017-03-16] MEDS: Aspirin 81 mg Enteric Coated Tablet PO SCH (08:56)
[2017-03-16] MEDS: Fluconazole In NaCl,Iso-Osm 200 MG in Premix Bag 1 BAG IVPB SCH ×2 (08:56)
[2017-03-16] MEDS: Vancomycin HCl 1 GM in Premix Bag 1 BAG IVPB SCH ×2 (08:56→20:58)
[2017-03-16] MEDS: Pantoprazole 40 MG VIAL IVP SCH (08:56)
[2017-03-16] MEDS: NPH, Human Insulin Isophane 300 UNIT/3 ML VIAL SC SCH ×2 (08:58→20:50)
--- NOTE | 2017-03-16 09:33 | RAD ---
1 VIEW CHEST: Date: 03/16/17 COMPARISON: 03/15/17. HISTORY: Ventilated patient. Respiratory distress. FINDINGS: Portable semiupright chest radiograph redemonstrates endotracheal tube and nasogastric tube. Interval replacement of bilateral small bore pleural catheters with bilateral large bore chest tubes. Stable configuration of cardiac silhouette. There is diffuse reticulonodular opacification. Pneumothorax is difficult to appreciate. There is extensive subcutaneous emphysema. Bilateral rib fractures are again noted. IMPRESSION: 1. Interval replacement of small bore pleural catheters with large bore bilateral chest tubes. 2. Persistent interstitial and alveolar opacities with suggestion of slight progression of opacifica tion. 3. Subcutaneous emphysema. 4. Limited evaluation for bilateral pneumothoraces. Obvious large pneumothorax is not appreciated. POS: PPP
[2017-03-16] MEDS: Cefepime 2 GM, Syringe 2.5 ML in Sterile Water 10 ML SLOW IVP SCH ×2 (10:00→23:37)
[2017-03-16] MEDS: Insulin Regular 300 UNITS/3 ML VIAL SC PRN ×3 (11:19→20:54)
--- NOTE | 2017-03-16 12:04 | PDOC.PN ---
- Subjective Encounter Start Date: 03/16/17 Encounter Start Time: 09:20 Patient seen and examined. pt is intubated and sedated, has chest tube. No overnight events - Objective Resuscitation Status: Resuscitation Status FULL:Full Resuscitation MAR Reviewed: Yes Vital Signs & Weight: Vital Signs (12 hours) Temp Pulse Resp BP Pulse Ox 03/16/17 11:05 82 119/51 L 03/16/17 11:04 82 24 H 99 03/16/17 10:00 24 H 03/16/17 08:00 97.5 F L 85 24 H 97 03/16/17 06:56 88 146/59 H 03/16/17 06:54 89 24 H 99 03/16/17 06:00 24 H 03/16/17 04:00 97.5 F L 24 H 03/16/17 03:29 80 03/16/17 02:00 24 H Weight Admit Weight 142 lb 8 oz Weight 172 lb 2.896 oz Most Recent Monitor Data Heart Rate from ECG 82 NIBP 119/51 NIBP BP-Mean 91 Respiration from ECG 28 SpO2 98 I&O: 03/15/17 03/16/17 03/17/17 06:59 06:59 06:59 Intake Total 2037.9 4674.6 330 Output Total 1775 1440 280 Balance 262.9 3234.6 50 Result Diagrams: 03/16/17 06:21 03/16/17 06:21 Additional Labs: Accuchecks 03/16/17 03/15/17 03/15/17 11:12 21:35 18:07 POC Glucose 459 H 362 H 314 H Radiology Reviewed by me: Yes (chest xray) EKG Reviewed by me: Yes (nsr) Phys Exam - Physical Examination Constitutional: NAD intubated HEENT: PERRLA, moist MMs, sclera anicteric Neck: no JVD, supple Respiratory: no wheezing, no rales, no rhonchi chest tube+ Cardiovascular: RRR, no significant murmur, no rub Gastrointestinal: soft, no distention, positive bowel sounds Musculoskeletal: no edema, pulses present Lymphatic: no nodes Skin: no rash, normal turgor Dx/Plan (1) Acute respiratory failure with hypoxia Code(s): J96.01 - ACUTE RESPIRATORY FAILURE WITH HYPOXIA Status: Acute Comment: intubated, on vent (2) Community acquired bacterial pneumonia Code(s): J15.9 - UNSPECIFIED BACTERIAL PNEUMONIA Status: Acute (3) SVT (supraventricular tachycardia) Code(s): I47.1 - SUPRAVENTRICULAR TACHYCARDIA Status: Acute (4) Sepsis with acute organ dysfunction Code(s): A41.9 - SEPSIS, UNSPECIFIED ORGANISM; R65.20 - SEVERE SEPSIS WITHOUT SEPTIC SHOCK Status: Acute (5) DM2 (diabetes mellitus, type 2) Status: Chronic (6) HTN (hypertension) Code(s): I10 - ESSENTIAL (PRIMARY) HYPERTENSION Status: Chronic (7) Non compliance w medication regimen Code(s): Z91.14 - PATIENT'S OTHER NONCOMPLIANCE WITH MEDICATION REGIMEN Status : Chronic (8) Rheumatoid arthritis Code(s): M06.9 - RHEUMATOID ARTHRITIS, UNSPECIFIED Status: Chronic (9) Acute kidney injury Code(s): N17.9 - ACUTE KIDNEY FAILURE, UNSPECIFIED Status: Resolved (10) Hyponatremia Code(s): E87.1 - HYPO-OSMOLALITY AND HYPONATREMIA Status: Resolved (11) Lactic acidosis Code(s): E87.2 - ACIDOSIS Status: Resolved (12) ILD (interstitial lung disease) Code(s): J84.9 - INTERSTITIAL PULMONARY DISEASE, UNSPECIFIED Status: Acute (13) Pneumothorax Code(s): J93.9 - PNEUMOTHORAX, UNSPECIFIED Status: Acute Comment: s/p chest tube placement - Plan cont current plan of care, continue antibiotics, respiratory therapy * continue vent as per pulmonary * continue IVF * insulin dose increased * continue cefepime, diflucan and bactrim * s/p bronchoscopy, follow BAL culture * medication reviewed as below * symptomatic treatment * will consult palliative care * prognosis is guarded. Review of Systems - Review of Systems Other: unable to review as pt is intubated - Medications/Allergies Allergies/Adverse Reactions: Allergies Allergy/AdvReac Type Severity Reaction Status Date / Time No Known Drug Allergies Allergy Verified 02/23/17 21:57 Medications: Current Medications Acetaminophen (Tylenol) 650 mg PO Q4H PRN PRN Reason: Headache/Fever or Pain Last Admin: 03/14/17 21:31 Dose: 650 mg Albuterol/Ipratropium (Duoneb) 3 ml NEB F2IV-TP CORRY Last Admin: 03/16/17 11:04 Dose: 3 ml Aspirin (Ecotrin) 81 mg PO DAILY [facility] Last Admin: 03/16/17 08:56 Dose: 81 mg Clonidine (Catapres) 0.1 mg PO Q6H PRN PRN Reason: SBP GREATER THAN 160 Last Admin: 03/13/17 05:05 Dose: 0.1 mg Dextrose/Water (Dextrose 50%) 25 gm SLOW IVP PRN PRN PRN Reason: Hypoglycemia Glucagon (Glucagon) 1 mg IM PRN PRN PRN Reason: Hypoglycemia Hydralazine HCl (Apresoline) 10 mg SLOW IVP Q4H PRN PRN Reason: FOR SBP>180 Last Admin: 03/14/17 01:06 Dose: 10 mg Dextrose/Water (D5w) 1,000 mls @ 0 mls/hr IV .Q0M PRN; As Directed PRN Reason: Hypoglycemia Fluconazole/Sodium Chloride (200 mg/ Device) 100 mls @ 100 mls/hr IVPB 0900 [facility] Last Admin: 03/16/17 08:56 Dose: 100 mls Cefepime HCl 2 gm/ Syringe 2.5 (ml/ Sterile Water) 12.5 mls @ 150 mls/hr SLOW IVP 1100,2300 [facility] Last Admin: 03/16/17 10:00 Dose: 12.5 mls Trimethoprim/Sulfamethoxazole (300 mg/ Dextrose/Water) 500 mls @ 500 mls/hr IVPB Q6HR [facility] Last Admin: 03/16/17 06:48 Dose: 500 mls Diltiazem HCl 125 mg/Miscellaneous Medication 1 each/ Sodium Chloride 125 mls @ 4 mls/hr IVPB INF PRN; Protocol PRN Reason: HR >150 X 3 MINUTES Sodium Chloride (Normal Saline 0.9%) 1,000 mls @ 100 mls/hr IV .Q10H [facility] Last Admin: 03/16/17 02:20 Dose: 1,000 mls Fentanyl (Fentanyl Cadd) 250 mls @ 0 mls/hr IVPB INF CORRY; Titrate PRN Reason: Protocol Stop: 04/14/17 12:58 Fentanyl Citrate (Fentanyl Bolus) 250 mls @ 0 mls/hr IVPB PRN PRN; As Directed PRN Reason: Breakthrough pain Stop: 04/14/17 12:58 Potassium Chloride 40 meq/ (Sodium Chloride) 270 mls @ 135 mls/hr IVPB ASDIR PRN PRN Reason: FOR SERUM K+ 2.5 - 3.5 Potassium Chloride 40 meq/ (Device) 100 mls @ 50 mls/hr IVPB ASDIR PRN PRN Reason: FOR SERUM K+ 2.5 - 3.5 Magnesium Sulfate 1 gm/ Sodium (Chloride) 102 mls @ 102 mls/hr IV PRN PRN PRN Reason: MAG LEVEL 1.4 - 2.0 Magnesium Sulfate 2 gm/ Device 100 mls @ 100 mls/hr IVPB ASDIR PRN PRN Reason: MAGNESIUM < 1.4 Potassium Phosphate 9 mmol/ (Sodium Chloride) 103 mls @ 25.75 mls/hr IVPB ASDIR PRN PRN Reason: Phosphate 1.0-1.8 Potassium Phosphate 12 mmol/ (Sodium Chloride) 254 mls @ 63.5 mls/hr IV ASDIR PRN PRN Reason: Serum phosphate 0.5-0.9 Potassium Phosphate 15 mmol/ (Sodium Chloride) 255 mls @ 63.75 mls/hr IV ASDIR PRN PRN Reason: Serum Phos < 0.5 Vancomycin HCl 1 gm/ Device 200 mls @ 200 mls/hr IVPB 08,1999 [facility] Last Admin: 03/16/17 08:56 Dose: 200 mls Insulin Human NPH (Humulin N) 40 unit SC BID [facility] Last Admin: 03/16/17 08:58 Dose: 40 unit Insulin Human Regular (Humulin R) 0 units SC .AGGRESSIVE SLIDING PRN PRN Reason: Aggressive Sliding Scale Last Admin: 03/16/17 11:19 Dose: 13 unit Lorazepam (Ativan) 2 mg SLOW IVP Q2H PRN PRN Reason: Anxiety to achieve Piper 2-3 Stop: 04/14/17 12:58 Last Admin: 03/15/17 21:30 Dose: 2 mg Magnesium Oxide (Magnesium Oxide) 400 mg PO BIDPRN PRN PRN Reason: FOR SERUM MAG 1.4 - 2.0 Magnesium Oxide (Magnesium Oxide) 800 mg PO PRN PRN PRN Reason: FOR SERUM MAG < 1.4 Methylprednisolone Sodium Succinate (Solu-Medrol) 40 mg IVP Q6HR [facility] Last Admin: 03/16/17 11:21 Dose: 40 mg Miscellaneous Medication (Phos-Nak) 1 pkt PO TIDPRN PRN PRN Reason: FOR PHOS LEVEL 1.0 - 1.8 Miscellaneous Medication (Phos-Nak) 2 pkt PO TIDPRN PRN PRN Reason: FOR PHOS LEVEL 0.5 - 1.0 Miscellaneous Medication (Pharmacy To Dose) 1 each IVPB PRN PRN PRN Reason: Pharmacy to dose Morphine Sulfate (Morphine) 2 mg SLOW IVP Q2H PRN PRN Reason: Breakthrough Pain Nitroglycerin (Nitrostat) 0.4 mg PO Q5MIN PRN PRN Reason: Chest Pain Ondansetron HCl (Zofran) 4 mg IVP Q6H PRN PRN Reason: Nausea/Vomiting Last Admin: 03/07/17 18:12 Dose: 4 mg Pantoprazole Sodium (Protonix) 40 mg IVP DAILY [facility] Last Admin: 03/16/17 08:56 Dose: 40 mg Potassium Chloride (K-Dur) 40 meq PO ASDIR PRN PRN Reason: FOR SERUM K+ 2.5 - 3.5 Potassium Chloride (Klor-Con) 40 meq PER TUBE ASDIR PRN PRN Reason: FOR SERUM K+ 2.5-3.5 Propofol (Diprivan) 1,000 mg IV INF PRN; Protocol PRN Reason: TO ACHIEVE PIPER SCORE 2-3 Stop: 04/14/17 12:58 Last Admin: 03/16/17 08:56 Dose: 1,000 mg Rocuronium [place] (Zemuron) 50 mg IVP Q1H PRN PRN Reason: Agitation Sodium Chloride (Flush - Normal Saline) 10 ml IVF Q12HR [facility] Last Admin: 03/16/17 08:59 Dose: 10 ml Sodium Chloride (Flush - Normal Saline) 10 ml IVF PRN PRN PRN Reason: Saline Flush Last Admin: 03/13/17 06:26 Dose: 10 ml Tramadol HCl (Ultram) 50 mg PO Q6H PRN PRN Reason: Pain Last Admin: 03/08/17 21:31 Dose: 50 mg
[2017-03-16] MEDS: Lorazepam 2 MG/ML VIAL SLOW IVP PRN (23:37)
[2017-03-17] MEDS: Insulin Regular 300 UNITS/3 ML VIAL SC PRN ×2 (01:39→04:39)
[2017-03-17] MEDS: Lorazepam 2 MG/ML VIAL SLOW IVP PRN (03:00)
[2017-03-17 04:36] LABS: #Lymphocytes 0.2 thou/uL (1.20-3.40); #Monocytes 0.2 thou/uL (0.11-0.59); #Neutrophils 9.1 thou/uL (1.40-6.50); %Eosinophils 0.1 % (0.0-10.0); %Lymphocytes 2.5 % (21.0-51.0); %Monocytes 1.9 % (0.0-10.0); Hematocrit 37.7 % (36.0-47.0); Mean Platelet Volume 9.8 fL (7.4-10.4); Red Blood Cell (RBC) Count 3.75 mill/uL (4.20-5.40); White Blood Cell (WBC) Count 9.5 thou/uL (4.8-10.8)
[2017-03-17 04:54] LABS: Anion Gap 9 mmol/L (10-20); BUN (Urea Nitrogen) 44 mg/dL (9.8-20.1); Calc. Creatinine Clearance 71 mL/min (70-130); Calcium 7.7 mg/dL (7.8-10.44); Carbon Dioxide 21 mmol/L (23-31); Chloride 107 mmol/L (98-107); Estimated GFR-MDRD 64
[2017-03-17 07:20] LABS: Oxyhemoglobin 91.8 % (94.0-97.0); Sodium 132 mmol/L (135-148)
[2017-03-17] MEDS ORDERED: HumaLOG 300 UNITS/3 ML VIAL SC PRN ×2 (07:53)
[2017-03-17] MEDS ORDERED: NPH, Human Insulin Isophane 300 UNIT/3 ML VIAL SC SCH (07:53)
[2017-03-17] MEDS ORDERED: Furosemide 40 MG/4 ML VIAL IVP SCH (08:00)
[2017-03-17] MEDS: Propofol 1,000 MG/100 ML VIAL IV PRN ×3 (08:00→22:49)
[2017-03-17] MEDS: Vancomycin HCl 1 GM in Premix Bag 1 BAG IVPB SCH ×2 (08:00→20:50)
[2017-03-17] MEDS: Pantoprazole 40 MG VIAL IVP SCH (08:01)
[2017-03-17] MEDS: Aspirin 81 mg Enteric Coated Tablet PO SCH (08:01)
[2017-03-17] MEDS: Fluconazole In NaCl,Iso-Osm 200 MG in Premix Bag 1 BAG IVPB SCH ×2 (08:24)
--- NOTE | 2017-03-17 08:28 | RAD ---
AP CHEST: History: Intubation. Comparison: 03-16-17 IMPRESSION: The thoracostomy tubes have been slightly withdrawn from the prior exam. No pneumothorax is evident. ET tube and gastric catheter are unchanged. No pneumothorax is evident. Diffuse parenchymal opacities are similar. POS: H
[2017-03-17 08:47] LABS: Mechanical Tidal Volume 385 ml; Mode SIMV.PSV; Modified Allen's Test POSITIVE; Pressure Support 10 cmH2O; Vent YES
[2017-03-17] MEDS: Cefepime 2 GM, Syringe 2.5 ML in Sterile Water 10 ML SLOW IVP SCH ×2 (11:13→22:49)
--- NOTE | 2017-03-17 11:46 | PDOC.PN ---
- Subjective Encounter Start Date: 03/17/17 Encounter Start Time: 07:00 pt is intubated, sedated, Patient seen and examined. No overnight events - Objective Resuscitation Status: Resuscitation Status FULL:Full Resuscitation MAR Reviewed: Yes Vital Signs & Weight: Vital Signs (12 hours) Temp Pulse Resp BP Pulse Ox 03/17/17 10:40 104 H 133/54 L 03/17/17 10:39 105 H 24 H 96 03/17/17 06:58 107 H 128/51 L 03/17/17 06:53 108 H 24 H 98 03/17/17 06:00 24 H 03/17/17 04:00 98.6 F 24 H 03/17/17 02:40 104 H 03/17/17 02:00 24 H 03/17/17 00:00 98.4 F 24 H Weight Admit Weight 142 lb 8 oz Weight 176 lb 5.917 oz Most Recent Monitor Data Heart Rate from ECG 111 NIBP 128/51 NIBP BP-Mean 87 Respiration from ECG 24 SpO2 98 I&O: 03/16/17 03/17/17 03/18/17 06:59 06:59 06:59 Intake Total 4674.6 4980 Output Total 1440 1685 Balance 3234.6 3295 Result Diagrams: 03/17/17 04:04 03/17/17 04:04 Additional Labs: Accuchecks 03/17/17 03/17/17 03/17/17 11:20 10:34 08:58 POC Glucose 306 H 322 H 372 H 03/17/17 03/17/17 03/16/17 04:31 01:38 20:49 POC Glucose 315 H 441 H 433 H 03/16/17 16:34 POC Glucose 450 H Radiology Reviewed by me: Yes (chest xray) EKG Reviewed by me: Yes (sinus tachycardia) Phys Exam - Physical Examination Constitutional: NAD intubated, sedated HEENT: PERRLA, sclera anicteric Neck: no JVD, supple bilateral coarse sound+ Cardiovascular: RRR, no significant murmur tachycardia Gastrointestinal: soft, no distention, positive bowel sounds Musculoskeletal: pulses present trace edmea+ Lymphatic: no nodes Skin: no rash, normal turgor Dx/Plan (1) Acute respiratory failure with hypoxia Code(s): J96.01 - ACUTE RESPIRATORY FAILURE WITH HYPOXIA Status: Acute Comment: intubated, on vent (2) SVT (supraventricular tachycardia) Code(s): I47.1 - SUPRAVENTRICULAR TACHYCARDIA Status: Resolved (3) Sepsis with acute organ dysfunction Code(s): A41.9 - SEPSIS, UNSPECIFIED ORGANISM; R65.20 - SEVERE SEPSIS WITHOUT SEPTIC SHOCK Status: Acute (4) DM2 (diabetes mellitus, type 2) Status: Chronic (5) HTN (hypertension) Code(s): I10 - ESSENTIAL (PRIMARY) HYPERTENSION Status: Chronic (6) Non compliance w medication regimen Code(s): Z91.14 - PATIENT'S OTHER NONCOMPLIANCE WITH MEDICATION REGIMEN Status : Chronic (7) Rheumatoid arthritis Code(s): M06.9 - RHEUMATOID ARTHRITIS, UNSPECIFIED Status: Chronic (8) Acute kidney injury Code(s): N17.9 - ACUTE KIDNEY FAILURE, UNSPECIFIED Status: Resolved (9) Hyponatremia Code(s): E87.1 - HYPO-OSMOLALITY AND HYPONATREMIA Status: Resolved (10) Lactic acidosis Code(s): E87.2 - ACIDOSIS Status: Resolved (11) ILD (interstitial lung disease) Code(s): J84.9 - INTERSTITIAL PULMONARY DISEASE, UNSPECIFIED Status: Acute (12) Hyperglycemia, drug-induced Code(s): R73.9 - HYPERGLYCEMIA, UNSPECIFIED; T50.905A - ADVERSE EFFECT OF UNSP DRUG/MEDS/BIOL SUBST, INIT Status: Acute (13) Interstitial pneumonia Code(s): J84.9 - INTERSTITIAL PULMONARY DISEASE, UNSPECIFIED Status: Acute (14) Macrocytosis Code(s): D75.89 - OTHER SPECIFIED DISEASES OF BLOOD AND BLOOD-FORMING ORGANS Status: Acute (15) Pneumothorax Code(s): J93.9 - PNEUMOTHORAX, UNSPECIFIED Status: Acute Comment: s/p chest tube placement (16) Thrombocytopenia Code(s): D69.6 - THROMBOCYTOPENIA, UNSPECIFIED Status: Acute - Plan cont current plan of care, mccarthy catheter, continue antibiotics, respiratory therapy, DVT proph w/SCDs * for hyperglycemia, due to steroid, will now start insulin drip for glucose control * continue cefepime, diflucan and bactrim * continue IV steroid * vent as per pulmonary * chest tube as per CT surgeon * medication reviewed as below * symptomatic treatment. Review of Systems - Review of Systems Other: unable to review as pt is intubated and sedated - Medications/Allergies Allergies/Adverse Reactions: Allergies Allergy/AdvReac Type Severity Reaction Status Date / Time No Known Drug Allergies Allergy Verified 02/23/17 21:57 Medications: Current Medications Acetaminophen (Tylenol) 650 mg PO Q4H PRN PRN Reason: Headache/Fever or Pain Last Admin: 03/14/17 21:31 Dose: 650 mg Albuterol/Ipratropium (Duoneb) 3 ml NEB [id number] [facility] Last Admin: 03/17/17 10:39 Dose: 3 ml Aspirin (Ecotrin) 81 mg PO DAILY [facility] Last Admin: 03/17/17 08:01 Dose: 81 mg Clonidine (Catapres) 0.1 mg PO Q6H PRN PRN Reason: SBP GREATER THAN 160 Last Admin: 03/13/17 05:05 Dose: 0.1 mg Dextrose/Water (Dextrose 50%) 25 gm SLOW IVP PRN PRN PRN Reason: Hypoglycemia Glucagon (Glucagon) 1 mg IM PRN PRN PRN Reason: Hypoglycemia Hydralazine HCl (Apresoline) 10 mg SLOW IVP Q4H PRN PRN Reason: FOR SBP>180 Last Admin: 03/14/17 01:06 Dose: 10 mg Dextrose/Water (D5w) 1,000 mls @ 0 mls/hr IV .Q0M PRN; As Directed PRN Reason: Hypoglycemia Fluconazole/Sodium Chloride (200 mg/ Device) 100 mls @ 100 mls/hr IVPB 0900 [facility] Last Admin: 03/17/17 08:24 Dose: 100 mls Cefepime HCl 2 gm/ Syringe 2.5 (ml/ Sterile Water) 12.5 mls @ 150 mls/hr SLOW IVP 1100,2300 [facility] Last Admin: 03/17/17 11:13 Dose: 12.5 mls Trimethoprim/Sulfamethoxazole (300 mg/ Dextrose/Water) 500 mls @ 500 mls/hr IVPB Q6HR [facility] Last Admin: 03/17/17 06:46 Dose: 500 mls Diltiazem HCl 125 mg/Miscellaneous Medication 1 each/ Sodium Chloride 125 mls @ 4 mls/hr IVPB INF PRN; Protocol PRN Reason: HR >150 X 3 MINUTES Fentanyl (Fentanyl Cadd) 250 mls @ 0 mls/hr IVPB INF [facility]; Titrate PRN Reason: Protocol Stop: 04/14/17 12:58 Last Admin: 03/17/17 08:15 Dose: 250 mls Fentanyl Citrate (Fentanyl Bolus) 250 mls @ 0 mls/hr IVPB PRN PRN; As Directed PRN Reason: Breakthrough pain Stop: 04/14/17 12:58 Potassium Chloride 40 meq/ (Sodium Chloride) 270 mls @ 135 mls/hr IVPB ASDIR PRN PRN Reason: FOR SERUM K+ 2.5 - 3.5 Potassium Chloride 40 meq/ (Device) 100 mls @ 50 mls/hr IVPB ASDIR PRN PRN Reason: FOR SERUM K+ 2.5 - 3.5 Magnesium Sulfate 1 gm/ Sodium (Chloride) 102 mls @ 102 mls/hr IV PRN PRN PRN Reason: MAG LEVEL 1.4 - 2.0 Magnesium Sulfate 2 gm/ Device 100 mls @ 100 mls/hr IVPB ASDIR PRN PRN Reason: MAGNESIUM < 1.4 Potassium Phosphate 9 mmol/ (Sodium Chloride) 103 mls @ 25.75 mls/hr IVPB ASDIR PRN PRN Reason: Phosphate 1.0-1.8 Potassium Phosphate 12 mmol/ (Sodium Chloride) 254 mls @ 63.5 mls/hr IV ASDIR PRN PRN Reason: Serum phosphate 0.5-0.9 Potassium Phosphate 15 mmol/ (Sodium Chloride) 255 mls @ 63.75 mls/hr IV ASDIR PRN PRN Reason: Serum Phos < 0.5 Vancomycin HCl 1 gm/ Device 200 mls @ 200 mls/hr IVPB 0800,1999 [facility] Last Admin: 03/17/17 08:00 Dose: 200 mls Insulin Human Regular 100 (units/ Sodium Chloride) 101 mls @ 0 mls/hr IVPB INF [facility]; Titrate PRN Reason: Protocol Last Admin: 03/17/17 08:40 Dose: 101 mls Lorazepam (Ativan) 2 mg SLOW IVP Q2H PRN PRN Reason: Anxiety to achieve Piper 2-3 Stop: 04/14/17 12:58 Last Admin: 03/17/17 03:00 Dose: 2 mg Magnesium Oxide (Magnesium Oxide) 400 mg PO BIDPRN PRN PRN Reason: FOR SERUM MAG 1.4 - 2.0 Magnesium Oxide (Magnesium Oxide) 800 mg PO PRN PRN PRN Reason: FOR SERUM MAG < 1.4 Methylprednisolone Sodium Succinate (Solu-Medrol) 20 mg IVP Q6HR [facility] Last Admin: 03/17/17 11:01 Dose: 20 mg Miscellaneous Medication (Phos-Nak) 1 pkt PO TIDPRN PRN PRN Reason: FOR PHOS LEVEL 1.0 - 1.8 Miscellaneous Medication (Phos-Nak) 2 pkt PO TIDPRN PRN PRN Reason: FOR PHOS LEVEL 0.5 - 1.0 Miscellaneous Medication (Pharmacy To Dose) 1 each IVPB PRN PRN PRN Reason: Pharmacy to dose Morphine Sulfate (Morphine) 2 mg SLOW IVP Q2H PRN PRN Reason: Breakthrough Pain Nitroglycerin (Nitrostat) 0.4 mg PO Q5MIN PRN PRN Reason: Chest Pain Ondansetron HCl (Zofran) 4 mg IVP Q6H PRN PRN Reason: Nausea/Vomiting Last Admin: 03/07/17 18:12 Dose: 4 mg Pantoprazole Sodium (Protonix) 40 mg IVP DAILY [facility] Last Admin: 03/17/17 08:01 Dose: 40 mg Potassium Chloride (K-Dur) 40 meq PO ASDIR PRN PRN Reason: FOR SERUM K+ 2.5 - 3.5 Potassium Chloride (Klor-Con) 40 meq PER TUBE ASDIR PRN PRN Reason: FOR SERUM K+ 2.5-3.5 Propofol (Diprivan) 1,000 mg IV INF PRN; Protocol PRN Reason: TO ACHIEVE PIPER SCORE 2-3 Stop: 04/14/17 12:58 Last Admin: 03/17/17 08:00 Dose: 1,000 mg Rocuronium [place] (Zemuron) 50 mg IVP Q1H PRN PRN Reason: Agitation Last Admin: 03/17/17 03:38 Dose: 50 mg Sodium Chloride (Flush - Normal Saline) 10 ml IVF Q12HR [facility] Last Admin: 03/17/17 08:01 Dose: 10 ml Sodium Chloride (Flush - Normal Saline) 10 ml IVF PRN PRN PRN Reason: Saline Flush Last Admin: 03/13/17 06:26 Dose: 10 ml Tramadol HCl (Ultram) 50 mg PO Q6H PRN PRN Reason: Pain Last Admin: 03/08/17 21:31 Dose: 50 mg
--- NOTE | 2017-03-17 11:55 | PRG ---
DATE OF SERVICE: 03/17/2017 Thirty-five minutes critical care time. Ms. Lopez remains intubated on mechanical ventilation. She has shown no progress towards getting b andreia. PHYSICAL EXAMINATION: VITAL SIGNS: Her temperature is 98.6, pulse 111, blood pressure 128/51. She is requiring no vasopre ssors. Total intake for 24 hours 4674, output 1440, weight now 176 pounds. I do not think the weigh ts are entirely accurate compared to her weights on the IMCU a couple of days ago. HEENT: Unremarkable. NECK: No JVD. She has some subcu air in place. LUNGS: Coarse breath sounds bilaterally. She has an air leak from the right chest tube. Left side has no air leak. CARDIOVASCULAR: S1, S2 regular. ABDOMEN: Soft, nontender. She is tolerating tube feeds well. EXTREMITIES: No edema. Chest x-ray shows dense bilateral infiltrates, no evidence of pneumothorax, bilateral chest tubes are in place. LABORATORY DATA: ABG; pH 7.24, pCO2 54, pO2 74 that is on SIMV rate 24, tidal volume 385, PEEP 5, p ressure support 10, FiO2 50%. White blood cell count 9.5, hemoglobin 12, hematocrit 37.7, platelet count 69. Sodium 132, potassium 4.7, chloride 107, CO2 21, BUN 44, creatinine 0.8, glucose 425. Cultures showed no growth to date. Her GMS stain is still pending from the bronch done a few days ago. ASSESSMENT: 1. Acute respiratory failure requiring mechanical ventilation. 2. Acute respiratory distress syndrome. 3. Necrotizing pneumonia. 4. Bilateral pneumothoraces. 5. Mild azotemia which is better than yesterday. 6. Fluid overloaded. PLAN: 1. Awaiting GMS stain, apparently the mechanism for doing that in the lab is not running at this flash e. I am continuing empiric cefepime and Bactrim. Fluconazole was started for yeast that was present on the BAL. 2. Continue intermittent paralysis as needed. I still think where palliative care is meeting w ith the patient's family. 3. I am going to try to diurese her a little today and see if that helps. 4. Family has been informed of patient's poor prognosis.
[2017-03-17] MEDS: Sodium Chloride 0.9% 1,000 ML IV SCH ×2 (17:34→17:40)
[2017-03-18] MEDS: cloNIDine 0.1 MG TAB PO PRN (04:38)
[2017-03-18 05:00] LABS: Anion Gap 8 mmol/L (10-20); BUN (Urea Nitrogen) 44 mg/dL (9.8-20.1); Calc. Creatinine Clearance 65 mL/min (70-130); Calcium 7.9 mg/dL (7.8-10.44); Carbon Dioxide 24 mmol/L (23-31); Chloride 102 mmol/L (98-107); Estimated GFR-MDRD 55
[2017-03-18 05:20] LABS: #Lymphocytes 0.3 thou/uL (1.20-3.40); #Monocytes 0.3 thou/uL (0.11-0.59); #Neutrophils 11.6 thou/uL (1.40-6.50); %Eosinophils 0.1 % (0.0-10.0); %Lymphocytes 2.2 % (21.0-51.0); %Monocytes 2.1 % (0.0-10.0); Hematocrit 38.5 % (36.0-47.0); Mean Platelet Volume 7.3 fL (7.4-10.4); Nucleated RBC 1 % (0); Red Blood Cell (RBC) Count 3.85 mill/uL (4.20-5.40); White Blood Cell (WBC) Count 12.2 thou/uL (4.8-10.8)
[2017-03-18 06:30] LABS: Oxyhemoglobin 84.1 % (94.0-97.0); Sodium 128 mmol/L (135-148)
[2017-03-18 06:31] LABS: Mechanical Tidal Volume 400 ml; Mode SIMV/PS; Modified Allen's Test POSITIVE; Pressure Support 10 cmH2O; Vent YES
[2017-03-18 08:12] LABS: Anion Gap 11 mmol/L (10-20); BUN (Urea Nitrogen) 45 mg/dL (9.8-20.1); Calc. Creatinine Clearance 58 mL/min (70-130); Calcium 7.8 mg/dL (7.8-10.44); Carbon Dioxide 19 mmol/L (23-31); Chloride 103 mmol/L (98-107); Estimated GFR-MDRD 49; Vancomycin, Trough 30.1 ug/mL
[2017-03-18] MEDS: Fluconazole In NaCl,Iso-Osm 200 MG in Premix Bag 1 BAG IVPB SCH ×2 (08:34)
[2017-03-18] MEDS: Aspirin 81 mg Enteric Coated Tablet PO SCH (08:35)
[2017-03-18] MEDS: Pantoprazole 40 MG VIAL IVP SCH (08:35)
--- NOTE | 2017-03-18 09:21 | RAD ---
AP VIEW CHEST: DATE: 03/18/17. COMPARISON: Comparison is made to previous exam from 03/17/17. FINDINGS: AP view chest demonstrates a nasogastric tube, endotracheal tube, and both sided chest tubes again to be in place. Diffuse airspace opacity is seen bilaterally. Bilateral apical small new pneumothorac es seen. No other significant interval change is seen. Diffuse bilateral airspace opacities noted. IMPRESSION: Stable AP view chest. POS: [facility]
[2017-03-18] MEDS: Lorazepam 2 MG/ML VIAL SLOW IVP PRN ×2 (09:34→19:57)
[2017-03-18] MEDS ORDERED: Sodium Bicarb 50 MEQ/50 ML Abboject 8.4% SYRINGE IVP SCH ×2 (11:00→17:15)
[2017-03-18] MEDS: Acetaminophen 325 MG TAB PO PRN ×3 (11:00→23:22)
[2017-03-18] MEDS: Propofol 1,000 MG/100 ML VIAL IV PRN ×2 (11:15→23:18)
--- NOTE | 2017-03-18 11:33 | PRG ---
DATE OF SERVICE: 03/18/2017 Ms. Lopez remains mechanically ventilated and sedated. Intake and output was positive 1088. PHYSICAL EXAMINATION: VITAL SIGNS: Heart rate 104, blood pressure 107/42, respiratory rate is per mechanical ventilation. LUNGS: She has bilateral equal breath sounds. HEART: Regular rhythm. ABDOMEN: Abdomen is soft. EXTREMITIES: Without asymmetry. LABORATORY DATA: White count 12.2, hemoglobin 12.6, platelets 103,000. Sodium 126, potassium 6.5, c hloride 103, bicarb 19, BUN 45, creatinine 1.1, pH 7.23, CO2 of 58, pO2 54. Chest radiograph shows diffuse infiltrates, bilateral chest tubes. IMPRESSION: 1. Pneumonia with adult respiratory distress syndrome. 2. Mixed acidosis, increase her rate, increase her PEEP. 3. Bilateral chest tubes from bilateral spontaneous pneumothoraces. 4. Enterococcus and coag negative Staph isolated from bronchial washings is essentially meade sensitiv e organism with the exception of Enterococcus resistant to erythromycin. Coag negative Staph will be sensitive only to vancomycin, but I doubt Ms. Lopez has a coag negative Staph pneumonia. 5. Hyperkalemia. This will need to be monitored closely, she is not weanable. PLAN: We will also use nutritional support that is low in potassium. Potassium on blood gas is 6.1. This will need to be repeated this afternoon. I will add bicarbonate to her fluids. I will discon tinue the vancomycin as her urine output appears to be trending downward. There is no clear indicati on for vancomycin in this setting in my opinion. We will also discontinue the Bactrim. We are still awaiting special stains on the send out for the b ronchial lavage. It appears preliminary was negative. CRITICAL CARE TIME: 40 MINUTES.
[2017-03-18] MEDS: Cefepime 2 GM, Syringe 2.5 ML in Sterile Water 10 ML SLOW IVP SCH ×2 (11:45→23:19)
--- NOTE | 2017-03-18 12:06 | PDOC.PN ---
- Subjective Encounter Start Date: 03/18/17 Encounter Start Time: 10:00 pt is intubated, sedated, today febrile, tachycardic and hypotensive, hypoxic on vent - Objective Resuscitation Status: Resuscitation Status FULL:Full Resuscitation MAR Reviewed: Yes Vital Signs & Weight: Vital Signs (12 hours) Temp Pulse Resp BP Pulse Ox 03/18/17 10:32 104 H 107/42 L 03/18/17 08:17 106 H 96/44 L 03/18/17 08:00 101.6 F H 109 H 24 H 90 L 03/18/17 06:48 118 H 117/42 L 03/18/17 06:00 0 L 03/18/17 04:38 176/70 H 03/18/17 03:56 27 H 03/18/17 03:10 118 H 03/18/17 03:08 91 L 03/18/17 03:00 99.1 F 03/18/17 02:00 0 L Weight Admit Weight 142 lb 8 oz Weight 179 lb 3.773 oz Most Recent Monitor Data Heart Rate from ECG 103 NIBP 100/48 NIBP BP-Mean 60 Respiration from ECG 12 SpO2 95 I&O: 03/17/17 03/18/17 03/19/17 06:59 06:59 06:59 Intake Total 4980 4328.7 60 Output Total 1685 3240 65 Balance 3295 1088.7 -5 Result Diagrams: 03/18/17 04:14 03/18/17 07:09 Additional Labs: Accuchecks 03/18/17 03/18/17 03/18/17 07:10 06:39 04:44 POC Glucose 137 H 138 H 123 H 03/18/17 03/18/17 03/18/17 02:54 01:41 00:40 POC Glucose 182 H 222 H 275 H 03/17/17 03/17/17 03/17/17 22:48 21:52 20:39 POC Glucose 155 H 166 H 150 H 03/17/17 03/17/17 03/17/17 19:35 18:23 17:37 POC Glucose 144 H 158 H 135 H 03/17/17 03/17/17 03/17/17 16:29 15:26 14:30 POC Glucose 160 H 209 H 256 H 03/17/17 03/17/17 13:25 12:25 POC Glucose 255 H 228 H Radiology Reviewed by me: Yes (chest xray) EKG Reviewed by me: Yes (tachycardia) Phys Exam - Physical Examination Constitutional: NAD intubated sedated HEENT: PERRLA, sclera anicteric Neck: no JVD, supple coarse breath sound bilateral Cardiovascular: RRR, no significant murmur, no rub tachycardia Gastrointestinal: soft, no distention, positive bowel sounds Musculoskeletal: pulses present, edema present unable to assess Lymphatic: no nodes Deviation from normal: unable to assess Skin: no rash, normal turgor Dx/Plan (1) Acute respiratory failure with hypoxia Code(s): J96.01 - ACUTE RESPIRATORY FAILURE WITH HYPOXIA Status: Acute Comment: intubated, on vent (2) SVT (supraventricular tachycardia) Code(s): I47.1 - SUPRAVENTRICULAR TACHYCARDIA Status: Resolved (3) Sepsis with acute organ dysfunction Code(s): A41.9 - SEPSIS, UNSPECIFIED ORGANISM; R65.20 - SEVERE SEPSIS WITHOUT SEPTIC SHOCK Status: Acute (4) DM2 (diabetes mellitus, type 2) Status: Chronic (5) HTN (hypertension) Code(s): I10 - ESSENTIAL (PRIMARY) HYPERTENSION Status: Chronic (6) Non compliance w medication regimen Code(s): Z91.14 - PATIENT'S OTHER NONCOMPLIANCE WITH MEDICATION REGIMEN Status : Chronic (7) Rheumatoid arthritis Code(s): M06.9 - RHEUMATOID ARTHRITIS, UNSPECIFIED Status: Chronic (8) Acute kidney injury Code(s): N17.9 - ACUTE KIDNEY FAILURE, UNSPECIFIED Status: Resolved (9) Hyponatremia Code(s): E87.1 - HYPO-OSMOLALITY AND HYPONATREMIA Status: Resolved (10) Lactic acidosis Code(s): E87.2 - ACIDOSIS Status: Resolved (11) ILD (interstitial lung disease) Code(s): J84.9 - INTERSTITIAL PULMONARY DISEASE, UNSPECIFIED Status: Acute (12) Hyperglycemia, drug-induced Code(s): R73.9 - HYPERGLYCEMIA, UNSPECIFIED; T50.905A - ADVERSE EFFECT OF UNSP DRUG/MEDS/BIOL SUBST, INIT Status: Acute (13) Interstitial pneumonia Code(s): J84.9 - INTERSTITIAL PULMONARY DISEASE, UNSPECIFIED Status: Acute (14) Macrocytosis Code(s): D75.89 - OTHER SPECIFIED DISEASES OF BLOOD AND BLOOD-FORMING ORGANS Status: Acute (15) Pneumothorax Code(s): J93.9 - PNEUMOTHORAX, UNSPECIFIED Status: Acute Comment: s/p chest tube placement (16) Thrombocytopenia Code(s): D69.6 - THROMBOCYTOPENIA, UNSPECIFIED Status: Acute - Plan cont current plan of care, continue antibiotics, respiratory therapy * vent as per pulmonary * today peep increased * on cefepime, vancomycin, diflucan and bactrim * continue solumedrol * continue insulin drip * prognosis is very poor * family meeting tomorrow * chance of survival is very little * medication reviewed as below * symptomatic treatment. Review of Systems - Review of Systems Other: unable to review as pt is intubated and sedated - Medications/Allergies Allergies/Adverse Reactions: Allergies Allergy/AdvReac Type Severity Reaction Status Date / Time No Known Drug Allergies Allergy Verified 02/23/17 21:57 Medications: Current Medications Acetaminophen (Tylenol) 650 mg PO Q4H PRN PRN Reason: Headache/Fever or Pain Last Admin: 03/18/17 11:00 Dose: 650 mg Albuterol/Ipratropium (Duoneb) 3 ml NEB [id number] [facility] Last Admin: 03/18/17 10:32 Dose: 3 ml Aspirin (Ecotrin) 81 mg PO DAILY [facility] Last Admin: 03/18/17 08:35 Dose: 81 mg Clonidine (Catapres) 0.1 mg PO Q6H PRN PRN Reason: SBP GREATER THAN 160 Last Admin: 03/18/17 04:38 Dose: 0.1 mg Dextrose/Water (Dextrose 50%) 25 gm SLOW IVP PRN PRN PRN Reason: Hypoglycemia Glucagon (Glucagon) 1 mg IM PRN PRN PRN Reason: Hypoglycemia Hydralazine HCl (Apresoline) 10 mg SLOW IVP Q4H PRN PRN Reason: FOR SBP>180 Last Admin: 03/14/17 01:06 Dose: 10 mg Dextrose/Water (D5w) 1,000 mls @ 0 mls/hr IV .Q0M PRN; As Directed PRN Reason: Hypoglycemia Fluconazole/Sodium Chloride (200 mg/ Device) 100 mls @ 100 mls/hr IVPB 0900 [facility] Last Admin: 03/18/17 08:34 Dose: 100 mls Cefepime HCl 2 gm/ Syringe 2.5 (ml/ Sterile Water) 12.5 mls @ 150 mls/hr SLOW IVP 1100,2300 [facility] Last Admin: 03/18/17 11:45 Dose: 12.5 mls Diltiazem HCl 125 mg/Miscellaneous Medication 1 each/ Sodium Chloride 125 mls @ 4 mls/hr IVPB INF PRN; Protocol PRN Reason: HR >150 X 3 MINUTES Fentanyl (Fentanyl Cadd) 250 mls @ 0 mls/hr IVPB INF [facility]; Titrate PRN Reason: Protocol Stop: 04/14/17 12:58 Last Admin: 03/17/17 08:15 Dose: 250 mls Fentanyl Citrate (Fentanyl Bolus) 250 mls @ 0 mls/hr IVPB PRN PRN; As Directed PRN Reason: Breakthrough pain Stop: 04/14/17 12:58 Magnesium Sulfate 1 gm/ Sodium (Chloride) 102 mls @ 102 mls/hr IV PRN PRN PRN Reason: MAG LEVEL 1.4 - 2.0 Magnesium Sulfate 2 gm/ Device 100 mls @ 100 mls/hr IVPB ASDIR PRN PRN Reason: MAGNESIUM < 1.4 Insulin Human Regular 100 (units/ Sodium Chloride) 101 mls @ 0 mls/hr IVPB INF [facility]; Titrate PRN Reason: Protocol Last Admin: 03/17/17 17:33 Dose: 101 mls Lorazepam (Ativan) 2 mg SLOW IVP Q2H PRN PRN Reason: Anxiety to achieve Piper 2-3 Stop: 04/14/17 12:58 Last Admin: 03/18/17 09:34 Dose: 2 mg Magnesium Oxide (Magnesium Oxide) 400 mg PO BIDPRN PRN PRN Reason: FOR SERUM MAG 1.4 - 2.0 Magnesium Oxide (Magnesium Oxide) 800 mg PO PRN PRN PRN Reason: FOR SERUM MAG < 1.4 Methylprednisolone Sodium Succinate (Solu-Medrol) 20 mg IVP Q6HR [facility] Last Admin: 03/18/17 11:46 Dose: 20 mg Miscellaneous Medication (Phos-Nak) 1 pkt PO TIDPRN PRN PRN Reason: FOR PHOS LEVEL 1.0 - 1.8 Miscellaneous Medication (Phos-Nak) 2 pkt PO TIDPRN PRN PRN Reason: FOR PHOS LEVEL 0.5 - 1.0 Miscellaneous Medication (Pharmacy To Dose) 1 each IVPB PRN PRN PRN Reason: Pharmacy to dose Morphine Sulfate (Morphine) 2 mg SLOW IVP Q2H PRN PRN Reason: Breakthrough Pain Nitroglycerin (Nitrostat) 0.4 mg PO Q5MIN PRN PRN Reason: Chest Pain Ondansetron HCl (Zofran) 4 mg IVP Q6H PRN PRN Reason: Nausea/Vomiting Last Admin: 03/07/17 18:12 Dose: 4 mg Pantoprazole Sodium (Protonix) 40 mg IVP DAILY [facility] Last Admin: 03/18/17 08:35 Dose: 40 mg Propofol (Diprivan) 1,000 mg IV INF PRN; Protocol PRN Reason: TO ACHIEVE PIPER SCORE 2-3 Stop: 04/14/17 12:58 Last Admin: 03/17/17 22:49 Dose: 1,000 mg Rocuronium [place] (Zemuron) 50 mg IVP Q1H PRN PRN Reason: Agitation Last Admin: 03/17/17 03:38 Dose: 50 mg Sodium Bicarbonate (Bicarbonate, Sodium) 100 meq IVP NOW [facility] Stop: 03/18/17 13:00 Last Admin: 03/18/17 11:46 Dose: 100 meq Sodium Chloride (Flush - Normal Saline) 10 ml IVF Q12HR [facility] Last Admin: 03/18/17 08:35 Dose: 10 ml Sodium Chloride (Flush - Normal Saline) 10 ml IVF PRN PRN PRN Reason: Saline Flush Last Admin: 03/13/17 06:26 Dose: 10 ml Tramadol HCl (Ultram) 50 mg PO Q6H PRN PRN Reason: Pain Last Admin: 03/08/17 21:31 Dose: 50 mg
[2017-03-18] MEDS ORDERED: Albuterol Sulfate 1.25 MG/3 ML NEB NEB SCH (17:15)
[2017-03-18] MEDS ORDERED: Calcium Gluc 4.6 MEQ/10 ML (100 MG/ML) SLOW IVP SCH (17:30)
[2017-03-18] MEDS ORDERED: Sodium Bicarbonate 75 MEQ in Dextrose 5% in Water 500 ML IV SCH ×2 (19:30)
[2017-03-18] MEDS ORDERED: Vancomycin HCl 1 GM in Premix Bag 1 BAG IVPB SCH (21:00)
[2017-03-19] MEDS: Sodium Bicarbonate 150 MEQ in D5 1/4 NS 1,000 ML IV SCH ×2 (01:05→13:30)
[2017-03-19] MEDS: Acetaminophen 325 MG TAB PO PRN ×2 (04:27→19:02)
[2017-03-19] MEDS ORDERED: Norepinephrine 8 MG/0.9% NS 250 ML ONE (05:35)
[2017-03-19 06:26] LABS: Oxyhemoglobin 78.3 % (94.0-97.0); Sodium 133 mmol/L (135-148)
[2017-03-19 06:28] LABS: Mechanical Tidal Volume 400 ml; Mode SIMV/PS; Modified Allen's Test POSITIVE; Pressure Support 10 cmH2O; Vent YES
[2017-03-19 06:31] LABS: Anion Gap 16 mmol/L (10-20); BUN (Urea Nitrogen) 83 mg/dL (9.8-20.1); Calc. Creatinine Clearance 30 mL/min (70-130); Calcium 7.3 mg/dL (7.8-10.44); Carbon Dioxide 25 mmol/L (23-31); Chloride 97 mmol/L (98-107); Estimated GFR-MDRD 23
[2017-03-19 06:36] LABS: Band 17 % (5-11); Hematocrit 31.4 % (36.0-47.0); Mean Platelet Volume 10.4 fL (7.4-10.4); Neutrophil 79 % (42-75); Red Blood Cell (RBC) Count 3.16 mill/uL (4.20-5.40); White Blood Cell (WBC) Count 11.5 thou/uL (4.8-10.8)
[2017-03-19] MEDS: Pantoprazole 40 MG VIAL IVP SCH (08:44)
[2017-03-19] MEDS: Fluconazole In NaCl,Iso-Osm 200 MG in Premix Bag 1 BAG IVPB SCH ×2 (08:45)
[2017-03-19] MEDS: Aspirin 81 mg Enteric Coated Tablet PO SCH (08:45)
--- NOTE | 2017-03-19 09:02 | RAD ---
AP VIEW CHEST: Date: 03/19/17 HISTORY: Ventilator-dependent patient. FINDINGS: AP view of chest obtained. Comparison made to previous exam from 03/18/17. AP view of chest demonstrates nasogastric tube in place. The patient is intubated. Endotracheal tube is in good position. Bilateral chest tubes seen. There is a tiny right medial apical pneumothorax present. Left-sided pneumothorax is difficult to see as noted on the previous comparison radiograph. Diffuse air space opacities seen bilaterally. No other significant interval change is seen. IMPRESSION: Bilateral chest tubes and right-sided tiny apical pneumothorax. No definite evidence of left-sided pn eumothorax seen. Diffuse air space opacities are stable and unchanged. POS: [facility]
--- NOTE | 2017-03-19 10:56 | PDOC.PN ---
- Subjective Encounter Start Date: 03/19/17 Encounter Start Time: 09:15 pt is intubated and sedated Patient seen and examined. No overnight events - Objective Resuscitation Status: Resuscitation Status FULL:Full Resuscitation MAR Reviewed: Yes Vital Signs & Weight: Vital Signs (12 hours) Temp Pulse Resp BP Pulse Ox 03/19/17 10:00 28 H 03/19/17 08:00 100.9 F H 115 H 28 H 96 03/19/17 07:00 100.7 F H 03/19/17 06:47 110 H 107/39 L 03/19/17 06:00 28 H 03/19/17 04:00 28 H 03/19/17 03:18 104 H 03/19/17 03:00 100.8 F H 03/19/17 02:00 0 L 03/19/17 01:02 106 H 03/19/17 01:01 107 H 28 H 95 03/18/17 23:29 0 L 03/18/17 23:00 101.3 F H 03/18/17 22:56 102 H Weight Admit Weight 142 lb 8 oz Weight 174 lb 9.698 oz Most Recent Monitor Data Heart Rate from ECG 118 NIBP 132/35 NIBP BP-Mean 77 Respiration from ECG 0 SpO2 97 I&O: 03/18/17 03/19/17 03/20/17 06:59 06:59 06:59 Intake Total 4328.7 3458.4 194 Output Total 3240 590 0 Balance 1088.7 2868.4 194 Result Diagrams: 03/19/17 04:07 03/19/17 04:07 Additional Labs: Accuchecks 03/19/17 03/19/17 03/19/17 06:29 04:06 02:57 POC Glucose 155 H 157 H 147 H 03/19/17 03/19/17 03/18/17 01:57 00:24 22:59 POC Glucose 163 H 207 H 206 H 03/18/17 03/18/17 03/18/17 21:48 20:41 19:31 POC Glucose 179 H 211 H 212 H 03/18/17 03/18/17 03/18/17 18:31 17:16 16:08 POC Glucose 217 H 134 H 126 H 03/18/17 03/18/17 03/18/17 15:17 13:53 12:17 POC Glucose 152 H 211 H 263 H 03/18/17 03/18/17 03/18/17 10:59 08:59 05:44 POC Glucose 265 H 283 H 112 H 03/18/17 03/17/17 03:51 23:40 POC Glucose 166 H 166 H Radiology Reviewed by me: Yes (chest xray) EKG Reviewed by me: Yes (sinus tachycardia) Phys Exam - Physical Examination intubated and sedated HEENT: PERRLA, sclera anicteric NG tube, ET tube+ Neck: no nodes, no JVD, supple bilateral coarse sound+, bilateral chest tube+ Cardiovascular: RRR, no significant murmur, no rub tachycardia Gastrointestinal: soft, no distention, positive bowel sounds Musculoskeletal: pulses present, edema present unable to assess Lymphatic: no nodes Deviation from normal: unable to assess Skin: no rash, normal turgor Dx/Plan (1) Interstitial pneumonia Code(s): J84.9 - INTERSTITIAL PULMONARY DISEASE, UNSPECIFIED Status: Acute (2) Acute kidney failure Status: Acute (3) ARDS (adult respiratory distress syndrome) Code(s): J80 - ACUTE RESPIRATORY DISTRESS SYNDROME Status: Acute (4) Acute respiratory failure with hypoxia Code(s): J96.01 - ACUTE RESPIRATORY FAILURE WITH HYPOXIA Status: Acute Comment: intubated, on vent (5) Sepsis with acute organ dysfunction Code(s): A41.9 - SEPSIS, UNSPECIFIED ORGANISM; R65.20 - SEVERE SEPSIS WITHOUT SEPTIC SHOCK Status: Acute (6) SVT (supraventricular tachycardia) Code(s): I47.1 - SUPRAVENTRICULAR TACHYCARDIA Status: Resolved (7) DM2 (diabetes mellitus, type 2) Status: Chronic (8) HTN (hypertension) Code(s): I10 - ESSENTIAL (PRIMARY) HYPERTENSION Status: Chronic (9) Non compliance w medication regimen Code(s): Z91.14 - PATIENT'S OTHER NONCOMPLIANCE WITH MEDICATION REGIMEN Status : Chronic (10) Rheumatoid arthritis Code(s): M06.9 - RHEUMATOID ARTHRITIS, UNSPECIFIED Status: Chronic (11) Hyponatremia Code(s): E87.1 - HYPO-OSMOLALITY AND HYPONATREMIA Status: Resolved (12) Lactic acidosis Code(s): E87.2 - ACIDOSIS Status: Resolved (13) ILD (interstitial lung disease) Code(s): J84.9 - INTERSTITIAL PULMONARY DISEASE, UNSPECIFIED Status: Acute (14) Hyperglycemia, drug-induced Code(s): R73.9 - HYPERGLYCEMIA, UNSPECIFIED; T50.905A - ADVERSE EFFECT OF UNSP DRUG/MEDS/BIOL SUBST, INIT Status: Acute (15) Macrocytosis Code(s): D75.89 - OTHER SPECIFIED DISEASES OF BLOOD AND BLOOD-FORMING ORGANS Status: Acute (16) Pneumothorax Code(s): J93.9 - PNEUMOTHORAX, UNSPECIFIED Status: Acute Comment: s/p chest tube placement (17) Thrombocytopenia Code(s): D69.6 - THROMBOCYTOPENIA, UNSPECIFIED Status: Acute (18) Hyperkalemia Code(s): E87.5 - HYPERKALEMIA Status: Acute (19) Metabolic acidosis Code(s): E87.2 - ACIDOSIS Status: Acute - Plan cont current plan of care, continue antibiotics, respiratory therapy * continue cefepime and diflucan * vent as per pulmonary * prognosis is very poor * medication reviewed as below * symptomatic treatment * pulmonary on case. Review of Systems - Review of Systems Other: unable to review as pt is intubated and sedated - Medications/Allergies Allergies/Adverse Reactions: Allergies Allergy/AdvReac Type Severity Reaction Status Date / Time No Known Drug Allergies Allergy Verified 02/23/17 21:57 Medications: Current Medications Acetaminophen (Tylenol) 650 mg PO Q4H PRN PRN Reason: Headache/Fever or Pain Last Admin: 03/19/17 04:27 Dose: 650 mg Albuterol/Ipratropium (Duoneb) 3 ml NEB [id number] [facility] Last Admin: 03/19/17 06:47 Dose: 3 ml Aspirin (Ecotrin) 81 mg PO DAILY [facility] Last Admin: 03/19/17 08:45 Dose: 81 mg Clonidine (Catapres) 0.1 mg PO Q6H PRN PRN Reason: SBP GREATER THAN 160 Last Admin: 03/18/17 04:38 Dose: 0.1 mg Dextrose/Water (Dextrose 50%) 25 gm SLOW IVP PRN PRN PRN Reason: Hypoglycemia Glucagon (Glucagon) 1 mg IM PRN PRN PRN Reason: Hypoglycemia Hydralazine HCl (Apresoline) 10 mg SLOW IVP Q4H PRN PRN Reason: FOR SBP>180 Last Admin: 03/14/17 01:06 Dose: 10 mg Dextrose/Water (D5w) 1,000 mls @ 0 mls/hr IV .Q0M PRN; As Directed PRN Reason: Hypoglycemia Fluconazole/Sodium Chloride (200 mg/ Device) 100 mls @ 100 mls/hr IVPB 0900 [facility] Last Admin: 03/19/17 08:45 Dose: 100 mls Cefepime HCl 2 gm/ Syringe 2.5 (ml/ Sterile Water) 12.5 mls @ 150 mls/hr SLOW IVP 1100,2300 [facility] Last Admin: 03/18/17 23:19 Dose: 12.5 mls Diltiazem HCl 125 mg/Miscellaneous Medication 1 each/ Sodium Chloride 125 mls @ 4 mls/hr IVPB INF PRN; Protocol PRN Reason: HR >150 X 3 MINUTES Fentanyl (Fentanyl Cadd) 250 mls @ 0 mls/hr IVPB INF [facility]; Titrate PRN Reason: Protocol Stop: 04/14/17 12:58 Last Admin: 03/17/17 08:15 Dose: 250 mls Fentanyl Citrate (Fentanyl Bolus) 250 mls @ 0 mls/hr IVPB PRN PRN; As Directed PRN Reason: Breakthrough pain Stop: 04/14/17 12:58 Magnesium Sulfate 1 gm/ Sodium (Chloride) 102 mls @ 102 mls/hr IV PRN PRN PRN Reason: MAG LEVEL 1.4 - 2.0 Magnesium Sulfate 2 gm/ Device 100 mls @ 100 mls/hr IVPB ASDIR PRN PRN Reason: MAGNESIUM < 1.4 Insulin Human Regular 100 (units/ Sodium Chloride) 101 mls @ 0 mls/hr IVPB INF [facility]; Titrate PRN Reason: Protocol Last Admin: 03/19/17 01:14 Dose: 101 mls Sodium Bicarbonate 150 meq/ (Dextrose/Sodium Chloride) 1,150 mls @ 100 mls/hr IV .[id number] [facility] Last Admin: 03/19/17 01:05 Dose: 1,150 mls Norepinephrine Bitartrate (Levophed) 250 mls @ 0 mls/hr IVPB INF PRN; Protocol ; Titrate PRN Reason: Blood Pressure Lorazepam (Ativan) 2 mg SLOW IVP Q2H PRN PRN Reason: Anxiety to achieve Piper 2-3 Stop: 04/14/17 12:58 Last Admin: 12/21/17 19:57 Dose: 2 mg Magnesium Oxide (Magnesium Oxide) 400 mg PO BIDPRN PRN PRN Reason: FOR SERUM MAG 1.4 - 2.0 Magnesium Oxide (Magnesium Oxide) 800 mg PO PRN PRN PRN Reason: FOR SERUM MAG < 1.4 Methylprednisolone Sodium Succinate (Solu-Medrol) 20 mg IVP Q6HR [facility] Last Admin: 03/19/17 05:42 Dose: 20 mg Miscellaneous Medication (Phos-Nak) 1 pkt PO TIDPRN PRN PRN Reason: FOR PHOS LEVEL 1.0 - 1.8 Miscellaneous Medication (Phos-Nak) 2 pkt PO TIDPRN PRN PRN Reason: FOR PHOS LEVEL 0.5 - 1.0 Miscellaneous Medication (Pharmacy To Dose) 1 each IVPB PRN PRN PRN Reason: Pharmacy to dose Morphine Sulfate (Morphine) 2 mg SLOW IVP Q2H PRN PRN Reason: Breakthrough Pain Nitroglycerin (Nitrostat) 0.4 mg PO Q5MIN PRN PRN Reason: Chest Pain Ondansetron HCl (Zofran) 4 mg IVP Q6H PRN PRN Reason: Nausea/Vomiting Last Admin: 03/07/17 18:12 Dose: 4 mg Pantoprazole Sodium (Protonix) 40 mg IVP DAILY [facility] Last Admin: 03/19/17 08:44 Dose: 40 mg Propofol (Diprivan) 1,000 mg IV INF PRN; Protocol PRN Reason: TO ACHIEVE PIPER SCORE 2-3 Stop: 04/14/17 12:58 Last Admin: 03/18/17 23:18 Dose: 1,000 mg Rocuronium [place] (Zemuron) 50 mg IVP Q1H PRN PRN Reason: Agitation Last Admin: 03/17/17 03:38 Dose: 50 mg Sodium Chloride (Flush - Normal Saline) 10 ml IVF Q12HR [facility] Last Admin: 03/19/17 08:45 Dose: 10 ml Sodium Chloride (Flush - Normal Saline) 10 ml IVF PRN PRN PRN Reason: Saline Flush Last Admin: 03/13/17 06:26 Dose: 10 ml Tramadol HCl (Ultram) 50 mg PO Q6H PRN PRN Reason: Pain Last Admin: 03/08/17 21:31 Dose: 50 mg
[2017-03-19] MEDS: Cefepime 2 GM, Syringe 2.5 ML in Sterile Water 10 ML SLOW IVP SCH ×2 (11:45→23:16)
[2017-03-19] MEDS: Propofol 1,000 MG/100 ML VIAL IV PRN (11:49)
--- NOTE | 2017-03-19 12:29 | CON ---
DATE OF CONSULTATION: 03/19/2017 NEPHROLOGY CONSULTATION REASON FOR CONSULTATION: Hyperkalemia. CONSULTING PHYSICIAN: Dr. Barrios HISTORY OF PRESENT ILLNESS: This is a very pleasant 71-year-old female who was admitted on 7 for pneumonia-like symptoms. Her baseline creatinine was 1.1 on 03/18/2017 and prior to that was 0 .69 and increased to 2.09 today with potassium. The patient is on Bactrim and was hypotensive today. PAST MEDICAL HISTORY: Hypertension, diabetes mellitus, rheumatoid arthritis, history of cholecystect vanessa, partial hysterectomy, tubal ligation. SOCIAL HISTORY: No alcohol or drug use. FAMILY HISTORY: Negative for ESRD. REVIEW OF SYSTEMS: Unobtainable, the patient is intubated. PHYSICAL EXAMINATION: GENERAL: Patient is resting. VITAL SIGNS: Afebrile, pulse 118, breathing at 16, blood pressure 142/48. GENERAL: Awake, alert, in no acute distress. GENERAL APPEARANCE AND MENTAL STATUS: Fair. HEAD/NECK: Normocephalic. Atraumatic. EYES: EOMI. No deformity. EARS: Clear. No ulcers. NOSE: Intact. No lesions. MOUTH: Clear. No discharge. THROAT: Clear. No exudate. LUNGS: Clear. No crackles. CARDIAC: S1, S2. No rub. ABDOMEN: Benign. BS+. GENITALIA/RECTUM: Ross absent. BACK/EXTREMITIES: Edema 0+ Ulcer- NEUROLOGICAL: The patient is resting. SKIN: Rash- Bruise- LYMPHATICS: Edema- Ulcer- LABORATORY: Creatinine is 2, potassium is 5.6. ASSESSMENT AND RECOMMENDATIONS: 1. Acute kidney injury with chronic kidney disease, most likely due to decreased effective arterial blood volume. I would recommend changing Bactrim to another antibiotic. 2. Hyperkalemia. We will recheck potassium again and consider dialysis. 3. Mixed acid base disorder. No urgent indication for dialysis. We will follow the patient's potas sium closely. We will consider renal imaging once the patient is stable.
[2017-03-19 13:13] LABS: Anion Gap 12 mmol/L (10-20); BUN (Urea Nitrogen) 91 mg/dL (9.8-20.1); Calc. Creatinine Clearance 27 mL/min (70-130); Calcium 7.2 mg/dL (7.8-10.44); Carbon Dioxide 31 mmol/L (23-31); Chloride 95 mmol/L (98-107); Estimated GFR-MDRD 21
[2017-03-19 13:42] VITALS: BMI 30.9
[2017-03-19] MEDS: Sodium Chloride 0.9% 1,000 ML IV SCH ×2 (14:11→23:22)
[2017-03-19 14:44] VITALS: BP 88/35
[2017-03-19] MEDS: Albumin 25% 25 GM/100 ML BOT IVPB SCH ×2 (17:00→23:15)
[2017-03-19] MEDS ORDERED: Pancrelipase DR 12000 1 CAP FS PRN (17:18)
[2017-03-19] MEDS ORDERED: Sodium Bicarbonate Tab 325 MG TAB PER TUBE PRN (17:18)
[2017-03-19 18:08] LABS: Anion Gap 16 mmol/L (10-20); BUN (Urea Nitrogen) 92 mg/dL (9.8-20.1); Calc. Creatinine Clearance 27 mL/min (70-130); Calcium 6.9 mg/dL (7.8-10.44); Carbon Dioxide 26 mmol/L (23-31); Chloride 97 mmol/L (98-107); Estimated GFR-MDRD 21
[2017-03-19] MEDS: Norepinephrine 8 MG/250 ML BAG IVPB PRN (18:09)
--- NOTE | 2017-03-19 22:44 | PRG ---
DATE OF SERVICE: 03/19/2017 SUBJECTIVE: Ms. Lopez continues to decline. She is very weak. OBJECTIVE: VITAL SIGNS: Blood pressure 182/40 now, was 162/48 earlier. Heart rate has been fluctuating between the one teens and the 180s. She is in atrial fibrillation. LUNGS: Remarkable for coarse equal breath sounds. HEART: Regular rhythm. ABDOMEN: Soft. LABORATORY DATA: White count 11.5, hemoglobin 10.5 and platelets 65,000. Sodium 134, potassium 4.8, chloride 97, bicarbonate 26, BUN 92 and creatinine 2.29. Intake and output is positive 2868, she only had 590 mL of urine out. She has had 555 mL of urine output today. ASSESSMENT AND PLAN: Palliative care met with the family. They wanted to make her a do not resuscit ate patient, but wanted to continue aggressive care for now. Given the duration of her illness, the critical nature of her multiple medical problems, her severe gas exchange problems, her renal failure , diffuse alveolar damage, pneumonia, pressor requirements and rapid atrial fibrillation, I really ca nnot see any way she can survive this to become functional again. We will continue with full care ort for heroic measures. CRITICAL CARE TIME: 30 minutes.
[2017-03-20] MEDS: Albumin 25% 25 GM/100 ML BOT IVPB SCH ×3 (05:32→17:57)
[2017-03-20 06:02] LABS: Anion Gap 16 mmol/L (10-20); BUN (Urea Nitrogen) 105 mg/dL (9.8-20.1); Calc. Creatinine Clearance 25 mL/min (70-130); Calcium 6.8 mg/dL (7.8-10.44); Carbon Dioxide 28 mmol/L (23-31); Chloride 97 mmol/L (98-107); Estimated GFR-MDRD 19
[2017-03-20 06:18] LABS: Hematocrit 28.4 % (36.0-47.0); Mean Platelet Volume 9.7 fL (7.4-10.4); Red Blood Cell (RBC) Count 2.85 mill/uL (4.20-5.40); White Blood Cell (WBC) Count 17.6 thou/uL (4.8-10.8)
[2017-03-20 07:35] LABS: Band 34 % (5-11); Neutrophil 62 % (42-75); Toxic Granulation SLIGHT; Vacuoles SLIGHT
[2017-03-20 07:37] LABS: Oxyhemoglobin 95.3 % (94.0-97.0); Sodium 134 mmol/L (135-148)
[2017-03-20 07:39] LABS: Mode BILEVEL; PIP 12 cmH2O; Pressure Support 10 cmH2O; Vent YES
[2017-03-20] MEDS ORDERED: Digoxin 0.5 MG/2 ML AMP SLOW IVP SCH (08:30)
[2017-03-20] MEDS: Pantoprazole 40 MG VIAL IVP SCH (08:35)
[2017-03-20] MEDS: Aspirin 81 mg Enteric Coated Tablet PO SCH (08:35)
--- NOTE | 2017-03-20 09:55 | RAD ---
AP VIEW CHEST: Date: 03/20/17 HISTORY: Ventilator dependent patient. FINDINGS: Comparison made to previous exam from 03/19/17. AP view of chest demonstrates bilateral chest tubes. Nasogastric and endotracheal tubes are in good p osition. Diffuse air space opacities seen in both lungs. Previously noted tiny right apical pneumotho rax is more difficult to see. No evidence of left-sided pneumothorax seen. Bilateral air space opacities compatible with bilateral pneumonia seen. IMPRESSION: Multiple tubes in good position. Diffuse bilateral air space opacities seen. No definite evidence of pneumothorax seen. POS: [facility]
[2017-03-20] MEDS: Fluconazole In NaCl,Iso-Osm 200 MG in Premix Bag 1 BAG IVPB SCH ×2 (10:28)
[2017-03-20] MEDS: Sodium Chloride 0.9% 1,000 ML IV SCH (10:29)
[2017-03-20] MEDS: Norepinephrine 8 MG/250 ML BAG IVPB PRN (10:30)
--- NOTE | 2017-03-20 11:46 | PDOC.PN ---
- Subjective Encounter Start Date: 03/20/17 Encounter Start Time: 09:15 this morning pt has atrial flutter with RVR she is intubated and sedated Patient seen and examined. No overnight events - Objective Resuscitation Status: Resuscitation Status DNR:Do Not Resuscitate MAR Reviewed: Yes Vital Signs & Weight: Vital Signs (12 hours) Temp Pulse Resp Pulse Ox 03/20/17 11:22 125 H 03/20/17 08:35 147 H 03/20/17 08:00 98.8 F 147 H 28 H 98 03/20/17 07:17 147 H 03/20/17 07:00 98.8 F 03/20/17 06:00 28 H 03/20/17 04:00 99.5 F 03/20/17 03:39 32 H 03/20/17 02:32 120 H 34 H 100 03/20/17 02:00 28 H 03/20/17 00:00 28 H Weight Admit Weight 142 lb 8 oz Weight 183 lb 10.321 oz Most Recent Monitor Data Heart Rate from ECG 120 NIBP 105/65 NIBP BP-Mean 75 Respiration from ECG 28 SpO2 97 I&O: 03/19/17 03/20/17 03/21/17 06:59 06:59 06:59 Intake Total 3458.4 3822.6 130.2 Output Total 590 1020 30 Balance 2868.4 2802.6 100.2 Result Diagrams: 03/20/17 04:01 03/20/17 04:01 Additional Labs: Accuchecks 03/20/17 03/20/17 03/20/17 07:04 06:08 04:34 POC Glucose 153 H 145 H 111 H 03/20/17 03/20/17 03/20/17 03:38 02:40 01:40 POC Glucose 112 H 142 H 189 H 03/20/17 03/19/17 03/19/17 00:53 23:56 22:52 POC Glucose 210 H 237 H 228 H 03/19/17 03/19/17 03/19/17 21:00 20:20 19:12 POC Glucose 201 H 177 H 163 H 03/19/17 03/19/17 03/19/17 11:03 10:14 09:05 POC Glucose 121 H 122 H 127 H 03/19/17 03/19/17 08:06 05:43 POC Glucose 114 H 169 H Radiology Reviewed by me: Yes (chest xray) EKG Reviewed by me: Yes (atrial flutter) Phys Exam - Physical Examination Constitutional: NAD intubated HEENT: PERRLA, sclera anicteric NG tube+, ET tube+ Neck: no JVD, supple bilateral coarse breath sound bilateral chest tube+ atrial flutter, tachy Gastrointestinal: soft, no distention, positive bowel sounds Musculoskeletal: pulses present, edema present unable to assess Lymphatic: no nodes Deviation from normal: unable to assess Skin: no rash, normal turgor Dx/Plan (1) Acute respiratory failure with hypoxia Code(s): J96.01 - ACUTE RESPIRATORY FAILURE WITH HYPOXIA Status: Acute Comment: intubated, on vent (2) SVT (supraventricular tachycardia) Code(s): I47.1 - SUPRAVENTRICULAR TACHYCARDIA Status: Resolved (3) Sepsis with acute organ dysfunction Code(s): A41.9 - SEPSIS, UNSPECIFIED ORGANISM; R65.20 - SEVERE SEPSIS WITHOUT SEPTIC SHOCK Status: Acute (4) DM2 (diabetes mellitus, type 2) Status: Chronic (5) HTN (hypertension) Code(s): I10 - ESSENTIAL (PRIMARY) HYPERTENSION Status: Chronic (6) Non compliance w medication regimen Code(s): Z91.14 - PATIENT'S OTHER NONCOMPLIANCE WITH MEDICATION REGIMEN Status : Chronic (7) Rheumatoid arthritis Code(s): M06.9 - RHEUMATOID ARTHRITIS, UNSPECIFIED Status: Chronic (8) Hyponatremia Code(s): E87.1 - HYPO-OSMOLALITY AND HYPONATREMIA Status: Resolved (9) Lactic acidosis Code(s): E87.2 - ACIDOSIS Status: Resolved (10) ILD (interstitial lung disease) Code(s): J84.9 - INTERSTITIAL PULMONARY DISEASE, UNSPECIFIED Status: Acute (11) Hyperglycemia, drug-induced Code(s): R73.9 - HYPERGLYCEMIA, UNSPECIFIED; T50.905A - ADVERSE EFFECT OF UNSP DRUG/MEDS/BIOL SUBST, INIT Status: Acute (12) Interstitial pneumonia Code(s): J84.9 - INTERSTITIAL PULMONARY DISEASE, UNSPECIFIED Status: Acute (13) Macrocytosis Code(s): D75.89 - OTHER SPECIFIED DISEASES OF BLOOD AND BLOOD-FORMING ORGANS Status: Acute (14) Pneumothorax Code(s): J93.9 - PNEUMOTHORAX, UNSPECIFIED Status: Acute Comment: s/p chest tube placement (15) Thrombocytopenia Code(s): D69.6 - THROMBOCYTOPENIA, UNSPECIFIED Status: Acute (16) Acute kidney failure Status: Acute (17) Hyperkalemia Code(s): E87.5 - HYPERKALEMIA Status: Acute (18) Metabolic acidosis Code(s): E87.2 - ACIDOSIS Status: Acute (19) Atrial flutter with rapid ventricular response Code(s): I48.92 - UNSPECIFIED ATRIAL FLUTTER Status: Acute (20) ARDS (adult respiratory distress syndrome) Code(s): J80 - ACUTE RESPIRATORY DISTRESS SYNDROME Status: Acute - Plan cont current plan of care, respiratory therapy * pulmonary and critical care managing vent * i will one dose of digoxin for atrial flutter with RVR * if rate remains high and BP allows, will consider cardizem drip * medication reviewed as below * symptomatic treatment * Now pt is DNR * prognosis is very poor. Review of Systems - Review of Systems Other: unable to assess as pt is intubated and sedated - Medications/Allergies Allergies/Adverse Reactions: Allergies Allergy/AdvReac Type Severity Reaction Status Date / Time No Known Drug Allergies Allergy Verified 02/23/17 21:57 Medications: Current Medications Acetaminophen (Tylenol) 650 mg PO Q4H PRN PRN Reason: Headache/Fever or Pain Last Admin: 03/19/17 19:02 Dose: 650 mg Albumin Human (Albumin 25%) 25 gm IVPB Q6HR [facility] Stop: 03/21/17 18:01 Last Admin: 03/20/17 05:32 Dose: 25 gm Albuterol/Ipratropium (Duoneb) 3 ml NEB [id number] [facility] Last Admin: 03/20/17 11:22 Dose: 3 ml Lipase/Protease/Amylase ([place] [id number]) 1 cap FS .PER PROTOCOL PRN PRN Reason: TUBE OCCLUSION PROTOCOL Aspirin (Ecotrin) 81 mg PO DAILY [facility] Last Admin: 03/20/17 08:35 Dose: 81 mg Clonidine (Catapres) 0.1 mg PO Q6H PRN PRN Reason: SBP GREATER THAN 160 Last Admin: 03/18/17 04:38 Dose: 0.1 mg Dextrose/Water (Dextrose 50%) 25 gm SLOW IVP PRN PRN PRN Reason: Hypoglycemia Digoxin (Lanoxin) 0.25 mg SLOW IVP NOW [facility] Stop: 03/20/17 12:00 Last Admin: 03/20/17 08:35 Dose: 0.25 mg Glucagon (Glucagon) 1 mg IM PRN PRN PRN Reason: Hypoglycemia Hydralazine HCl (Apresoline) 10 mg SLOW IVP Q4H PRN PRN Reason: FOR SBP>180 Last Admin: 03/14/17 01:06 Dose: 10 mg Dextrose/Water (D5w) 1,000 mls @ 0 mls/hr IV .Q0M PRN; As Directed PRN Reason: Hypoglycemia Fluconazole/Sodium Chloride (200 mg/ Device) 100 mls @ 100 mls/hr IVPB 0900 [facility] Last Admin: 03/20/17 10:28 Dose: 100 mls Cefepime HCl 2 gm/ Syringe 2.5 (ml/ Sterile Water) 12.5 mls @ 150 mls/hr SLOW IVP 1100,2300 [facility] Last Admin: 03/19/17 23:16 Dose: 12.5 mls Diltiazem HCl 125 mg/Miscellaneous Medication 1 each/ Sodium Chloride 125 mls @ 4 mls/hr IVPB INF PRN; Protocol PRN Reason: HR >150 X 3 MINUTES Fentanyl (Fentanyl Cadd) 250 mls @ 0 mls/hr IVPB INF [facility]; Titrate PRN Reason: Protocol Stop: 04/14/17 12:58 Last Admin: 03/17/17 08:15 Dose: 250 mls Fentanyl Citrate (Fentanyl Bolus) 250 mls @ 0 mls/hr IVPB PRN PRN; As Directed PRN Reason: Breakthrough pain Stop: 04/14/17 12:58 Magnesium Sulfate 1 gm/ Sodium (Chloride) 102 mls @ 102 mls/hr IV PRN PRN PRN Reason: MAG LEVEL 1.4 - 2.0 Magnesium Sulfate 2 gm/ Device 100 mls @ 100 mls/hr IVPB ASDIR PRN PRN Reason: MAGNESIUM < 1.4 Insulin Human Regular 100 (units/ Sodium Chloride) 101 mls @ 0 mls/hr IVPB INF [facility]; Titrate PRN Reason: Protocol Last Admin: 03/20/17 03:30 Dose: 101 mls Norepinephrine Bitartrate (Levophed) 250 mls @ 0 mls/hr IVPB INF PRN; Protocol ; Titrate PRN Reason: Blood Pressure Last Admin: 03/20/17 10:30 Dose: 250 mls Sodium Chloride (Normal Saline 0.9%) 1,000 mls @ 100 mls/hr IV .Q10H [facility] Last Admin: 03/20/17 10:29 Dose: 1,000 mls Lorazepam (Ativan) 2 mg SLOW IVP Q2H PRN PRN Reason: Anxiety to achieve Piper 2-3 Stop: 04/14/17 12:58 Last Admin: 03/18/17 19:57 Dose: 2 mg Magnesium Oxide (Magnesium Oxide) 400 mg PO BIDPRN PRN PRN Reason: FOR SERUM MAG 1.4 - 2.0 Magnesium Oxide (Magnesium Oxide) 800 mg PO PRN PRN PRN Reason: FOR SERUM MAG < 1.4 Methylprednisolone Sodium Succinate (Solu-Medrol) 20 mg IVP Q6HR [facility] Last Admin: 03/20/17 05:39 Dose: 20 mg Miscellaneous Medication (Phos-Nak) 1 pkt PO TIDPRN PRN PRN Reason: FOR PHOS LEVEL 1.0 - 1.8 Miscellaneous Medication (Phos-Nak) 2 pkt PO TIDPRN PRN PRN Reason: FOR PHOS LEVEL 0.5 - 1.0 Morphine Sulfate (Morphine) 2 mg SLOW IVP Q2H PRN PRN Reason: Breakthrough Pain Nitroglycerin (Nitrostat) 0.4 mg PO Q5MIN PRN PRN Reason: Chest Pain Ondansetron HCl (Zofran) 4 mg IVP Q6H PRN PRN Reason: Nausea/Vomiting Last Admin: 03/07/17 18:12 Dose: 4 mg Pantoprazole Sodium (Protonix) 40 mg IVP DAILY [facility] Last Admin: 03/20/17 08:35 Dose: 40 mg Propofol (Diprivan) 1,000 mg IV INF PRN; Protocol PRN Reason: TO ACHIEVE PIPER SCORE 2-3 Stop: 04/14/17 12:58 Last Admin: 03/19/17 11:49 Dose: 1,000 mg Rocuronium [place] (Zemuron) 50 mg IVP Q1H PRN PRN Reason: Agitation Last Admin: 03/19/17 16:38 Dose: 50 mg Sodium Bicarbonate (Bicarbonate, Sodium) 650 mg PER TUBE .PER PROTOCOL PRN PRN Reason: ENTERAL TUBE OCCLUSION Sodium Chloride (Flush - Normal Saline) 10 ml IVF Q12HR [facility] Last Admin: 03/19/17 19:38 Dose: Not Given Sodium Chloride (Flush - Normal Saline) 10 ml IVF PRN PRN PRN Reason: Saline Flush Last Admin: 03/13/17 06:26 Dose: 10 ml Tramadol HCl (Ultram) 50 mg PO Q6H PRN PRN Reason: Pain Last Admin: 03/08/17 21:31 Dose: 50 mg
[2017-03-20] MEDS: Cefepime 2 GM, Syringe 2.5 ML in Sterile Water 10 ML SLOW IVP SCH (13:44)
[2017-03-20 16:09] VITALS: TEMP 99.9
--- NOTE | 2017-03-20 21:12 | PRG ---
DATE OF SERVICE: 03/20/2017 SUBJECTIVE: The patient was seen and examined in ICU. The patient remains intubated. Family was at the bedside. The patient has been making minimal amount of urine. OBJECTIVE: GENERAL: This is an elderly female seen in ICU, intubated. VITAL SIGNS: Temperature 99.9, pulse 85, respiratory rate 20, blood pressure 135/34. HEENT: Intubated. CARDIOVASCULAR: S1, S2 heard. RESPIRATORY: Clear. GASTROINTESTINAL: Abdomen is soft. MUSCULOSKELETAL: 1+ edema. NEUROLOGIC: Intubated. LABORATORY DATA: Potassium is 4.5, BUN is 105, creatinine is 2.5. ASSESSMENT AND PLAN: 1. Acute kidney injury on chronic kidney disease, stage 3. Renal function currently got worse, but seems like urine output is improving, so no acute indication for dialysis. 2. Hyperkalemia, better. 3. Acidosis, better. 4. Edema. 5. Hypertension. 6. Anemia. 7. Leukocytosis. 8. Continue supportive care, avoid nephrotoxins, renally dose all the medicines and hydration as jackson erated. We will follow urine output, seems to be slightly better. Urine output is improved to 870 f rom 400. We will follow.
--- NOTE | 2017-03-20 23:47 | PRG ---
DATE OF SERVICE: 03/20/2017 Amaya Lopez is . OBJECTIVE: VITAL SIGNS: Today, blood pressure is dropping into the low 60s intermittently, heart rate is in the 80s, respiratory rate in the high 20s per mechanical ventilation. LUNGS: Remarkable for coarse equal breath sounds. HEART: Regular rhythm. ABDOMEN: Soft. LABORATORY DATA: White count 17.6, hemoglobin 9.2, platelets 72,000. Sodium 136, potassium 4.5, chloride 97, bicarbonate 28, BUN 105, creatinine 2.53. IMPRESSION: Multiorgan failure. In my opinion, she will not survive this. Chest radiograph still shows findings consistent with severe ARDS. Blood gas shows persistent mixed respiratory metabolic acidosis. We cannot effectively ventilate her any longer, although her pO2 is up to 107 today, on 100% with bilevel support. Family has been multiple times that she is not expected to survive much longer. Critical care time was 30 minutes.
--- NOTE | 2017-03-21 11:45 | DS ---
DATE OF ADMISSION: 02/23/2017 DATE OF : 02/18/2017 DISCHARGE DISPOSITION: . PRIMARY CAUSE OF : 1. Adult respiratory distress syndrome. 2. Acute kidney failure. 3. Interstitial pneumonia. 4. Sepsis with multiorgan dysfunction. 5. Pneumothorax, bilateral. CONTRIBUTING DIAGNOSES: 1. Atrial flutter with rapid ventricular response. 2. Metabolic acidosis. 3. Diabetes type 2. 4. Rheumatoid arthritis. 5. Acute respiratory failure with hypoxia. 6. Anemia, macrocytic. 7. Hyperkalemia. 8. Diabetes type 2. PRIMARY PROCEDURES/OPERATIONS: 1. BiPAP support. 2. Endotracheal intubation and mechanical ventilatory support. 3. Bronchoscopy. 4. Central line placement. 5. Bilateral chest tube placement. RADIOLOGICAL INVESTIGATION: Several chest x-ray, CT chest, echocardiography. SHORT HOSPITAL SUMMARY: A 71-year-old female who was admitted by Dr. Mcelroy on 02/23/2017. This p atient was admitted to telemetry floor. She was having cough and sputum production. She was admitte d for pneumonia. On the day of admission, patient was hypoxic and patient required transfer to CCU. She was treated w ith BiPAP, Solu-Medrol and broad-spectrum antibiotic therapy. Initially, she was given Rocephin and azithromycin, and subsequently antibiotic therapy was changed to Levaquin as well as vancomycin. She was given Solu-Medrol next day or two. Patient's condition was stabilized and transferred to [facility]. In [facility], this patient remained in for several days. She was getting broad spectrum antibiotic thera py everyday along with steroid, but still the patient was requiring daily BiPAP and that is why we we re not able to transfer her out of IM. We were monitoring her chest x-ray. We did CT chest and fi nding was consistent with interstitial infiltration. Her interstitial infiltrate kept getting worse despite IV antibiotic therapy as well as steroid therapy. She was not improving. She had workup and her autoimmune marker with rheumatoid factor and GODWIN with antismooth muscle antibody was positive. We were also suspecting interstitial lung disease secondary to underlying autoimmune disorder. We ch anged antibiotic therapy to doxycycline and cefepime as well as we also added Diflucan. We tried our best to change all different kind of antibiotic therapy and lastly she was on cefepime, but even aft er stronger IV antibiotic therapy and steroid therapy, her condition deteriorated. She required intu bation. She also developed bilateral pneumothorax requiring chest tube placement. The patient also developed an adult respiratory distress syndrome. We discussed with family member and her prognosis was very poor. She was not making any improvement and that is why patient was made DNR. Patient rem ained in the ventilator. During hospital, patient also had SVT which has required Cardizem drip and patient also had atrial flutter with rapid ventricular response. The patient developed multiorgan failure including acute kidney failure, lactic acidosis, hyperkalemi a, and metabolic acidosis. Last night, patient was and was pronounced and the body was released for . Time of is 19:21. was expected, patient's prognosis was very poor.
== END 2017-03-20 19:21 | disposition expired | DRG 853 ==
LOC: ERS 17:37 → 2NO 20:19 → CCU 02-25 08:38 → IMCU/EMU 03-01 18:37 → CCU 03-15 12:18
PROVIDERS: ADMIT Internal Medicine; ATTEND Internal Medicine
PROC: 0W9B00Z Drainage of Left Pleural Cavity with Drainage Device, Open Approach (ICD-10-PCS; principal; 2017-03-15)
PROC: 0B9G8ZX Drainage of Left Upper Lung Lobe, Via Natural or Artificial Opening Endoscopic, Diagnostic (ICD-10-PCS; 2017-03-15)
PROC: 5A1945Z Respiratory Ventilation, 24-96 Consecutive Hours (ICD-10-PCS; 2017-03-15)
PROC: 0W9900Z Drainage of Right Pleural Cavity with Drainage Device, Open Approach (ICD-10-PCS; 2017-03-15)
PROC: 0BH17EZ Insertion of Endotracheal Airway into Trachea, Via Natural or Artificial Opening (ICD-10-PCS; 2017-03-15)
PROC: 0W9B30Z Drainage of Left Pleural Cavity with Drainage Device, Percutaneous Approach (ICD-10-PCS; 2017-03-15)
PROC: 0W9930Z Drainage of Right Pleural Cavity with Drainage Device, Percutaneous Approach (ICD-10-PCS; 2017-03-15)
DX: A41.9 Sepsis, unspecified organism (principal); J96.01 Acute respiratory failure with hypoxia; N17.9 Acute kidney failure, unspecified; J84.9 Interstitial pulmonary disease, unspecified; D89.89 Other specified disorders involving the immune mechanism, not elsewhere classified; J84.17 Other interstitial pulmonary diseases with fibrosis in diseases classified elsewhere; E11.22 Type 2 diabetes mellitus with diabetic chronic kidney disease; D69.6 Thrombocytopenia, unspecified; N18.3 Chronic kidney disease, stage 3 (moderate); E87.2 Acidosis; I48.92 Unspecified atrial flutter; E87.1 Hypo-osmolality and hyponatremia; J93.9 Pneumothorax, unspecified; E11.65 Type 2 diabetes mellitus with hyperglycemia; R13.10 Dysphagia, unspecified; R65.20 Severe sepsis without septic shock; Z66 Do not resuscitate; I48.91 Unspecified atrial fibrillation; E87.5 Hyperkalemia; M06.9 Rheumatoid arthritis, unspecified; I10 Essential (primary) hypertension; Z79.4 Long term (current) use of insulin; I12.9 Hypertensive chronic kidney disease with stage 1 through stage 4 chronic kidney disease, or unspecified chronic kidney disease; E66.9 Obesity, unspecified; T38.0X5A Adverse effect of glucocorticoids and synthetic analogues, initial encounter; D53.9 Nutritional anemia, unspecified; Z91.14 Patient's other noncompliance with medication regimen; Z68.25 Body mass index [BMI] 25.0-25.9, adult
CPT/HCPCS: 36415; 36416; 71010; 71250; 74000; 80048; 80053; 80202; 81003; 81015; 82553; 82787; 82805; 83520; 83605; 83735; 83880; 84100; 84443; 84484; 85025; 85060; 86021; 86038; 86160; 86225; 86235; 86376; 86430; 86431; 87040; 87070; 87077; 87086; 87186; 87389; 88112; 88305; 88312; 89051; 93005; 93010; 93306; 94002; 94003; 94640; 94660; 94760; 96365; 96366; 96368; A4216; C9113; G8978-GP-CL; G8978-GP-CM; G8979-GP-CI; G8979-GP-CJ; G8996-GN-CM; G8996-GN-CN; G8997-GN-CK; J0131; J0360; J0456; J0692; J0696; J1160; J1450; J1650; J1815; J1940; J1956; J2001; J2060; J2270; J2405; J2543; J2704; J2920; J3010; J3370; J3490; J7042; J7050; J7070; J7620; P9047